=== PATIENT | male | born 1960 | race Caucasian/White ===

== ENCOUNTER 2024-05-03 09:55 | Outpatient (OUT) | payer MEDICARE, SELFPAY ==
--- NOTE | 2024-05-03 | CONS_ITS ---
CONSULTATION DATE: 05/03/2024 TO: Dr. Friend CHIEF COMPLAINT: Includes right buttock pain. HISTORY OF PRESENT ILLNESS: Review of systems, past medical/surgical history were obtained and documented on the health questionnaire and is available upon request. He is a 63-year-old male, who reports having had pain starting in May of 2022. It occurred spontaneous, increased gradually to its present state. He has undergone lumbar surgery. Details are not available, but appears to be described to be described as an L5-S1 fusion. Again, details are unavailable. He reports he did well post procedurally; however, he still had some mild residual pain in the above mentioned areas, rated 7/10, deep aching in character, increased with activities such as standing, walking and performing transitioning maneuvers. Denies any change in bowel and bladder habits, or new sensorimotor change in the lower extremities. MEDICATIONS: He currently takes no medications. He reports significant GI distress with multiple medications including nonsteroidal agents. His KD on today?s visit was 46%. EXAMINATION: Notable for patient having no clinical radiculopathy or myelopathy involving the lower extremities. He did have dysesthesias and hypoesthesia overlying the distribution of the right superior gluteal nerve, but also significant myofascial spasm and dysfunction with myalgia of the right gluteus medius. IMPRESSION: 1. 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 2. Myalgia right gluteus medius. RECOMMENDATIONS: I have placed him on baclofen 10 mg pills, half a pill to one pill at h.s., and to proceed with a diagnostic right superior gluteal nerve injection under fluoroscopic guidance. As part of providing excellent, safe, comprehensive care, the following was completed at our patient's visit: 1. A medication reconciliation and review to ensure accurate knowledge of current/active medications, including asking our patients to inform us about any [id number] medications or herbal remedies/nutritional supplements/alternative remedies. 2. A review to specifically ensure our patients have had annual screening for: elevated body mass index (BMI, see intake chart for exact total), tobacco use, screening for depression, and screening for unhealthy alcohol use. When screening is concerning, patients are provided with education and the specific recommendation to discuss the concerning health issue and treatment options with their primary care provider. SHAWNA
== END 2024-05-03 09:56 | disposition home or self-care (01) ==
LOC: PM 09:56
PROVIDERS: PCP Family Medicine; Visit Provider Anesthesiology Pain Medicine
DX: G58.8 Other specified mononeuropathies (principal); M79.18 Myalgia, other site
CPT/HCPCS: G0463

== ENCOUNTER 2024-05-24 06:55 | Day surgery (SDC) | payer MEDICARE, SELFPAY ==
[2024-05-24 07:02] VITALS: BP 137/81; PULSE 66; TEMP 36.5; O2SAT 97
[2024-05-24 07:57] VITALS: BP 140/73; PULSE 83; O2SAT 94
[2024-05-24 07:58] VITALS: BP 145/79; PULSE 81; O2SAT 96
[2024-05-24] MEDS: BUPIVACAINE HCL 0.25% PF 25 MG/10 ML VIAL 3 ML INJ (08:01)
--- NOTE | 2024-05-24 08:56 | W.PM.PROCNOT ---
Date of procedure: 05/24/24 Pre-op diagnosis: Right Superior Gluteal Neuritis Post-op diagnosis: same as pre-op Procedure: Right Superior gluteal nerve block, diagnostic Performed under fluoroscopic guidance Immediate complications none Anesthesia: none Solution used for injection: In each syringe, 2 milliliters 0.25% Marcaine 2.5 mL is used for injection for each side Time out process compliant After informed consent obtained patient was brought to the procedure room placed in the prone position skin overlying the area was prepped and draped in a sterile fashion using betadine. 25 gauge spinal needle Insert over each of the target areas identified in fluoroscopy corresponding needles were advanced Under fluoroscopic guidance until the target/targets encountered, no indication of intravascular or Intraneuronal needle tip placement. Solution injected.needles removed post procedurally. patient transferred to recovery room in stable condition to be discharged home after meeting criteria Anesthesia: Local Surgeon: Marj Mccarthy Condition: stable
== END 2024-05-24 08:05 | disposition home or self-care (01) ==
LOC: SURGOUT 06:56
PROVIDERS: PCP Family Medicine; Visit Provider Anesthesiology Pain Medicine
DX: G57.81 Other specified mononeuropathies of right lower limb (principal)
CPT/HCPCS: 64450; J0665

== ENCOUNTER 2024-06-01 09:17 | Outpatient (OUT) | payer MEDICARE, SELFPAY ==
--- NOTE | 2024-06-01 09:41 | P.CN_ITS ---
Consult Note: HPI Data of Consult Patient: known to practice within the last 3 years Requesting Physician: Karli Flores NP Primary Care Provider: CORWIN KEMP Family Provider: DANYISC Consult Narrative Reason for consult: f/u Narrative: He is a 63-year-old male, who reports having had right low back pain starting in May of 2022. It occurred spontaneous, increased gradually to its present state. He has undergone lumbar surgery. imaging consistent with L4-S1 fusion. He reports he did well post procedurally; however, he still had some mild residual pain in the above mentioned areas, rated 7/10, deep aching in character, increased with activities such as standing, walking and performing transitioning maneuvers. Denies any change in bowel and bladder habits, or new sensorimotor change in the lower extremities. has undergone 6 weeks of HEP without improvement in pain or functional ability, KD 38% with moderate to severe pain impacting ability to stand, walk, sit for long periods of time, and sleep. Pain today 8/10 increasing to 10/10 with standing, walking, driving, and activity. recently underwent right superior gluteal nerve block with 100% improvement in pain and functional ability for 1 hour after the procedure, significant improvement. cc:: CC: Karli Flores NP Review of Systems ROS Status of ROS 10 or more systems reviewed and unremark able except as noted in history and below PFSH PFSH Medical History Fusion of lumbar spine ?M43.26 - Fusion of spine, lumbar region (ICD-10) COPD (chronic obstructive pulmonary disease) ?J44.9 - Chronic obstructive pulmonary disease, unspecified (ICD-10) Current smoker ?F17.200 - Nicotine dependence, unspecified, uncomplicated (ICD-10) Surgical History Hx of decompressive lumbar laminectomy ?Z98.890 - Other specified postprocedural states (ICD-10) Meds Home Medications and Allergies Home Medications ?Medication ?Instructions ?Recorded ?Confirmed ?Type baclofen 10 mg tablet 10 mg PO DAILY 05/03/24 05/24/24 History omeprazole 40 mg capsule,delayed 40 mg PO DAILY 05/03/24 05/24/24 History release Allergies Allergy/AdvReac Type Severity Reaction Status Date / Time NSAIDS (Non-Steroidal Allergy Intermediate Unknown Verified 05/24/24 07:06 Anti-Inflamma Exam Constitutional Documenting provider has reviewed patient's vital signs: yes Common normals: no apparent distress, oriented x3, healthy appearing, alert and well nourished General appearance: cooperative HENMT Common normals: normocephalic, hearing grossly normal bilaterally and moist oral mucous membranes Head and scalp: normocephalic Eye Common normals: PERRL Pupil: PERRL Neck & C-Spine Common normals: full ROM General: normal visual inspection Chest Common normals: inspection of chest normal Respiratory Common normals: normal respiratory effort, no retractions and no use of accessory muscles Back & Pelvis Lumbar spine/lower back: pain with ROM, lumbar spinal tenderness and paraspinal muscle tenderness Other: significant pain over right superior gluteal nerve Neuro Common normals: oriented x3, CN's II-XII intact bilaterally, moves all extremities, no focal motor deficits, no sensory deficits noted and deep tendon reflexes 2+ bilaterally Sensorium/orientation: alert Motor exam: strength 5/5 throughout and no movement abnormalities noted Psych Common normals: mental status grossly normal, thought process normal, cooperative, affect normal, speech normal and activity/motor behavior normal Speech: normal speech Thought process: normal thought process Results Additional Findings Additional findings: If on a controlled substance or opioids, I have checked an [place] report on this patient and there are no aberrancies noted in the prescribing history.??If on a controlled substance or opioid a drug screen was completed and reviewed within the last year, and if there has not been a drug screen completed we ordered one today to monitor higher risk, state monitored pain medication use. As part of providing excellent, safe, comprehensive care, the following was completed at our patient's visit: 1. A medication reconciliation and review to ensure accurate knowledge of current/active medications, including asking our patients to inform us about any [id number] medications or herbal remedies/nutritional supplements/alternative remedies. 2. A review to specifically ensure our patients have had annual screening for screening for depression, screening for tobacco use, and screening for unhealthy alcohol use. For concerning screenings had a discussion with the patient, provided patient education, and recommended follow-up with primary care provider when appropriate. If patient noted with a risk of falling, they received education on strength, gait, and balance training to prevent future risk of falling. Assessment and Plan Assessment and Plan (1) Unspecified mononeuropathy of right lower limb: (2) Failed back syndrome: Plan right superior gluteal nerve RFA under fluoroscopy start zonegran 50mg HS continue baclofen 10mg HS PRN f/u 1 month after RFA with Dr Mccarthy
== END 2024-06-01 09:18 | disposition home or self-care (01) ==
LOC: PM 09:17
PROVIDERS: PCP Family Medicine; Visit Provider Nurse Practitioner
DX: G57.81 Other specified mononeuropathies of right lower limb (principal); M96.1 Postlaminectomy syndrome, not elsewhere classified
CPT/HCPCS: G0463

== ENCOUNTER 2024-06-07 06:56 | Day surgery (SDC) | payer MEDICARE, SELFPAY ==
--- OUTSIDE RECORDS SUMMARY | 2024-06-07 06:59 | XMS_ITS | CCD ---
Author Organization [facility] CliniSyms Care Team Providers Care Cook Apprentice Name Role Phone Massiel Moore Primary Care Provider JAYLON MAJANO Referring Unavailable MIGHT, MASSIEL Toney Primary Care Unavailable MIGHT, MASSIEL W Primary Care Unavailable OMERO FRANK Referring Unavailable MIGHT, MASSIEL Toney Primary Care Unavailable JAYLON MAJANO Referring Unavailable MIGHT, MASSIEL Toney Primary Care Unavailable JUD CLEARY Attending Unavailable MIGHT, MASSIEL Toney Primary Care Unavailable MIGHT, MASSIEL W Referring Unavailable MIGHT, MASSIEL Toney Primary Care Unavailable OMERO FRANK Referring Unavailable Steph Sims Primary Care Physician Steph Ewing Unavailable Unavailable JAYLON MAJANO Referring Unavailable MIGHT, MASSIEL Toney Primary Care Unavailable JAYLON MAJANO Referring Unavailable MIGHT, MASSIEL Toney Primary Care Unavailable Might [employer], Massielthelma Wick Primary Care Un available Jaylon Majano Attending Unavailable Might BANKING AND FINANCE INSTRUCTOR-[facility], Massielthelma Wick Primary Care Un available Jaylon Majano Attending Unavailable Might BANKING AND FINANCE INSTRUCTOR-FAMILY PRACTICE PHYSICIAN ASSISTANT, Massiel Delano Primary Care Un available Jaylon Majano Attending Unavailable Might [facility], Massiel Delano Primary Care Un available Jaylon Majano Attending Unavailable Might [employer], Massiel Delano Primary Care Un available Jaylon Majano Attending Unavailable Omero Frank PA-C Attending Unavail able Might [employer], Massiel Delano Primary Care Un available Might BANKING AND FINANCE INSTRUCTOR-FAMILY PRACTICE PHYSICIAN ASSISTANT, [facility] Primary Care Un available Jaylon Majano Attending Unavailable Might BANKING AND FINANCE INSTRUCTOR-FAMILY PRACTICE PHYSICIAN ASSISTANT, Massiel Delano Primary Care Un available Jaylon Majano Attending Unavailable Might BANKING AND FINANCE INSTRUCTOR-FAMILY PRACTICE PHYSICIAN ASSISTANT, [facility] Primary Care Un available Jaylon Majano Attending Unavailable Silviano Friend Primary Care Physician [phone] Silviano Friend Referring Unavailable Silviano Frined Admitting Unavailable Silviano Friend Attending Unavailable Silviano Friend Attending Unavailable Silviano Friend Attending Unavailable Allergies Allergy Classification Reported Allergen(s) Allergy Type Date of Onset Reaction(s) Facility NSAIDs (1 source) Ibuprofen Drug Allergy 04-14-2017 Other (See Comments) Metatomix (16 sources) Ibuprofen; Translations: [ibuprofen] Drug Allergy 04-14-2017 Other (See Comments), Sweating (finding), Vomiting (disorder), Dizziness (finding) [facility]- [place], [place] Medications Current Medications Medication Drug Class(es) Dates Sig (Normalized) Sig (Original) Acetaminophen (1 source) Start: 02-17-2021 acetaminophen (TYLENOL) tablet 650 mg acetaminophen 325 mg / HYDROcodone bitartrate 5 mg oral tablet (1 source) Opioid Agonist Start: 08-31-2020 End: 09-03-2020 HYDROcodone-acetami nophen (NORCO) 5-325 MG per tablet Indications: Rib pain on left side Take 1 tablet by mouth every 6 hours as needed for Pain for up to 3 days. Intended supply: 3 days. Take lowest dose possible to manage pain 12 tablet 0 08/31/2020 09/03/2020 Active albuterol 0.83 mg/ml inhalation solution (1 source) beta2-Adrenergic Agonist Start: 02-18-2021 albuterol (PROVENTIL) nebulizer solution 2.5 mg albuterol 0.833 mg/ml / ipratropium bromide 0.167 mg/ml inhalation solution (2 sources) Anticholinergic, beta2-Adrenergic Agonist Start: 02-18-2021 End: 02-18-2021 ipratropium-albuter ol (DUONEB) nebulizer solution 1 ampule ascorbic acid 1000 mg oral tablet (3 sources) Vitamin C Start: 02-21-2021 End: 03-07-2021 take 1 tablet by mouth four times daily ascorbic acid (VITAMIN C) 1000 MG tablet Take 1 tablet by mouth 4 times daily for 14 days 56 tablet 0 02/21/2021 Active Start: 02-18-2021 ascorbic acid (VITAMIN C) tablet 1,000 mg cholecalciferol 0.05 mg oral tablet (3 sources) Vitamin D Start: 02-22-2021 End: 03-08-2021 take 1 tablet by mouth once daily Vitamin D (CHOLECALCIFEROL) 50 MCG (1999) TABS tablet Take 1 tablet by mouth daily for 14 days 14 tablet 0 02/22/2021 Active Start: 02-17-2021 take 2000 [IU] by [facility] once daily 2,000 Units, Oral, DAILY, First dose on 02/17/21 at 1700 Maintenance Dose. dexamethasone 4 mg oral tablet (2 sources) Corticosteroid Start: 02-17-2021 End: 02-27-2021 take 6 mg by mouth once daily 6 mg, Oral, DAILY, First dose on 02/17/21 at 1700, For 10 doses Start: 02-17-2021 End: 02-17-2021 dexamethasone (DECADRON) inj ection 6 mg dextromethorphan hydrobromide 2 mg/ml / guaiFENesin 20 mg/ml oral suspension (2 sources) Uncompetitive N-uifldh-Q-aspartate Receptor Antagonist, Sigma-1 Agonist Start: 02-17-2021 End: 03-03-2021 take 5 mL by mouth every four hours as needed for cough guaiFENesin-dextromethorphan (ROBITUSSIN DM) 100-10 MG/5ML syrup Take 5 mLs by mouth every 4 hours as needed for Cough 120 mL 0 02/21/2021 03/03/2021 Active 0.3 ml enoxaparin sodium 100 mg/ml prefilled syringe (1 source) Low Molecular Weight Heparin Start: 02-17-2021 inject 30 mg by subcuta neous injecti on twice daily 30 mg, SubCUTAneous, 2 TIMES DAILY, First dose on 02/17/21 at 2100 famotidine 20 mg oral tablet (1 source) Histamine-2 Receptor Antagonist Start: 02-17-2021 take 20 mg by mouth twice daily 20 mg, Oral, 2 TIMES DAILY, First dose on 02/17/21 at 2100 gabapentin 300 mg oral capsule (7 sources) Anti-epileptic Agent Start: 03-19-2022 End: 06-01-2023 gabapentin (NEURONTIN) 300 M G capsule melatonin 5 mg oral tablet (1 source) Start: 02-18-2021 melatonin tablet 5 mg 24 hr nicotine 0.292 mg/hr transdermal system (9 sources) Cholinergic Nicotinic Agonist Start: 04-11-2024 nicotine 7 mg/24 hr Transder m ER Film 1 patch(es), Topical, Daily, 30 EA, Refill(s) 0, [id number], 175.2, cm, 04/11/24 10:31:00 EST, Height/Length Dosing, 70.1, kg, 04/11/24 10:31:00 EST, Weight Dosing Start Date: 04/11/24 Status: Ordered Start: 02-22-2021 apply 1 dose transde rmal route once daily nicotine (NICODERM CQ) 21 MG/24HR Place 1 patch onto the skin daily 30 patch 3 02/22/2021 Active Start: 02-17-2021 nicotine (MARQUITA DERM CQ) 21 MG/24HR 1 patch omeprazole 40 mg delayed release oral capsule (14 sources) Proton Pump Inhibitor Start: 04-11-2024 take 1 capsule by mouth once daily omeprazole 40 mg Cap-DR 40 mg = 1 cap(s), Oral, Daily, # 90 cap(s), Refills(s) 1, Pharmacy: [id number], 175.2, cm, 04/11/24 10:31:00 EST, Height/Length Dosing, 70.1, kg, 04/11/24 10:31:00 EST, Weight Dosing Start Date: 04/11/24 Status: Ordered Start: 07-14-2023 take 1 capsule by mo uth once daily before mealtime omeprazole 40 mg capsule,delayed release 07/14/2023 take 1 capsule (40 mg) by oral route once daily before a meal in combination with clarithromycin Start: 06-12-2022 take 1 capsule by mo uth once daily before breakfast omeprazole (PRILOSEC) 40 MG delayed release capsule Indications: Epigastric pain TAKE 1 CAPSULE BY MOUTH ONCE DAILY IN THE MORNING BEFORE BREAKFAST 90 capsule 1 06/12/2022 Active Start: 03-24-2022 take 1 capsule by mo uth once daily before breakfast omeprazole (PRILOSEC) 40 MG delayed release capsule Indications: Epigastric pain TAKE 1 CAPSULE BY MOUTH ONCE DAILY IN THE MORNING BEFORE BREAKFAST 90 capsule 0 03/24/2022 Active Start: 12-16-2021 take 1 capsule by mo uth once daily before breakfast omeprazole (PRILOSEC) 40 MG delayed release capsule Indications: Epigastric pain TAKE 1 CAPSULE BY MOUTH ONCE DAILY IN THE MORNING BEFORE BREAKFAST 90 capsule 0 12/16/2021 Active Start: 02-14-2021 take 1 capsule by mo uth once daily before breakfast omeprazole (PRILOSEC) 40 MG delayed release capsule Indications: Epigastric pain Take 1 capsule by mouth every morning (before breakfast) 90 capsule 0 02/14/2021 Active Start: 02-13-2020 take 1 capsule by mo uth once daily before breakfast omeprazole (PRILOSEC) 40 MG delayed release capsule Indications: Epigastric pain Take 1 capsule by mouth every morning (before breakfast) 90 capsule 3 02/13/2020 Active Start: 07-19-2019 take 1 capsule by mo uth once daily before breakfast omeprazole (PRILOSEC) 40 MG delayed release capsule Indications: Epigastric pain Take 1 capsule by mouth every morning (before breakfast) 90 capsule 1 07/19/2019 Active Start: 02-03-2019 take 1 capsule by mo uth once daily before breakfast omeprazole (PRILOSEC) 40 MG delayed release capsule Indications: Epigastric pain Take 1 capsule by mouth every morning (before breakfast) 90 capsule 1 02/03/2019 Active ondansetron (ZOFRAN-ODT) disintegrating tablet 4 mg (1 source) Start: 02-17-2021 ondansetron (ZOFRAN-ODT) disintegrating tablet 4 mg polyethylene glycol [id number] mg powder for oral solution (1 source) Osmotic Laxative Start: 02-17-2021 17 g, Oral, DAILY PRN, Constipation, Starting on 02/17/21 at 1632 First line therapy for constipation microencapsulated potassium chloride 20 meq extended release oral tablet (1 source) Start: 02-20-2021 End: 02-22-2021 potassium chloride (KLOR-CON M) extended release tablet 40 mEq predniSONE 20 mg oral tablet (2 sources) Start: 10-10-2021 take 1 tablet by mouth once daily predniSONE (DELTASONE) 20 MG tablet 60 mg. Day 1-3 take 3 tablets daily by mouth. 40 mg. Day 4-5 take 2 tablets daily by mouth. 20 mg. Day 6-7 take 1 tablet daily by mouth. 15 tablet 0 10/10/2021 Active Start: 02-21-2021 End: 03-07-2021 take 3 tablets by mouth twice daily, then take 2 tablets by mouth twice daily, then take 1 tablet by mouth twice daily, then take 1 tablet by mouth once daily predniSONE (DELTASONE) 10 MG tablet Take 3 tablets by mouth 2 times daily for 3 days, THEN 2 tablets 2 times daily for 3 days, THEN 1 tablet 2 times daily for 3 days, THEN 1 tablet daily for 5 days. 41 tablet 0 02/21/2021 03/07/2021 Active remdesivir 100 mg in sodium chloride 0.9 % 250 mL IVPB (1 source) Start: 02-18-2021 End: 02-22-2021 remdesivir 100 mg in sodium chloride 0.9 % 250 mL IVPB 3 ml sodium chloride 9 mg/ml injection (5 sources) Start: 02-17-2021 10 mL, IntraVE Nous, EVERY 12 HOURS SCHEDULED (2 times per day), First dose on 02/17/21 at 2100 Start: 02-17-2021 0.9 % sodium c hloride bolus Start: 02-17-2021 take 10 mL intraveno usly once as needed 10 mL, IntraVENous, PRN, Line Care, After every IV line use, Starting on 02/17/21 at 1632 Start: 02-17-2021 End: 02-18-2021 IntraVENous, at 75 mL/hr, CONTINUOUS, Starting on 02/17/21 at 1700 Start: 02-17-2021 take 25 mL intraveno usly every hour as needed 25 mL, IntraVENous, at 100 mL/hr, PRN, If patient receiving piggyback infusions without ordered maintenance IV fluids or with frequent/long duration piggyback infusions, Starting on 02/17/21 at 1632 Administer at the same rate as the piggyback being infused. zinc sulfate 220 mg oral capsule (3 sources) Start: 02-22-2021 End: 03-08-2021 take 2 capsules by mouth once daily zinc sulfate (ZINCATE) 220 (50 Zn) MG capsule Take 2 capsules by mouth daily for 14 days 28 capsule 0 02/22/2021 Active Start: 02-18-2021 zinc sulfate ( ZINCATE) capsule 100 mg Completed/Discontinued Medications Medication Drug Class(es) Dates Sig (Normalized) Sig (Original) acetaminophen 325 mg / oxyCODONE hydrochloride 5 mg oral tablet (2 sources) Opioid Agonist End: 06-01-2023 take 1 tablet by mouth every four hours as needed oxycodone-acetami nophen 5 mg-325 mg tablet take 1 tablet by oral route every 4 hours as needed docusate sodium 100 mg oral capsule (2 sources) take 1 capsule by mouth twice daily docusate sodium 100 mg capsule take 1 capsule (100 mg) by oral route 2 times per day End: 06-01-2023 take 1 capsule by mouth once daily docusate sodium 100 mg capsule 06/01/2023 take 1 capsule (100 mg) by oral route once daily iopamidol (ISOVUE-370) 76 % injection 75 mL (1 source) Start: 02-17-2021 End: 02-17-2021 iopamidol (ISOVUE-370) 76 % injection 75 mL sincalide (KINEVAC) 1.41 mcg in sodium chloride 0.9 % 50 mL infusion (1 source) Start: 02-21-2019 End: 02-21-2019 sincalide (KINEVAC) 1.41 mcg in sodium chloride 0.9 % 50 mL infusion technetium mebrofenin (JANE PEPE) injection 5 millicurie (1 source) Start: 02-21-2019 End: 02-21-2019 technetium mebrofenin (CHOLETEC) injection 5 millicurie technetium sestamibi (CARDIOLITE) injection 30 millicurie (1 source) Start: 02-17-2019 End: 02-17-2019 technetium sestamibi (CARDIOLITE) injection 30 millicurie Problems Active Problems Problem Classification Problem Date Documented Date Episodic/Chronic Chronic obstructive pulmonary disease and bronchiectasis (9 sources) Chronic obstructive lung disease; Translations: [Chronic obstructive pulmonary disease, unspecified] Onset: 02-17-2021 Chronic Esophageal disorders (17 sources) Gastroesophageal reflux disease; Translations: [Gastroesophageal reflux disease without esophagitis] Onset: 04-25-2014 04-25-2014 Chronic Malaise and fatigue (1 source) Weakness; Translations: [Weakness] Onset: 06-08-2023 Episodic Osteoarthritis (1 source) Unspecified osteoarthritis, unspecified site Chronic Other congenital anomalies (4 sources) Metatarsus primus varus of right foot; Translations: [Metatarsus primus varus of right foot] Onset: 03-10-2017 03-10-2017 Other connective tissue disease (1 source) Pain in right foot; Translations: [Pain in right foot] Episodic Other connective tissue disease (2 sources) History of spinal fusion; Translations: [Arthrodesis status] Episodic Other connective tissue disease (3 sources) Arthrodesis status; Translations: [Arthrodesis status] Onset: 07-01-2022 Episodic Other connective tissue disease (1 source) Pain in right arm Onset: 06-01-2023 Episodic Other connective tissue disease (1 source) Pain in left arm Onset: 06-01-2023 Episodic Other connective tissue disease (2 sources) Pain in right leg; Translations: [Pain in right leg] Onset: 06-08-2023 Episodic Other endocrine disorders (8 sources) Mass of left adrenal gland; Translations: [Other specified disorders of adrenal gland] Onset: 06-06-2015 06-06-2015 Chronic Other endocrine disorders (4 sources) Mass of left adrenal gland; Translations: [Left adrenal mass] Onset: 06-06-2015 06-06-2015 Other lower respiratory disease (1 source) Hypoxia; Translations: [Hypoxemia] Episodic Other nervous system disorders (1 source) Carpal tunnel syndrome, bilateral upper limbs; Translations: [Carpal tunnel syndrome, bilateral upper limbs] Onset: 08-13-2023 Chronic Other nervous system disorders (1 source) Anesthesia of skin Episodic Other nervous system disorders (2 sources) Other disturbances of skin sensation Onset: 06-01-2023 Episodic Other non-traumatic joint disorders (1 source) Pain in right hip Episodic Other non-traumatic joint disorders (4 sources) Pain in right hip joint; Translations: [Right hip pain] Onset: 03-27-2014 03-27-2014 Other upper respiratory disease (1 source) Other seasonal allergic rhinitis Chronic Residual codes; unclassified (4 sources) Tobacco user; Translations: [Tobacco abuse] Onset: 03-27-2014 03-27-2014 Chronic Residual codes; unclassified (10 sources) Tobacco user; Translations: [Tobacco use] Onset: 03-27-2014 03-27-2014 Episodic Screening and history of mental health and substance abuse codes (1 source) Tobacco use and exposure - finding; Translations: [Personal history of tobacco use] Chronic Spondylosis; intervertebral disc disorders; other back problems (5 sources) Degeneration of lumbar intervertebral disc; Translations: [Other intervertebral disc degeneration, lumbar region] Onset: 05-26-2022 05-26-2022 Chronic Spondylosis; intervertebral disc disorders; other back problems (7 sources) Chronic low back pain; Translations: [Lumbago with sciatica, right side] Onset: 05-26-2022 05-26-2022 Episodic Unclassified (2 sources) Patient encounter status; Translations: [Screening PSA (prostate specific antigen)] Unclassified (1 source) Low back pain, unspecified; Translations: [Low back pain, unspecified] Onset: 06-08-2023 Past or Other Problems Problem Classification Problem Date Documented Da te Episodic/Chronic Abdominal pain (1 source) Epigastric pain; Translations: [Epigastric pain] Episodic Acquired foot deformities (20 sources) Hallux valgus; Translations: [Hallux valgus (acquired), right foot] Onset: 12-23-2016 Resolved: 02-17-2021 03-10-2017 Chronic Nonspecific chest pain (1 source) Radiating chest pain; Translations: [Radiating chest pain] Episodic Nutritional deficiencies (8 sources) Nutritional marasmus; Translations: [Unspecified severe protein-calorie malnutrition] Onset: 02-18-2021 Resolved: 09-19-2021 Chronic Other aftercare (12 sources) Follow-up status; Translations: [Encounter for other orthopedic aftercare] Onset: 05-13-2017 Resolved: 02-17-2021 05-13-2017 Episodic Other congenital anomalies (2 sources) Metatarsus primus varus of right foot; Translations: [Congenital metatarsus primus varus, right foot] Onset: 03-10-2017 Resolved: 02-17-2021 03-10-2017 Chronic Other congenital anomalies (6 sources) Congenital metatarsus primus varus, right foot; Translations: [Metatarsus primus varus] Onset: 03-10-2017 Resolved: 02-17-2021 02-17-2021 Chronic Other connective tissue disease (12 sources) Pain in hallux; Translations: [Pain in unspecified toe(s)] Onset: 03-27-2014 Resolved: 02-17-2021 03-27-2014 Episodic Other connective tissue disease (1 source) Pain in right foot; Translations: [Pain in right foot] Onset: 03-13-2022 Episodic Other non-traumatic joint disorders (4 sources) Toe joint rigid; Translations: [Hallux rigidus of right foot] Onset: 12-23-2016 03-10-2017 Episodic Other non-traumatic joint disorders (8 sources) Pain in right hip joint; Translations: [Pain in right hip] Onset: 03-27-2014 Resolved: 02-17-2021 03-27-2014 Episodic Other screening for suspected conditions (not mental disorders or infectious disease) (4 sources) Patient encounter status; Translations: [Encounter for screening for malignant neoplasm of prostate] Onset: 04-01-2022 Episodic Residual codes; unclassified (12 sources) FH: premature coronary heart disease; Translations: [Family history of ischemic heart disease and other diseases of the circulatory system] Onset: 03-27-2014 Resolved: 02-17-2021 03-27-2014 Episodic Respiratory failure; insufficiency; arrest (adult) (8 sources) Acute respiratory failure; Translations: [Acute respiratory failure with hypoxia] Onset: 02-17-2021 Episodic Sprains and strains (2 sources) Sprain of right ankle; Translations: [Sprain of unspecified ligament of right ankle, initial encounter] Onset: 03-13-2022 Episodic Viral infection (9 sources) Disease caused by 2019-nCoV; Translations: [COVID-19] Onset: 02-17-2021 Episodic Results Test Name Value Interpretation Reference Range Facility CT Chest, Low Dose Screening on 04-25-2024 CT Chest, Low Dose Screening Exam Date/Time: 04/19/2024 17:05 EST Reason for Exam: Screening;F17.210 Report IMPRESSION: Lung RADS category 1: Negative. No nodules and/or definitely benign nodules. Continue annual screening with screening CT chest in [address] IMAGING OF THE CHEST WITHOUT INTRAVENOUS CONTRAST MEDIUM. HISTORY: Tobacco use. TECHNICAL FACTORS: Low dose CT imaging of the chest was obtained and formatted as 2.5 mm contiguous axial images from the thoracic inlet through the adrenal glands. Sagittal and coronal reconstructions obtained during postprocessing. Intravenous contrast medium: None. Comparison: None FINDINGS: Right lung: Calcified granuloma, right upper lobe. No consolidation, pleural effusion, pneumothorax. Emphysema, greatest in upper lobe. Left lung: No nodules, masses, consolidation, pleural effusion, pneumothorax. Emphysema, greatest in upper lobe. Lymph nodes: No hilar, mediastinal, or axillary lymph node enlargement. Ossified precarinal, subcarinal, and right hilar lymph nodes. Thoracic aorta: Normal in course and caliber. Cardiac: Size normal. No pericardial effusion. Coronary artery calcification identified. Upper abdomen:Limited imaging upper abdomen shows punctate calcifications in spleen. Musculoskeletal:No osteoblastic, and no osteolytic lesions. Diffuse disc space narrowing with anterior osteophytes, thoracic spine. All CT scans at this facility use dose modulation, iterative reconstruction, and/or Report weight based dosing when appropriate to reduce radiation dose to as low as reasonably achievable. Ordering Provider: Silviano Friend FINAL REPORT Dictated: 04/25/2024 1:26 pm Nic Clark MD Signed (Electronic Signature): 04/25/2024 1:26 pm Signed by: Nic Clark MD Transcribed by: SULEMA Technologist: ROSEY Hudson [facility] Ambulatory Visit Summaryon 1 06-11-2023 Ambulatory Visit Summary Ambulatory Visit Summary RUFINA VELAZQUEZ :1960 Visit Date:04/11/2024 Ambulatory Visit Instructions Your Diagnosis GERD without esophagitis Your Care Team Attending Physician - Silviano Friend MD Primary Care Physician - Silviano Friend MD. This Is Your Medications List omeprazole (omeprazole 40 mg Cap-DR) Procedures Performed Surgery, Surgery. Discharge Vitals Temperature (Oral) 36.6 ???C Heart Rate (Peripheral) 82 Respiratory Rate 18 Blood Pressure 120/64 Height 175.2 cm Height 69 in Weight 70.1 kg Weight 154.544 lb BMI 22.84 What to do next Scheduled Follow-Up Appointments Thursday 9:15 AM EST With: Silviano Friend MD Where: [facility] [address] [id number]- Medications What How Much When Instructions Unchanged omeprazole (omeprazole 40 mg Cap-DR) 1 Capsules By Mouth Every day Allergies ibuprofen (Sweating, Vomiting, Dizzy) Problems Ongoing - Any problem that you are currently receiving treatment for. GERD without esophagitis Patient Survey You may receive a survey via text or e-mail asking about your office visit. Please share your experience with us by completing your survey. We appreciate your feedback and thank you for choosing us for your care. Normal [facility] Family Medicine Office/Clini c Noteon 04-11-2024 Family Medicine Office/Clinic Note Family Medicine Office/Clinic Note Chief Complaint Chronic back pain and cervical radiculopathy HPI Staff Rufina is a 63 year old male presenting to [facility] Says Dr Gill last provider but went through all his old records and he wasn't ever seen by Dr Gill Establish Care: History: reflux Any previous diagnosis: History of seeing any specialist: When was your last doctors visit: unsure Last provider: Joleen Duarte Any recent labs: none Health Maintenance UTD: Colonoscopy: only has done hemoccuts PSA: none Acute: Current issues/complaints: needs his omeprazole refilled History of Present Illness The patient is a 63-year-old male presenting with chronic back pain and cervical radiculopathy. The back pain has been ongoing for approximately three years following cervical spine surgery performed by Dr. Majano. The surgery addressed cervical vertebrae 4, 5, and 7, and a procedure was attempted on lumbar region L5 due to a nerve impingement, which was described as placing a stent but this did not relieve symptoms. The patient currently reports that the back pain radiates across the back and extends down the leg, predominantly affecting the right side, with associated numbness and tingling in the right foot. The pain in the cervical region is rated as 7/10 and sciatic nerve pain is also consistently rated as 7/10, while the lumbar region pain is rated 3-4/10. Surgical intervention on the neck was discussed as an option but the patient declined due to perceived high risk. The patient aims for management alternatives and is considering seeking a second opinion, possibly through [facility]. The patient has a significant history of cigarette smoking, reducing from two packs a day to a half pack a day, with a desire to quit smoking. Review of Systems PHQ Score Initial Depression Screen Score: 0 SCORE Physical Exam Vitals & Measurements T: 36.6 ???C(Oral) HR: 82(Peripheral) RR: 18 BP: 120/64 SpO2: 94% HT: 69 in HT: 175.2 cm WT: 70.1 kg WT: 154.544 lb BMI: 22.84 General: alert, no acute distress ENMT: oral mucosa moist Cardiovascular: Regular rate and rhythm, normal peripheral perfusion Respiratory: Lungs clear to auscultation, respirations non labored Extremities: no deformity, no trauma Neurological: oriented x 4, level of consciousness appropriate for age, CN II-XII intact, motor strength equal & normal bilaterally, speech normal Abdomen: Soft, Non-tender, Non-distended, + Bowel sounds Assessment/Plan 1. GERD without esophagitis (K21.9: Gastro-esophageal reflux disease without esophagitis) The patient continues to manage symptoms successfully with daily medication intake in the morning. Monitor adherence to the regimen and continue current treatment. Ordered: nicotine, 1 patch(es), Topical, Daily, 30 EA, Refill(s) 0, [facility], 175.2, cm, 04/11/24 10:31:00 EST, Height/Length Dosing, 70.1, kg, 04/11/24 10:31:00 EST, Weight Dosing CT Chest, Low Dose Screening [facility] [place] [facility] [place] Ambulatory Referral 2. Nicotine dependence, cigarettes, uncomplicated (F17.210) The patient expresses a desire to quit smoking, currently reducing tobacco intake. Discuss use of nicotine patches with dose adjustment and advice on mitigation of withdrawal symptoms. Recommend lung cancer screening due to smoking history. Ordered: nicotine, 1 patch(es), Topical, Daily, 30 EA, Refill(s) 0, [facility], 175.2, cm, 04/11/24 10:31:00 EST, Height/Length Dosing, 70.1, kg, 04/11/24 10:31:00 EST, Weight Dosing CT Chest, Low Dose Screening [facility] [place] Referral [facility] [place] Ambulatory Referral 3. Radiculopathy, cervical region (M54.12) Evaluate the potential need for further imaging studies (MRI) pending second opinion outcomes. Minimized invasive intervention due to the patient's risk aversion. Reinforce exploration of alternative pain management strategies. Ordered: nicotine, 1 patch(es), Topical, Daily, 30 EA, Refill(s) 0, [facility], 175.2, cm, 04/11/24 10:31:00 EST, Height/Length Dosing, 70.1, kg, 04/11/24 10:31:00 EST, Weight Dosing CT Chest, Low Dose Screening [facility] [place] Referral [facility] [place] Ambulatory Referral 4. Sciatica, right side (M54.31) Address sciatic symptoms through adjunctive management, consider referral pathways for pain management for interim relief, emphasize review through second opinion avenues. Ordered: nicotine, 1 patch(es), Topical, Daily, 30 EA, Refill(s) 0, [facility], 175.2, cm, 04/11/24 10:31:00 EST, Height/Length Dosing, 70.1, kg, 04/11/24 10:31:00 EST, Weight Dosing CT Chest, Low Dose Screening [facility] [place] Referral [facility] [place] Ambulatory Referral Orders: omeprazole, 40 mg = 1 cap(s), Oral, Daily, # 90 cap(s), Refills(s) 1, Pharmacy: [facility], 175.2, cm, 04/11/24 10:31:00 EST, Height/Length Dosing, 70.1, kg, 04/11/24 10:31:00 EST, Weight Dosing 65 (more content not included)... Normal [facility] Comment on above: Result Comment: Elec tronically Signed By: Phuc DALEY, Silviano Todd\.br\Date and Time Signed: 04/11/24 11:41 EST Neurosurgery Office/Clinic N oteon 09-03-2023 Neurosurgery Office/Clinic Note Chief Complaint Patient is being seen to review imaging. History of Present Illness The purpose of this visit is to review his cervical mri and discuss emg/ncs again. He did the wrist braces at night and he feels that it helped on his right hand but not the left. He has been dropping things and he feels his left hand is weaker than the right. He is right-handed. He did not choose to go to pain managment for the right hip injection. Once again, he describes pain in the right trapezius and neck pain. 07/01/2023 Visit: The purpose of this visit is to review right hip xray, cervical xray, lumbar mri, bilateral UE emg/ncs, success with PT and steroid taper. He did not complete the medrol dose pack since it didnt help and he didnt like how it made him feel. He did not do PT because he says he didnt know where to go. His symptoms are unchanged. 05/21/2023 Visit: One year post op follow up appointment s/p L4-S1 laminectomy fixation fusion and L5-S1 PLIF 06/03/2022 Robb reports a continuation of his achy back but also about 8 months of recurrent right leg pain. He wanted to discuss his neck, back and hands today. Low back pain: constant daily pain, activity dependent pain, towards right side, 5-9/10 pain. Right leg pain: present 8 months, constant daily pain, 6/10 pain, with numbness of the entire right foot and subjective weakness of the right leg. Neck pain: started 6 weeks ago, radiates to the right trapezius, intermittent sharp pain that occurs 7-8x/day and does not last long. Arm pain: none Hand numbness: longstanding issue, intermittent numbness in thumb+index+middle fingers, with hand weakness and history of dropping objecs and wrist pain. Conservative measures: gabapentin, he is unable to take tylenol and ibuprofen 08/28/2022 Visit: Three month post op follow up appointment s/p L4-S1 laminectomy fixation fusion and L5-S1 PLIF 06/03/2022 No leg pain. He continues to take one narcotic per day. He is ready to return to work. No incision issues. 07/03/2022 Visit: One month post op follow up appointment s/p L4-S1 laminectomy fixation fusion and L5-S1 PLIF 06/03/2022 No leg pain. He still takes narcotic occasionally for mild back pain. He is eager to return to work but his job requires heavy lifting at times. No incision issues. 06/19/2022 Visit: He is here today for initial postoperative appointment. He is s/p L4-S1 laminectomy fixation fusion and L5-S1 PLIF 06/03/2022. He is doing well since surgery. He has numbness on the top of the right foot, otherwise no pain, numbness or tingling in the legs. He continues to have some low back pain. No fevers, no drainage from the incision. No bladder or bowel issues. He is using the LSO, walking frequently. He is still using Percocet, asking about a muscle relaxer as well. [1] [1] [1] Review of Systems General Adult ROS Fatigue: No Weakness: No Cardiovascular EENMT Gastrointestinal Genitourinary Hematologic/Lymphati c Musculoskeletal Other Musculoskeletal: Yes Neurological Numbness: Yes Psychiatric Respiratory Skin Physical Exam Vitals & Measurements HR: 76 (Peripheral) BP: 150/80 HT: 183 cm WT: 71.6 kg WT: 71.6 kg (Dosing) BMI: 21.38 Additional Vitals BP Position/Location: Sitting, Left arm General: Alert and oriented, well nourished, no acute distress Eye: PERRL, EOMI, normal conjunctiva HENT: Normocephalic, clear tympanic membranes, normal hearing, moist oral mucosa, no scleral icterus, no sinus tenderness Neck: Supple, non-tender, no carotid bruits, no JVD, no lymphadenopathy Lungs: Clear to auscultation and percussion, non-labored respiration Heart: Normal rate, regular rhythm, no murmur, gallop or edema Abdomen: Soft, non-tender, non-distended, normal bowel sounds, no masses]. Musculoskeletal: [Normal range of motion and strength, no tenderness or swelling Skin: Skin is warm, dry and pink, no rashes or lesions Psychiatric: Cooperative, appropriate mood and affect Neurologic: EOMI, PERRLA, TML, FS, No drift 5/5 jelani UE strength except 4/5 left and 4+/5 right thumb/pinky opposition 5/5 jelani LE strength 2+ UE reflexes excpept 1+ jelani tri 1+ LE reflexes Clonus absent Assessment/Plan Status post lumbar spinal fusion Assessment: 1. s/p L4-S1 laminectomy fixation fusion and L5-S1 PLIF 06/03/2022 2. 50+ pack years 3. post op MRI 06/08/23: L2-3: small disc bulge without significant stenosis; L3-4: facet arthropathy and mod bilateral foraminal stenosis; L4-5-S1: fused levels with mild to mod residual foraminal stenosis at L5-S1 4. lumbar xrays 05/21/23: no complication seen with hardware at L4-S1 5. neck pain with radiation to the right trapezius 6. low back pain and recurrent right leg pain 7. intermittent bilateral hand numbness, wrist pain and weakness of thumb/pinky opposition 8. Jelani UE emg/ncs 06/01/2023: mild bilateral carpal tunnel syndrome at the wrist; no radiculopathy, myopathy, or other neuropathy 9. Right (more content not included)... Normal [facility] MR CERVICAL SPINE WO CONTon 08-15-2023 MR CERVICAL SPINE WO CONT MR CERVICAL SPINE WO CONT STUDY: MR CERVICAL SPINE WO CONT HISTORY: Carpal tunnel syndrome, bilateral; Degenerative disc disease, cervical; Neck pain TECHNIQUE: * Routine multiplanar multisequence MR imaging of the cervical spine was performed without intravenous contrast. FINDINGS: Vertebral body height loss at C6 and to a lesser extent C5 and C7, likely degenerative. Intervertebral disc space narrowing most significant at C5-C6 and C6-C7. Modic type I degenerative endplate changes at C6-C7. Otherwise no evidence of acute fracture or spondylolisthesis. Vertebral body hemangioma at T1. Probable turbulent flow at the level the torcula. Visualized posterior fossa and cervical cord signal are broadly unremarkable. Mild bilateral facet arthropathy results in at least mild bilateral neuroforaminal narrowing. No significant spinal canal narrowing. C3-C4: Small central disc osteophyte complex, mild bilateral facet arthropathy results in mild ventral thecal sac effacement and moderate bilateral neuroforaminal narrowing. C4-C5: Mild broad-based disc osteophyte complex, bilateral facet arthropathy results in mild spinal canal narrowing with at least moderate left and [id number]-tn-jzhknkge right neuroforaminal narrowing. C5-C6: Mild broad-based disc osteophyte complex with widening of the ventral cord and possible sequela of mild chronic compressive myelopathy. Facet arthropathy also contributes to [id number] bilateral neuroforaminal narrowing. C6-C7: Moderate broad-based disc osteophyte complex, ligamentum flavum hypertrophy results in zzezcdkx-fu-uscyxo spinal canal narrowing and ventral cord flattening. Facet and uncovertebral arthropathy results in severe bilateral neuroforaminal narrowing. C7-T1: Small central disc osteophyte complex and facet arthropathy results in jvyltnuo-ke-hlwlvq bilateral neuroforaminal narrowing. Mild spinal canal narrowing. IMPRESSION: * Multilevel degenerative spondylosis most significant at C6-C7 where there are Modic type I degenerative endplate changes, bxcklwea-ee-[id number] spinal canal narrowing and severe bilateral neuroforaminal narrowing. Finalized by Isauro Gomez on 08/14/2023 11:58 PM Normal [facility] Neurosurgery Office/Clinic N jazminon 07-01-2023 Neurosurgery Office/Clinic Note Chief Complaint Patient is being seen to review MRI lumbar and cervical. History of Present Illness The purpose of this visit is to review right hip xray, cervical xray, lumbar mri, bilateral UE emg/ncs, success with PT and steroid taper. He did not complete the medrol dose pack since it didnt help and he didnt like how it made him feel. He did not do PT because he says he didnt know where to go. His symptoms are unchanged. 05/21/2023 Visit: One year post op follow up appointment s/p L4-S1 laminectomy fixation fusion and L5-S1 PLIF 06/03/2022 Robb reports a continuation of his achy back but also about 8 months of recurrent right leg pain. He wanted to discuss his neck, back and hands today. Low back pain: constant daily pain, activity dependent pain, towards right side, 5-9/10 pain. Right leg pain: present 8 months, constant daily pain, 6/10 pain, with numbness of the entire right foot and subjective weakness of the right leg. Neck pain: started 6 weeks ago, radiates to the right trapezius, intermittent sharp pain that occurs 7-8x/day and does not last long. Arm pain: none Hand numbness: longstanding issue, intermittent numbness in thumb+index+middle fingers, with hand weakness and history of dropping objecs and wrist pain. Conservative measures: gabapentin, he is unable to take tylenol and ibuprofen 08/28/2022 Visit: Three month post op follow up appointment s/p L4-S1 laminectomy fixation fusion and L5-S1 PLIF 06/03/2022 No leg pain. He continues to take one narcotic per day. He is ready to return to work. No incision issues. 07/03/2022 Visit: One month post op follow up appointment s/p L4-S1 laminectomy fixation fusion and L5-S1 PLIF 06/03/2022 No leg pain. He still takes narcotic occasionally for mild back pain. He is eager to return to work but his job requires heavy lifting at times. No incision issues. 06/19/2022 Visit: He is here today for initial postoperative appointment. He is s/p L4-S1 laminectomy fixation fusion and L5-S1 PLIF 06/03/2022. He is doing well since surgery. He has numbness on the top of the right foot, otherwise no pain, numbness or tingling in the legs. He continues to have some low back pain. No fevers, no drainage from the incision. No bladder or bowel issues. He is using the LSO, walking frequently. He is still using Percocet, asking about a muscle relaxer as well. [1] [1] Review of Systems General Adult ROS Fatigue: Yes Weakness: Yes Cardiovascular EENMT Gastrointestinal Genitourinary Hematologic/Lymphati c Musculoskeletal Back pain: Yes Other Musculoskeletal: Yes Neurological Numbness: Yes Psychiatric Respiratory Skin Physical Exam Vitals & Measurements HR: 72 (Peripheral) BP: 122/70 HT: 183 cm WT: 74.3 kg WT: 74.3 kg (Dosing) BMI: 22.19 Additional Vitals BP Position/Location: Sitting, Left arm General: Alert and oriented, well nourished, no acute distress Eye: PERRL, EOMI, normal conjunctiva HENT: Normocephalic, clear tympanic membranes, normal hearing, moist oral mucosa, no scleral icterus, no sinus tenderness Neck: Supple, non-tender, no carotid bruits, no JVD, no lymphadenopathy Lungs: Clear to auscultation and percussion, non-labored respiration Heart: Normal rate, regular rhythm, no murmur, gallop or edema Abdomen: Soft, non-tender, non-distended, normal bowel sounds, no masses]. Musculoskeletal: [Normal range of motion and strength, no tenderness or swelling Skin: Skin is warm, dry and pink, no rashes or lesions Psychiatric: Cooperative, appropriate mood and affect Neurologic: EOMI, PERRLA, TML, FS, No drift 5/5 jelani UE strength 5/5 jelani LE strength UE reflexes: 2+ bi and br and 1+ tri 1+ LE reflexes Clonus absent Assessment/Plan Status post lumbar spinal fusion Assessment: 1. s/p L4-S1 laminectomy fixation fusion and L5-S1 PLIF 06/03/2022 2. 50+ pack years 3. post op MRI 06/08/23: L2-3: small disc bulge without significant stenosis; L3-4: facet arthropathy and mod bilateral foraminal stenosis; L4-5-S1: fused levels with mild to mod residual foraminal stenosis at L5-S1 4. lumbar xrays 05/21/23: no complication seen with hardware at L4-S1 5. neck pain with radiation to the right trapezius 6. low back pain and recurrent right leg pain 7. intermittent bilateral hand numbness, wrist pain and weakness of thumb/pinky opposition 8. Jelani UE emg/ncs 06/01/2023: mild bilateral carpal tunnel syndrome at the wrist; no radiculopathy, myopathy, or other neuropathy 9. Right hip xray: mild right hip OA 10. cerival xray: severe DDD at C6-7 Plan: With respect to his right trapezius pain and neck pain, we will encourage him once again to do PT and will order a cervical mri. With respect to his mild bilateral CTS, I am prescribing bilateral wrist braces to be worn at night. If those fail we can discuss CTR in the future. With respect to his lumbar mri, I do not see a clear etiology for his right leg pain. I will order a RLE emg/n (more content not included)... Normal [facility] MR LUMBAR SPINE WO CONTon MR LUMBAR SPINE WO CONT MR LUMBAR SPINE WO CONT CLINICAL INFORMATION: Lumbar radiculopathy; Weakness generalized; Low back pain, unspecified back pain laterality, unspecified chronicity, unspecified whether sciatica present; Right leg pain TECHNIQUE: MR LUMBAR SPINE WO CONT The sequence multiplanar imaging of the lumbar spine was obtained utilizing the routine lumbar protocol. Patient status post pedicle screw fixation at L4-S1. There is slight anterolisthesis of L5 on S1, 3 mm. Inversion recovery images show no significant bone marrow edema, contusion, or fracture. At the L5-S1 level broad-based disc protrusion and degenerative changes produce moderate bilateral neural foraminal narrowing, right slightly worse than left. Central canal is patent. At the L4-5 level degenerative changes are noted with mild bilateral neural foraminal narrowing. Central canal is patent. At the L3-4 level broad-based disc protrusion produces moderate bilateral neural foraminal narrowing. Central canal is narrowed to a mild to moderate degree. At the L2-3 level there is disc protrusion without significant canal or neural foraminal compromise. The L1-2 level is unremarkable. Conus tip is at the L1 level without cord signal characteristic abnormality. IMPRESSION: Bilateral neural foraminal narrowing at L3-4 through L5-S1. Finalized by Matt Ramos MD on 06/09/2023 10:13 AM Normal [facility] No Panel Informationon 05-22 Tobacco smoking status Current Tobacco User Inva lid Interpretation Code [facility] [employer] XR Hip 2-3 Views Righton XR Hip 2-3 Views Right EXAM: XR Hip 2-3 Views Right HISTORY: Other (please specify), right hip pain COMPARISON: None. TECHNIQUE: AP pelvis and lateral view of the right hip FINDINGS: Pelvic ring is maintained. There is no diastases of the sacroiliac joints or symphysis pubis. Mild changes of osteoarthritis are seen within the right femoral acetabular joint. There is no fracture or dislocation. There are postoperative changes related to prior lumbar spine fusion. There is no soft tissue abnormality. IMPRESSION: Mild right hip osteoarthritis. Final Dictated by: Natalia Roa MD Dictated DT/TM: 05/22/2023 9:09 am Signed by: Natalia Roa MD Signed (Electronic Signature): 05/22/2023 9:15 am (If Report Is Signed, Electronically Signed in Other Vendor System) Normal [facility] XR Spine Cervical 2 or 3 Vie wson 05-22-2023 XR Spine Cervical 2 or 3 Views EXAM: XR Spine Cervical 2 or 3 Views HISTORY: Other (please specify), neck pain COMPARISON: None. TECHNIQUE: AP and lateral views in neutral, flexion, and extension FINDINGS: Vertebral body height and alignment is maintained. There is no evidence of instability on flexion or extension. There is severe disc space narrowing at C6-C7. There is mild disc space narrowing at C5-C6. There is no prevertebral soft tissue swelling. IMPRESSION: Severe degenerative disc disease C6-C7. Final Dictated by: Natalia Roa MD Dictated DT/TM: 05/22/2023 9:06 am Signed by: Natalia Roa MD Signed (Electronic Signature): 05/22/2023 9:09 am (If Report Is Signed, Electronically Signed in Other Vendor System) Normal [facility] Neurosurgery Office/Clinic N oteon 05-21-2023 Neurosurgery Office/Clinic Note Chief Complaint Patient is being seen 1 yr follow up. History of Present Illness One year post op follow up appointment s/p L4-S1 laminectomy fixation fusion and L5-S1 PLIF 06/03/2022 Robb reports a continuation of his achy back but also about 8 months of recurrent right leg pain. He wanted to discuss his neck, back and hands today. Low back pain: constant daily pain, activity dependent pain, towards right side, 5-9/10 pain. Right leg pain: present 8 months, constant daily pain, 6/10 pain, with numbness of the entire right foot and subjective weakness of the right leg. Neck pain: started 6 weeks ago, radiates to the right trapezius, intermittent sharp pain that occurs 7-8x/day and does not last long. Arm pain: none Hand numbness: longstanding issue, intermittent numbness in thumb+index+middle fingers, with hand weakness and history of dropping objecs and wrist pain. Conservative measures: gabapentin, he is unable to take tylenol and ibuprofen 08/28/2022 Visit: Three month post op follow up appointment s/p L4-S1 laminectomy fixation fusion and L5-S1 PLIF 06/03/2022 No leg pain. He continues to take one narcotic per day. He is ready to return to work. No incision issues. 07/03/2022 Visit: One month post op follow up appointment s/p L4-S1 laminectomy fixation fusion and L5-S1 PLIF 06/03/2022 No leg pain. He still takes narcotic occasionally for mild back pain. He is eager to return to work but his job requires heavy lifting at times. No incision issues. 06/19/2022 Visit: He is here today for initial postoperative appointment. He is s/p L4-S1 laminectomy fixation fusion and L5-S1 PLIF 06/03/2022. He is doing well since surgery. He has numbness on the top of the right foot, otherwise no pain, numbness or tingling in the legs. He continues to have some low back pain. No fevers, no drainage from the incision. No bladder or bowel issues. He is using the LSO, walking frequently. He is still using Percocet, asking about a muscle relaxer as well. [1] Review of Systems General Adult ROS Fatigue: No Weakness: No Cardiovascular EENMT Gastrointestinal Genitourinary Hematologic/Lymphati c Musculoskeletal Back pain: Yes Other Musculoskeletal: Yes Neurological Numbness: No Psychiatric Respiratory Skin Physical Exam Vitals & Measurements HR: 72 (Peripheral) BP: 120/72 HT: 183 cm WT: 74.3 kg WT: 74.3 kg (Dosing) BMI: 22.19 Additional Vitals BP Position/Location: Sitting, Left arm General: Alert and oriented, well nourished, no acute distress Eye: PERRL, EOMI, normal conjunctiva HENT: Normocephalic, clear tympanic membranes, normal hearing, moist oral mucosa, no scleral icterus, no sinus tenderness Neck: Supple, non-tender, no carotid bruits, no JVD, no lymphadenopathy Lungs: Clear to auscultation and percussion, non-labored respiration Heart: Normal rate, regular rhythm, no murmur, gallop or edema Abdomen: Soft, non-tender, non-distended, normal bowel sounds, no masses]. Musculoskeletal: [Normal range of motion and strength, no tenderness or swelling Skin: Skin is warm, dry and pink, no rashes or lesions Psychiatric: Cooperative, appropriate mood and affect Neurologic: EOMI, PERRLA, TML, FS, No drift 5/5 jelani UE strength except 4/5 bilateral thumb/pinky opposition 5/5 jelani LE strength 2+ UE reflexes except 1+ jelani tri Clonus absent Assessment/Plan Status post lumbar spinal fusion Assessment: 1. s/p L4-S1 laminectomy fixation fusion and L5-S1 PLIF 06/03/2022 2. 50+ pack years 3. pre op Lumbar MRI: L4-5: extruded left L4-5 fragment and left disc bulge with severe left and mod right LR stenosis; L5-s1: grade one degenerative spondylolisthesis and severe right and mod left foraminal narrowing secondary to disc bulge and mod to severe facet arthropathy [2] 4. lumbar xrays 05/21/23: no complication seen with hardware at L4-S1 5. neck pain with radiation to the right trapezius 6. low back pain and recurrent right leg pain 7. intermittent bilateral hand numbness, wrist pain and weakness of thumb/pinky opposition Plan: medrol dose pack PT for his neck pain + trapezius pain Mri lumbar - for recurrent right leg pain Bilateral UE emg/ncs for symptoms of carpal tunnel syndrome cervical xrays to investigate neck pain Right hip xray to investigate right leg pain Follow up after the above Time Spent with the Patient I have personally spent 20 minutes on this date, directly related to today's patient visit, including pre and post visit work, for this date of service. Time listed does not include time spent on separately billable services. Problem List/Past Medical History Ongoing Acid reflux Arthritis Back pain COPD (chronic obstructive pulmonary disease) Numbness Seasonal allergies Smoker Historical No qualifying data Procedure/Surgical History Ambulatory surgery (2011) Ambulatory surgery (2018) Adherent cataract (2019) Fusion Spine Lumbar Posterior with (more content not included)... Normal [facility] XR LUMBAR SPINE (MIN 4 VIEWS )on 08-26-2022 XR LUMBAR SPINE (MIN 4 VIEWS) EXAMINATION: 5 XRAY VIEWS OF THE LUMBAR SPINE 08/26/2022 8:20 am COMPARISON: Lumbar spine radiographs on 07/01/2022 HISTORY: ORDERING SYSTEM PROVIDED HISTORY: S/P spinal fusion TECHNOLOGIST PROVIDED HISTORY: With flexion and extension FINDINGS: L4-sacral posterior spinal fusion is evident with an intervertebral device at L5-S1. The hardware appears intact. Bone density is low.Grade 1 L5-S1 anterolisthesis is unchanged between the flexion and extension views.The remaining nonoperative vertebral bodies show no evidence of fracture.Multilevel degenerative disc and joint disease is evident.Atherosclero tic calcification is present. IMPRESSION: 1. Postoperative changes. Interpreted by: David Apodaca MD Signed by: David Apodaca MD 08/26/22 Final result Normal [facility] 1. Postoperative changes. [facility] EXAMINATION: 5 XRAY VIEWS OF THE LUMBAR SPINE 08/26/2022 8:20 am COMPARISON: Lumbar spine radiographs on 07/01/2022 HISTORY: ORDERING SYSTEM PROVIDED HISTORY: S/P spinal fusion TECHNOLOGIST PROVIDED HISTORY: With flexion and extension FINDINGS: L4-sacral posterior spinal fusion is evident with an intervertebral device at L5-S1. The hardware appears intact. Bone density is low.Grade 1 L5-S1 anterolisthesis is unchanged between the flexion and extension views.The remaining nonoperative vertebral bodies show no evidence of fracture.Multilevel degenerative disc and joint disease is evident.Atherosclero tic calcification is present. [facility] David Apodaca MD - 08/26/2022 EXAMINATION: 5 XRAY VIEWS OF THE LUMBAR SPINE 08/26/2022 8:20 am COMPARISON: Lumbar spine radiographs on 07/01/2022 HISTORY: ORDERING SYSTEM PROVIDED HISTORY: S/P spinal fusion TECHNOLOGIST PROVIDED HISTORY: With flexion and extension FINDINGS: L4-sacral posterior spinal fusion is evident with an intervertebral device at L5-S1. The hardware appears intact. Bone density is low.Grade 1 L5-S1 anterolisthesis is unchanged between the flexion and extension views.The remaining nonoperative vertebral bodies show no evidence of fracture.Multilevel degenerative disc and joint disease is evident.Atherosclero tic calcification is present. IMPRESSION: 1. Postoperative changes. [facility] [employer] Work Phone: Radiology Study observation (narrative) [facility] [employer] Phone: XR LUMBAR SPINE (MIN 4 VIEWS )Ordered By: David Apodaca on 08-26-2022 [facility] XR LUMBAR SPINE (2-3 VIEWS)o n 07-02-2022 XR LUMBAR SPINE (2-3 VIEWS) EXAMINATION: 3 XRAY VIEWS OF THE LUMBAR SPINE 07/01/2022 10:05 am COMPARISON: March 07, 2014. HISTORY: ORDERING SYSTEM PROVIDED HISTORY: S/P spinal fusion FINDINGS: New laminectomies and posterior fusion rods and pedicular screws L4-L5 and S1. Increased spondylolisthesis L5-S1. Disc spacer L5-S1 is new. Hardware appears intact. IMPRESSION: Status post posterior interbody fusion L4-L5 and S1. Grade 1 spondylolisthesis L5-S1 increased. Interpreted by: Tonny Altamirano MD Signed by: Tonny Altamirano MD 07/01/22 Final result Normal [facility] XR LUMBAR SPINE (2-3 VIEWS)o n 07-01-2022 Status post posterior interbody fusion L4-L5 and S1. Grade 1 spondylolisthesis L5-S1 increased. [facility] EXAMINATION: 3 XRAY VIEWS OF THE LUMBAR SPINE 07/01/2022 10:05 am COMPARISON: March 07, 2014. HISTORY: ORDERING SYSTEM PROVIDED HISTORY: S/P spinal fusion FINDINGS: New laminectomies and posterior fusion rods and pedicular screws L4-L5 and S1. Increased spondylolisthesis L5-S1. Disc spacer L5-S1 is new. Hardware appears intact. [facility] Tonny Altamirano MD - 07/01/2022 EXAMINATION: 3 XRAY VIEWS OF THE LUMBAR SPINE 07/01/2022 10:05 am COMPARISON: March 07, 2014. HISTORY: ORDERING SYSTEM PROVIDED HISTORY: S/P spinal fusion FINDINGS: New laminectomies and posterior fusion rods and pedicular screws L4-L5 and S1. Increased spondylolisthesis L5-S1. Disc spacer L5-S1 is new. Hardware appears intact. IMPRESSION: Status post posterior interbody fusion L4-L5 and S1. Grade 1 spondylolisthesis L5-S1 increased. [employer] Work Phone: Radiology Study observation (narrative) [employer] Work Phone: XR LUMBAR SPINE (2-3 VIEWS)O rdered By: Tonny Altamirano on 07-01-2022 [employer] Phone: Lipid Panelon 04-02-2022 Cholesterol [Mass/Vol] 177 mg/dL NINF - 200 mg/dL [employer] Comment on above: Cholesterol Guidelines: <200 Desirable 200-240 Borderline >240 Undesirable Cholesterol in HDL [Mass/Vol] 65 mg/dL 40 - PINF mg/dL [employer] Comment on above: HDL Guidelines: <40 Undesirable 40-59 Borderline >59 Desirable Cholesterol in LDL [Mass/Vol] 87 mg/dL 0 - 130 mg/dL [employer] Comment on above: LDL Guidelines: <100 Desirable 100-129 Near to/above Desirable 130-159 Borderline >159 Undesirable Direct (measured) LDL and calculated LDL are not interchangeable tests. Cholesterol.total/Chol esterol in HDL [Mass ratio] 2.7 {ratio} NINF - 5 [employer] Triglyceride [Mass/Vol] 124 mg/dL NINF - 150 mg/dL [employer] Comment on above: Triglyceride Guidelines: <150 Desirable 150-199 Borderline 200-499 High >499 Very high Based on AHA Guidelines for fasting triglyceride, February 2012. [employer] Lipid Profileon 04-02-2022 Cholesterol [Mass/Vol] 177 mg/dL Normal <200 [facility] Comment on above: Result Comment: Cholesterol Guidelines: <200 Desirable 200-240 Borderline >240 Undesirable Performed By: #### L IPR #### [employer] [address] [place] [id number] Lace Mender: Nirav Steinberg MD Cholesterol in HDL [Mass/Vol] 65 mg/dL Normal >40 [facility] Comment on above: Result Comment: HDL Guidelines: <40 Undesirable 40-59 Borderline >59 Desirable Performed By: #### L IPR #### [address] [address] Lace Mender: Nirav Steinberg MD Cholesterol in LDL [Mass/Vol] 87 mg/dL Normal 0-130 [facility] Comment on above: Result Comment: LDL Guidelines: <100 Desirable 100-129 Near to/above Desirable 130-159 Borderline >159 Undesirable Direct (measured) LDL and calculated LDL are not interchangeable tests. Performed By: #### L IPR #### [address] [address] Lace Mender: Nirav Steinberg MD Cholesterol.total/Chol esterol in HDL [Mass ratio] 2.7 {ratio} Normal <5 [facility] Comment on above: Performed By: #### L IPR #### [address] [address] Lace Mender: Nirav Steinberg MD Triglyceride [Mass/Vol] 124 mg/dL Normal <150 [facility] Comment on above: Result Comment: Triglyceride Guidelines: <150 Desirable 150-199 Borderline 200-499 High >499 Very high Based on AHA Guidelines for fasting triglyceride, February 2012. Performed By: #### L IPR #### [address] [address] Lace Mender: Nirav Steinberg MD PSA Screeningon 04-02-2022 [facility] PSA, Screeningon 04-02-2022 Prostatic Spec. Ag 1.13 ng/mL Normal <4.1 [facility] Comment on above: Result Comment: The [place] ECLIA assay is used. Results obtained with different assay methods cannot be used interchangeably. Performed By: #### P SAS #### [address] [id number] Lace Mender: Nirav Steinberg MD #### BMP, CDP, ALT, AST #### [facility] [address] [place] [address] Lace Mender: Jc Alvarez MD [place] 04-01-2022 ALT [Catalytic activity/Vol] 10 U/L Normal 5-41 [facility] Comment on above: Performed By: #### P SAS #### [facility] [address] [place], [place] [id number] Lace Mender: Nirav Steinberg MD #### BMP, CDP, ALT, AST #### [facility] [address] [place] [address] Lace Mender: Jc Alvarez MD ALT [Catalytic activity/Vol] 10 U/L 5 - 41 U/L [facility] [place] 04-01-2022 AST [Catalytic activity/Vol] 18 U/L Normal <40 [facility] Comment on above: Performed By: #### P SAS #### [facility] [address] [place], [place] [id number] Lace Mender: Nirav Steinberg MD #### BMP, CDP, ALT, AST #### [facility] [address] [place] [address] Lace Mender: Jc Alvarez MD AST [Catalytic activity/Vol] 18 U/L NINF - 40 U/L [facility] Basic Metabolic Panelon 03-18 Anion gap [Moles/Vol] 6 mmol/L Low 9 - 17 mmol/L [facility] Calcium [Mass/Vol] 9.6 mg/dL 8.6 - 10. 4 mg/dL [facility] Chloride [Moles/Vol] 99 mmol/L 98 - 10 7 mmol/L [facility] CO2 [Moles/Vol] 30 mmol/L 20 - 31 mmol/L [facility] Creatinine [Mass/Vol] 0.79 mg/dL 0.70 - 1.20 mg/dL [facility] GFR/1.73 sq M.predicted MDRD (S/P/Bld) [Vol rate/Area] - PINF [facility] Comment on above: Effective Feb 17, 2022 These results are not intended for use in patients <18 years of age. eGFR results are calculated without a race factor using the 2020 CKD-EPI equation. Careful clinical correlation is recommended, particularly when comparing to results calculated using previous equations. The CKD-EPI equation is less accurate in patients with extremes of muscle mass, extra-renal metabolism of creatine, excessive creatine ingestion, or following therapy that affects renal tubular secretion. Glucose [Mass/Vol] 100 mg/dL High 70 - 99 mg/dL [facility] Interpretation and review of laboratory results Abnormal [facility] Potassium [Moles/Vol] 4.4 mmol/L 3.7 - 5.3 mmol/L [facility] Sodium [Moles/Vol] 135 mmol/L 135 - 144 mmol/L [facility] Urea nitrogen (BldV) [Mass/Vol] 8 mg/dL 8 - 23 mg/dL [facility] Urea nitrogen/Creatinine (Bld) [Mass ratio] 10 9 - 20 [facility] Basic Metabolic Profon 04-01 Anion gap [Moles/Vol] 6 mmol/L Low -17 [facility] Comment on above: Performed By: #### P SAS #### [facility] [address] [place] [address] Lace Mender: Nirav Steinberg MD #### BMP, CDP, ALT, AST #### [facility] [address] [place] [address] [place] [address] Lace Mender: Jc Alvarez MD BUN/CRE Ratio 10 Normal -20 [facility] Comment on above: Performed By: #### P SAS #### [facility] [address] [place] [address] Lace Mender: Nirav Steinberg MD #### BMP, CDP, ALT, AST #### [facility] [address] [place] [address] [place] [address] Lace Mender: Jc Alvarez MD Calcium [Mass/Vol] 9.6 mg/dL Normal 8.6-10.4 [facility] Comment on above: Performed By: #### P SAS #### [address] [address] Lace Mender: Nirav Steinberg MD #### BMP, CDP, ALT, AST #### [address] [place], [place] [id number] Lace Mender: Jc Alvarez MD Chloride [Moles/Vol] 99 mmol/L Normal 98-107 [facility] Comment on above: Performed By: #### P SAS #### [address] [id number] Lace Mender: Nirav Steinberg MD #### BMP, CDP, ALT, AST #### [address] [place] [phone] Lace Mender: Jc Alvarez MD CO2 [Moles/Vol] 30 mmol/L Normal 20-31 [facility] Comment on above: Performed By: #### P SAS #### [address] [address] Lace Mender: Nirav Steinberg MD #### BMP, CDP, ALT, AST #### [address] [place] [id number] Lace Mender: Jc Alvarez MD Creatinine [Mass/Vol] 0.79 mg/dL Normal 0.70-1.20 [facility] Comment on above: Performed By: #### P SAS #### [address] [address] Lace Mender: Nirav Steinberg MD #### BMP, CDP, ALT, AST #### [address] [place] [address] Lace Mender: Jc Alvarez MD GFR/1.73 sq M.predicted among non-blacks MDRD (S/P/Bld) [Vol rate/Area] mL/min/{1.73_m2} Normal >60 [facility] Comment on above: Result Comment: Effective Feb 17, 2022 These results are not intended for use in patients <18 years of age. eGFR results are calculated without a race factor using the 2020 CKD-EPI equation. Careful clinical correlation is recommended, particularly when comparing to results calculated using previous equations. The CKD-EPI equation is less accurate in patients with extremes of muscle mass, extra-renal metabolism of creatine, excessive creatine ingestion, or following therapy that affects renal tubular secretion. Performed By: #### P SAS #### [address] [id number] Lace Mender: Nirav Steinberg MD #### BMP, CDP, ALT, AST #### [facility] [address] [place] [address] [place] [address] Lace Mender: Jc Alvarez MD Glucose [Mass/Vol] 100 mg/dL High 70-99 [facility] Comment on above: Performed By: #### P SAS #### [address] [id number] Lace Mender: Nirav Steinberg MD #### BMP, CDP, ALT, AST #### [facility] [address] [place] [address] [place] [address] Lace Mender: Jc Alvarez MD Potassium [Moles/Vol] 4.4 mmol/L Normal 3.7-5.3 [facility] Comment on above: Performed By: #### P SAS #### [address] [id number] Lace Mender: Nirav Steinberg MD #### BMP, CDP, ALT, AST #### [facility] [address] [place] [address] [place] [address] Lace Mender: Jc Alvarez MD Sodium [Moles/Vol] 135 mmol/L Normal 135-144 [facility] Comment on above: Performed By: #### P SAS #### [facility] [address] [place], [place] [phone] Lace Mender: Nirav Steinberg MD #### BMP, CDP, ALT, AST #### [facility] [address] [place], [place] [id number] Lace Mender: Jc Alvarez MD Urea nitrogen [Mass/Vol] 8 mg/dL Normal 8-23 [facility] Comment on above: Performed By: #### P SAS #### [facility] [address] [place] [address] Lace Mender: Nirav Steinberg MD #### BMP, CDP, ALT, AST #### [facility] [address] [place] [address] Lace Mender: Jc Alvarez MD CBC with Auto Differentialon 04-01-2022 Absolute Eos # 0.40 [facility] Absolute Immature Granulocyte 0.04 [facility] Absolute Lymph # 2.46 [facility] Absolute [place] # 0.92 [facility] Basophils (Bld) [#/Vol] 0.08 10*3/uL [facility] Basophils/100 WBC (Bld) 1 % 0 - 2 % [facility] Eosinophils/100 WBC (Bld) 4 % 1 - 4 % [facility] Hematocrit (Bld) [Volume fraction] 43.0 % 40.7 - 50.3 % [facility] Hemoglobin (Bld) [Mass/Vol] 14.2 g/dL 13.0 - 17.0 g/dL [facility] Immature granulocytes/100 WBC (Bld) 0 % 0 [facility] Lymphocytes/100 WBC (Bld) 25 % 24 - 43 % [facility] MCH (RBC) [Entitic mass] 31.3 pg 25.2 - 33.5 pg [facility] MCHC (RBC) [Mass/Vol] 33.0 g/dL 28.4 - 34.8 g/dL [facility] MCV (RBC) [Entitic vol] 94.7 fL 82.6 - 102.9 fL [facility] Monocytes/100 WBC (Bld) 9 % 3 - 12 % [facility] NRBC Automated 0.0 0.0 per 100 WBC [facility] Platelet distribution width (Bld) [Ratio] 13.2 % 11.8 - 14.4 % [facility] Platelet mean volume (Bld) [Entitic vol] 8.1 fL 8.1 - 13.5 fL [facility] Platelets (Bld) [#/Vol] 335 10*3/uL [facility] RBC (Bld) [#/Vol] 4.54 10*6/uL 4.21 - 5.7 7 m/uL [facility] Segmented neutrophils/100 WBC (Bld) 61 % 36 - 65 % [facility] Segs Absolute 6.13 [facility] WBC (Bld) [#/Vol] 10.0 10*3/uL [facility] CBC with Diffon 04-01-2022 Abs. Basophil 0.08 k/uL Normal 0.00-0.20 [facility] Comment on above: Performed By: #### P SAS #### [address] [place] [address] Lace Mender: Nirav Steinberg MD #### BMP, CDP, ALT, AST #### [address] [place] [phone] Lace Mender: Jc Alvarez MD Abs.Imm.Granulocyte 0.04 k/uL Normal 0.00-0.30 [facility] Comment on above: Performed By: #### P SAS #### [address] [place], [place] [id number] Lace Mender: Nirav Steinberg MD #### BMP, CDP, ALT, AST #### [address] [place] [phone] Lace Mender: Jc Alvarez MD Abs.Neutrophil (Seg) 6.13 k/uL Normal 1.50-8.10 [facility] Comment on above: Performed By: #### P SAS #### [address] [address] Lace Mender: Nirav Steinberg MD #### BMP, CDP, ALT, AST #### [address] [place] [phone] Lace Mender: Jc Alvarez MD Basophils/100 WBC (Bld) 1 % Normal 0-2 [facility] Comment on above: Performed By: #### P SAS #### [place] [address] Lace Mender: Nirav Steinberg MD #### BMP, CDP, ALT, AST #### [address] [place] [phone] Lace Mender: Jc Alvarez MD Eosinophils (Bld) [#/Vol] 0.40 10*3/uL Normal 0.00-0.44 [facility] Comment on above: Performed By: #### P SAS #### [place] [address] Lace Mender: Nirav Steinberg MD #### BMP, CDP, ALT, AST #### [address] [place] [phone] Lace Mender: Jc Alvarez MD Eosinophils/100 WBC (Bld) 4 % Normal 1-4 [facility] Comment on above: Performed By: #### P SAS #### [place] [address] Lace Mender: Nirav Steinberg MD #### BMP, CDP, ALT, AST #### [address] [place] [address] Lace Mender: Jc Alvarez MD Erythrocyte distribution width (RBC) [Ratio] 13.2 % Normal 11.8-14.4 [facility] Comment on above: Performed By: #### P SAS #### [address] [place] [address] Lace Mender: Nirav Steinberg MD #### BMP, CDP, ALT, AST #### [address] [place] [phone] Lace Mender: Jc Alvarez MD Hematocrit (Bld) [Volume fraction] 43.0 % Normal 40.7-50.3 [facility] Comment on above: Performed By: #### P SAS #### [address] [address] Lace Mender: Nirav Steinberg MD #### BMP, CDP, ALT, AST #### [address] [place] [phone] Lace Mender: Jc Alvarez MD Hemoglobin (Bld) [Mass/Vol] 14.2 g/dL Normal 13.0-17.0 [facility] Comment on above: Performed By: #### P SAS #### [address] [address] Lace Mender: Nirav Steinberg MD #### BMP, CDP, ALT, AST #### [address] [place] [phone] Lace Mender: Jc Alvarez MD Immature granulocytes/100 WBC (Bld) 0 % Normal 0 [facility] Comment on above: Performed By: #### P SAS #### [address] [address] Lace Mender: Nirav Steinberg MD #### BMP, CDP, ALT, AST #### [address] [place] [phone] Lace Mender: Jc Alvarez MD Lymphocytes (Bld) [#/Vol] 2.46 10*3/uL Normal 1.10-3.70 [facility] Comment on above: Performed By: #### P SAS #### [address] [place], [place] [id number] Lace Mender: Nirav Steinberg MD #### BMP, CDP, ALT, AST #### [facility] [address] [place] [address] Lace Mender: Jc Alvarez MD Lymphocytes/100 WBC (Bld) 25 % Normal 24-43 [facility] Comment on above: Performed By: #### P SAS #### [address] [address] Lace Mender: Nirav Steinberg MD #### BMP, CDP, ALT, AST #### [facility] [address] [place] [address] [place] [address] Lace Mender: Jc Alvarez MD MCH (RBC) [Entitic mass] 31.3 pg Normal 25.2-33.5 [facility] Comment on above: Performed By: #### P SAS #### [place] [address] Lace Mender: Nirav Steinberg MD #### BMP, CDP, ALT, AST #### [address] [place] [phone] Lace Mender: Jc Alvarez MD MCHC (RBC) [Mass/Vol] 33.0 g/dL Normal 28.4-34.8 [facility] Comment on above: Performed By: #### P SAS #### [address] [address] Lace Mender: Nirav Steinberg MD #### BMP, CDP, ALT, AST #### [facility] [address] [place] [phone] Lace Mender: Jc Alvarez MD MCV (RBC) [Entitic vol] 94.7 fL Normal 82.6-102.9 [facility] Comment on above: Performed By: #### P SAS #### [address] [address] Lace Mender: Nirav Steinberg MD #### BMP, CDP, ALT, AST #### [facility] [address] [place] [phone] Lace Mender: Jc Alvarez MD Monocytes (Bld) [#/Vol] 0.92 10*3/uL Normal 0.10-1.20 [facility] Comment on above: Performed By: #### P SAS #### [address] [address] Lace Mender: Nirav Steinberg MD #### BMP, CDP, ALT, AST #### [address] [place] [address] Lace Mender: Jc Alvarez MD Monocytes/100 WBC (Bld) 9 % Normal 3-12 [facility] Comment on above: Performed By: #### P SAS #### [address] [address] Lace Mender: Nirav Steinberg MD #### BMP, CDP, ALT, AST #### [address] [place] [phone] Lace Mender: Jc Alvarez MD Neutrophil (Seg) 61 % Normal 36-65 [facility] Comment on above: Performed By: #### P SAS #### [address] [address] Lace Mender: Nirav Steinberg MD #### BMP, CDP, ALT, AST #### [address] [place] [phone] Lace Mender: Jc Alvarez MD NRBC Automated 0.0 per 100 WBC Normal 0.0 [facility] Comment on above: Performed By: #### P SAS #### [address] [place] [address] Lace Mender: Nirav Steinberg MD #### BMP, CDP, ALT, AST #### [address] [place], [place] [phone] Lace Mender: Jc Alvarez MD Platelet mean volume (Bld) [Entitic vol] 8.1 fL Normal 8.1-13.5 [facility] Comment on above: Performed By: #### P SAS #### [address] [address] Lace Mender: Nirav Steinberg MD #### BMP, CDP, ALT, AST #### [address] [place] [address] Lace Mender: Jc Alvarez MD Platelets (Bld) [#/Vol] 335 10*3/uL Normal 138-453 [facility] Comment on above: Performed By: #### P SAS #### [address] [address] Lace Mender: Nirav Steinberg MD #### BMP, CDP, ALT, AST #### [address] [place] [phone] Lace Mender: Jc Alvarez MD RBC (Bld) [#/Vol] 4.54 10*6/uL Normal 4.21-5.77 [facility] Comment on above: Performed By: #### P SAS #### [address] [address] Lace Mender: Nirav Steinberg MD #### BMP, CDP, ALT, AST #### [address] [place] [address] Lace Mender: Jc Alvarez MD WBC (Bld) [#/Vol] 10.0 10*3/uL Normal 3.5-11.3 [facility] Comment on above: Performed By: #### P SAS #### [facility] [address] [place] [address] Lace Mender: Nirav Steinberg MD #### BMP, CDP, ALT, AST #### [facility] [address] [place] [address] Lace Mender: Jc Alvarez MD No Panel Informationon 04-01 [facility] XR ANKLE RIGHT (MIN 3 VIEWS) on 03-13-2022 XR ANKLE RIGHT (MIN 3 VIEWS) EXAMINATION: THREE XRAY VIEWS OF THE RIGHT ANKLE 03/13/2022 9:14 pm COMPARISON: None. HISTORY: ORDERING SYSTEM PROVIDED HISTORY: pain TECHNOLOGIST PROVIDED HISTORY: pain FINDINGS: No evidence of acute fracture or dislocation. Normal alignment of the ankle mortise. No focal osseous lesion. No evidence of joint effusion. No focal soft tissue abnormality. IMPRESSION: No acute abnormality of the ankle. Interpreted by: Tonny Altamirano MD Signed by: Tonny Altamirano MD 03/13/22 Final result Normal [facility] No acute abnormality of the ankle. [facility] EXAMINATION: THREE XRAY VIEWS OF THE RIGHT ANKLE 03/13/2022 9:14 pm COMPARISON: None. HISTORY: ORDERING SYSTEM PROVIDED HISTORY: pain TECHNOLOGIST PROVIDED HISTORY: pain FINDINGS: No evidence of acute fracture or dislocation. Normal alignment of the ankle mortise. No focal osseous lesion. No evidence of joint effusion. No focal soft tissue abnormality. [facility] Tonny Altamirano MD - 03/13/2022 EXAMINATION: THREE XRAY VIEWS OF THE RIGHT ANKLE 03/13/2022 9:14 pm COMPARISON: None. HISTORY: ORDERING SYSTEM PROVIDED HISTORY: pain TECHNOLOGIST PROVIDED HISTORY: pain FINDINGS: No evidence of acute fracture or dislocation. Normal alignment of the ankle mortise. No focal osseous lesion. No evidence of joint effusion. No focal soft tissue abnormality. IMPRESSION: No acute abnormality of the ankle. [facility] [employer] Work Phone: [facility] Work Phone: Radiology Study observation (narrative) [facility] Phone: XR FOOT RIGHT (MIN 3 VIEWS)o n 03-13-2022 XR FOOT RIGHT (MIN 3 VIEWS) EXAMINATION: THREE XRAY VIEWS OF THE RIGHT FOOT 03/13/2022 9:14 pm COMPARISON: None. HISTORY: ORDERING SYSTEM PROVIDED HISTORY: pain TECHNOLOGIST PROVIDED HISTORY: pain FINDINGS: Sideplate and screws transfix the proximal phalanx of the 1st digit. There is been osteotomy/bunionecto my. Degenerative changes 1st metatarsal phalangeal joint. IMPRESSION: Status post bunionectomy and degenerative changes 1st metatarsal phalangeal joint. Interpreted by: Tonny Altamirano MD Signed by: Tonny Altamirano MD 03/13/22 Final result Normal [facility] Status post bunionectomy and degenerative changes 1st metatarsal phalangeal joint. [facility] RIS CONSOLIDATED EXAMINATION: THREE XRAY VIEWS OF THE RIGHT FOOT 03/13/2022 9:14 pm COMPARISON: None. HISTORY: ORDERING SYSTEM PROVIDED HISTORY: pain TECHNOLOGIST PROVIDED HISTORY: pain FINDINGS: Sideplate and screws transfix the proximal phalanx of the 1st digit. There is been osteotomy/bunionecto my. Degenerative changes 1st metatarsal phalangeal joint. [facility] RIS CONSOLIDATED Tonny Altamirano MD - 03/13/2022 EXAMINATION: THREE XRAY VIEWS OF THE RIGHT FOOT 03/13/2022 9:14 pm COMPARISON: None. HISTORY: ORDERING SYSTEM PROVIDED HISTORY: pain TECHNOLOGIST PROVIDED HISTORY: pain FINDINGS: Sideplate and screws transfix the proximal phalanx of the 1st digit. There is been osteotomy/bunionecto my. Degenerative changes 1st metatarsal phalangeal joint. IMPRESSION: Status post bunionectomy and degenerative changes 1st metatarsal phalangeal joint. [facility] Phone: Radiology Study observation (narrative) [facility] Phone: XR FOOT RIGHT (MIN 3 VIEWS)O rdered By: Tonny Altamirano on 03-13-2022 [facility] Phone: APTTOrdered By: Orquidea Naranjo on 02-21-2021 aPTT Coag (Bld) [Time] 38.6 s High Me [employer] Phone: Comment on above: IV Heparin Therapy Range: 62.0-94.0 Interpretation and review of laboratory results Abnormal [employer] Phone: [employer] Phone: Basic Metabolic Panel w/ Ref tiff to MGOrdered By: Orquidea Naranjo on 02-21-2021 Anion gap [Moles/Vol] 8 mmol/L Low 9 - 17 mmol/L [employer] Phone: Calcium [Mass/Vol] 9.0 mg/dL 8.6 - 10. 4 mg/dL [employer] Phone: Chloride [Moles/Vol] 100 mmol/L 98 - 10 7 mmol/L [employer] Phone: CO2 [Moles/Vol] 28 mmol/L 20 - 31 mmol/L [employer] Phone: Creatinine [Mass/Vol] 0.5 mg/dL Low 0.70 - 1.20 mg/dL [employer] Phone: GFR >60 >60 mL/min [employer] Phone: GFR Non- >60 >60 mL/min [facility] Phone: Glucose [Mass/Vol] 147 mg/dL High 70 - 99 mg/dL [employer] Phone: Interpretation and review of laboratory results Abnormal [employer] Phone: Potassium [Moles/Vol] 3.7 mmol/L 3.7 - 5.3 mmol/L [employer] Phone: Sodium [Moles/Vol] 136 mmol/L 135 - 144 mmol/L [employer] Phone: Urea nitrogen (BldV) [Mass/Vol] 9 mg/dL 8 - 23 mg/dL [employer] Phone: Urea nitrogen/Creatinine (Bld) [Mass ratio] 18 [employer] Work Phone: [employer] Work Phone: CBC auto differentialOrdered By: Orquidea Naranjo on 02-21-2021 Absolute Eos # 0.00 [employer] [facility] Work Phone: Absolute Immature Granulocyte 0.00 [employer] Work Phone: Absolute Lymph # 2.07 [employer] [facility] Work Phone: Absolute [place] # 1.17 [employer] [facility] Work Phone: Basophils (Bld) [#/Vol] 0.00 10*3/uL [facility] Phone: Basophils/100 WBC (Bld) 0 % 0 - 2 % [employer] Phone: Differential Type NOT REPORTED [employer] Phone: Eosinophils/100 WBC (Bld) 0 % Low 1 - 4 % [employer] Phone: Hematocrit (Bld) [Volume fraction] 37.7 % Low 40.7 - 50.3 % [employer] Phone: Hemoglobin.gastrointes tinal spec 1 Ql (Stl) 12.9 g/dL Low 13.0 - 17.0 g/dL [employer] Phone: Immature granulocytes/100 WBC (Bld) 0 % 0 [employer] Phone: Interpretation and review of laboratory results Abnormal [employer] Phone: Lymphocytes/100 WBC (Bld) 30 % 24 - 43 % [employer] Phone: MCH (RBC) [Entitic mass] 31.2 pg 25.2 - 33.5 pg [employer] Phone: MCHC (RBC) [Mass/Vol] 34.2 g/dL 28.4 - 34.8 g/dL [employer] Phone: MCV (RBC) [Entitic vol] 91.3 fL 82.6 - 102.9 fL [employer] Phone: Monocytes/100 WBC (Bld) 17 % High 3 - 12 % [employer] Phone: Morphology Diego (Bld) [Interp] Normal [employer] Phone: NRBC Automated 0.0 0.0 per 100 WBC [employer] Phone: Platelet distribution width (Bld) [Ratio] 12.5 % 11.8 - 14.4 % [employer] Phone: Platelet Estimate NOT REPORTED [employer] Phone: Platelet mean volume (Bld) [Entitic vol] 8.8 fL 8.1 - 13.5 fL [employer] Phone: Platelets (Bld) [#/Vol] 432 10*3/uL [employer] Phone: RBC (Bld) [#/Vol] 4.13 10*6/uL Low 4.21 - 5.7 7 m/uL [employer] Phone: RBC (Bld) [#/Vol] NOT REPORTED [facility] Phone: Segmented neutrophils/100 WBC (Bld) 53 % 36 - 65 % [employer] Phone: Segs Absolute 3.66 [employer] Work Phone: WBC (Bld) [#/Vol] 6.9 10*3/uL [employer] Phone: WBC (Bld) [#/Vol] NOT REPORTED [facility] Phone: YouHelp Phone: D-Dimer, QuantitativeOrdered By: Orquidea Naranjo on 02-21-2021 D-Dimer, Quant <0.27 [employer] Work Phone: Comment on above: When combined with a low clinical probability, a D dimer value of <0.50 mg/L FEU is considered negative for DVT and PE (negative predictive value of 98%, sensitivity of 97%). If this test is not being used to help rule out DVT and PE, then the following reference range should be utilized: 0.00 - 0.59 mg/L FEU. The D-Dimer assay is intended for use as an aid in the diagnosis of venous thromboembolism (DVT and PE) and the results should be interpreted in conjunction with the patient's medical history, clinical presentation, and other findings. Elevated levels of D-dimer activity can be seen in any state of coagulation activation and is not recommended in patients with therapeutic dose anticoagulant therapy for >24 hours, fibrinolytic therapy within the previous 7 days, trauma or surgery within the previous 4 weeks, disseminated malignancies, aortic aneurysm, sepsis, severe infections, pneumonia, severe skin infections, liver cirrhosis, advanced age, coronary disease, diabetes, and . A very low percentage of patients with DVT may yield D-dimer results below the cutoff of 0.5 mg/L FEU. This is known to be more prevalent in patients with distal DVT. YouHelp Phone: EKG Rhythm StripOrdered By: Unknown Result on 02-21-2021 patrick stephens YouHelp Phone: YouHelp Phone: brittaney YouHelp Phone: YouHelp Phone: Laboratory - Chemistry and C hemistry - challengeOrdered By: Orquidea Naranjo on 02-21-2021 GFR/1.73 sq M.predicted MDRD (S/P/Bld) [Vol rate/Area] YouHelp Phone: Comment on above: Average GFR for 60-6 9 years old: 85 mL/min/1.73sq m Chronic Kidney Disease: <60 mL/min/1.73sq m Kidney failure: <15 mL/min/1.73sq m eGFR calculated using average adult body mass. Additional eGFR calculator available at: http://www.VisConPro/multiple_crcl_2012.htm Stage 1: Some kidney damage normal GFR Stage 2: Mild kidney damage GFR 60-89 Stage 3: Moderate kidney damage GFR 30-59 Stage 4: Severe kidney damage GFR 15-29 Stage 5: Severe kidney damage GFR <15 ESRD - chronic treatment by dialysis or transplant Protime-INROrdered By: Torsten Naranjo on 02-21-2021 INR Coag (Bld) [Relative time] 1.0 {INR} [facility]Help Phone: Comment on above: Non-therapeutic Range: INR = 0.9-1.2 Therapeutic Range: Moderate Anticoagulant Intensity: INR = 2.0-3.0 High Anticoagulant Intensity: INR = 2.5-3.5 PT Coag (PPP) [Time] 13 s [employer] Phone: YouHelp Phone: APTTOrdered By: Orquidea Naranjo on 02-20-2021 aPTT Coag (Bld) [Time] 43.[address] [facility] Phone: Comment on above: IV Heparin Therapy Range: 62.0-94.0 Interpretation and review of laboratory results Abnormal [facility] Phone: YouHelp Phone: Basic Metabolic Panel w/ Ref tiff to MGOrdered By: Orquidea Naranjo on 02-20-2021 Anion gap [Moles/Vol] 9 mmol/L 9 - 17 mmol/L [employer] Phone: Calcium [Mass/Vol] 8.5 mg/dL Low 8.6 - 10. 4 mg/dL [employer] Phone: Chloride [Moles/Vol] 99 mmol/L 98 - 10 7 mmol/L [employer] Phone: CO2 [Moles/Vol] 28 mmol/L 20 - 31 mmol/L [employer] Phone: Creatinine [Mass/Vol] 0.47 mg/dL Low 0.70 - 1.20 mg/dL [employer] Work Phone: GFR >60 >60 mL/min [employer] Phone: GFR Non- >60 >60 mL/min [employer] Work Phone: Glucose [Mass/Vol] 105 mg/dL High 70 - 99 mg/dL [employer] Work Phone: Interpretation and review of laboratory results Abnormal [facility] Phone: Potassium [Moles/Vol] 2.7 mmol/L Critically low 3.7 - 5.3 mmol/L [facility] Phone: Sodium [Moles/Vol] 136 mmol/L 135 - 144 mmol/L [employer] Phone: Urea nitrogen (BldV) [Mass/Vol] 9 mg/dL 8 - 23 mg/dL [employer] Phone: Urea nitrogen/Creatinine (Bld) [Mass ratio] 19 [employer] Phone: YouHelp Phone: C-Reactive ProteinOrdered By : Orquidea Naranjo on 02-20-2021 CRP [Mass/Vol] 17.9 mg/L High 0.0 - 5.0 mg/L [employer] Work Phone: Interpretation and review of laboratory results Abnormal [facility] Phone: [employer] Work Phone: CBC auto differentialOrdered By: Orquidea Naranjo on 02-20-2021 Absolute Eos # 0.00 [employer] [facility] Work Phone: Absolute Immature Granulocyte 0.00 [employer] Work Phone: Absolute Lymph # 1.65 [employer] [facility] Work Phone: [employer] [place] # 0.53 [facility] Work Phone: Basophils (Bld) [#/Vol] 0.00 10*3/uL [employer] Phone: Basophils/100 WBC (Bld) 0 % 0 - 2 % [employer] Phone: Differential Type NOT REPORTED [facility] Phone: Eosinophils/100 WBC (Bld) 0 % Low 1 - 4 % [employer] Phone: Hematocrit (Bld) [Volume fraction] 36.3 % Low 40.7 - 50.3 % [employer] Phone: Hemoglobin.gastrointes tinal spec 1 Ql (Stl) 12.5 g/dL Low 13.0 - 17.0 g/dL [employer] Phone: Immature granulocytes/100 WBC (Bld) 0 % 0 [employer] Phone: Interpretation and review of laboratory results Abnormal [employer] Phone: Lymphocytes/100 WBC (Bld) 28 % 24 - 43 % [employer] Phone: MCH (RBC) [Entitic mass] 31.3 pg 25.2 - 33.5 pg [employer] Phone: MCHC (RBC) [Mass/Vol] 34.4 g/dL 28.4 - 34.8 g/dL [facility] Phone: MCV (RBC) [Entitic vol] 90.8 fL 82.6 - 102.9 fL [facility] Phone: Monocytes/100 WBC (Bld) 9 % 3 - 12 % [facility] Phone: Morphology Diego (Bld) [Interp] Normal [facility] Phone: NRBC Automated 0.0 0.0 per 100 WBC [facility] Phone: Platelet distribution width (Bld) [Ratio] 12.2 % 11.8 - 14.4 % [facility] Phone: Platelet Estimate NOT REPORTED [employer] Phone: Platelet mean volume (Bld) [Entitic vol] 8.8 fL 8.1 - 13.5 fL [employer] Phone: Platelets (Bld) [#/Vol] 413 10*3/uL [employer] Phone: RBC (Bld) [#/Vol] 4.00 10*6/uL Low 4.21 - 5.7 7 m/uL [facility] Phone: RBC (Bld) [#/Vol] NOT REPORTED [facility] Phone: Segmented neutrophils/100 WBC (Bld) 63 % 36 - 65 % [employer] Phone: Segs Absolute 3.72 [employer] Work Phone: WBC (Bld) [#/Vol] 5.9 10*3/uL [employer] Phone: WBC (Bld) [#/Vol] NOT REPORTED [facility] Phone: YouHelp Phone: D-Dimer, QuantitativeOrdered By: Orquidea Naranjo on 02-20-2021 D-Dimer, Quant 0.27 [employer] Work Phone: Comment on above: When combined with a low clinical probability, a D dimer value of <0.50 mg/L FEU is considered negative for DVT and PE (negative predictive value of 98%, sensitivity of 97%). If this test is not being used to help rule out DVT and PE, then the following reference range should be utilized: 0.00 - 0.59 mg/L FEU. The D-Dimer assay is intended for use as an aid in the diagnosis of venous thromboembolism (DVT and PE) and the results should be interpreted in conjunction with the patient's medical history, clinical presentation, and other findings. Elevated levels of D-dimer activity can be seen in any state of coagulation activation and is not recommended in patients with therapeutic dose anticoagulant therapy for >24 hours, fibrinolytic therapy within the previous 7 days, trauma or surgery within the previous 4 weeks, disseminated malignancies, aortic aneurysm, sepsis, severe infections, pneumonia, severe skin infections, liver cirrhosis, advanced age, coronary disease, diabetes, and . A very low percentage of patients with DVT may yield D-dimer results below the cutoff of 0.5 mg/L FEU. This is known to be more prevalent in patients with distal DVT. [facility] Phone: EKG Rhythm StripOrdered By: Unknown Result on 02-20-2021 NSR [facility]Help Phone: YouHelp Phone: NS YouHelp Phone: YouHelp Phone: YouHelp Phone: YouHelp Phone: Laboratory - Chemistry and C hemistry - challengeOrdered By: Orquidea Naranjo on 02-20-2021 GFR/1.73 sq M.predicted MDRD (S/P/Bld) [Vol rate/Area] [facility]Help Phone: Comment on above: Average GFR for 60-6 9 years old: 85 mL/min/1.73sq m Chronic Kidney Disease: <60 mL/min/1.73sq m Kidney failure: <15 mL/min/1.73sq m eGFR calculated using average adult body mass. Additional eGFR calculator available at: http://www.TechShop.com/multiple_crcl_2012.htm Stage 1: Some kidney damage normal GFR Stage 2: Mild kidney damage GFR 60-89 Stage 3: Moderate kidney damage GFR 30-59 Stage 4: Severe kidney damage GFR 15-29 Stage 5: Severe kidney damage GFR <15 ESRD - chronic treatment by dialysis or transplant MagnesiumOrdered By: Vincent Naranjo on 02-20-2021 Magnesium [Mass/Vol] 2.3 mg/dL 1.6 - 2 .6 mg/dL [facility] Phone: [facility]Help Phone: PotassiumOrdered By: Yenny Franco on 02-20-2021 Interpretation and review of laboratory results Abnormal [facility] Phone: Potassium [Moles/Vol] 3.4 mmol/L Low 3.7 - 5.3 mmol/L [employer] Phone: [employer] Phone: Protime-INROrdered By: Torsten Naranjo on 02-20-2021 INR Coag (Bld) [Relative time] 1.1 {INR} [facility] Phone: Comment on above: Non-therapeutic Range: INR = 0.9-1.2 Therapeutic Range: Moderate Anticoagulant Intensity: INR = 2.0-3.0 High Anticoagulant Intensity: INR = 2.5-3.5 PT Coag (PPP) [Time] 13.9 s [employer] Phone: YouHelp Phone: APTTOrdered By: Orquidea Naranjo on 02-19-2021 aPTT Coag (Bld) [Time] 41.[address] [facility] Phone: Comment on above: IV Heparin Therapy Range: 62.0-94.0 Interpretation and review of laboratory results Abnormal [facility] Phone: YouHelp Phone: Basic Metabolic Panel w/ Ref tiff to MGOrdered By: Orquidea Naranjo on 02-19-2021 Anion gap [Moles/Vol] 11 mmol/L 9 - 17 mmol/L [employer] Phone: Calcium [Mass/Vol] 8.6 mg/dL 8.6 - 10. 4 mg/dL [employer] Phone: Chloride [Moles/Vol] 102 mmol/L 98 - 10 7 mmol/L [employer] Phone: CO2 [Moles/Vol] 26 mmol/L 20 - 31 mmol/L [facility] Phone: Creatinine [Mass/Vol] 0.4 mg/dL Low 0.70 - 1.20 mg/dL [facility] Phone: GFR >60 >60 mL/min [employer] Phone: GFR Non- >60 >60 mL/min [facility] Phone: Glucose [Mass/Vol] 108 mg/dL High 70 - 99 mg/dL [facility] Phone: Interpretation and review of laboratory results Abnormal [facility] Phone: Potassium [Moles/Vol] 3.1 mmol/L Low 3.7 - 5.3 mmol/L [employer] Phone: Sodium [Moles/Vol] 139 mmol/L 135 - 144 mmol/L [employer] Phone: Urea nitrogen (BldV) [Mass/Vol] 8 mg/dL 8 - 23 mg/dL [employer] Phone: Urea nitrogen/Creatinine (Bld) [Mass ratio] 20 [employer] Phone: [facility]Help Phone: C-Reactive ProteinOrdered By : Orquidea Naranjo on 02-19-2021 CRP [Mass/Vol] 33.5 mg/L High 0.0 - 5.0 mg/L [facility] Phone: Interpretation and review of laboratory results Abnormal [facility] Phone: YouHelp Phone: CBC auto differentialOrdered By: Orquidea Naranjo on 02-19-2021 Absolute Eos # 0.00 [employer] [facility] Work Phone: Absolute Immature Granulocyte 0.00 [employer] Work Phone: Absolute Lymph # 1.78 [employer] [facility] Work Phone: [employer] [place] # 0.50 [employer] [facility] Work Phone: Basophils (Bld) [#/Vol] 0.00 10*3/uL [employer] Work Phone: Basophils/100 WBC (Bld) 0 % 0 - 2 % [facility] Phone: Differential Type NOT REPORTED [employer] Phone: Eosinophils/100 WBC (Bld) 0 % Low 1 - 4 % [facility] Phone: Hematocrit (Bld) [Volume fraction] 39.8 % Low 40.7 - 50.3 % [employer] Work Phone: Hemoglobin.gastrointes tinal spec 1 Ql (Stl) 13.4 g/dL 13.0 - 17.0 g/dL [facility] Phone: Immature granulocytes/100 WBC (Bld) 0 % 0 [facility] Phone: Interpretation and review of laboratory results Abnormal [facility] Phone: Lymphocytes/100 WBC (Bld) 25 % 24 - 43 % [facility] Phone: MCH (RBC) [Entitic mass] 30.7 pg 25.2 - 33.5 pg [facility] Phone: MCHC (RBC) [Mass/Vol] 33.7 g/dL 28.4 - 34.8 g/dL [employer] Phone: MCV (RBC) [Entitic vol] 91.3 fL 82.6 - 102.9 fL [employer] Phone: Monocytes/100 WBC (Bld) 7 % 3 - 12 % [employer] Phone: Morphology Diego (Bld) [Interp] Normal [facility] Phone: NRBC Automated 0.0 0.0 per 100 WBC [facility] Phone: Platelet distribution width (Bld) [Ratio] 12.1 % 11.8 - 14.4 % [employer] Phone: Platelet Estimate NOT REPORTED [employer] Phone: Platelet mean volume (Bld) [Entitic vol] 9.0 fL 8.1 - 13.5 fL [employer] Phone: Platelets (Bld) [#/Vol] 358 10*3/uL [employer] Phone: RBC (Bld) [#/Vol] 4.36 10*6/uL 4.21 - 5.7 7 m/uL [employer] Work Phone: RBC (Bld) [#/Vol] NOT REPORTED [employer] Phone: Segmented neutrophils/100 WBC (Bld) 68 % High 36 - 65 % [employer] Phone: Segs Absolute 4[employer]82 [employer] Work Phone: WBC (Bld) [#/Vol] 7.1 10*3/uL [employer] Phone: WBC (Bld) [#/Vol] NOT REPORTED [facility] Phone: [facility] Phone: D-Dimer, QuantitativeOrdered By: Orquidea Naranjo on 02-19-2021 D-Dimer, Quant <0.27 [employer] Work Phone: Comment on above: When combined with a low clinical probability, a D dimer value of <0.50 mg/L FEU is considered negative for DVT and PE (negative predictive value of 98%, sensitivity of 97%). If this test is not being used to help rule out DVT and PE, then the following reference range should be utilized: 0.00 - 0.59 mg/L FEU. The D-Dimer assay is intended for use as an aid in the diagnosis of venous thromboembolism (DVT and PE) and the results should be interpreted in conjunction with the patient's medical history, clinical presentation, and other findings. Elevated levels of D-dimer activity can be seen in any state of coagulation activation and is not recommended in patients with therapeutic dose anticoagulant therapy for >24 hours, fibrinolytic therapy within the previous 7 days, trauma or surgery within the previous 4 weeks, disseminated malignancies, aortic aneurysm, sepsis, severe infections, pneumonia, severe skin infections, liver cirrhosis, advanced age, coronary disease, diabetes, and . A very low percentage of patients with DVT may yield D-dimer results below the cutoff of 0.5 mg/L FEU. This is known to be more prevalent in patients with distal DVT. [employer] Phone: EKG Rhythm StripOrdered By: Unknown Result on 02-19-2021 [facility] Phone: [facility]Help Phone: YouHelp Phone: YouHelp Phone: Laboratory - Chemistry and C hemistry - challengeOrdered By: Orquidea Naranjo on 02-19-2021 GFR/1.73 sq M.predicted MDRD (S/P/Bld) [Vol rate/Area] [facility] Phone: Comment on above: Average GFR for 60-6 9 years old: 85 mL/min/1.73sq m Chronic Kidney Disease: <60 mL/min/1.73sq m Kidney failure: <15 mL/min/1.73sq m eGFR calculated using average adult body mass. Additional eGFR calculator available at: http://www.TechShop.abusix/multiple_crcl_2012.htm Stage 1: Some kidney damage normal GFR Stage 2: Mild kidney damage GFR 60-89 Stage 3: Moderate kidney damage GFR 30-59 Stage 4: Severe kidney damage GFR 15-29 Stage 5: Severe kidney damage GFR <15 ESRD - chronic treatment by dialysis or transplant MagnesiumOrdered By: Vincent Naranjo on 02-19-2021 Magnesium [Mass/Vol] 2.3 mg/dL 1.6 - 2 .6 mg/dL [facility] Phone: [facility]Help Phone: Protime-INROrdered By: Torsten Naranjo on 02-19-2021 INR Coag (Bld) [Relative time] 1.1 {INR} [facility] Phone: Comment on above: Non-therapeutic Range: INR = 0.9-1.2 Therapeutic Range: Moderate Anticoagulant Intensity: INR = 2.0-3.0 High Anticoagulant Intensity: INR = 2.5-3.5 PT Coag (PPP) [Time] 13.6 s [employer] Phone: YouHelp Phone: APTTOrdered By: Orquidea Naranjo on 02-18-2021 aPTT Coag (Bld) [Time] 45.2 s High Me [employer] Phone: Comment on above: IV Heparin Therapy Range: 62.0-94.0 Interpretation and review of laboratory results Abnormal [facility] Phone: [facility]Help Phone: Basic Metabolic Panel w/ Ref tiff to MGOrdered By: Orquidea Naranjo on 02-18-2021 Anion gap [Moles/Vol] 11 mmol/L 9 - 17 mmol/L [employer] Phone: Calcium [Mass/Vol] 8.7 mg/dL 8.6 - 10. 4 mg/dL [employer] Phone: Chloride [Moles/Vol] 95 mmol/L Low 98 - 10 7 mmol/L [employer] Phone: CO2 [Moles/Vol] 28 mmol/L 20 - 31 mmol/L [employer] Phone: Creatinine [Mass/Vol] 0.49 mg/dL Low 0.70 - 1.20 mg/dL [employer] Work Phone: GFR >60 >60 mL/min [employer] Phone: GFR Non- >60 >60 mL/min [employer] Work Phone: Glucose [Mass/Vol] 159 mg/dL High 70 - 99 mg/dL [employer] Work Phone: Interpretation and review of laboratory results Abnormal [employer] Work Phone: Potassium [Moles/Vol] 4.0 mmol/L 3.7 - 5.3 mmol/L [employer] Phone: Sodium [Moles/Vol] 134 mmol/L Low 135 - 144 mmol/L [employer] Work Phone: Urea nitrogen (BldV) [Mass/Vol] 7 mg/dL Low 8 - 23 mg/dL [employer] Work Phone: Urea nitrogen/Creatinine (Bld) [Mass ratio] 14 [employer] Work Phone: [employer] Phone: C-Reactive ProteinOrdered By : Orquidea Naranjo on 02-18-2021 CRP [Mass/Vol] 73.1 mg/L High 0.0 - 5.0 mg/L [employer] Work Phone: Interpretation and review of laboratory results Abnormal [employer] Work Phone: [employer] Work Phone: CBC auto differentialOrdered By: Orquidea Naranjo on 02-18-2021 [employer] [facility] # 0.00 [facility] Work Phone: Absolute Immature Granulocyte 0.00 [facility] Work Phone: Absolute Lymph # 0.53 Low [employer] [facility] Work Phone: [employer] # 0.46 [employer] [facility] Work Phone: Basophils (Bld) [#/Vol] 0.00 10*3/uL [employer] Work Phone: Basophils/100 WBC (Bld) 0 % 0 - 2 % [employer] Phone: Differential Type NOT REPORTED [employer] Phone: Eosinophils/100 WBC (Bld) 0 % Low 1 - 4 % [employer] Phone: Hematocrit (Bld) [Volume fraction] 45.2 % 40.7 - 50.3 % [employer] Phone: Hemoglobin.gastrointes tinal spec 1 Ql (Stl) 15.0 g/dL 13.0 - 17.0 g/dL [employer] Phone: Immature granulocytes/100 WBC (Bld) 0 % 0 [employer] Phone: Interpretation and review of laboratory results Abnormal [employer] Phone: Lymphocytes/100 WBC (Bld) 16 % Low 24 - 43 % [employer] Phone: MCH (RBC) [Entitic mass] 30.2 pg 25.2 - 33.5 pg [employer] Phone: MCHC (RBC) [Mass/Vol] 33.2 g/dL 28.4 - 34.8 g/dL [employer] Phone: MCV (RBC) [Entitic vol] 91.1 fL 82.6 - 102.9 fL [employer] Phone: Monocytes/100 WBC (Bld) 14 % High 3 - 12 % [employer] Phone: Morphology Diego (Bld) [Interp] Normal [employer] Phone: NRBC Automated 0.0 0.0 per 100 WBC [employer] Phone: Platelet distribution width (Bld) [Ratio] 12.1 % 11.8 - 14.4 % [employer] Phone: Platelet Estimate NOT REPORTED [employer] Phone: Platelet mean volume (Bld) [Entitic vol] 9.3 fL 8.1 - 13.5 fL [employer] Phone: Platelets (Bld) [#/Vol] 292 10*3/uL [employer] Phone: RBC (Bld) [#/Vol] 4.96 10*6/uL 4.21 - 5.7 7 m/uL [employer] Phone: RBC (Bld) [#/Vol] NOT REPORTED [employer] Phone: Segmented neutrophils/100 WBC (Bld) 70 % High 36 - 65 % [employer] Work Phone: Segs Absolute 2[employer]31 [employer] Work Phone: WBC (Bld) [#/Vol] 3.3 10*3/uL Low [employer] Work Phone: WBC (Bld) [#/Vol] ATYPICAL LYMPHS PRESENT [facility] Phone: [employer] Work Phone: D-Dimer, QuantitativeOrdered By: Orquidea Naranjo on 02-18-2021 D-Dimer, Quant 0.45 [employer] Work Phone: Comment on above: When combined with a low clinical probability, a D dimer value of <0.50 mg/L FEU is considered negative for DVT and PE (negative predictive value of 98%, sensitivity of 97%). If this test is not being used to help rule out DVT and PE, then the following reference range should be utilized: 0.00 - 0.59 mg/L FEU. The D-Dimer assay is intended for use as an aid in the diagnosis of venous thromboembolism (DVT and PE) and the results should be interpreted in conjunction with the patient's medical history, clinical presentation, and other findings. Elevated levels of D-dimer activity can be seen in any state of coagulation activation and is not recommended in patients with therapeutic dose anticoagulant therapy for >24 hours, fibrinolytic therapy within the previous 7 days, trauma or surgery within the previous 4 weeks, disseminated malignancies, aortic aneurysm, sepsis, severe infections, pneumonia, severe skin infections, liver cirrhosis, advanced age, coronary disease, diabetes, and . A very low percentage of patients with DVT may yield D-dimer results below the cutoff of 0.5 mg/L FEU. This is known to be more prevalent in patients with distal DVT. [facility] Phone: EKG Rhythm StripOrdered By: Unknown Result on 02-18-2021 [facility] Phone: YouHelp Phone: YouHelp Phone: YouHelp Phone: YouHelp Phone: YouHelp Phone: Laboratory - Chemistry and C hemistry - challengeOrdered By: Orquidea Naranjo on 02-18-2021 GFR/1.73 sq M.predicted MDRD (S/P/Bld) [Vol rate/Area] [facility] Phone: Comment on above: Average GFR for 60-6 9 years old: 85 mL/min/1.73sq m Chronic Kidney Disease: <60 mL/min/1.73sq m Kidney failure: <15 mL/min/1.73sq m eGFR calculated using average adult body mass. Additional eGFR calculator available at: http://www.TechShop.abusix/multiple_crcl_2012.htm Stage 1: Some kidney damage normal GFR Stage 2: Mild kidney damage GFR 60-89 Stage 3: Moderate kidney damage GFR 30-59 Stage 4: Severe kidney damage GFR 15-29 Stage 5: Severe kidney damage GFR <15 ESRD - chronic treatment by dialysis or transplant Protime-INROrdered By: Torsten Naranjo on 02-18-2021 INR Coag (Bld) [Relative time] 1.0 {INR} [facility] Phone: Comment on above: Non-therapeutic Range: INR = 0.9-1.2 Therapeutic Range: Moderate Anticoagulant Intensity: INR = 2.0-3.0 High Anticoagulant Intensity: INR = 2.5-3.5 PT Coag (PPP) [Time] 13.3 s [employer] Phone: [facility] Phone: APTTOrdered By: Orquidea Naranjo on 02-17-2021 aPTT Coag (Bld) [Time] 44.[address] [facility] Phone: Comment on above: IV Heparin Therapy Range: 62.0-94.0 Interpretation and review of laboratory results Abnormal [facility] Phone: [facility] Phone: Basic Metabolic PanelOrdered By: Jud Cleary on 02-17-2021 Anion gap [Moles/Vol] 13 mmol/L 9 - 17 mmol/L [facility] Phone: Calcium [Mass/Vol] 8.8 mg/dL 8.6 - 10. 4 mg/dL [facility] Phone: Chloride [Moles/Vol] 90 mmol/L Low 98 - 10 7 mmol/L [facility] Phone: CO2 [Moles/Vol] 27 mmol/L 20 - 31 mmol/L [facility] Phone: Creatinine [Mass/Vol] 0.6 mg/dL Low 0.70 - 1.20 mg/dL [facility] Phone: GFR >60 >60 mL/min [employer] Phone: GFR Non- >60 >60 mL/min [facility] Phone: Glucose [Mass/Vol] 119 mg/dL High 70 - 99 mg/dL [facility] Phone: Interpretation and review of laboratory results Abnormal [facility] Phone: Potassium [Moles/Vol] 3.4 mmol/L Low 3.7 - 5.3 mmol/L [facility] Phone: Sodium [Moles/Vol] 130 mmol/L Low 135 - 144 mmol/L [facility] Phone: Urea nitrogen (BldV) [Mass/Vol] 7 mg/dL Low 8 - 23 mg/dL [facility] Phone: Urea nitrogen/Creatinine (Bld) [Mass ratio] 12 [facility] Phone: Brain Natriuretic PeptideOrd ered By: Jud Cleary on 02-17-2021 BNP Interpretation Pro-BNP Reference Range: [facility] Phone: Comment on above: Rule Out: <300 Prasad Zone: Age <50 300-450 Age 50-75 300-900 Age >75 300-1800 Usually represents mild to moderate HF but other cardiopulmonary causes cannot be ruled out. Rule In: Age <50 >450 Age 50-75 >900 Age >75 >1800 Natriuretic peptide B (Bld) [Mass/Vol] 132 pg/mL <300 [facility] Phone: Comment on above: Pro-BNP results nguyễn ot be compared to BNP results. CBC Auto DifferentialOrdered By: Jud Cleary on 02-17-2021 Absolute Eos # 0.00 [employer] [facility] Work Phone: Absolute Immature Granulocyte 0.00 [employer] Work Phone: Absolute Lymph # 0.90 Low [employer] [facility] Work Phone: Absolute [place] # 0.96 [employer] [facility] Work Phone: Basophils (Bld) [#/Vol] 0.00 10*3/uL [employer] Work Phone: Basophils/100 WBC (Bld) 0 % 0 - 2 % [facility] Phone: Differential Type NOT REPORTED [facility] Phone: Eosinophils/100 WBC (Bld) 0 % Low 1 - 4 % [facility] Phone: Hematocrit (Bld) [Volume fraction] 41.8 % 40.7 - 50.3 % [facility] Phone: Hemoglobin.gastrointes tinal spec 1 Ql (Stl) 14.4 g/dL 13.0 - 17.0 g/dL [facility] Phone: Immature granulocytes/100 WBC (Bld) 0 % 0 [facility] Phone: Interpretation and review of laboratory results Abnormal [facility] Phone: Lymphocytes/100 WBC (Bld) 14 % Low 24 - 43 % [facility] Phone: MCH (RBC) [Entitic mass] 31.1 pg 25.2 - 33.5 pg [facility] Phone: MCHC (RBC) [Mass/Vol] 34.4 g/dL 28.4 - 34.8 g/dL [facility] Phone: MCV (RBC) [Entitic vol] 90.3 fL 82.6 - 102.9 fL [facility] Phone: Monocytes/100 WBC (Bld) 15 % High 3 - 12 % [facility] Phone: Morphology Diego (Bld) [Interp] Normal [facility] Phone: NRBC Automated 0.0 0.0 per 100 WBC [facility] Phone: Platelet distribution width (Bld) [Ratio] 11.9 % 11.8 - 14.4 % [facility] Phone: Platelet Estimate NOT REPORTED [facility] Phone: Platelet mean volume (Bld) [Entitic vol] 8.9 fL 8.1 - 13.5 fL [facility] Phone: Platelets (Bld) [#/Vol] 228 10*3/uL [facility] Phone: RBC (Bld) [#/Vol] 4.63 10*6/uL 4.21 - 5.7 7 m/uL [facility] Phone: RBC (Bld) [#/Vol] NOT REPORTED [facility] Phone: Segmented neutrophils/100 WBC (Bld) 71 % High 36 - 65 % [facility] Phone: Segs Absolute 4.54 [employer] Work Phone: WBC (Bld) [#/Vol] 6.4 10*3/uL [facility] Phone: WBC (Bld) [#/Vol] NOT REPORTED [facility] Phone: [facility] Phone: COVID-19, RapidOrdered By: Jory Lange on 02-17-2021 Interpretation and review of laboratory results Abnormal [facility] Phone: SARS-CoV-2 (COVID-19) RNA DANA+probe Ql (Unsp spec) Detected Abnormal Not Detected [facility] Phone: Comment on above: Rapid NAAT: The specimen is POSITIVE for SARS-Cov-2, the novel coronavirus associated with COVID-19. This test has been authorized by the FDA under an Emergency Use Authorization (EUA) for use by authorized laboratories. The ID NOW COVID-19 assay is designed to detect the virus that causes COVID-19 in patients with signs and symptoms of infection who are suspected of COVID-19. An individual without symptoms of COVID-19 and who is not shedding SARS-CoV-2 virus would expect to have a negative (not detected) result in this assay. Fact sheet for Healthcare Providers: https://www.fda.gov/media/117469/download Fact sheet for Patients: https://www.fda.gov/media/263421/download Methodology: Isothermal Nucleic Acid Amplification Results reported to the appropriate Health Department Specimen Description .NASOPHARYNGEAL SWAB [facility] Phone: YouHelp Phone: CT CHEST PULMONARY EMBOLISM W CONTRASTOrdered By: Jud Cleary on 02-17-2021 EXAMINATION: CTA OF THE CHEST 02/17/2021 2:26 pm TECHNIQUE: CTA of the chest was performed after the administration of intravenous contrast. Multiplanar reformatted images are provided for review. MIP images are provided for review. Dose modulation, iterative reconstruction, and/or weight based adjustment of the mA/kV was utilized to reduce the radiation dose to as low as reasonably achievable. COMPARISON: Chest radiograph 08/31/2020. Chest CT 02/16/2019. HISTORY: ORDERING SYSTEM PROVIDED HISTORY: Shortness of breath, hypoxia TECHNOLOGIST PROVIDED HISTORY: Shortness of breath, hypoxia Decision Support Exception - unselect if not a suspected or confirmed emergency medical condition->Emergency Medical Condition (MA) FINDINGS: Pulmonary Arteries: Pulmonary arteries are adequately opacified for evaluation. No evidence of intraluminal filling defect to suggest pulmonary embolism. Main pulmonary artery is normal in caliber. Mediastinum: Sequela of old granulomatous disease. Scattered subcentimeter noncalcified lymph nodes are noted as well and appear unchanged. The heart and pericardium demonstrate no acute abnormality. There is no acute abnormality of the thoracic aorta. Lungs/pleura: Advanced paraseptal and centrilobular emphysematous disease. Subpleural ground-glass opacities and fibrotic changes in the lung bases (right greater than left) are new since the 2019 exam. These findings demonstrate subpleural sparing and have a nonspecific appearance. No focal area of consolidation. No septal thickening or effusion. The central airway is patent. Upper Abdomen: No acute findings. Redemonstration of benign left adrenal adenoma. Soft Tissues/Bones: No acute bone or soft tissue abnormality. YouHelp Phone: Marco, pn Incoming Radiant Results From [employer] - 02/17/2021 2:47 PM EDT EXAMINATION: CTA OF THE CHEST 02/17/2021 2:26 pm TECHNIQUE: CTA of the chest was performed after the administration of intravenous contrast. Multiplanar reformatted images are provided for review. MIP images are provided for review. Dose modulation, iterative reconstruction, and/or weight based adjustment of the mA/kV was utilized to reduce the radiation dose to as low as reasonably achievable. COMPARISON: Chest radiograph 08/31/2020. Chest CT 02/16/2019. HISTORY: ORDERING SYSTEM PROVIDED HISTORY: Shortness of breath, hypoxia TECHNOLOGIST PROVIDED HISTORY: Shortness of breath, hypoxia Decision Support Exception - unselect if not a suspected or confirmed emergency medical condition->Emergency Medical Condition (MA) FINDINGS: Pulmonary Arteries: Pulmonary arteries are adequately opacified for evaluation. No evidence of intraluminal filling defect to suggest pulmonary embolism. Main pulmonary artery is normal in caliber. Mediastinum: Sequela of old granulomatous disease. Scattered subcentimeter noncalcified lymph nodes are noted as well and appear unchanged. The heart and pericardium demonstrate no acute abnormality. There is no acute abnormality of the thoracic aorta. Lungs/pleura: Advanced paraseptal and centrilobular emphysematous disease. Subpleural ground-glass opacities and fibrotic changes in the lung bases (right greater than left) are new since the 2019 exam. These findings demonstrate subpleural sparing and have a nonspecific appearance. No focal area of consolidation. No septal thickening or effusion. The central airway is patent. Upper Abdomen: No acute findings. Redemonstration of benign left adrenal adenoma. Soft Tissues/Bones: No acute bone or soft tissue abnormality. IMPRESSION: 1. No evidence of pulmonary embolism. 2. Advanced emphysema. 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 [employer] Work Phone: [facility]Help Phone: D-Dimer, QuantitativeOrdered By: Orquidea Naranjo on 02-17-2021 D-Dimer, Quant 0.78 High [employer] Work Phone: Comment on above: When combined with a low clinical probability, a D dimer value of <0.50 mg/L FEU is considered negative for DVT and PE (negative predictive value of 98%, sensitivity of 97%). If this test is not being used to help rule out DVT and PE, then the following reference range should be utilized: 0.00 - 0.59 mg/L FEU. The D-Dimer assay is intended for use as an aid in the diagnosis of venous thromboembolism (DVT and PE) and the results should be interpreted in conjunction with the patient's medical history, clinical presentation, and other findings. Elevated levels of D-dimer activity can be seen in any state of coagulation activation and is not recommended in patients with therapeutic dose anticoagulant therapy for >24 hours, fibrinolytic therapy within the previous 7 days, trauma or surgery within the previous 4 weeks, disseminated malignancies, aortic aneurysm, sepsis, severe infections, pneumonia, severe skin infections, liver cirrhosis, advanced age, coronary disease, diabetes, and . A very low percentage of patients with DVT may yield D-dimer results below the cutoff of 0.5 mg/L FEU. This is known to be more prevalent in patients with distal DVT. Interpretation and review of laboratory results Abnormal [facility] Phone: [facility] Phone: EKG 12 LeadOrdered By: Rebekah Cleary on 02-17-2021 Atrial Rate 83 BPM [facility] Phone: P [place] 58 degrees [facility] Phone: P-R Interval 128 ms [facility] Phone: Q-T Interval 406 ms [facility] Phone: QRS Duration 92 ms [facility] Phone: QTc Calculation (Bazett) 477 ms [facility] Phone: R [place] 40 degrees [facility] Phone: T [place] 43 degrees [facility] Phone: Ventricular Rate 83 BPM [id number] Phone: Normal sinus rhythm with sinus arrhythmia Normal ECG When compared with ECG of 06-JUN-2012 10:28, QT has lengthened Confirmed by MARTI CYR ([id number]) on 02/17/2021 9:41:03 PM [facility] Phone: Marco, Mhpn Incoming Ekg Results From [employer] - 02/17/2021 9:41 PM EDT Normal sinus rhythm with sinus arrhythmia Normal ECG When compared with ECG of 06-JUN-2012 10:28, QT has lengthened Confirmed by MARTI CYR ([id number]) on 02/17/2021 9:41:03 PM [facility] Phone: [facility] Phone: Hepatic function panelOrdere d By: Orquidea Naranjo on 02-17-2021 Albumin [Mass/Vol] 3.7 g/dL 3.5 - 5.2 g/dL [facility] Phone: Albumin/Globulin [Mass ratio] 1.1 {ratio} [facility] Phone: ALP (Bld) [Catalytic activity/Vol] 69 U/L 40 - 129 U/L [facility] Phone: ALT [Catalytic activity/Vol] 35 U/L 5 - 41 U/L [facility] Phone: AST [Catalytic activity/Vol] 58 U/L High <40 [facility] Phone: Bilirubin [Mass/Vol] 0.33 mg/dL 0.3 - 1 .2 mg/dL [facility] Phone: Bilirubin, Indirect CANNOT BE CALCULATED 0.00 - 1.00 mg/dL [facility] Phone: Bilirubin.indirect [Mass/Vol] mg/dL <0.31 mg/dL [facility] Phone: Free PSA/Total PSA [Mass fraction] 7.1 g/dL 6.4 - 8.3 g/dL [facility] Phone: Globulin NOT REPORTED 1.5 - 3.8 g/dL [facility] Phone: Interpretation and review of laboratory results Abnormal [facility] Phone: YouHelp Phone: Laboratory - Chemistry and C hemistry - challengeOrdered By: Jud Cleary on 02-17-2021 GFR/1.73 sq M.predicted MDRD (S/P/Bld) [Vol rate/Area] [facility] Phone: Comment on above: Average GFR for 60-6 9 years old: 85 mL/min/1.73sq m Chronic Kidney Disease: <60 mL/min/1.73sq m Kidney failure: <15 mL/min/1.73sq m eGFR calculated using average adult body mass. Additional eGFR calculator available at: http://www.VisConPro/Fair value_crcl_2012.htm Stage 1: Some kidney damage normal GFR Stage 2: Mild kidney damage GFR 60-89 Stage 3: Moderate kidney damage GFR 30-59 Stage 4: Severe kidney damage GFR 15-29 Stage 5: Severe kidney damage GFR <15 ESRD - chronic treatment by dialysis or transplant No Panel InformationOrdered By: Jud Cleary on 02-17-2021 [facility] Phone: Protime-INROrdered By: Torsten Naranjo on 02-17-2021 INR Coag (Bld) [Relative time] 1.0 {INR} [facility] Phone: Comment on above: Non-therapeutic Range: INR = 0.9-1.2 Therapeutic Range: Moderate Anticoagulant Intensity: INR = 2.0-3.0 High Anticoagulant Intensity: INR = 2.5-3.5 PT Coag (PPP) [Time] 13.2 s [employer] Work Phone: [facility]Help Phone: TroponinOrdered By: Jud Cleary on 02-17-2021 Troponin Interp NOT REPORTED [facility] Work Phone: Troponin T NOT REPORTED <0.03 ng/mL [facility] [facility] Work Phone: Troponin, High Sensitivity <6 0 - 22 ng/L [facility] Phone: Comment on above: High Sensitivity Troponin values cannot be compared with other Troponin methodologies. Patients with high levels of Biotin oral intake (i.e >5mg/day) may have falsely decreased Troponin levels. Samples collected within 8 hours of biotin intake may require additional information for diagnosis. Elizabet 12-16-2019 ALT [Catalytic activity/Vol] 17 U/L 5 - 41 U/L [place] 12-16-2019 AST [Catalytic activity/Vol] 28 U/L <40 [place] Basic Metabolic Panelon 11-17 Anion gap [Moles/Vol] 8 mmol/L Low 9 - 17 mmol/L [place] Bun/Cre Ratio 15 [place] Calcium [Mass/Vol] 9.4 mg/dL 8.6 - 10. 4 mg/dL [place] Chloride [Moles/Vol] 104 mmol/L 98 - 10 7 mmol/L [place] CO2 [Moles/Vol] 27 mmol/L 20 - 31 mmol/L [place] Creatinine [Mass/Vol] 0.65 mg/dL Low 0.7 - 1.2 mg/dL [place] GFR >60 >60 mL/min [place] GFR Non- >60 >60 mL/min [place] Glucose [Mass/Vol] 110 mg/dL High 70 - 99 mg/dL [place] Interpretation and review of laboratory results Abnormal [place] Potassium [Moles/Vol] 4.7 mmol/L 3.7 - 5.3 mmol/L [place] Sodium [Moles/Vol] 139 mmol/L 135 - 144 mmol/L [place] Urea nitrogen [Mass/Vol] 10 mg/dL 8 - 23 mg/dL [place] CBC Auto Differentialon 11-17 Basophils (Bld) [#/Vol] 0.08 10*3/uL [place] Basophils/100 WBC (Bld) 1 % 0 - 2 % [place] Differential Type NOT REPORTED [place] Eosinophils (Bld) [#/Vol] 0.33 10*3/uL [place] Eosinophils/100 WBC (Bld) 5 % High 1 - 4 % [place] Erythrocyte distribution width (RBC) [Ratio] 13.0 % 11.8 - 14.4 % [place] Hematocrit (Bld) [Volume fraction] 44.8 % 40.7 - 50.3 % [place] Hemoglobin (Bld) [Mass/Vol] 14.7 g/dL 13 - 17 g/dL [place] Immature granulocytes (Bld) [#/Vol] 0 % 0 [place] Immature granulocytes (Bld) [#/Vol] 10*3/uL [place] Interpretation and review of laboratory results Abnormal [place] Lymphocytes (Bld) [#/Vol] 1.29 10*3/uL [place] Lymphocytes/100 WBC (Bld) 17 % Low 24 - 43 % [place] MCH (RBC) [Entitic mass] 31.6 pg 25.2 - 33.5 pg [place] MCHC (RBC) [Mass/Vol] 32.8 g/dL 28.4 - 34.8 g/dL [place] MCV (RBC) [Entitic vol] 96.3 fL 82.6 - 102.9 fL [place] Monocytes (Bld) [#/Vol] 0.73 10*3/uL [place] Monocytes/100 WBC (Bld) 10 % 3 - 12 % [place] Platelet mean volume (Bld) [Entitic vol] 8.6 fL 8.1 - 13.5 fL [place] Platelets (Bld) [#/Vol] NOT REPORTED [place] Platelets (Bld) [#/Vol] 287 10*3/uL [place] RBC (Bld) [#/Vol] 4.65 10*6/uL 4.21 - 5.7 7 m/uL [place] RBC morphology finding Nom (Bld) NOT REPORTED [place] Segmented neutrophils/100 WBC (Bld) 67 % High 36 - 65 % [place] Segs Absolute 4.96 [place] WBC (Bld) [#/Vol] 7.4 10*3/uL [place] WBC (Bld) [#/Vol] 0.0 10*3/uL 0.0 per 10 0 WBC [place] WBC Morphology NOT REPORTED [place] Lipid Panelon 12-16-2019 Cholesterol [Mass/Vol] 186 mg/dL <200 [place], [place] Comment on above: Cholesterol Guidelines: <200 Desirable 200-240 Borderline >240 Undesirable Cholesterol in HDL [Mass/Vol] 89 mg/dL >40 [place] Comment on above: HDL Guidelines: <40 Undesirable 40-59 Borderline >59 Desirable Cholesterol in LDL [Mass/Vol] 86 mg/dL 0 - 130 mg/dL [place] Comment on above: LDL Guidelines: <100 Desirable 100-129 Near to/above Desirable 130-159 Borderline >159 Undesirable Direct (measured) LDL and calculated LDL are not interchangeable tests. Cholesterol in VLDL [Mass/Vol] NOT REPORTED 1 - 30 mg/dL [place] Cholesterol.total/Chol esterol in HDL [Mass ratio] 2.1 {ratio} <5 [place] Triglyceride [Mass/Vol] 53 mg/dL <150 [place] Comment on above: Triglyceride Guidelines: <150 Desirable 150-199 Borderline 200-499 High >499 Very high Based on AHA Guidelines for fasting triglyceride, February 2012. Metabolic Panelon 12-16-2019 GFR/1.73 sq M predicted among non-blacks MDRD (S/P/Bld) [Vol rate/Area] [place] Comment on above: Average GFR for 60-6 9 years old: 85 mL/min/1.73sq m Chronic Kidney Disease: <60 mL/min/1.73sq m Kidney failure: <15 mL/min/1.73sq m eGFR calculated using average adult body mass. Additional eGFR calculator available at: http://www.VisConPro/multiple_crcl_2011.htm Stage 1: Some kidney damage normal GFR Stage 2: Mild kidney damage GFR 60-89 Stage 3: Moderate kidney damage GFR 30-59 Stage 4: Severe kidney damage GFR 15-29 Stage 5: Severe kidney damage GFR <15 ESRD - chronic treatment by dialysis or transplant NM HEPATOBILIARY SCAN W RONNI TIHAY FRACTIONon 02-21-2019 No convincing scintigraphic evidence of acute cholecystitis. Delayed visualization of small bowel is non-specific and may be a normal variant but may also be seen in biliary dyskinesia and partial common duct obstruction. Normal gallbladder ejection fraction of 92%. [place] EXAMINATION: NUCLEAR MEDICINE HEPATOBILIARY SCINTIGRAPHY (HIDA SCAN) WITH EJECTION FRACTION. TECHNIQUE: Approximately 5.3 millicuries Tc99m Mebrofenin (Choletec) was administered IV. Then, dynamic images of the abdomen were obtained in the anterior projection for 60 mins. A right lateral view was also obtained at 60 mins. Slow infusion of cholecystokinin was administered intravenously over 60 mins. Images were obtained in the TURKISH projection and regions of interest were drawn around the gallbladder and ejection fraction was calculated. COMPARISON: 12/02/2018 HISTORY: ORDERING SYSTEM PROVIDED HISTORY: Epigastric pain TECHNOLOGIST PROVIDED HISTORY: epigastric pain Reason for Exam: epigastric pain FINDINGS: Prompt, homogenous uptake by the liver is noted with normal appearance of radiotracer excretion into the biliary system. Clearance of bloodpool activity appears appropriate. Gallbladder and small bowel is visualized in appropriate sequence and time. Gallbladder ejection fraction measured 92%%. Normal value is >38% for CCK protocol and >33% for Ensure protocol. Note, Ensure normal range is based on a limited study. Gallbladder visualization is prompt, but small bowel visualization is delayed. [place], [place] Marco, pn Incoming Radiant Results From [employer] - 02/21/2019 5:15 PM EDT EXAMINATION: NUCLEAR MEDICINE HEPATOBILIARY SCINTIGRAPHY (HIDA SCAN) WITH EJECTION FRACTION. TECHNIQUE: Approximately 5.3 millicuries Tc99m Mebrofenin (Choletec) was administered IV. Then, dynamic images of the abdomen were obtained in the anterior projection for 60 mins. A right lateral view was also obtained at 60 mins. Slow infusion of cholecystokinin was administered intravenously over 60 mins. Images were obtained in the TURKISH projection and regions of interest were drawn around the gallbladder and ejection fraction was calculated. COMPARISON: 12/02/2018 HISTORY: ORDERING SYSTEM PROVIDED HISTORY: Epigastric pain TECHNOLOGIST PROVIDED HISTORY: epigastric pain Reason for Exam: epigastric pain FINDINGS: Prompt, homogenous uptake by the liver is noted with normal appearance of radiotracer excretion into the biliary system. Clearance of bloodpool activity appears appropriate. Gallbladder and small bowel is visualized in appropriate sequence and time. Gallbladder ejection fraction measured 92%%. Normal value is >38% for CCK protocol and >33% for Ensure protocol. Note, Ensure normal range is based on a limited study. Gallbladder visualization is prompt, but small bowel visualization is delayed. IMPRESSION: No convincing scintigraphic evidence of acute cholecystitis. Delayed visualization of small bowel is non-specific and may be a normal variant but may also be seen in biliary dyskinesia and partial common duct obstruction. Normal gallbladder ejection fraction of 92%. [place] CT Lung Screen (Annual)on 1. Right-sided nodules of less than 3 mm. 2. Granulomatous changes in the mediastinum. No josesito mediastinal adenopathy. 3. Moderate to severe emphysematous changes with scarring. 4. No focal consolidation. 5. 2.3 cm left adrenal hypodense nodule, consistent with adenoma. No further CT follow-up is advised. LUNG RADS: Category 2. Benign appearance, nodules of less than 6 mm at baseline. Less than 1% chance of malignancy. Advised annual low-dose CT chest screening. RECOMMENDATIONS: No further follow-up is recommended for hypodense left adrenal mass. If you would like to register your patient with the [facility] Lung Nodule/Lung Cancer Screening Program, please contact the Nurse Navigator at [phone] . [place] EXAMINATION: LOW DOSE SCREENING CT OF THE CHEST WITHOUT CONTRAST TECHNIQUE: Low dose lung cancer screening CT of the chest was performed without the administration of intravenous contrast. Multiplanar reformatted images are provided for review. Dose modulation, iterative reconstruction, and/or weight based adjustment of the mA/kV was utilized to reduce the radiation dose to as low as reasonably achievable. COMPARISON: None. HISTORY: Screening. Patient Age: 58 y/o Number of pack years of smokin If no longer smoking, number of years since cessation: Patient still currently smoking every day. Other symptoms: None. FINDINGS: Mediastinum: Calcified mediastinal lymph nodes are present. No mediastinal adenopathy or acute aortic abnormality is noted. Scattered calcified plaque is present in the aorta. Coronary artery calcification is noted. Heart size is normal without pericardial effusion or epicardial adenopathy. Lungs/Pleura: Moderate to severe emphysematous changes are present in the lungs with biapical bullous formation. No areas of consolidation or effusion are noted. Biapical pleural thickening is noted. Right upper lobe nodule of 2.7 mm is noted image 51 series 3. Small right middle lobe nodule of 2.5 mm is noted image 68 series 3. Right middle lobe scarring is evident. Basilar atelectasis is demonstrated. Central traction bronchiectasis is noted left greater than right. Upper Abdomen: Left adrenal nodule of 2.3 cm is noted, [place]oun[place]field number measurements 7.47. Aorta and branches are calcified. Soft Tissues/Bones: Degenerative changes are present without evidence of acute osseous abnormality. Moderate spondylosis mid to lower thoracic spine is noted. [employer] [facility]- [place], [place], pn Incoming Radiant Results From [employer] - 02/16/2019 6:06 PM EDT EXAMINATION: LOW DOSE SCREENING CT OF THE CHEST WITHOUT CONTRAST TECHNIQUE: Low dose lung cancer screening CT of the chest was performed without the administration of intravenous contrast. Multiplanar reformatted images are provided for review. Dose modulation, iterative reconstruction, and/or weight based adjustment of the mA/kV was utilized to reduce the radiation dose to as low as reasonably achievable. COMPARISON: None. HISTORY: Screening. Patient Age: 58 y/o Number of pack years of smokin If no longer smoking, number of years since cessation: Patient still currently smoking every day. Other symptoms: None. FINDINGS: Mediastinum: Calcified mediastinal lymph nodes are present. No mediastinal adenopathy or acute aortic abnormality is noted. Scattered calcified plaque is present in the aorta. Coronary artery calcification is noted. Heart size is normal without pericardial effusion or epicardial adenopathy. Lungs/Pleura: Moderate to severe emphysematous changes are present in the lungs with biapical bullous formation. No areas of consolidation or effusion are noted. Biapical pleural thickening is noted. Right upper lobe nodule of 2.7 mm is noted image 51 series 3. Small right middle lobe nodule of 2.5 mm is noted image 68 series 3. Right middle lobe scarring is evident. Basilar atelectasis is demonstrated. Central traction bronchiectasis is noted left greater than right. Upper Abdomen: Left adrenal nodule of 2.3 cm is noted, Hounsfield number measurements 7.47. Aorta and branches are calcified. Soft Tissues/Bones: Degenerative changes are present without evidence of acute osseous abnormality. Moderate spondylosis mid to lower thoracic spine is noted. IMPRESSION: 1. Right-sided nodules of less than 3 mm. 2. Granulomatous changes in the mediastinum. No josesito mediastinal adenopathy. 3. Moderate to severe emphysematous changes with scarring. 4. No focal consolidation. 5. 2.3 cm left adrenal hypodense nodule, consistent with adenoma. No further CT follow-up is advised. LUNG RADS: Category 2. Benign appearance, nodules of less than 6 mm at baseline. Less than 1% chance of malignancy. Advised annual low-dose CT chest screening. RECOMMENDATIONS: No further follow-up is recommended for hypodense left adrenal mass. If you would like to register your patient with the [facility] Lung Nodule/Lung Cancer Screening Program, please contact the Nurse Navigator at [phone] . [place], [place] Progress Noteon 06-09-2017 HIM IP Note OR Fire Medic Normal [facility] Progress Noteon 05-13-2017 HIM IP Note OR Fire Medic Normal [facility] Vital Signs Date Time Vital Sign Value Performing Clinician Facility 07-27-2023 12:39-0400 Body height 175.26 cm [facility] 07-27-2023 12:39-0400 Body mass index (BMI) [Ratio] 23.82 kg/m2 [facility] 07-27-2023 12:39-0400 Body surface area Derived from formula 1.89 m2 [facility] 07-27-2023 12:39-0400 Body weight 73.17 kg [facility] 07-27-2023 12:39-0400 Diastolic blood pressure 72 mm[Hg] [facility] 07-27-2023 12:39-0400 Heart rate 72 /min [facility] 07-27-2023 12:39-0400 Systolic blood pressure 126 mm[Hg] [facility] 06-01-2023 17:38-0500 Body height 175.26 cm [facility] 06-01-2023 17:38-0500 Body mass index (BMI) [Ratio] 23.04 kg/m2 [facility] 06-01-2023 17:38-0500 Body surface area Derived from formula 1.86 m2 [facility] 06-01-2023 17:38-0500 Body weight 70.76 kg [facility] 06-01-2023 17:38-0500 Diastolic blood pressure 74 mm[Hg] [facility] 06-01-2023 17:38-0500 Heart rate 72 /min [facility] 06-01-2023 17:38-0500 Systolic blood pressure 130 mm[Hg] [facility] 03-13-2022 20:28-0400 Body height 182.9 cm Jud Cleary MD Work Phone: [employer] 03-13-2022 20:28-0400 Body mass index (BMI) [Ratio] 19.67 kg/m2 Jud Cleary MD Work Phone: [employer] 03-13-2022 20:28-0400 Body temperature 97.39 [degF] Jud Cleary MD Work Phone: [employer] 03-13-2022 20:28-0400 Body weight 65.77 kg Jud Cleary MD Work Phone: [employer] 03-13-2022 20:28-0400 Diastolic blood pressure 86 mm[Hg] Jud Cleary MD Work Phone: [employer] 03-13-2022 20:28-0400 Heart rate 78 /min Jud Cleary MD Work Phone: [facility] [employer] 03-13-2022 20:28-0400 Respiratory rate 18 /min Jud Cleary MD Work Phone: [facility] [employer] 03-13-2022 20:28-0400 SaO2% (BldA) [Mass fraction] 96 % Jud Cleary MD Work Phone: [facility] [employer] 03-13-2022 20:28-0400 Systolic blood pressure 135 mm[Hg] Jud Cleary MD Work Phone: [facility] [employer] 02-21-2021 12:50-0400 Body temperature 98.29 [degF] Jud Cleary MD Work Phone: [employer] Work Phone: 02-21-2021 12:50-0400 Diastolic blood pressure 69 mm[Hg] Jdu Cleary MD Work Phone: [employer] Work Phone: 02-21-2021 12:50-0400 Heart rate 93 /min Jud Cleary MD Work Phone: [employer] Work Phone: 02-21-2021 12:50-0400 Respiratory rate 16 /min Jud Cleary MD Work Phone: [employer] Work Phone: 02-21-2021 12:50-0400 SaO2% (BldA) [Mass fraction] 95 % Jud Cleary MD Work Phone: [employer] Work Phone: 02-21-2021 12:50-0400 Systolic blood pressure 114 mm[Hg] Jud Cleary MD Work Phone: [employer] Work Phone: 02-18-2021 09:38-0400 Body height 182.9 cm Jud Cleary MD Work Phone: [employer] Work Phone: 02-18-2021 04:54-0400 Body mass index (BMI) [Ratio] 20.45 kg/m2 Jud Cleary MD Work Phone: [employer] Work Phone: 02-18-2021 04:54-0400 Body weight 68.4 kg Jud Cleary MD Work Phone: [employer] Work Phone: 02-21-2019 15:06-0400 BMI (Body Mass Index) 21.02 kg/m2 [facility] [place] 02-21-2019 15:06-0400 Body weight 70.31 kg [place], [place] 02-21-2019 15:06-0400 Height 182.9 cm [place] Encounters Encounter Date Encounter Type Care Provider Facility Start: 04-19-2024 End: 04-19-2024 ambulatory Silviano Friend [facility] Start: 04-19-2024 End: 04-19-2024 Patient encounter procedure Silviano Friend [facility] Start: 04-11-2024 End: 04-11-2024 ambulatory Silviano Friend Facility:[facility] Start: 03-31-2024 ambulatory Silviano Friend Facility:[facility] Start: 10-05-2023 ambulatory Omero saleh PA-C Facility:[facility] Start: 09-15-2023 ambulatory Massiel Moore BANKING AND FINANCE INSTRUCTOR-FAMILY PRACTICE PHYSICIAN ASSISTANT Facility:[facility] Start: 09-08-2023 ambulatory Massiel Moore BANKING AND FINANCE INSTRUCTOR-FAMILY PRACTICE PHYSICIAN ASSISTANT Facility:[facility] Start: 09-07-2023 ambulatory Massiel Moore BANKING AND FINANCE INSTRUCTOR-FAMILY PRACTICE PHYSICIAN ASSISTANT Facility:[facility] Start: 09-03-2023 End: 09-04-2023 ambulatory Massiel Moore BANKING AND FINANCE INSTRUCTOR-FAMILY PRACTICE PHYSICIAN ASSISTANT Facility:[facility] Start: 08-13-2023 End: 08-14-2023 ambulatory [facility] Start: 07-27-2023 Split Srvc Steph G Osbo [facility]ne Other [facility] Start: 07-01-2023 End: 07-02-2023 ambulatory Massiel Moore BANKING AND FINANCE INSTRUCTOR-FAMILY PRACTICE PHYSICIAN ASSISTANT Facility:[facility] Start: 06-08-2023 End: 06-09-2023 ambulatory [facility] Start: 06-01-2023 Split Srvc Steph G Osbo rne Other [facility] Start: 05-21-2023 ambulatory Massiel Moore BANKING AND FINANCE INSTRUCTOR-FAMILY PRACTICE PHYSICIAN ASSISTANT Facility[facility] Start: 05-21-2023 End: 05-22-2023 ambulatory Massiel Moore BANKING AND FINANCE INSTRUCTOR-FAMILY PRACTICE PHYSICIAN ASSISTANT Facility:[facility] Start: 08-26-2022 End: 08-29-2022 [facility] Start: 08-26-2022 End: 08-28-2022 Subsequent hospital visit by physician Christelle Patiño Dr Room 4 [facility] Radiology Comment on above: S/P spinal fusion Start: 07-01-2022 End: 07-04-2022 ambulatory [facility] Start: 07-01-2022 End: 07-03-2022 Subsequent hospital visit by physician Christelle Patiño Dr Room 4 [facility] Radiology Comment on above: S/P spinal fusion Start: 04-01-2022 End: 04-02-2022 ambulatory [facility]EL MOORE [facility] Start: 04-01-2022 End: 04-01-2022 Subsequent hospital visit by physician Massiel Moore APRN FAMILY PRACTICE PHYSICIAN ASSISTANT Work Phone: [facility] Laboratory Comment on above: Screening PSA (prost ate specific antigen); Gastroesophageal reflux disease without esophagitis; Lipid screening Start: 03-13-2022 End: 03-14-2022 Emergency department patient visit MASSIEL Toney [facility] Start: 03-13-2022 End: 03-13-2022 Emergency department patient visit Jud Cleary MD Work Phone: [facility] ED Comment on above: Sprain of right ankl e, unspecified ligament, initial encounter (Primary Dx); Right foot pain Start: 02-17-2021 End: 02-21-2021 Evaluation and management of inpatient Jud Cleary MD Work Phone: [facility] MED SURG Comment on above: COVID-19 (Primary Dx ); Hypoxia Start: 08-31-2020 End: 09-02-2020 Subsequent hospital visit by physician Massiel Moore BANKING AND FINANCE INSTRUCTOR - FAMILY PRACTICE PHYSICIAN ASSISTANT Work Phone: [facility] Radiology Start: 12-16-2019 End: 12-16-2019 Subsequent hospital visit by physician Massiel Moore [facility] Laboratory Comment on above: Screening PSA (prost ate specific antigen); Lipid screening; Gastroesophageal reflux disease without esophagitis Start: 02-21-2019 End: 02-23-2019 Subsequent hospital visit by physician [facility] Nuclear Room [facility] Nuclear Medicine Comment on above: Epigastric pain; Radiating chest pain Start: 02-17-2019 End: 02-17-2019 Subsequent hospital visit by physician [facility] Cardiology Stress Room [facility] Stress Lab Comment on above: Arrived Start: 02-16-2019 End: 02-18-2019 Subsequent hospital visit by physician [facility] Cat Scan Room [facility] CT Scan Comment on above: Personal history of tobacco use Procedures Date Procedure Procedure Detail Performing Clinician Start: 07-27-2023 Nerve conduction paige dies 5-6 studies Steph Sims Start: 06-01-2023 Nerve conduction paige dies 9-10 studies Steph Sims Start: 08-26-2022 Radex spine lumbosac ral minimum 4 views Jaylon Majano MD Work Phone: Start: 07-01-2022 Radex spine lumbosac ral 2/3 views Omero Frank PA-C Work Phone: Start: 04-02-2022 PSA screening Massiel alaniz BANKING AND FINANCE INSTRUCTOR - FAMILY PRACTICE PHYSICIAN ASSISTANT Work Phone: Comment on above: The Leatha ECLIA as say is used. Results obtained with different assay methods cannot be used interchangeably. Start: 04-01-2022 Basic metabolic pane l calcium total Massiel W Might BANKING AND FINANCE INSTRUCTOR - FAMILY PRACTICE PHYSICIAN ASSISTANT Work Phone: Start: 04-01-2022 Lipid panel Massiel W Mi ght BANKING AND FINANCE INSTRUCTOR - FAMILY PRACTICE PHYSICIAN ASSISTANT Work Phone: Start: 03-13-2022 End: 03-13-2022 Radex ankle complete minimum 3 views Jud Cleary MD Work Phone: Start: 02-21-2021 HOME O2 EVAL (DESATU RATION SCREEN) Yenny Fischer Salvador BANKING AND FINANCE INSTRUCTOR - FAMILY PRACTICE PHYSICIAN ASSISTANT Work Phone: Start: 02-21-2021 Rhythm ecg 1-3 leads w/interpretation & report Unknown Provider Result Start: 02-21-2021 BASIC METABOLIC PANE L W/ REFLEX TO MG FOR LOW K Orquidea Naranjo MD Work Phone: Start: 02-21-2021 Fibrin dgradj produc ts d-dimer quantitative Orquidea Naranjo MD Work Phone: Start: 02-21-2021 Rhythm ecg 1-3 leads w/interpretation & report Unknown Provider Result Start: 02-20-2021 Rhythm ecg 1-3 leads w/interpretation & report Unknown Provider Result Start: 02-20-2021 Potassium serum plasma/whole blood Yenny Cookers BANKING AND FINANCE INSTRUCTOR - FAMILY PRACTICE PHYSICIAN ASSISTANT Work Phone: Start: 02-20-2021 Assay of magnesium Guanaco Naranjo MD Work Phone: Start: 02-20-2021 BASIC METABOLIC PANE L W/ REFLEX TO MG FOR LOW K Orquidea Naranjo MD Work Phone: Start: 02-20-2021 C-reactive protein Guanaco Naranjo MD Work Phone: Start: 02-20-2021 Rhythm ecg 1-3 leads w/interpretation & report Unknown Provider Result Start: 02-19-2021 Assay of magnesium Guanaco Naranjo MD Work Phone: Start: 02-19-2021 BASIC METABOLIC PANE L W/ REFLEX TO MG FOR LOW K Orquidea Naranjo MD Work Phone: Start: 02-19-2021 C-reactive protein Guanaco Naranjo MD Work Phone: Start: 02-19-2021 End: 02-20-2021 Rhythm ecg 1-3 leads w/interpretation & report Unknown Provider Result Start: 02-18-2021 BASIC METABOLIC PANE L W/ REFLEX TO MG FOR LOW K Orquidea Naarnjo MD Work Phone: Start: 02-18-2021 C-reactive protein Guanaco Naranjo MD Work Phone: Start: 02-18-2021 Fibrin dgradj produc ts d-dimer quantitative Orquidea Naranjo MD Work Phone: Start: 02-18-2021 End: 02-18-2021 Rhythm ecg 1-3 leads w/interpretation & report Unknown Provider Result Start: 02-17-2021 Ct thorax w/contrast material Jud Cleary MD Work Phone: Start: 02-17-2021 End: 02-18-2021 Ecg routine ecg w/least 12 lds i&r only Jud Cleary MD Work Phone: Start: 02-17-2021 Basic metabolic pane l calcium total Jud Cleary MD Work Phone: Start: 02-17-2021 Hepatic function panel Orquidea Naranjo MD Work Phone: Start: 02-17-2021 COVID-19, RAPID Phillip Andes DO Work Phone: Start: 12-16-2019 [object Object] Massiel gilmore Comment on above: The [place] ECLIA as say is used. Results obtained with different assay methods cannot be used interchangeably. Start: 12-16-2019 Basic metabolic pane l calcium total Massiel W Might Work Phone: Start: 12-16-2019 Blood count complete auto&auto difrntl wbc Massiel W Might Work Phone: Start: 12-16-2019 Lipid panel Massiel W Mi ght Work Phone: Start: 12-16-2019 PSA screening Massielthelma Smith ight Work Phone: Start: 12-16-2019 Transferase alanine amino alt sgpt Massiel Toney Might Work Phone: Start: 12-16-2019 Transferase aspartat e amino ast sgot Massiel Toney Might Work Phone: Start: 02-21-2019 Hepatobil syst imag inc gb w/pharma intervenj Massiel Toney Might Work Phone: Start: 02-16-2019 Ldct for lung ca screen Massiel Moore Work Phone: Surgery (qualifier value) Sa bryan Friend Plan of Treatment Date Care Activity Detail Author Start: 04-01-2027 [facility] Start: 12-15-2024 [facility]id [facility] Start: 06-13-2024 ambulatory Ambulatory Facility:[facility] Start: 05-26-2023 Depression Screen Depression Screen [facility] Start: 03-24-2023 Depression Screen [facility] Start: 03-24-2023 Influenza [facility] Comment on above: Postponed from 12/16 (Patient Refused) Postponed from 12/16 (Patient Refused) Start: 10-10-2022 Depression Screen Depression Screen [facility] [employer] [facility] Start: 09-23-2022 End: 09-23-2022 Patient encounter procedure 09/23/2022 Office Visit Primary Care Massiel Moore, BANKING AND FINANCE INSTRUCTOR - FAMILY PRACTICE PHYSICIAN ASSISTANT [address] [place] [address] [facility] Joleen Start: 09-19-2022 COVID-19 Vaccine (#1) COVID-19 Vacci ne (#1) [facility] Comment on above: Postponed from 02/11 (Not Indicated) Start: 09-19-2022 DTaP/Tdap/Td vaccine (1 - Tdap) DTaP/Tdap/Td vaccine (1 - Tdap) [facility] Comment on above: Postponed from 08/11 (Patient Refused) Start: 09-19-2022 Hepatitis C screening Hepatitis C sc reen [facility] Comment on above: Postponed from 08/11 (Patient Refused) Start: 09-19-2022 HIV screening HIV screen [facility] [employer] Comment on above: Postponed from 08/11 (Patient Refused) Start: 09-19-2022 Pneumococcal 0-64 ye ars Vaccine (1 - PCV) Pneumococcal 0-64 years Vaccine (1 - PCV) [facility] Comment on above: Postponed from 08/11 (Not Indicated) Start: 09-19-2022 Shingles vaccine (1 of 2) Shingles vaccine (1 of 2) [facility] Comment on above: Postponed from 08/11 (Patient Refused) Start: 03-24-2022 End: 03-24-2022 Patient encounter procedure 03/24/2022 Office Visit Primary Care Massiel Moore, BANKING AND FINANCE INSTRUCTOR - FAMILY PRACTICE PHYSICIAN ASSISTANT [address] [place] [address] [facility] Start: 12-16-2021 Influenza vaccination Flu vaccine (# 1) [facility] Start: 08-31-2021 COVID-19 Vaccine (1) COVID-19 Vaccin e (1) [employer] Phone: Comment on above: Postponed from 08/11 (Patient Refused) Postponed from 08/11 (Patient Refused) Start: 06-05-2021 Screening for malign ant neoplasm of colon [facility] [employer] [facility] Start: 06-04-2021 DTaP/Tdap/Td vaccine (1 - Tdap) DTaP/Tdap/Td vaccine (1 - Tdap) [facility] Phone: Comment on above: Postponed from 08/11 (Patient Refused) Start: 06-04-2021 Hepatitis C screening Hepatitis C [facility] [employer] Work Phone: Comment on above: Postponed from 08/11 (Patient Refused) Start: 06-04-2021 HIV screening HIV screen Jesusita yennifer [facility] Work Phone: Comment on above: Postponed from 08/11 (Patient Refused) Start: 06-04-2021 Influenza vaccination Flu vacc ine (Season Ended) [facility] [employer] Phone: Comment on above: Postponed from 01/16 (Patient Refused) Start: 06-04-2021 Pneumococcal 0-64 ye ars Vaccine (1 of 1 - PPSV23) Pneumococcal 0-64 years Vaccine (1 of 1 - PPSV23) [employer] Phone: Comment on above: Postponed from 08/11 (Patient Refused) Start: 06-04-2021 Pneumococcal 0-64 ye ars Vaccine (1 of 2 - PPSV23) Pneumococcal 0-64 years Vaccine (1 of 2 - PPSV23) [facility] Phone: Comment on above: Postponed from 08/11 (Patient Refused) Start: 06-04-2021 Shingles Vaccine (1 of 2) Shingles Vaccine (1 of 2) [employer] Phone: Comment on above: Postponed from 08/11 (Patient Refused) Start: 03-07-2021 End: 03-07-2021 Patient encounter procedure 03/07/2021 Office Visit Primary Care Maricarmen Maya APRN - FAMILY PRACTICE PHYSICIAN ASSISTANT [address] [place] [address] [phone] [facility] Start: 03-04-2021 End: 03-04-2021 Patient encounter procedure 03/04/2021 Office Visit Primary Care Massiel Moore APRN - FAMILY PRACTICE PHYSICIAN ASSISTANT [address] [place] [address] [phone] [facility] Start: 01-16-2021 Influenza vaccination Flu vaccine (# 1) [facility] [employer] Phone: Start: 12-04-2020 End: 12-04-2020 Patient encounter procedure 12/04/2020 Office Visit Primary Care Mary Massiel Toney, BANKING AND FINANCE INSTRUCTOR - FAMILY PRACTICE PHYSICIAN ASSISTANT [address] [place] [address] [phone] [facility] Start: 06-04-2020 End: 06-04-2020 Office Visit 06/04/2020 Office Visit Primary Care MaryMassiel, BANKING AND FINANCE INSTRUCTOR - FAMILY PRACTICE PHYSICIAN ASSISTANT [address] [facility] [place] [address] [phone] [facility] Start: 02-17-[address] lung screening Low dose CT lung screening [place], [place] Start: 02-17-2020 Screening for malign ant neoplasm of lung Low dose CT lung screening [place], [place] Start: 02-04-2020 Influenza vaccination Flu vaccine (# 1) [place] Comment on above: Postponed from 01/16 (Patient Refused) Start: 02-02-2020 Colon Cancer Screen FIT/FOBT Colon Cancer Screen FIT/FOBT [place] Start: 02-02-2020 Screening for malign ant neoplasm of colon Colon Cancer Screen FIT/FOBT [place] Start: 01-17-2020 Influenza vaccination Flu vaccine (# 1) [place] Start: 12-03-2019 DTaP/Tdap/Td vaccine (1 - Tdap) DTaP/Tdap/Td vaccine (1 - Tdap) [place] Comment on above: Postponed from 08/11 (Patient Refused) Start: 12-03-2019 Hepatitis C screen Hepatitis C scree [place] Comment on above: Postponed from 08/11 (Patient Refused) Start: 12-03-2019 HIV screen HIV screen [place], [place] Comment on above: Postponed from 08/11 (Patient Refused) Start: 12-03-2019 Shingles Vaccine (1 of 2) Shingles Vaccine (1 of 2) [place] Comment on above: Postponed from 08/11 (Patient Refused) Start: 12-01-2019 Pneumococcal 0-64 ye ars Vaccine (1 of 1 - PPSV23) Pneumococcal 0-64 years Vaccine (1 of 1 - PPSV23) [place] Comment on above: Postponed from 08/11 (Patient Refused) Start: 11-30-2019 End: 11-30-2019 Office Visit 11/30/2019 Office Visit Primary Care Mary, Massiel Toney, BANKING AND FINANCE INSTRUCTOR - FAMILY PRACTICE PHYSICIAN ASSISTANT [address] [id number] [phone] [facility] Start: 04-04-2019 Lipid panel Lipid screen [place] Start: 04-04-2019 Lipid screen Lipid screen [place] Start: 02-21-2019 End: 02-21-2019 Appointment 02/21/2019 Appointment Radiology [facility] Nuclear Medicine Start: 2008 Shingles Vaccine (1 of 2) Shingles Vaccine (1 of 2) [place] Start: 08-12-2003 Screening for malign ant neoplasm of [facility] Start: 1977 DTaP/Tdap/Td vaccine (1 - Tdap) DTaP/Tdap/Td vaccine (1 - Tdap) [place] Start: 1973 HIV screening HIV screen [place], [place] Start: 1964 Pneumococcal 0-64 ye ars Vaccine (1 of 1 - PPSV23) Pneumococcal 0-64 years Vaccine (1 of 1 - PPSV23) [place] Start: 1958 Hepatitis C screening Hepatitis C sc reen [place] Acapella Acapella Respira tory Care Routine Daily until discontinued starting 02/17/2021 [facility] Work Phone: Comment on above: Daily until disconti nued starting 02/17/2021 aPTT in Blood by Coagulation assay APTT Lab Routine Daily until discontinued starting 02/17/2021, 5 completed [facility] [employer] Work Phone: Comment on above: Daily until disconti nued starting 02/17/2021, 5 completed Basic Metabolic Pane l w/ Reflex to MG Basic Metabolic Panel w/ Reflex to MG Lab Routine Daily until discontinued starting 02/18/2021, 4 completed [employer] Work Phone: Comment on above: Daily until disconti nued starting 02/18/2021, 4 completed C-reactive protein [employer] Work Phone: Comment on above: Daily until disconti nued starting 02/18/2021, 3 completed CBC W Auto Different ial panel - Blood CBC auto differential Lab Routine Daily until discontinued starting 02/18/2021, 4 completed [employer] Work Phone: Comment on above: Daily until disconti nued starting 02/18/2021, 4 completed D-Dimer, Quantitative D-Dimer, Q uantitative Lab Routine Daily until discontinued starting 02/17/2021, 5 completed [employer] Phone: Comment on above: Daily until disconti nued starting 02/17/2021, 5 completed Nasal Cannula Oxygen Nasal Cannu la Oxygen Respiratory Care STAT Daily until discontinued starting 02/17/2021 [employer] Phone: Comment on above: Daily until disconti nued starting 02/17/2021 Oxygen therapy [[facility] Data Set] Initiate Oxygen Therapy Protocol Respiratory Care Routine Daily until discontinued starting 02/17/2021 [employer] Phone: Comment on above: Daily until disconti nued starting 02/17/2021 Protime-INR Protime-INR Lab Routine Daily until discontinued starting 02/17/2021, 5 completed [employer] Phone: Comment on above: Daily until disconti nued starting 02/17/2021, 5 completed Payers Date Payer Category Payer Medicare [id number] 2024 Medicare [id number] 2022 Unknown 2018 Unknown [employer] [address] xxxxxxxxxxxx 2018-[facility] [phone] [address] [place] [address] xxxxxxxxxxxx [id number] .[id number] 2018 Unknown 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 [address] [id number] 2018-Present [phone] [address] [place] [address] [id number] [id number] .[id number] 2018 Unknown [id number] 1.2.840.567219.1.13.239.2.7.3 .[id number] 1958 Unknown [id number] 2.16.840.1.776270.3.579.2.173 1958 Unknown [id number] 2.16.840.1.434473.3.579.2.173 1958 Unknown [id number] 2.16.840.1.205089.3.579.2.173 1958 Unknown [id number] 2.16.840.1.457497.3.579.2.173 1958 Unknown [id number] 2.16.840.1.146909.3.579.2.173 1958 Unknown [id number] 2.16.840.1.279329.3.579.2.173 1958 Unknown [id number] 2.16.840.1.816094.3.579.2.128 6 1958 Unknown [id number] 2.16.840.1.672786.3.579.2.128 6 1958 Unknown [id number] 2.16.840.1.934398.3.579.2.196 1958 Unknown [id number] 2.16.840.1.044106.3.579.2.196 1958 Unknown [id number] 2.16.840.1.259636.3.579.2.196 1958 Unknown [id number] 2.16.840.1.751677.3.579.2.196 1958 Unknown [id number] 2.16.840.1.197085.3.579.2.196 1958 Unknown [id number] 2.16.840.1.892696.3.579.2.196 1958 Unknown [id number] 2.16.840.1.838916.3.579.2.196 1958 Unknown [id number] 2.16.840.1.791844.3.579.2.196 1958 Unknown [id number] 2.16.840.1.723019.3.579.2.196 1958 Unknown [id number] 2.16.840.1.577049.3.579.2.727 1958 Unknown [id number] 2.16.840.1.149300.3.579.2.727 1958 Unknown [id number] 2.16.840.1.521495.3.579.2.727 Social History Date Type Detail Facility Start: 02-03-2019 End: 03-24-2022 Tobacco smoking status NHIS Current every day smoker [facility] History of tobacco use Cigarette Smoker [place], [place] Start: 02-03-2019 End: 05-26-2022 Cigarettes smoked current (pack per day) - Reported [place], [place] Start: 02-03-2019 Alcohol intake Yes [facility] Start: 1960 Sex Assigned At Not on file [place], [place] Start: 11-30-2019 End: 03-24-2022 Tobacco use and exposure Never used [place] Start: 11-30-2019 End: 05-26-2022 Alcohol intake Current drinker of alcohol (finding) [place] Exposure to SARS-CoV -2 (event) Not sure [place] Exposure to SARS-CoV -2 (event) Yes [employer] Start: 03-07-2021 End: 03-24-2022 History 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 [employer] Work Phone: Start: 03-07-2021 End: 03-24-2022 History SDOH Food Worry 1 [employer] Work Phone: Start: *Tobacco [employer] Start: Alcohol [employer] Start: Caffeine [employer] Start: 04-11-2024 Tobacco smoking status Heavy t obacco smoker (finding) [facility] Medical Equipment Procedure Code Equipment Code Equipment Origin al Text Equipment Identifier Dates Putty Graft Bone Deminrl Sub 5ml Fd [id number] Start: 03-11-2017 Comment on above: Description: RIGHT F OOT FIRST DIGIT Impl Toe Minoo Fl x W/ Grommet Sm Sz 4 [id number] Start: 03-11-2017 Comment on above: Description: RIGHT F OOT FIRST DIGIT Plate [place] 4 [id number] Start: 03-11-2017 Comment on above: Description: RIGHT F OOT FIRST DIGIT Ortholoc 3.5mmx 24mm Locking Screw [id number] Start: 03-11-2017 Comment on above: Description: RIGHT F OOT FIRST DIGIT Ortholoc 3.2joq36pi Locking Screw [id number] Start: 03-11-2017 Ortholoc 3.5mm X 20mm Low Profile Screws [id number] Start: 03-11-2017 Comment on above: Description: RIGHT F OOT FIRST DIGIT Ortholoc 3.5mm X 24mm Low Profile Screws [id number] Start: 03-11-2017 Comment on above: Description: RIGHT F OOT FIRST DIGIT Goals Date Patient Goal Desired Activity /State Clinical Notes 02-17-2021 to 05-22-2023 Discharge InstructionsPatrick Osborne RN - 02/21/2021 4:01 PM Lenore Alcantara PTA - 02/21/2021 2:11 PM EDTCraman Amanda Gimenez, NOC ENGINEER - 02/21/2021 12:33 PM EDTDischarge Instr - Diet Note Date & Type Note Facility 05-22-2023 Note CLINICAL HISTORY: Po stoperative evaluation. EXAMINATION: Flexion, extension and neutral lateral images of the lumbar spine were obtained as well as a frontal image. FINDINGS: There is anterolisthesis of L5 with respect to S1. Vertebral body heights and alignment are otherwise maintained. There has been fusion from L4 through S1. Surgical hardware appears intact and in appropriate alignment. There is loss of disc space height with endplate bone spurring throughout the lumbar spine. There is diffuse osseous demineralization. There is limited range of motion. There is no dynamic subluxation. The SI joints are patent. There is calcification in the aorta. Imaged lungs are clear. IMPRESSION: Postsurgical and degenerative changes with limited range of motion. No acute findings. Final Dictated by: Adan Harris MD Dictated DT/TM: 05/22/2023 7:57 am Signed by: Aadn Harris MD Signed (Electronic Signature): 05/22/2023 7:58 am (If Report Is Signed, Electronically Signed in Other Vendor System) [facility] 03-13-2022 Hospital Discharge instructions Jud Cleary MD - 03/13/2022 9:56 PM EDT Tylenol as directed if needed for any pain. Ice for 5 to 10-minute intervals as desired for comfort. Miguelito wrap during the day while standing and walking as needed for comfort. Keep elevated to at least waist height while seated. Follow-up with your primary care provider in 1 week if symptoms do not resolve. Please return immediately for any acute concerns The following attachments cannot be sent through Care Everywhere.Ankle Sprain (Brazilian)Foot Pain (Brazilian)documented in this encounter [facility] Work Phone: 02-21-2021 History of Present illness Narrative Went over with pt all discharge instructions including how to work the oxygen tank. He stated he understands and is now being wheeled down via chair to ER entrance, and from there he will be driving home. Physical Therapy Facility/Department: [facility] Daily Treatment Note NAME: Rufina Velazquez : 1960 Date of Service: 02/21/2021 Discharge Recommendations: Home with nursing home admissions director, Home with assist PRN Patient Diagnosis(es): The primary encounter diagnosis was COVID-19. A diagnosis of Hypoxia was also pertinent to this visit. has a past medical history of Pneumonia. has a past surgical history that includes Hand tendon surgery; Bunionectomy (Right, 10/19/2014); Toe Surgery (Right, 03/11/2017); toe arthroplasty (Right, 03/11/2017); and Cataract removal. Restrictions Restrictions/Precautions Restrictions/Precautions: General Precautions, Fall Risk, Isolation Subjective General Chart Reviewed: Yes Response To Previous Treatment: Patient with no complaints from previous session. Family / Caregiver Present: No Subjective Subjective: Pt denied pain, pleasant and agreeable to therapy. Orientation Orientation Overall Orientation Status: Within Functional Limits Cognition Objective Transfers Sit to Stand: Independent Stand to sit: Independent Stand Pivot Transfers: Independent Ambulation Ambulation?: Yes Ambulation 1 Surface: level tile Device: No Device Other Apparatus: O2 (2L) Assistance: Independent Distance: 420ft Comments: Several directional changes, no LOB noted. Balance Standing - Static: Good Standing - Dynamic: Good Exercises Hip Flexion: 20x2 Hip Abduction: 20x2 Knee Long Arc Quad: 20x Knee Active Range of Motion: 20x2 Ankle Pumps: 20x2 Comments: Standing LE ther ex at sink- heel raises, marches, mini squats, hip abd all x20 + seated x 20 Goals Short term goals Time Frame for Short term goals: 14 days Short term goal 1: Pt to ambulate 300ft without AD and no LOB. Short term goal 2: Pt to tolerate 20-30 mins ther ex/act for improved strength and endurance. Short term goal 3: Pt to demonstrate good dynamic standing balance for decrease fall risk. Short term goal 4: Pt to perform all bed mob, transfers, and gait independently. Patient Goals Patient goals : home following discharge Plan Plan Times per week: 7x week Times per day: Twice a day (daily on weekend) Current Treatment Recommendations: Strengthening, Neuromuscular Re-education, Home Exercise Program, Safety Education & Training, Balance Training, Endurance Training, Patient/Caregiver Education & Training, Functional Mobility Training, Transfer Training, Gait Training, Stair training Safety Devices Type of devices: All fall risk precautions in place, Call light within reach, Left in chair (No alarm present upon entering pt room.) Therapy Time Individual Concurrent Group Co-treatment Time In 1347 Time Out 1410 Minutes 23 Lenore Olson, INSPECTOR SOLDERING [id number] SW spoke with RT that completed home oxygen evaluation. She spoke with pt and he was agreeable to [employer] as supplier for home oxygen. SW faxed over needed information and left a message for [employer] that information was being faxed and to please call with delivery time. Amanda GILES 02/21/2021 Pt has been approved through insurance for home oxygen through [employer] and they will be delivering. Amanda GILES 02/21/2021 Physician Progress Note PATIENT: RUFINA VELAZQUEZ CSN #: [id number] : 1960 ADMIT DATE: 02/17/2021 1:30 PM DISCH DATE: RESPONDING PROVIDER #: ORQUIDEA NARANJO MD QUERY TEXT: Pt admitted 02/17/21 with Covid-19 pneumonia. Per 02/18/21 and 02/21/21 comprehensive nutrition assessments by dietitian: Severe malnutrition If possible, please document in progress notes and discharge summary: The medical record reflects the following: Risk Factors: Covid-19 pneumonia, acute respiratory failure, diarrhea, loss of taste/smell. Clinical Indicators: 02/18/21 Comprehensive nutrition assessment by dietitian: Severe malnutrition r/t inadequate oral intakes aeb PO < 50% x 7 days, weight loss 6.8% x 1 week, Treatment: assessment, education and monitoring by dietitian; ONS advised, but patient did not utilize Adri Grady RN, CCDS Clinical Traffic Rate Analyst [phone] . Options provided: -- Severe malnutrition confirmed present on admission -- Severe malnutrition confirmed, not present on admission -- Severe malnutrition ruled out -- Other - I will add my own diagnosis -- Disagree - Not applicable / Not valid -- Disagree - Clinically unable to determine / Unknown -- Refer to Clinical Documentation Reviewer PROVIDER RESPONSE TEXT: The diagnosis of severe malnutrition was confirmed as present on admission. Query created by: Adri Grady on 02/21/2021 10:47 AM Electronically signed by: ORQUIDEA NARANJO MD 02/21/2021 11:51 AM Covid-19 Progress Note SUBJECTIVE: Patient seen for f/u of Pneumonia due to COVID-19 virus. He sitting up on the side of the bed alert oriented in no acute distress. Patient is currently has 2 L of oxygen on per nasal cannula he has no complaints. He is afebrile. He states he feels good. ROS: Constitutional: negative for fevers, and negative for chills. Respiratory: Negative for shortness of breath, negative for cough, and negative for wheezing Cardiovascular: negative for chest pain, and negative for palpitations Gastrointestinal: negative for abdominal pain, negative for nausea,negative for vomiting, negative for diarrhea, and negative for constipation All other systems were reviewed with the patient and are negative unless otherwise stated in HPI OBJECTIVE: Vitals: Vitals: 02/21/21 0742 BP: 133/75 Pulse: 65 Resp: 16 Temp: 97.6 F (36.4 C) SpO2: 93% Weight: 150 lb 12.8 oz (68.4 kg) Height: 6' (182.9 cm) PaO2/FiO2 RATIO: No results for input(s): POCPO2 in the last 72 hours. Weight Wt Readings from Last 3 Encounters: 02/18/21 150 lb 12.8 oz (68.4 kg) 08/31/20 155 lb 4.8 oz (70.4 kg) 06/04/20 162 lb 9.6 oz (73.8 kg) Body mass index is 20.45 kg/m . 24HR INTAKE/OUTPUT: Intake/Output Summary (Last 24 hours) at 02/21/2021 1152 Last data filed at 02/21/2021 0758 Gross per 24 hour Intake 400 ml Output Net 400 ml - Exam: GEN: Awake, alert and oriented x3. EYES: EOMI, pupils equal NECK: Supple. No lymphadenopathy. No carotid bruit CVS: regular rate and rhythm, no audible murmur PULM: Clear to auscultation no wheezes rales or rhonchi, no acute respiratory distress ABD: Bowels sounds normal. Abdomen is soft. No distention. no tenderness to palpation. EXT: no edema bilaterally . No calf tenderness. NEURO: Moves all extremities. Motor and sensory are grossly intact SKIN: No rashes. No skin lesions. - ABGs: No results for input(s): POCPH, POCPCO2, POCPO2, POCHCO3, AAIF8IJU in the last 72 hours. CBC: Recent Labs 02/19/21 0602/20/2162402/21/21 05 WBC 7.1 5.9 6.9 HGB 13.4 12.5* 12.9* HCT 39.8* 36.3* 37.7* MCV 91.3 90.8 91.3 PLT 358 413 432 LYMPHOPCT 25 28 30 RBC 4.36 4.00* 4.13* MCH 30.7 31.3 31.2 MCHC 33.7 34.4 34.2 RDW 12.1 12.2 12.5 CRP: Recent Labs 02/19/2160402/20/21624 CRP 33.5* 17.9* LDH: No results for input(s): LDH in the last 72 hours. BMP: Recent Labs 02/19/21 0605 02/20/21 0625 02/20/21 1320 02/21/21 0555 NA 139 136 -- 136 K 3.1* 2.7* 3.4* 3.7 CL 102 99 -- 100 CO2 26 28 -- 28 BUN 8 9 -- 9 CREATININE 0.40* 0.47* -- 0.50* GLUCOSE 108* 105* -- 147* Liver Function Test: No results for input(s): PROT, LABALBU, ALT, AST, GGT, ALKPHOS, BILITOT in the last 72 hours. Coagulation Profile: Recent Labs 02/19/21 0602/20/21 0625 02/21/21 0555 INR 1.1 1.1 1.0 PROTIME 13.6 13.9 13.0 APTT 41.5* 43.1* 38.6* D-Dimer: Recent Labs 02/19/21 0602/20/21 0625 02/21/21 0555 DDIMER <0.27 0.27 <0.27 Ferritin: No results for input(s): FERRITIN in the last 72 hours. Lactic Acid: No results for input(s): LACTA in the last 72 hours. Cardiac Enzymes: No results for input(s): CKTOTAL, CKMB, CKMBINDEX, TROPONINI in the last 72 hours. Invalid input(s): TROPONIN, HSTROP BNP/ProBNP: No results for input(s): BNP, PROBNP in the last 72 hours. Triglycerides: No results for input(s): TRIG in the last 72 hours. Radiology/Imaging: CT CHEST PULMONARY EMBOLISM W CONTRAST Final Result 1. No evidence of pulmonary embolism. 2. Advanced emphysema. 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 ASSESSMENT / PLAN: Pneumonia due to COVID-19 virus Continue current therapy IV remdesivir this dose Continue dexamethasone Continue Vitamin C, D and zinc Trend labs stable Acute respiratory failure with hypoxia Supplemental oxygen to maintain SPO2 greater than 90% Tinea DuoNeb COPD Nebs Dexamethasone Tobacco abuse Nicotine patch Nutrition status: Roll Out Manager consult initiated Hospital Prophylaxis: DVT: Lovenox Stress Ulcer: H2 [place] High risk medications: Remdesivir Disposition: Discharge plan is home today with home oxygen FACE TO FACE: Patient qualified for home O2. Discussed with patient the medical necessity of home O2. Patient voiced understanding and agreement. Yenny Franco APRN - EMRE, RAFAELA, PLANING MACHINE OPERATOR-C 02/21/2021, 11:52 AM Yenny Franco APRN - EMRE , RAFAELA, PLANING MACHINE OPERATOR-C Associated attestation - Orquidea Naranjo MD - 02/21/2021 12:50 PM EDT Orquidea Naranjo M.D. Internal Medicine PA/PLANING MACHINE OPERATOR Attestation Note Patient: Rufina Velazquez Date of Admission: 02/17/2021 1:30 PM Hospital Day # 4 Date of Evaluation: 02/21/2021 I personally evaluated and examined the patient [id number] in conjunction with the PA/PLANING MACHINE OPERATOR and agree with the management and dispostition of the patient. Please see the PA/PLANING MACHINE OPERATOR's note for full details. My martel findings are: SUBJECTIVE: Patient seen for follow up of Acute respiratory failure with hypoxia due to Covid-19 pneumonia. He denies fever and chills. He denies chest pain. He is feeling better with less SOB and cough. He is tolerating diet without nausea, vomiting or diarrhea. He was weaned off O2 OBJECTIVE: Vitals: Temp: 97.6 F (36.4 C) BP: 133/75 Resp: 16 Pulse: 65 SpO2: 93 % on room air SpO2 range: SpO2 Av % Min: 93 % Max: 98 % Weight Wt Readings from Last 3 Encounters: 02/18/21 150 lb 12.8 oz (68.4 kg) 08/31/20 155 lb 4.8 oz (70.4 kg) 06/04/20 162 lb 9.6 oz (73.8 kg) Body mass index is 20.45 kg/m . 24HR INTAKE/OUTPUT: Intake/Output Summary (Last 24 hours) at 02/21/2021 1250 Last data filed at 02/21/2021 0758 Gross per 24 hour Intake 400 ml Output Net 400 ml - Exam: GEN: Awake, alert and oriented x3. EYES: EOMI, pupils equal NECK: Supple. No lymphadenopathy. No carotid bruit CVS: regular rate and rhythm, no audible murmur PULM: diminished but nor rales or rhonchi, no acute respiratory distress ABD: Bowels sounds normal. Abdomen is soft. No distention. no tenderness to palpation. EXT: no edema bilaterally . No calf tenderness. NEURO: Moves all extremities. Motor and sensory are grossly intact SKIN: No rashes. No skin lesions. DATA: Complete Blood Count: Recent Labs 02/19/21 0602/20/2162402/21/21 0555 WBC 7.1 5.9 6.9 RBC 4.36 4.00* 4.13* HGB 13.4 12.5* 12.9* HCT 39.8* 36.3* 37.7* MCV 91.3 90.8 91.3 MCH 30.7 31.3 31.2 MCHC 33.7 34.4 34.2 RDW 12.1 12.2 12.5 PLT 358 413 432 MPV 9.0 8.8 8.8 Last 3 Blood Glucose: Recent Labs 02/19/21 0605 02/20/21 0625 02/21/21 0555 GLUCOSE 108* 105* 147* HgBA1c: Lab Results Component Value Date LABA1C 5.1 06/04/2020 Comprehensive Metabolic Profile: Recent Labs 02/19/21 0605 02/19/21 0605 02/20/2125 02/20/21 1320 02/21/21 0555 NA 139 -- 136 -- 136 K 3.1* < > 2.7* 3.4* 3.7 CL 102 -- 99 -- 100 CO2 26 -- 28 -- 28 BUN 8 -- 9 -- 9 CREATININE 0.40* -- 0.47* -- 0.50* GLUCOSE 108* -- 105* -- 147* CALCIUM 8.6 -- 8.5* -- 9.0 < > = values in this interval not displayed. Urinalysis: Lab Results Component Value Date NITRU NEGATIVE 12/02/2018 COLORU YELLOW 12/02/2018 PHUR 7.5 12/02/2018 WBCUA 0 TO 2 12/02/2018 RBCUA 0 TO 2 12/02/2018 MUCUS NOT REPORTED 12/02/2018 TRICHOMONAS NOT REPORTED 12/02/2018 YEAST NOT REPORTED 12/02/2018 BACTERIA NOT REPORTED 12/02/2018 SPECGRAV 1.010 12/02/2018 LEUKOCYTESUR NEGATIVE 12/02/2018 UROBILINOGEN Normal 12/02/2018 BILIRUBINUR NEGATIVE 12/02/2018 GLUCOSEU NEGATIVE 12/02/2018 KETUA NEGATIVE 12/02/2018 AMORPHOUS 2+ 12/02/2018 CRP: Recent Labs 02/19/21 0605 02/20/21 0625 CRP 33.5* 17.9* D-Dimer: Recent Labs 02/19/21 0605 02/20/21 0625 02/21/21 0555 DDIMER <0.27 0.27 <0.27 PT/INR: Lab Results Component Value Date PROTIME 13.0 02/21/2021 INR 1.0 02/21/2021 PTT: Lab Results Component Value Date APTT 38.6 02/21/2021 Radiology/Imaging: CT CHEST PULMONARY EMBOLISM W CONTRAST Final Result 1. No evidence of pulmonary embolism. 2. Advanced emphysema. 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 ASSESSMENT / PLAN: I agree with the assessment and plan as outlined by PA/PLANING MACHINE OPERATOR below Acute respiratory failure with hypoxia due to Covid-19 viral infection Completed Remdesivir course Continue PO steroids after DC Continue Mucinex-DM Supplemental O2 to keep SpO2 > 92% - Home O2 eval ordered Encouraged continued use of Acapella Encouraged intermittent prone positioning as tolerated Continue respiratory therapy protocol Chronic tobacco abuse Nicotine patch Nutrition status: at risk for malnutrition Roll Out Manager consult initiated Hospital Prophylaxis: DVT: Lovenox Stress Ulcer: H2 [place] High risk medications: Remdesivir Disposition: Discharge plan is home Orquidea Naranjo MD , M.D. 02/21/2021 12:50 PM [facility] Cardiopulmonary Services [address] [place] [address] A home oxygen evaluation has been completed. Patient was placed on room air for 5 minutes. SpO2 was 95 % on room air at rest. Patient was walked for 6 minutes. SpO2 was 87 % on room air during walking. Oxygen was applied at 2 lpm via nasal cannula to maintain a SpO2 between 90-92% while walking. Actual SpO2 was 96 % with oxygen at 2 lpm. Occupational Therapy Facility/Department: [facility] Daily Treatment Note NAME: Rufina Velazquez : 1960 Date of Service: 02/21/2021 Discharge Recommendations: Continue to assess pending progress Assessment Patient Education: Patient educated on pursed lip breathing throughout exercises. Pt demo'd good understanding. Activity Tolerance Activity Tolerance: Patient Tolerated treatment well Safety Devices Safety Devices in place: Yes Type of devices: Left in chair;Call light within reach Patient Diagnosis(es): The primary encounter diagnosis was COVID-19. A diagnosis of Hypoxia was also pertinent to this visit. has a past medical history of Pneumonia. has a past surgical history that includes Hand tendon surgery; Bunionectomy (Right, 10/19/2014); Toe Surgery (Right, 03/11/2017); toe arthroplasty (Right, 03/11/2017); and Cataract removal. Restrictions Restrictions/Precautions Restrictions/Precautions: General Precautions, Fall Risk, Isolation Subjective General Chart Reviewed: Yes Patient assessed for rehabilitation services?: Yes Family / Caregiver Present: No Subjective Subjective: Pt denies pain this date. General Comment Comments: Pt seated in chair upon OT arrival, agreeable to therapy. Pt reports that he is a little more tired today than he has been d/t not getting much sleep last night. Pt reports that the monitor for his SpO2 kept going off d/t a combintaion of low oxygen levels and bad connection of the monitor on his finger. Pt is on 1 L O2 this date. Vital Signs Patient Currently in Pain: Denies Orientation Orientation Overall Orientation Status: Within Functional Limits Objective Balance Sitting Balance: Independent Standing Balance: Independent Standing Balance Time: 23' standing tolerance durin ther ex (see exercises); no LOB noted, min shortness of breath Activity: reaching various planes to challenge balance Comment: On 1L O2, stats remained at 94% throughout treatment Transfers Stand Step Transfers: Independent Sit to stand: Independent Stand to sit: Independent Cognition Overall Cognitive Status: WFL Type of ROM/Therapeutic Exercise Type of ROM/Therapeutic Exercise: Free weights Comment: Patient engaged in BUE HEP c 2# free weight while standing. Patient completed 2 sets of 20 reps x 5 various UE planes to improve strength as well as activity tolerance. Pt completed ther ex with sears flexbar x20 reps x3 variations x1 set. Pt tolerated ther ex while standing x15'. Pt's SpO2 remained at 94% whiloe on 1L O2. Plan Plan Times per week: 7 Times per day: Daily Current Treatment Recommendations: Strengthening, Balance Training, Functional Mobility Training, Endurance Training, Equipment Evaluation, Education, & procurement, Patient/Caregiver Education & Training, Safety Education & Training Goals Short term goals Time Frame for Short term goals: 20 visits Short term goal 1: Patient to be educated on EC/WS techniques, PLB techniques, d/c folder, AE/DME to ensure safe return home. Short term goal 2: Patient to complete self care routine c Mod I to ensure safe return home. Short term goal 3: Patient to engage in 15 minutes of ther ex/ther act s significant shortness of breath to improve strength as well as activity tolerance for self care tasks. Short term goal 4: Patient to tolerate standing >7' while participating in functional task of choice to improve standing tolerane, balance and safety during ADL, mobility and transfers. Therapy Time Individual Concurrent Group Co-treatment Time In 0852 Time Out 0916 Minutes 24 Timed Code Treatment Minutes: 24 Minutes KATHLEEN Duffy, OTR/L Comprehensive Nutrition Assessment Type and Reason for Visit: Reassess Nutrition Recommendations/Plan: Encourage oral fluids and protein foods Nutrition Assessment: Improving malnutrition r/t inadequate nutrient intakes, AEB PO now >76%. Not utilizing Ensure and is also planning d/c to home this date. Encouraged increased oral fluids, protein foods and weighing self daily at home. No new weights since admission to [facility] changes currently. Creatinine is improving, which may reflect his better oral intakes. Malnutrition Assessment: Malnutrition Status: Severe malnutrition Estimated Daily Nutrient Needs: Energy (kcal): 5193-0159 (25-28/kg); Weight Used for Energy Requirements: Current Protein (g): 88-102g (1.3-1.5g/kg); Weight Used for Protein Requirements: Current Fluid (ml/day): 1904 ml; Method Used for Fluid Requirements: 1 ml/kcal Nutrition Related Findings: unable to assess due to isolation Wounds: None Current Nutrition Therapies: ADULT DIET; Regular Adult Oral Nutrition Supplement; Standard High Calorie/High Protein Oral Supplement Anthropometric Measures: Height: 6' (182.9 cm) Current Body Weight: 150 lb 12.8 oz (68.4 kg) Admission Body Weight: 151 lb 1.6 oz (68.5 kg) Usual Body Weight: 162 lb (73.5 kg) [place] Body Weight: 178 lbs; % [place] Body Weight 84.7 % BMI: 20.4 Adjusted Body Weight: ; No Adjustment BMI Categories: Normal Weight (BMI 18.5-24.9) Nutrition Diagnosis: Severe malnutrition related to inadequate protein-energy intake as evidenced by poor intake prior to admission, weight loss greater than or equal to 2% in 1 week, diarrhea Lab Results Component Value Date NA 136 02/21/2021 K 3.7 02/21/2021 CL 100 02/21/2021 CO2 28 02/21/2021 BUN 9 02/21/2021 CREATININE 0.50 (L) 02/21/2021 GLUCOSE 147 (H) 02/21/2021 CALCIUM 9.0 02/21/2021 PROT 7.1 02/17/2021 LABALBU 3.7 02/17/2021 BILITOT 0.33 02/17/2021 ALKPHOS 69 02/17/2021 AST 58 (H) 02/17/2021 ALT 35 02/17/2021 LABGLOM >60 02/21/2021 GFRAA >60 02/21/2021 GLOB NOT REPORTED 02/17/2021 Nutrition Interventions: Food and/or Nutrient Delivery: Continue Current Diet, Discontinue Oral Nutrition Supplement Nutrition Education/Counseling: Education initiated Coordination of Nutrition Care: Continue to monitor while inpatient Goals: PO >75% meals with increased protein and oral fluids Nutrition Monitoring and Evaluation: Behavioral-Environmental Outcomes: None Identified Food/Nutrient Intake Outcomes: Food and Nutrient Intake Physical Signs/Symptoms Outcomes: Biochemical Data, Weight Discharge Planning: Continue current diet Contact: [phone] Pt hourly rounded on, assessed and vitals were obtained. Pt is on 1 L NC and in no distress and with no further needs at this time, he was also updated on his plan of care for the day which includes a home o2 eval and possible d/c Patient spo2 alarming due to a desat to 88% on room air. Range Master watched patient to see if he would improve on his own for like 5 mins with no change. Range Master entered room and patient was asleep on his left side. Range Master woke patient up and put 1L per nasal cannula on him. spo2 improved to 96% at this time. Will continue to monitor. At bedside with patient, assessment done, vitals obtained, white board updated. Patient denies having any pain and has no further needs at this time. Range Master removed trash from room and refilled ice water at this time. Physical Therapy Facility/Department: [facility] Daily Treatment Note NAME: Rufina Velazquez : 1960 Date of Service: 02/20/2021 Discharge Recommendations: Home with nursing home admissions director, Home with assist PRN Assessment Prognosis: Good Decision Making: Medium Complexity Patient Education: Educated on keeping up with daily exercise, good understanding reported REQUIRES PT FOLLOW UP: Yes Activity Tolerance Activity Tolerance: Patient Tolerated treatment well Patient Diagnosis(es): The primary encounter diagnosis was COVID-19. A diagnosis of Hypoxia was also pertinent to this visit. has a past medical history of Pneumonia. has a past surgical history that includes Hand tendon surgery; Bunionectomy (Right, 10/19/2014); Toe Surgery (Right, 03/11/2017); toe arthroplasty (Right, 03/11/2017); and Cataract removal. Restrictions Restrictions/Precautions Restrictions/Precautions: General Precautions, Fall Risk, Isolation Subjective General Chart Reviewed: Yes Response To Previous Treatment: Patient with no complaints from previous session. Family / Caregiver Present: No Subjective Subjective: Reports he feels good, just had a shower. Pain Screening Patient Currently in Pain: Denies Pain Assessment Pain Level: 0 Vital Signs Patient Currently in Pain: Denies Orientation Orientation Overall Orientation Status: Within Normal Limits Cognition Objective Transfers Sit to Stand: Modified independent;Supervision Stand to sit: Modified independent;Supervision Ambulation Ambulation?: Yes Ambulation 1 Surface: level tile Device: No Device Assistance: Supervision;Modified Independent Quality of Gait: good rodrigo, no LOB or unsteadiness during Distance: 200 feet Comments: with 2 L of oxygen Balance Posture: Good Sitting - Static: Good Sitting - Dynamic: Good Standing - Static: Good Standing - Dynamic: Fair;+ Exercises Hip Flexion: x20 Hip Abduction: x20 Knee Long Arc Quad: x20 Ankle Pumps: x20 Comments: Standing LE ther ex at sink- heel raises, marches, mini squats, hip abd all 15x, repeated sit to stand from chair no UE use 5x2 with small standing rest break in between sets G-Code OutComes Score AM-PAC Score Goals Short term goals Time Frame for Short term goals: 14 days Short term goal 1: Pt to ambulate 300ft without AD and no LOB. Short term goal 2: Pt to tolerate 20-30 mins ther ex/act for improved strength and endurance. Short term goal 3: Pt to demonstrate good dynamic standing balance for decrease fall risk. Short term goal 4: Pt to perform all bed mob, transfers, and gait independently. Patient Goals Patient goals : home following discharge Plan Plan Times per week: 7x week Times per day: Twice a day (daily on weekend) Current Treatment Recommendations: Strengthening, Neuromuscular Re-education, Home Exercise Program, Safety Education & Training, Balance Training, Endurance Training, Patient/Caregiver Education & Training, Functional Mobility Training, Transfer Training, Gait Training, Stair training Safety Devices Type of devices: All fall risk precautions in place, Call light within reach, Left in chair, Nurse notified Therapy Time Individual Concurrent Group Co-treatment Time In 2 Time Out 1557 Minutes 25 Timed Code Treatment Minutes: 23 Minutes Linda Hernandez PTA Pt was on Room air but I am applying 2 liters to him while he showers. Tele has temporarily been removed and pulse ox, when pt is finished I will put him back on room air and reapply tele and pulse ox Occupational Therapy Facility/Department: [facility] Daily Treatment Note NAME: Rufina Velazquez : 1960 Date of Service: 02/20/2021 Discharge Recommendations: Continue to assess pending progress Patient Diagnosis(es): The primary encounter diagnosis was COVID-19. A diagnosis of Hypoxia was also pertinent to this visit. has a past medical history of Pneumonia. has a past surgical history that includes Hand tendon surgery; Bunionectomy (Right, 10/19/2014); Toe Surgery (Right, 03/11/2017); toe arthroplasty (Right, 03/11/2017); and Cataract removal. Restrictions Restrictions/Precautions Restrictions/Precautions: General Precautions, Fall Risk, Isolation Subjective General Chart Reviewed: Yes Patient assessed for rehabilitation services?: Yes Family / Caregiver Present: No Subjective Subjective: Pt denies pain this date. General Comment Comments: Pt seated in chair upon OT arrival, agreeable to therapy. Vital Signs Patient Currently in Pain: Denies Orientation Orientation Overall Orientation Status: Within Functional Limits Objective Transfers Sit to stand: Modified independent Stand to sit: Modified independent Type of ROM/Therapeutic Exercise Type of ROM/Therapeutic Exercise: Free weights Comment: Patient engaged in BUE HEP c 2# free weight while standing. Patient completed 2 sets of 15 reps x 7 various UE planes to improve strength as well as activity tolerance. Pt completed ther ex with sears flexbar x15 reps x3 variations x1 set. Pt tolerated ther ex while standing x15'. Pt reports minimal SOB while on room air. Plan Plan Times per week: 7 Times per day: Daily Current Treatment Recommendations: Strengthening, Balance Training, Functional Mobility Training, Endurance Training, Equipment Evaluation, Education, & procurement, Patient/Caregiver Education & Training, Safety Education & Training Goals Short term goals Time Frame for Short term goals: 20 visits Short term goal 1: Patient to be educated on EC/WS techniques, PLB techniques, d/c folder, AE/DME to ensure safe return home. Short term goal 2: Patient to complete self care routine c Mod I to ensure safe return home. Short term goal 3: Patient to engage in 15 minutes of ther ex/ther act s significant shortness of breath to improve strength as well as activity tolerance for self care tasks. Short term goal 4: Patient to tolerate standing >7' while participating in functional task of choice to improve standing tolerane, balance and safety during ADL, mobility and transfers. Therapy Time Individual Concurrent Group Co-treatment Time In 1428 Time Out 1452 Minutes 24 Jessi Delaney OTD, OTR/L Mr. Velazquez has been resting in the chair since he woke up this morning, and ambulates without assist. Pt has been weaned to room air and stated he is feeling better then before. He has also been given clean linen and products to get washed up with. Pt. Has also been updated on his plan of care for the day. Physical Therapy Facility/Department: [facility] Daily Treatment Note NAME: Rufina Velazquez : 1960 Date of Service: 02/20/2021 Discharge Recommendations: Home with nursing home admissions director, Home with assist PRN Assessment Treatment Diagnosis: general weakness Prognosis: Good Activity Tolerance Activity Tolerance: Patient Tolerated treatment well Patient Diagnosis(es): The primary encounter diagnosis was COVID-19. A diagnosis of Hypoxia was also pertinent to this visit. has a past medical history of Pneumonia. has a past surgical history that includes Hand tendon surgery; Bunionectomy (Right, 10/19/2014); Toe Surgery (Right, 03/11/2017); toe arthroplasty (Right, 03/11/2017); and Cataract removal. Restrictions Restrictions/Precautions Restrictions/Precautions: General Precautions, Fall Risk, Isolation Subjective General Chart Reviewed: Yes Response To Previous Treatment: Patient with no complaints from previous session. Family / Caregiver Present: No Subjective Subjective: Pt has no complaints of pain and is agreeable to therapy Orientation Orientation Overall Orientation Status: Within Functional Limits Cognition Objective Bed mobility Comment: Pt up in chair upon arrival Transfers Sit to Stand: Supervision;Modified independent Stand to sit: Supervision;Modified independent Ambulation Ambulation?: Yes Ambulation 1 Surface: level tile Device: No Device Other Apparatus: O2 Assistance: Supervision;Modified Independent Distance: 200ft, SpO2 93% Balance Sitting - Static: Good Sitting - Dynamic: Good Standing - Static: Good Standing - Dynamic: Fair;+ Exercises Hip Flexion: x15 Hip Abduction: x15 Knee Long Arc Quad: x15 Knee Short Arc Quad: x15 Ankle Pumps: 15x2 Comments: standing exercises including calf rasies, marches, abduction, hip extension, mini squats x15. Goals Short term goals Time Frame for Short term goals: 14 days Short term goal 1: Pt to ambulate 300ft without AD and no LOB. Short term goal 2: Pt to tolerate 20-30 mins ther ex/act for improved strength and endurance. Short term goal 3: Pt to demonstrate good dynamic standing balance for decrease fall risk. Short term goal 4: Pt to perform all bed mob, transfers, and gait independently. Patient Goals Patient goals : home following discharge Plan Plan Times per week: 7x week Times per day: Twice a day (daily on weekend) Current Treatment Recommendations: Strengthening, Neuromuscular Re-education, Home Exercise Program, Safety Education & Training, Balance Training, Endurance Training, Patient/Caregiver Education & Training, Functional Mobility Training, Transfer Training, Gait Training, Stair training Safety Devices Type of devices: All fall risk precautions in place, Call light within reach, Left in chair, Nurse notified Therapy Time Individual Concurrent Group Co-treatment Time In 56 Time Out 1020 Minutes 24 Timed Code Treatment Minutes: 23 Minutes Lu Stephens PT, DPT Covid-19 Progress Note SUBJECTIVE: Patient seen for f/u of Pneumonia due to COVID-19 virus. He sitting up in the chair alert oriented in no acute distress. Patient is currently off oxygen. He has no complaints. He is afebrile. He states he feels good. ROS: Constitutional: negative for fevers, and negative for chills. Respiratory: Negative for shortness of breath, negative for cough, and negative for wheezing Cardiovascular: negative for chest pain, and negative for palpitations Gastrointestinal: negative for abdominal pain, negative for nausea,negative for vomiting, negative for diarrhea, and negative for constipation All other systems were reviewed with the patient and are negative unless otherwise stated in HPI OBJECTIVE: Vitals: Vitals: 02/20/21 1128 BP: Pulse: Resp: Temp: SpO2: 95% Weight: 150 lb 12.8 oz (68.4 kg) Height: 6' (182.9 cm) PaO2/FiO2 RATIO: No results for input(s): POCPO2 in the last 72 hours. Weight Wt Readings from Last 3 Encounters: 02/18/21 150 lb 12.8 oz (68.4 kg) 08/31/20 155 lb 4.8 oz (70.4 kg) 06/04/20 162 lb 9.6 oz (73.8 kg) Body mass index is 20.45 kg/m . 24HR INTAKE/OUTPUT: Intake/Output Summary (Last 24 hours) at 02/20/2021 1222 Last data filed at 02/20/2021 0836 Gross per 24 hour Intake 1580.92 ml Output Net 1580.92 ml - Exam: GEN: Awake, alert and oriented x3. EYES: EOMI, pupils equal NECK: Supple. No lymphadenopathy. No carotid bruit CVS: regular rate and rhythm, no audible murmur PULM: Clear to auscultation no wheezes rales or rhonchi, no acute respiratory distress ABD: Bowels sounds normal. Abdomen is soft. No distention. no tenderness to palpation. EXT: no edema bilaterally . No calf tenderness. NEURO: Moves all extremities. Motor and sensory are grossly intact SKIN: No rashes. No skin lesions. - ABGs: No results for input(s): POCPH, POCPCO2, POCPO2, POCHCO3, VUGR6XTD in the last 72 hours. CBC: Recent Labs 02/17/21 1345 02/18/21 0615 02/19/2160402/20/21624 WBC 6.4 3.3* 7.1 5.9 HGB 14.4 15.0 13.4 12.5* HCT 41.8 45.2 39.8* 36.3* MCV 90.3 91.1 91.3 90.8 PLT 228 292 358 413 LYMPHOPCT 14* 16* 25 28 RBC 4.63 4.96 4.36 4.00* MCH 31.1 30.2 30.7 31.3 MCHC 34.4 33.2 33.7 34.4 RDW 11.9 12.1 12.1 12.2 CRP: Recent Labs 02/18/21 0602/19/21604 CRP 73.1* 33.5* LDH: No results for input(s): LDH in the last 72 hours. BMP: Recent Labs 02/17/21 1345 02/18/21 0615 02/19/2160402/20/21624 NA 130* 134* 139 136 K 3.4* 4.0 3.1* 2.7* CL 90* 95* 102 99 CO2 27 28 26 28 BUN 7* 7* 8 9 CREATININE 0.60* 0.49* 0.40* 0.47* GLUCOSE 119* 159* 108* 105* Liver Function Test: Recent Labs 02/17/21 1345 PROT 7.1 LABALBU 3.7 ALT 35 AST 58* ALKPHOS 69 BILITOT 0.33 Coagulation Profile: Recent Labs 02/17/21 1345 02/18/21 0615 02/19/2160402/20/21624 INR 1.0 1.0 1.1 1.1 PROTIME 13.2 13.3 13.6 13.9 APTT 44.8* 45.2* 41.5* 43.1* D-Dimer: Recent Labs 02/17/21 1345 02/18/21 0615 02/19/2160402/20/21 06 DDIMER 0.78* 0.45 <0.27 0.27 Ferritin: No results for input(s): FERRITIN in the last 72 hours. Lactic Acid: No results for input(s): LACTA in the last 72 hours. Cardiac Enzymes: No results for input(s): CKTOTAL, CKMB, CKMBINDEX, TROPONINI in the last 72 hours. Invalid input(s): TROPONIN, HSTROP BNP/ProBNP: Recent Labs 02/17/21 1345 PROBNP 132 Triglycerides: No results for input(s): TRIG in the last 72 hours. Radiology/Imaging: CT CHEST PULMONARY EMBOLISM W CONTRAST Final Result 1. No evidence of pulmonary embolism. 2. Advanced emphysema. 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 ASSESSMENT / PLAN: Pneumonia due to COVID-19 virus Continue current therapy IV remdesivir this dose Continue dexamethasone Continue Vitamin C, D and zinc Trend labs stable Acute respiratory failure with hypoxia Supplemental oxygen to maintain SPO2 greater than 90% Tinea DuoNeb COPD Nebs Dexamethasone Tobacco abuse Nicotine patch Nutrition status: Roll Out Manager consult initiated Hospital Prophylaxis: DVT: Lovenox Stress Ulcer: H2 [place] High risk medications: Remdesivir Disposition: Discharge plan is home tomorrow Yenny Franco APRN - FAMILY PRACTICE PHYSICIAN ASSISTANT , BANKING AND FINANCE INSTRUCTOR, PLANING MACHINE OPERATOR-C Associated attestation - Orquidea Naranjo MD - 02/20/2021 2:38 PM EDT Orquidea Naranjo M.D. Internal Medicine PA/PLANING MACHINE OPERATOR Attestation Note Patient: Rufina Velazquez Date of Admission: 02/17/2021 1:30 PM Hospital Day # 3 Date of Evaluation: 02/20/2021 I personally evaluated and examined the patient [id number] in conjunction with the PA/PLANING MACHINE OPERATOR and agree with the management and dispostition of the patient. Please see the PA/PLANING MACHINE OPERATOR's note for full details. My martel findings are: SUBJECTIVE: Patient seen for follow up of Acute respiratory failure with hypoxia due to Covid-19 pneumonia. He denies fever and chills. He denies chest pain. He is feeling better with less SOB and cough. He is tolerating diet without nausea, vomiting or diarrhea. He was weaned off O2 OBJECTIVE: Vitals: Temp: 97 F (36.1 C) BP: (!) 106/57 Resp: 20 Pulse: 74 SpO2: 95 % on room air SpO2 range: SpO2 Av.8 % Min: 95 % Max: 98 % Weight Wt Readings from Last 3 Encounters: 02/18/21 150 lb 12.8 oz (68.4 kg) 08/31/20 155 lb 4.8 oz (70.4 kg) 06/04/20 162 lb 9.6 oz (73.8 kg) Body mass index is 20.45 kg/m . 24HR INTAKE/OUTPUT: Intake/Output Summary (Last 24 hours) at 02/20/2021 1436 Last data filed at 02/20/2021 0836 Gross per 24 hour Intake 1340.92 ml Output Net 1340.92 ml - Exam: GEN: Awake, alert and oriented x3. EYES: EOMI, pupils equal NECK: Supple. No lymphadenopathy. No carotid bruit CVS: regular rate and rhythm, no audible murmur PULM: diminished but nor rales or rhonchi, no acute respiratory distress ABD: Bowels sounds normal. Abdomen is soft. No distention. no tenderness to palpation. EXT: no edema bilaterally . No calf tenderness. NEURO: Moves all extremities. Motor and sensory are grossly intact SKIN: No rashes. No skin lesions. DATA: Complete Blood Count: Recent Labs 02/18/2161402/19/2160402/20/21624 WBC 3.3* 7.1 5.9 RBC 4.96 4.36 4.00* HGB 15.0 13.4 12.5* HCT 45.2 39.8* 36.3* MCV 91.1 91.3 90.8 MCH 30.2 30.7 31.3 MCHC 33.2 33.7 34.4 RDW 12.1 12.1 12.2 PLT 292 358 413 MPV 9.3 9.0 8.8 Last 3 Blood Glucose: Recent Labs 02/18/2161402/19/2160421 0625 GLUCOSE 159* 108* 105* HgBA1c: Lab Results Component Value Date LABA1C 5.1 06/04/2020 Comprehensive Metabolic Profile: Recent Labs 02/18/21 0615 02/18/2161402/19/2160402/20/2162402/20/21 1320 NA 134* -- 139 136 -- K 4.0 < > 3.1* 2.7* 3.4* CL 95* -- 102 99 -- CO2 28 -- 26 28 -- BUN 7* -- 8 9 -- CREATININE 0.49* -- 0.40* 0.47* -- GLUCOSE 159* -- 108* 105* -- CALCIUM 8.7 -- 8.6 8.5* -- < > = values in this interval not displayed. Urinalysis: Lab Results Component Value Date NITRU NEGATIVE 12/02/2018 COLORU YELLOW 12/02/2018 PHUR 7.5 12/02/2018 WBCUA 0 TO 2 12/02/2018 RBCUA 0 TO 2 12/02/2018 MUCUS NOT REPORTED 12/02/2018 TRICHOMONAS NOT REPORTED 12/02/2018 YEAST NOT REPORTED 12/02/2018 BACTERIA NOT REPORTED 12/02/2018 SPECGRAV 1.010 12/02/2018 LEUKOCYTESUR NEGATIVE 12/02/2018 UROBILINOGEN Normal 12/02/2018 BILIRUBINUR NEGATIVE 12/02/2018 GLUCOSEU NEGATIVE 12/02/2018 KETUA NEGATIVE 12/02/2018 AMORPHOUS 2+ 12/02/2018 CRP: Recent Labs 02/18/2161402/19/21604 CRP 73.1* 33.5* D-Dimer: Recent Labs 02/18/2161402/19/2160402/20/21624 DDIMER 0.45 <0.27 0.27 PT/INR: Lab Results Component Value Date PROTIME 13.9 02/20/2021 INR 1.1 02/20/2021 PTT: Lab Results Component Value Date APTT 43.1 02/20/2021 Radiology/Imaging: CT CHEST PULMONARY EMBOLISM W CONTRAST Final Result 1. No evidence of pulmonary embolism. 2. Advanced emphysema. 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 ASSESSMENT / PLAN: I agree with the assessment and plan as outlined by PA/PLANING MACHINE OPERATOR below Acute respiratory failure with hypoxia due to Covid-19 viral infection Continue IV Remdesivir - last dose tomorrow Continue Dexamethasone Continue Mucinex-DM Supplemental O2 to keep SpO2 > 92% Encouraged continued use of Acapella Encouraged intermittent prone positioning as tolerated Continue respiratory therapy protocol Chronic tobacco abuse Nicotine patch Nutrition status: at risk for malnutrition Roll Out Manager consult initiated Hospital Prophylaxis: DVT: Lovenox Stress Ulcer: H2 [place] High risk medications: Remdesivir Disposition: Discharge plan is home Orquidea Naranjo MD , M.Ward. 02/20/2021 2:36 PM At bedside with patient, assessment done, vitals obtained, white board updated. Patient denies having any pain and has no further needs at this time. Will continue to monitor. Physical Therapy Facility/Department: [facility] Daily Treatment Note NAME: Rufina Velazquez : 1960 Date of Service: 02/19/2021 Discharge Recommendations: Home with nursing home admissions director, Home with assist PRN Assessment Treatment Diagnosis: general weakness Prognosis: Good PT Education: PT Role;Plan of Care;General Safety Patient Education: educated pt on importance of daily exercise, pt with good understanding REQUIRES PT FOLLOW UP: Yes Activity Tolerance Activity Tolerance: Patient Tolerated treatment well Patient Diagnosis(es): The primary encounter diagnosis was COVID-19. A diagnosis of Hypoxia was also pertinent to this visit. has a past medical history of Pneumonia. has a past surgical history that includes Hand tendon surgery; Bunionectomy (Right, 10/19/2014); Toe Surgery (Right, 03/11/2017); toe arthroplasty (Right, 03/11/2017); and Cataract removal. Restrictions Restrictions/Precautions Restrictions/Precautions: General Precautions, Fall Risk, Isolation Subjective General Chart Reviewed: Yes Response To Previous Treatment: Patient with no complaints from previous session. Family / Caregiver Present: No Subjective Subjective: Pt has no complaints of pain and is agreeable to therapy Orientation Orientation Overall Orientation Status: Within Functional Limits Cognition Objective Bed mobility Comment: Pt in chair before and after treatment Transfers Sit to Stand: Supervision Stand to sit: Supervision Ambulation Ambulation?: Yes Ambulation 1 Surface: level tile Device: No Device Other Apparatus: O2 Assistance: Stand by assistance;Supervision Distance: 120 ft Balance Posture: Good Sitting - Static: Good Sitting - Dynamic: Good Standing - Static: Good Standing - Dynamic: Fair;+ Exercises Comments: standing exercises including calf rasies, marches, abduction, hip extension, mini squats x15. G-Code OutComes Score AM-PAC Score Goals Short term goals Time Frame for Short term goals: 14 days Short term goal 1: Pt to ambulate 300ft without AD and no LOB. Short term goal 2: Pt to tolerate 20-30 mins ther ex/act for improved strength and endurance. Short term goal 3: Pt to demonstrate good dynamic standing balance for decrease fall risk. Short term goal 4: Pt to perform all bed mob, transfers, and gait independently. Patient Goals Patient goals : home following discharge Plan Plan Times per week: 7x week Times per day: Twice a day (daily on weekend) Current Treatment Recommendations: Strengthening, Neuromuscular Re-education, Home Exercise Program, Safety Education & Training, Balance Training, Endurance Training, Patient/Caregiver Education & Training, Functional Mobility Training, Transfer Training, Gait Training, Stair training Safety Devices Type of devices: All fall risk precautions in place, Call light within reach, Left in chair, Nurse notified (no alarm upon entry) Therapy Time Individual Concurrent Group Co-treatment Time In 1423 Time Out 1447 Minutes 24 Zaynab Ramirez PTA Pt reassessed and vitals obtained at this time. Pt continues to deny any pain. Respirations remain unlabored with SPO2 running WDL on 1L. SPO2 does drop to roughly 87% when ambulating but it quickly recovers within the minute. Pt lung sounds are not as wheezy as this morning. Pt given coffee per request. Pt denies any further needs at this time. Occupational Therapy Facility/Department: [facility] Daily Treatment Note NAME: Rufina Velazquez : 1960 Date of Service: 02/19/2021 Discharge Recommendations: Continue to assess pending progress Assessment OT Education: ADL Adaptive Strategies;Equipment Patient Education: PLB techniques; Patient issued d/c folder c education re: AE/DME c good understanding Safety Devices Safety Devices in place: Yes Type of devices: Left in chair;Call light within reach Patient Diagnosis(es): The primary encounter diagnosis was COVID-19. A diagnosis of Hypoxia was also pertinent to this visit. has a past medical history of Pneumonia. has a past surgical history that includes Hand tendon surgery; Bunionectomy (Right, 10/19/2014); Toe Surgery (Right, 03/11/2017); toe arthroplasty (Right, 03/11/2017); and Cataract removal. Restrictions Restrictions/Precautions Restrictions/Precautions: General Precautions, Fall Risk, Isolation Subjective Subjective Subjective: Patient sitting up in chair, states he just had a breathing treatment. Patient agreeable to OT evaluation. Objective Balance Standing Balance: Independent Standing Balance Time: 6-8' tolerance during ther ex (see exercises); no LOB noted, min sortness of breath Type of ROM/Therapeutic Exercise Type of ROM/Therapeutic Exercise: Free weights Comment: Patient engaged in BUE HEP c 2# free weight. patient completed 2 sets of 15 reps x 5 various UE planes to improve strength as well as activity tolerance. Patient maintained O2 throughout (1L supp oxygen) c tolerable shortness of breath noted. Plan Plan Times per week: 7 Times per day: Daily Current Treatment Recommendations: Strengthening, Balance Training, Functional Mobility Training, Endurance Training, Equipment Evaluation, Education, & procurement, Patient/Caregiver Education & Training, Safety Education & Training Goals Short term goals Time Frame for Short term goals: 20 visits Short term goal 1: Patient to be educated on EC/WS techniques, PLB techniques, d/c folder, AE/DME to ensure safe return home. Short term goal 2: Patient to complete self care routine c Mod I to ensure safe return home. Short term goal 3: Patient to engage in 15 minutes of ther ex/ther act s significant shortness of breath to improve strength as well as activity tolerance for self care tasks. Short term goal 4: Patient to tolerate standing >7' while participating in functional task of choice to improve standing tolerane, balance and safety during ADL, mobility and transfers. Therapy Time Individual Concurrent Group Co-treatment Time In 1040 Time Out 1110 Minutes 30 REN Lama/Kirit Pt up to the chair independently for lunch. Orquidea Naranjo M.D. Internal Medicine Progress Note Patient: Rufina Velazquez Date of Admission: 02/17/2021 1:30 PM Hospital Day # 2 Date of Evaluation: 02/19/2021 SUBJECTIVE: Patient seen for follow up of Acute respiratory failure with hypoxia due to Covid-19 pneumonia. He denies fever and chills. He denies chest pain. He complains of shortness of breath. He complains of cough. He is tolerating diet without nausea, vomiting or diarrhea. He is still requiring supplemental O2. ROS: Constitutional: negative for fevers, and negative for chills. Respiratory: positive for shortness of breath, positive for cough, and positive for wheezing Cardiovascular: negative for chest pain, and negative for palpitations Gastrointestinal: negative for abdominal pain, negative for nausea,negative for vomiting, negative for diarrhea, and negative for constipation All other systems were reviewed with the patient and are negative unless otherwise stated in HPI OBJECTIVE: Vitals: Temp: 96.9 F (36.1 C) BP: 111/67 Resp: 18 Pulse: 66 SpO2: 95 % on supplemental O2 SpO2 range: SpO2 Av.6 % Min: 92 % Max: 97 % Weight Wt Readings from Last 3 Encounters: 02/18/21 150 lb 12.8 oz (68.4 kg) 08/31/20 155 lb 4.8 oz (70.4 kg) 06/04/20 162 lb 9.6 oz (73.8 kg) Body mass index is 20.45 kg/m . 24HR INTAKE/OUTPUT: Intake/Output Summary (Last 24 hours) at 02/19/2021 1118 Last data filed at 02/19/2021 0851 Gross per 24 hour Intake 1060 ml Output Net 1060 ml - Exam: GEN: Awake, alert and oriented x3. EYES: EOMI, pupils equal NECK: Supple. No lymphadenopathy. No carotid bruit CVS: regular rate and rhythm, no audible murmur PULM: diminished with bilateral expiratory wheezing, no acute respiratory distress ABD: Bowels sounds normal. Abdomen is soft. No distention. no tenderness to palpation. EXT: no edema bilaterally . No calf tenderness. NEURO: Moves all extremities. Motor and sensory are grossly intact SKIN: No rashes. No skin lesions. - DATA: Complete Blood Count: Recent Labs 02/17/21 1345 02/18/21 0615 02/19/21 0605 WBC 6.4 3.3* 7.1 RBC 4.63 4.96 4.36 HGB 14.4 15.0 13.4 HCT 41.8 45.2 39.8* MCV 90.3 91.1 91.3 RDW 11.9 12.1 12.1 PLT 228 292 358 Recent Labs 02/17/21 1345 02/18/21 0615 02/19/21 0605 SEGS 71* 70* 68* NEUTROABS 4.54 2.31 4.82 LYMPHOPCT 14* 16* 25 LYMPHSABS 0.90* 0.53* 1.78 MONOPCT 15* 14* 7 EOSRELPCT 0* 0* 0* BASOPCT 0 0 0 IMMGRAN 0 0 0 CMP: Lab Results Component Value Date GLUCOSE 108 (H) 02/19/2021 BUN 8 02/19/2021 CREATININE 0.40 (L) 02/19/2021 NA 139 02/19/2021 K 3.1 (L) 02/19/2021 CALCIUM 8.6 02/19/2021 CL 102 02/19/2021 CO2 26 02/19/2021 PROT 7.1 02/17/2021 LABALBU 3.7 02/17/2021 BILITOT 0.33 02/17/2021 ALKPHOS 69 02/17/2021 ALT 35 02/17/2021 AST 58 (H) 02/17/2021 PT/INR: Lab Results Component Value Date PROTIME 13.6 02/19/2021 INR 1.1 02/19/2021 CRP: Recent Labs 02/18/21 0615 CRP 73.1* D-Dimer: Recent Labs 02/17/21 1345 02/18/21 0615 DDIMER 0.78* 0.45 Imaging Data: CT CHEST PULMONARY EMBOLISM W CONTRAST Final Result 1. No evidence of pulmonary embolism. 2. Advanced emphysema. 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 ASSESSMENT / PLAN: Acute respiratory failure with hypoxia due to Covid-19 pneumonia Antiviral: Continue IV Remdesivir Steroids: Continue dexamethasone 20 mg IV qd x 5 days, then 10 mg IV qd x 5 days Continue supplemental O2 Intermittent prone positioning as tolerated Encouraged use of acapella Monitor daily labs COPD with chronic tobacco abuse Improving with nebs Nicotine patch Counseled on smoking cessation Nutrition status: at risk for malnutrition Roll Out Manager consult initiated Hospital Prophylaxis: DVT: Lovenox Stress Ulcer: H2 [place] High risk medications: Remdesivir Disposition: Discharge plan is home Orquidea Naranjo MD , M.D. 02/19/2021 11:18 AM Physical Therapy Facility/Department: [facility] Daily Treatment Note NAME: Rufina Velazquez : 1960 Date of Service: 02/19/2021 Discharge Recommendations: Home with nursing home admissions director, Home with assist PRN Assessment Treatment Diagnosis: general weakness Prognosis: Good Decision Making: Medium Complexity Patient Education: educated pt on importance of daily exercise, pt with good understanding REQUIRES PT FOLLOW UP: Yes Activity Tolerance Activity Tolerance: Patient Tolerated treatment well Patient Diagnosis(es): The primary encounter diagnosis was COVID-19. A diagnosis of Hypoxia was also pertinent to this visit. has a past medical history of Pneumonia. has a past surgical history that includes Hand tendon surgery; Bunionectomy (Right, 10/19/2014); Toe Surgery (Right, 03/11/2017); toe arthroplasty (Right, 03/11/2017); and Cataract removal. Restrictions Restrictions/Precautions Restrictions/Precautions: General Precautions, Fall Risk, Isolation Subjective General Chart Reviewed: Yes Response To Previous Treatment: Patient with no complaints from previous session. Family / Caregiver Present: No Subjective Subjective: Paient denies pain and is feeling better. Orientation Orientation Overall Orientation Status: Within Functional Limits Cognition Objective Transfers Sit to Stand: Supervision Stand to sit: Supervision Ambulation Ambulation?: Yes Ambulation 1 Surface: level tile Device: No Device Other Apparatus: O2 Assistance: Stand by assistance Distance: 60 ft x1 Balance Posture: Good Sitting - Dynamic: Good Standing - Static: Good Standing - Dynamic: Good Exercises Straight Leg Raise: x15 Quad Sets: x15 Heelslides: x15 Hip Abduction: x15 Knee Long Arc Quad: x15 Knee Short Arc Quad: x15 Ankle Pumps: 15x2 Comments: marching and hip add with pillow x15. LE ther ex completed seated and reclined. G-Code OutComes Score AM-PAC Score Goals Short term goals Time Frame for Short term goals: 14 days Short term goal 1: Pt to ambulate 300ft without AD and no LOB. Short term goal 2: Pt to tolerate 20-30 mins ther ex/act for improved strength and endurance. Short term goal 3: Pt to demonstrate good dynamic standing balance for decrease fall risk. Short term goal 4: Pt to perform all bed mob, transfers, and gait independently. Patient Goals Patient goals : home following discharge Plan Plan Times per week: 7x week Times per day: Twice a day (daily on weekend) Current Treatment Recommendations: Strengthening, Neuromuscular Re-education, Home Exercise Program, Safety Education & Training, Balance Training, Endurance Training, Patient/Caregiver Education & Training, Functional Mobility Training, Transfer Training, Gait Training, Stair training Safety Devices Type of devices: All fall risk precautions in place, Call light within reach, Left in chair, Sitter present Therapy Time Individual Concurrent Group Co-treatment Time In 924 Time Out 1000 Minutes 35 Maria De Jesus Alva, [id number] Pt up in the chair to eat breakfast. Pt assessed and vitals obtained at this time. Pt is currently laying in bed, alert and oriented x4. Pt denies any pain this morning. Pt SPO2 remains WDL on 2L. Oxygen turned down to 1L. Lung sounds contain inspiratory wheezes throughout all lobes. Range Master reminded pt to utilize acapella, lay prone or on his sides when in bed and be up in the chair for all meals. Pt vebralizes understanding. Fresh ice water provided. Pt denies any further needs at this time. Call placed to Dr. Prieto for melatonin per patient request. Dr. Prieto called back immediately and gave orders for melatonin 5 mg nightly PRN for sleep. At bedside with patient, assessment done, vitals obtained, white board updated. Patient denies having any pain and has no further needs at this time. Will continue to monitor. RESPIRATORY ASSESSMENT PROTOCOL Patient Name: Rufina Velazquez Room#: [id number] : 1960 Admitting diagnosis: Hypoxia [R09.02] Pneumonia due to COVID-19 virus [U07.1, J12.82] COVID-19 [U07.1] Medical History: Past Medical History: Diagnosis Date Pneumonia PATIENT ASSESSMENT LABORATORY DATA Hematology: Lab Results Component Value Date WBC 3.3 02/18/2021 RBC 4.96 02/18/2021 HGB 15.0 02/18/2021 HCT 45.2 02/18/2021 PLT 292 02/18/2021 Chemistry: No results found for: PHART, HJY3OSD, PO2ART, L3CHPCIC, AQS7WYM, PBEA VITALS Pulse: 68 Resp: 18 BP: 120/73 SpO2: 94 % O2 Device: Nasal cannula Temp: 97.7 F (36.5 C) SKIN COLOR [x] Normal [] Pale [] Dusky [] Cyanotic RESPIRATORY PATTERN [x] Normal [] Dyspnea [] Juan-Correa [] Kussmaul [] Biots AMBULATORY [] Yes [] No [x] With Assistance PEAK FLOW Predicted: Personal Best: VITAL CAPACITY Predicted value: ml Actual Value: ml 30% of Predicted: ml Patient Acuity 0 1 2 3 4 Score Level of Concious (LOC) [x] Alert & Oriented or Pt normal LOC [] Confused;follows directions [] Confused & uncooper-ative [] Obtunded [] Comatose 0 Respiratory Rate (RR) [] Reg. rate & pattern. 12 - 20 bpm [] Increased RR. Greater than 20 bpm [x] SOB w/ exertion or RR greater than 24 bpm [] Access- ory muscle use at rest. Abn. resp. [] SOB at rest. 2 Bilateral Breath Sounds (BBS) [] Clear [] Diminish-ed bases [x] Diminish-ed t/o, or rales [] Sporadic, scattered wheezes or rhonchi [] Persistentwheezes and, or absent BBS 2 Cough [x] Strong, effective, & non-prod. [] Effective & prod. Less than 25 ml (2 TBSP) over past 24 hrs [] Ineffective & non-prod to less than 25 ML over past 24 hrs [] Ineffective and, or greater than 25 ml sputum prod. past 24 hrs. [] Nonspon- taneous; Requires suctioning 0 Pulmonary History (PULM HX) [] No smoking and no chronic pulmonaryhistory [] Former smoker. Quit over 12 mos. ago [] Current smoker or quit w/ in 12 mos [] Pulm. History and, or 20 pk/yr smoking hx [x] Admitted w/ acute pulm. dx and, or has been admitted w/ pulm. dx 2 or more times over past 12 mos 4 Surgical History this Admit (SURG HX) [x] No surgery [] General surgery [] Lower abdominal [] Thoracic or upper abdominal [] Thoracic w/ pulm. disease 0 Chest X-Ray (CXR)/CT Scan [] Clear or not applicable [] Not available [] Atelect- asis or pleural effusions [] Localized infiltrate or pulm. edema [x] Con-solidated Infiltrates, bilateral, or in more than 1 lobe 4 Slow or Forced VC, FEV1 OR PEFR (PULM FXN) [x] 80% or greater, or not indicated [] Pt. unable to perform [] FEV1 or PEFR or VC 51-79%. [] FEV1 or PEFR or VC 30-49% [] FEV1 or PEFR or VC less than 30% 0 TOTAL ACUITY: 12 CARE PLAN If Acuity Level is 2, 3, or 4 in any of the following: [] BILATERAL BREATH SOUNDS (BBS) [x] PULMONARY HISTORY (PULM HX) [] PULMONARY FUNCTION (PULM FX) Goal: Improve respiratory functions in patients with airway disease and decrease WOB [x] AEROSOL PROTOCOL Total Acuity: 16-32 [] Secondary Assessment in 24 hrs Total Acuity: 9-15 [x] Secondary Assessment in 24 hrs Total Acuity: 4-8 [] Secondary Assessment in 48 hrs Total Acuity: 0-3 [] Secondary Assessment in 72 hrs HHN AEROSOL THERAPY with [physician-ordered bronchodilator(s)] q 4 & Albuterol PRN q2 hrs. Breath-Actuated Neb if BBS Acuity = 4, and pt. can use MP. Notify physician if condition deteriorates. HHN AEROSOL THERAPY with [physician-ordered bronchodilator(s)] QID and Albuterol PRN q4 hrs. Breath-Actuated Neb if BBS Acuity = 4, and pt. can use MP. Notify physician if condition deteriorates. MDI THERAPY with 2 actuations of [physician-ordered bronchodilator(s)] via spacer TID Albuterol and PRNq4 hrs. If unable to utilize MDI: HHN [physician-ordered bronchodilator(s)] TID and Albuterol PRN q4 hrs. Notify physician if condition deteriorates. MDI THERAPY with [physician-ordered bronchodilator(s)] via spacer TID PRN. If unable to utilize MDI: HHN [physician-ordered bronchodilator(s)] TID PRN. Notify physician if condition deteriorates. If Acuity Level is 2, 3, or 4 in any of the following: [] COUGH [] SURGICAL HISTORY (SURG HX) [x] CHEST XRAY (CXR) Goal: Improvement in sputum mobilization in patients with ineffective airway clearance. Reverse atelectasis. [x] Bronchopulmonary Hygiene Protocol Total Acuity: 16-32 [] Secondary Assessment in 24 hrs Total Acuity: 9-15 [x] Secondary Assessment in 24 hrs Total Acuity: 4-8 [] Secondary Assessment in 48 hrs Total Acuity: 0-3 [] Secondary Assessment in 72 hrs METANEB QID with [physician-ordered bronchodilator(s)] if CXR Acuity = 4; otherwise: PD&P, PEP, or Vest QID & PRN NT Sxn PRN for ineffective cough METANEB QID with [physician-ordered bronchodilator(s)] if CXR Acuity = 4; otherwise: PD&P, PEP, or Vest TID & PRN NT Sxn PRN for ineffective cough Instruct patient to self-perform IS q1hr WA Directed Cough self-performed q1hr WA If Acuity Level is 2 or above in the following: [] PULMONARY HISTORY (PULM HX) Goal: Assist patient in quitting smoking to slow or stop the progression of lung disease. [] Smoking Cessation Protocol SMOKING CESSATION EDUCATION provided according to policy RT_201: (vinny with an X) ____Yes ____ No ____ NA Smoking Cessation Booklet given: ____Yes ____No ____Patient Refused Physical Therapy Facility/Department: [facility] Initial Assessment NAME: Rufina Velazquez : 1960 Date of Service: 02/18/2021 Discharge Recommendations: Home with nursing home admissions director, Home with assist PRN Assessment Assessment: Pt is 60 y/o male with complaints of general fatigue and limited endurance; will benefit from PT. Treatment Diagnosis: general weakness Prognosis: Good Decision Making: Medium Complexity Patient Education: PT eval and POC REQUIRES PT FOLLOW UP: Yes Activity Tolerance Activity Tolerance: Patient Tolerated treatment well;Patient limited by endurance Patient Diagnosis(es): The primary encounter diagnosis was COVID-19. A diagnosis of Hypoxia was also pertinent to this visit. has a past medical history of Pneumonia. has a past surgical history that includes Hand tendon surgery; Bunionectomy (Right, 10/19/2014); Toe Surgery (Right, 03/11/2017); toe arthroplasty (Right, 03/11/2017); and Cataract removal. Restrictions Restrictions/Precautions Restrictions/Precautions: General Precautions, Fall Risk, Isolation Vision/Hearing Vision: Within Functional Limits Hearing: Within functional limits Subjective General Chart Reviewed: Yes Response To Previous Treatment: Not applicable Family / Caregiver Present: No Follows Commands: Within Functional Limits Subjective Subjective: Agrees to PT eval; feeling a little better. 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 Truck Operator: Yes 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 Cognition Cognition Overall Cognitive Status: WFL Objective AROM RLE (degrees) RLE AROM: WFL AROM LLE (degrees) LLE AROM : WFL Strength RLE Comment: grossly 4 to 4+/5 Strength LLE Comment: grossly 4 to 4+/5 Bed mobility Supine to Sit: Supervision Sit to Supine: Supervision Scooting: Supervision Transfers Sit to Stand: Supervision Stand to sit: Supervision Ambulation Ambulation?: Yes Ambulation 1 Surface: level tile Device: No Device Other Apparatus: O2 Assistance: Stand by assistance Distance: 20ft in room Balance Sitting - Dynamic: Good Standing - Static: Good Standing - Dynamic: Good;Fair Plan Plan Times per week: 7x week Times per day: Twice a day (daily on weekend) Current Treatment Recommendations: Strengthening, Neuromuscular Re-education, Home Exercise Program, Safety Education & Training, Balance Training, Endurance Training, Patient/Caregiver Education & Training, Functional Mobility Training, Transfer Training, Gait Training, Stair training Safety Devices Type of devices: All fall risk precautions in place AM-PAC Score AM-PAC Inpatient Mobility without Stair Climbing Raw Score : 15 (02/18/211454) AM-PAC Inpatient without Stair Climbing T-Scale Score : 43.03 (02/18/21 145) Mobility Inpatient CMS 0-100% Score: 47.43 (02/18/211454) Mobility Inpatient without Stair CMS G-Code Modifier : CK (02/18/21 1455) Goals Short term goals Time Frame for Short term goals: 14 days Short term goal 1: Pt to ambulate 300ft without AD and no LOB. Short term goal 2: Pt to tolerate 20-30 mins ther ex/act for improved strength and endurance. Short term goal 3: Pt to demonstrate good dynamic standing balance for decrease fall risk. Short term goal 4: Pt to perform all bed mob, transfers, and gait independently. Patient Goals Patient goals : home following discharge Therapy Time Individual Concurrent Group Co-treatment Time In 1351 Time Out 1414 Minutes 23 Jane Dailey, PT, DPT, CMPT Occupational Therapy Occupational Therapy Initial Assessment Date: 02/18/2021 Patient Name: Rufina Velazquez : 1960 Date of Service: 02/18/2021 Discharge Recommendations: Continue to assess pending progress Assessment Performance deficits / Impairments: Decreased functional mobility ;Decreased ADL status;Decreased strength;Decreased endurance Assessment: 60 y/[facility] M [facility] Patient currenly on 2L O2. Patient demonstrates SOB and fatigue as well as variable O2 stats throughout ADL. OT to address and educate on EC/WS, PLB, d/c folder and AE/DME to ensure safe and indep return home. Treatment Diagnosis: Weakness Prognosis: Good Decision Making: Medium Complexity OT Education: OT Role;Plan of Care REQUIRES OT FOLLOW UP: Yes Safety Devices Safety Devices in place: Yes Type of devices: Left in chair;Call light within reach Patient Diagnosis(es): The primary encounter diagnosis was COVID-19. A diagnosis of Hypoxia was also pertinent to this visit. has a past medical history of Pneumonia. has a past surgical history that includes Hand tendon surgery; Bunionectomy (Right, 10/19/2014); Toe Surgery (Right, 03/11/2017); toe arthroplasty (Right, 03/11/2017); and Cataract removal. Treatment Diagnosis: Weakness Restrictions Restrictions/Precautions Restrictions/Precautions: Isolation, General Precautions Subjective Subjective Subjective: Patient agreeable to OT evaluation; states only pain is headache. 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 Objective Vision: Within Functional Limits Hearing: Within functional limits Orientation Overall Orientation Status: Within Functional Limits Balance Sitting Balance: Independent Standing Balance: Supervision Standing Balance Time: 2 minutes Activity: reaching various planes to challenge bal Comment: On 2L O2, states <90% Functional Mobility Functional - Mobility Device: No device Assist Level: Stand by assistance ADL Feeding: Independent Grooming: Supervision UE Bathing: Supervision LE Bathing: Supervision UE Dressing: Supervision LE Dressing: Supervision Toileting: Supervision Additional Comments: Patient at supervision during ADL d/t shortness of breath and inability to maintain O2 stats >90% on 2L O2. Would benefit from EC/WS techniques. Transfers Sit to stand: Modified independent Stand to sit: Modified independent LUE AROM (degrees) LUE AROM : WFL Left Hand AROM (degrees) Left Hand AROM: WFL RUE AROM (degrees) RUE AROM : WFL Right Hand AROM (degrees) Right Hand AROM: WFL Plan Plan Times per week: 7 Times per day: Daily Current Treatment Recommendations: Strengthening, Balance Training, Functional Mobility Training, Endurance Training, Equipment Evaluation, Education, & procurement, Patient/Caregiver Education & Training, Safety Education & Training AM-PAC Score AM-PAC Inpatient Daily Activity Raw Score: 19 (02/18/211337) AM-PAC Inpatient ADL T-Scale Score : 40.22 (02/18/211337) ADL Inpatient CMS 0-100% Score: 42.8 (02/18/211337) ADL Inpatient CMS G-Code Modifier : CK (02/18/211337) Goals Short term goals Time Frame for Short term goals: 20 visits Short term goal 1: Patient to be educated on EC/WS techniques, PLB techniques, d/c folder, AE/DME to ensure safe return home. Short term goal 2: Patient to complete self care routine c Mod I to ensure safe return home. Short term goal 3: Patient to engage in 15 minutes of ther ex/ther act s significant shortness of breath to improve strength as well as activity tolerance for self care tasks. Short term goal 4: Patient to tolerate standing >7' while participating in functional task of choice to improve standing tolerane, balance and safety during ADL, mobility and transfers. Therapy Time Individual Concurrent Group Co-treatment Time In 1259 Time Out 1314 Minutes 15 Malinda Escobar OTR/L Comprehensive Nutrition Assessment Type and Reason for Visit: Initial (missing malnutrition screen ) Nutrition Recommendations/Plan: Continue current diet. Start 4 oz strawberry ensure enlive TID with meals. Nutrition Assessment: Severe malnutrition r/t inadequate oral intakes aeb PO < 50% x 7 days, weight loss 6.8% x 1 week, Diarrhea, loss of taste/smell. Pt agrees to strawberry ensure enlive TID with meals. Pt with Dx COVID-19, taking dexamethasone, glucose is 159. On vitamin D. Malnutrition Assessment: Malnutrition Status: Severe malnutrition Context: Acute Illness Findings of the 6 clinical characteristics of malnutrition: Energy Intake: 7 - 50% or less of estimated energy requirements for 5 or more days (7 days) Weight Loss: 7 - Greater than 2% over 1 week (6.8%) Body Fat Loss: Unable to assess Muscle Mass Loss: Unable to assess Fluid Accumulation: No significant fluid accumulation Mobile Crane Operator Strength: Not Performed Estimated Daily Nutrient Needs: Energy (kcal): 7698-5412 (25-28/kg); Weight Used for Energy Requirements: Current Protein (g): 88-102g (1.3-1.5g/kg); Weight Used for Protein Requirements: Current Fluid (ml/day): 1904 ml; Method Used for Fluid Requirements: 1 ml/kcal Nutrition Related Findings: unable to assess due to isolation Wounds: None Current Nutrition Therapies: ADULT DIET; Regular Anthropometric Measures: Height: 6' (182.9 cm) Current Body Weight: 150 lb 12.8 oz (68.4 kg) Admission Body Weight: 151 lb 1.6 oz (68.5 kg) Usual Body Weight: 162 lb (73.5 kg) [place] Body Weight: 178 lbs; % [place] Body Weight 84.7 % BMI: 20.4 BMI Categories: Normal Weight (BMI 18.5-24.9) Nutrition Diagnosis: Severe malnutrition related to inadequate protein-energy intake as evidenced by poor intake prior to admission, weight loss greater than or equal to 2% in 1 week, diarrhea Nutrition Interventions: Food and/or Nutrient Delivery: Continue Current Diet, Start Oral Nutrition Supplement Nutrition Education/Counseling: No recommendation at this time Coordination of Nutrition Care: Continue to monitor while inpatient Goals: PO > 75% of meals and supplements Recent Labs 02/17/21 1345 02/18/21 0615 NA 130* 134* K 3.4* 4.0 CL 90* 95* CO2 27 28 BUN 7* 7* CREATININE 0.60* 0.49* GLUCOSE 119* 159* ALT 35 -- ALKPHOS 69 -- GFR Lab Results Component Value Date LABALBU 3.7 02/17/2021 Nutrition Monitoring and Evaluation: Behavioral-Environmental Outcomes: None Identified Food/Nutrient Intake Outcomes: Food and Nutrient Intake, Supplement Intake Physical Signs/Symptoms Outcomes: Biochemical Data, Weight Discharge Planning: Too soon to determine Contact: [phone] SW met with pt by phone to complete assessment due to covid diagnosis. Pt is alert and oriented and cooperative with assessment. Pt is a 60 year old male admitted for covid 19 pneumonia. Pt lives with his spouse in their home in [place]. Pt was not using any DME prior to hospitalization but states he has crutches at home if needed. Pt was not utilizing any community services. Pt drives and is able to get to appointments without concern. Pt is a full code and follows with Massiel Moore CNP as PCP. Pt does not have advance directives. ACP note completed with pt. Pt reports that his medications are covered well by insurance. Pt plans to return home with spouse at discharge. Pt identifies no discharge needs or concerns at this time. SW will remain available as needed. Amanda GILES 02/18/2021 Covid-19 Progress Note SUBJECTIVE: Patient seen for f/u of Pneumonia due to COVID-19 virus. He edema on bedside alert oriented no acute distress. Patient does complain of some shortness of breath and is currently on 2 L per nasal cannula. Patient is afebrile. He is tolerating diet well. ROS: Constitutional: negative for fevers, and negative for chills. Respiratory: positive for shortness of breath, positive for cough, and negative for wheezing Cardiovascular: negative for chest pain, and negative for palpitations Gastrointestinal: negative for abdominal pain, negative for nausea,negative for vomiting, negative for diarrhea, and negative for constipation All other systems were reviewed with the patient and are negative unless otherwise stated in HPI OBJECTIVE: Vitals: Vitals: 02/18/21 1047 BP: Pulse: Resp: 18 Temp: SpO2: 98% Weight: 150 lb 12.8 oz (68.4 kg) Height: 6' (182.9 cm) PaO2/FiO2 RATIO: No results for input(s): POCPO2 in the last 72 hours. Weight Wt Readings from Last 3 Encounters: 02/18/21 150 lb 12.8 oz (68.4 kg) 08/31/20 155 lb 4.8 oz (70.4 kg) 06/04/20 162 lb 9.6 oz (73.8 kg) Body mass index is 20.45 kg/m . 24HR INTAKE/OUTPUT: Intake/Output Summary (Last 24 hours) at 02/18/2021 1251 Last data filed at 02/18/2021 0455 Gross per 24 hour Intake 1784 ml Output 300 ml Net 1484 ml - Exam: GEN: Awake, alert and oriented x3. EYES: EOMI, pupils equal NECK: Supple. No lymphadenopathy. No carotid bruit CVS: regular rate and rhythm, no audible murmur PULM: Diminished throughout with inspiratory wheezes and rales mid and lower posterior nam, no acute respiratory distress ABD: Bowels sounds normal. Abdomen is soft. No distention. no tenderness to palpation. EXT: no edema bilaterally . No calf tenderness. NEURO: Moves all extremities. Motor and sensory are grossly intact SKIN: No rashes. No skin lesions. - ABGs: No results for input(s): POCPH, POCPCO2, POCPO2, POCHCO3, QKIB8KPN in the last 72 hours. CBC: Recent Labs 02/17/21134402/18/21614 WBC 6.4 3.3* HGB 14.4 15.0 HCT 41.8 45.2 MCV 90.3 91.1 PLT 228 292 LYMPHOPCT 14* 16* RBC 4.63 4.96 MCH 31.1 30.2 MCHC 34.4 33.2 RDW 11.9 12.1 CRP: No results for input(s): CRP in the last 72 hours. LDH: No results for input(s): LDH in the last 72 hours. BMP: Recent Labs 02/17/21 13402/18/21614 NA 130* 134* K 3.4* 4.0 CL 90* 95* CO2 27 28 BUN 7* 7* CREATININE 0.60* 0.49* GLUCOSE 119* 159* Liver Function Test: Recent Labs 02/17/21 134 PROT 7.1 LABALBU 3.7 ALT 35 AST 58* ALKPHOS 69 BILITOT 0.33 Coagulation Profile: Recent Labs 02/17/21 1345 02/18/21614 INR 1.0 1.0 PROTIME 13.2 13.3 APTT 44.8* 45.2* D-Dimer: Recent Labs 02/17/21134402/18/21614 DDIMER 0.78* 0.45 Ferritin: No results for input(s): FERRITIN in the last 72 hours. Lactic Acid: No results for input(s): LACTA in the last 72 hours. Cardiac Enzymes: No results for input(s): CKTOTAL, CKMB, CKMBINDEX, TROPONINI in the last 72 hours. Invalid input(s): TROPONIN, HSTROP BNP/ProBNP: Recent Labs 02/17/21 1345 PROBNP 132 Triglycerides: No results for input(s): TRIG in the last 72 hours. Radiology/Imaging: CT CHEST PULMONARY EMBOLISM W CONTRAST Final Result 1. No evidence of pulmonary embolism. 2. Advanced emphysema. 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 ASSESSMENT / PLAN: Pneumonia due to COVID-19 virus Continue current therapy IV remdesivir Dexamethasone Vitamin C, D and zinc Trend labs Acute respiratory failure with hypoxia Supplemental oxygen to maintain SPO2 greater than 90% Start DuoNeb COPD Nebs Dexamethasone Tobacco abuse Nicotine patch Nutrition status: at risk for malnutrition Roll Out Manager consult initiated Hospital Prophylaxis: DVT: Lovenox Stress Ulcer: H2 [place] High risk medications: Remdesivir Disposition: Discharge plan is home Yenny Franco APRN - FAMILY PRACTICE PHYSICIAN ASSISTANT , BANKING AND FINANCE INSTRUCTOR, PLANING MACHINE OPERATOR-C Associated attestation - Orquidea Naranjo MD - 02/18/2021 6:36 PM EDT Orquidea Naranjo M.D. Internal Medicine PA/PLANING MACHINE OPERATOR Attestation Note Patient: Rufina Velazquez Date of Admission: 02/17/2021 1:30 PM Hospital Day # 1 Date of Evaluation: 02/18/2021 I personally evaluated and examined the patient [id number] in conjunction with the PA/PLANING MACHINE OPERATOR and agree with the management and dispostition of the patient. Please see the PA/PLANING MACHINE OPERATOR's note for full details. My martel findings are: SUBJECTIVE: Patient seen for follow up of Acute respiratory failure with hypoxia due to Covid-19 pneumonia. He denies fever and chills. He denies chest pain. He complains of shortness of breath. He complains of cough. He is tolerating diet without nausea, vomiting or diarrhea. He is still requiring supplemental O2. OBJECTIVE: Vitals: Temp: 97.7 F (36.5 C) BP: 120/73 Resp: 18 Pulse: 68 SpO2: 94 % on supplemental O2 SpO2 range: SpO2 Av.5 % Min: 94 % Max: 98 % Weight Wt Readings from Last 3 Encounters: 02/18/21 150 lb 12.8 oz (68.4 kg) 08/31/20 155 lb 4.8 oz (70.4 kg) 06/04/20 162 lb 9.6 oz (73.8 kg) Body mass index is 20.45 kg/m . 24HR INTAKE/OUTPUT: Intake/Output Summary (Last 24 hours) at 02/18/2021 1833 Last data filed at 02/18/2021 0455 Gross per 24 hour Intake 1784 ml Output 300 ml Net 1484 ml - Exam: GEN: Awake, alert and oriented x3. EYES: EOMI, pupils equal NECK: Supple. No lymphadenopathy. No carotid bruit CVS: regular rate and rhythm, no audible murmur PULM: diminished throughout with wheezing and fine crackles , no acute respiratory distress ABD: Bowels sounds normal. Abdomen is soft. No distention. no tenderness to palpation. EXT: no edema bilaterally . No calf tenderness. NEURO: Moves all extremities. Motor and sensory are grossly intact SKIN: No rashes. No skin lesions. DATA: Complete Blood Count: Recent Labs 02/17/21 1345 02/18/21 0615 WBC 6.4 3.3* RBC 4.63 4.96 HGB 14.4 15.0 HCT 41.8 45.2 MCV 90.3 91.1 MCH 31.1 30.2 MCHC 34.4 33.2 RDW 11.9 12.1 PLT 228 292 MPV 8.9 9.3 Last 3 Blood Glucose: Recent Labs 02/17/21 1345 02/18/21 0615 GLUCOSE 119* 159* HgBA1c: Lab Results Component Value Date LABA1C 5.1 06/04/2020 Comprehensive Metabolic Profile: Recent Labs 02/17/21 1345 02/18/21 0615 NA 130* 134* K 3.4* 4.0 CL 90* 95* CO2 27 28 BUN 7* 7* CREATININE 0.60* 0.49* GLUCOSE 119* 159* CALCIUM 8.8 8.7 PROT 7.1 -- LABALBU 3.7 -- BILITOT 0.33 -- ALKPHOS 69 -- AST 58* -- ALT 35 -- Urinalysis: Lab Results Component Value Date NITRU NEGATIVE 12/02/2018 COLORU YELLOW 12/02/2018 PHUR 7.5 12/02/2018 WBCUA 0 TO 2 12/02/2018 RBCUA 0 TO 2 12/02/2018 MUCUS NOT REPORTED 12/02/2018 TRICHOMONAS NOT REPORTED 12/02/2018 YEAST NOT REPORTED 12/02/2018 BACTERIA NOT REPORTED 12/02/2018 SPECGRAV 1.010 12/02/2018 LEUKOCYTESUR NEGATIVE 12/02/2018 UROBILINOGEN Normal 12/02/2018 BILIRUBINUR NEGATIVE 12/02/2018 GLUCOSEU NEGATIVE 12/02/2018 KETUA NEGATIVE 12/02/2018 AMORPHOUS 2+ 12/02/2018 CRP: Recent Labs 02/18/21 0615 CRP 73.1* D-Dimer: Recent Labs 02/17/21 1345 02/18/21 0615 DDIMER 0.78* 0.45 PT/INR: Lab Results Component Value Date PROTIME 13.3 02/18/2021 INR 1.0 02/18/2021 PTT: Lab Results Component Value Date APTT 45.2 02/18/2021 Radiology/Imaging: CT CHEST PULMONARY EMBOLISM W CONTRAST Final Result 1. No evidence of pulmonary embolism. 2. Advanced emphysema. 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 ASSESSMENT / PLAN: I agree with the assessment and plan as outlined by PA/PLANING MACHINE OPERATOR below Acute respiratory failure with hypoxia due to Covid-19 viral infection Continue IV Remdesivir Continue Dexamethasone Continue Mucinex-DM Supplemental O2 to keep SpO2 > 92% Encouraged continued use of Acapella Encouraged intermittent prone positioning as tolerated Continue respiratory therapy protocol Chronic tobacco abuse Nicotine patch Nutrition status: at risk for malnutrition Roll Out Manager consult initiated Hospital Prophylaxis: DVT: Lovenox Stress Ulcer: H2 [place] High risk medications: Remdesivir Disposition: Discharge plan is home Orquidea Naranjo MD , M.D. 02/18/2021 6:33 PM Pt resting in bed watching TV. Vitals and assessment as charted. Pt denies pain. SpO2 was 94% on 2L NC, will continue to monitor. Pt denies any further needs at this time. Call light within reach. Range Master entered room to give patient his medications and patients IV was beeping. Pt stated it beeps every time I bend my arm. Range Master offered to move the IV to a different location and pt agreed. Range Master moved IV to the right FA and IVL the right AC. Will continue to monitor. Call light within reach. Range Master educated pt on the use of acapella and pt returned demonstration. Range Master also educated the pt on the need to prone. Pt verbalized understanding and stated he can lay on his stomach for short periods of time. Patients also stated if he can't lay on his stomach he will lay on his sides. Will continue to monitor. Pt laying in bed watching TV when film writer entered the room. Pt is A&O x4. Vitals and assessment as charted. Pt denies pain. SpO2 was 95% on 2L NC, pt is ARAIZA. Pt denies any further needs at this time. Call light within reach. documented in this encounter [facility] Phone: 02-21-2021 Hospital Discharge instructions Patrick Stephens RN - 02/21/2021 3:08 PM EDT Good nutrition is important when healing from an illness, injury, or surgery. Follow any nutrition recommendations given to you during your hospital stay. If you were given an oral nutrition supplement while in the hospital, continue to take this supplement at home. You can take it with meals, in-between meals, and/or before bedtime. These supplements can be purchased at most local grocery stores, pharmacies, and [employer]-stores. If you have any questions about your diet or nutrition, call the hospital and ask for the dietitian. Patrick Stephens RN - 02/21/2021 3:08 PM EDT Continuity of Care Form Patient Name: Rufina Velazquez : 1960 Admit date: 02/17/2021 Discharge date: Code Status Order: Full Code Advance Directives: Admitting Physician: Orquidea Naranjo MD PCP: Massiel Moore APRN - EMRE Discharging Nurse: Discharging Hospital Unit/Room#: 0323/0323-01 Discharging Unit Phone Number: Emergency Contact: Extended Emergency Contact Information Primary Emergency Contact: Meenakshi Feliciano Address: [address] [place] Relation: Spouse Hearing or visual needs: None Other needs: None Preferred language: [place] Spring Bender needed? No Past Surgical History: Past Surgical History: Procedure Laterality Date BUNIONECTOMY Right 10/19/2014 With Chelectomy performed by Dr. Booker CATARACT REMOVAL right HAND TENDON SURGERY TOE ARTHROPLASTY Right 03/11/2017 TOE TOTAL ARTHROPLASTY, REVISIONAL METATARSUS PREMUS REPAIR, GREAT TOE performed by Jaylon Clifton DPM at [facility] OR TOE SURGERY Right 03/11/2017 Dr Clifton- right great toe total arthroplasty Immunization History: There is no immunization history on file for this patient. Active Problems: Patient Active Problem List Diagnosis Code Tobacco abuse Z72.0 GERD (gastroesophageal reflux disease) K21.9 Left adrenal mass (HCC) E27.8 Pneumonia due to COVID-19 virus U07.1, J12.82 COPD (chronic obstructive pulmonary disease) (HCC) J44.9 Acute respiratory failure with hypoxia (HCC) J96.01 Severe malnutrition ([facility]) E43 Isolation/Infection: Isolation Droplet Plus Droplet Plus Patient Infection Status Infection Onset Added Last Indicated Last Indicated By Review Planned Expiration Resolved Resolved By COVID-19 02/11/21 02/17/21 02/17/21 COVID-19, Rapid 03/02/21 03/03/21 S/S 02/11 MRSA 04/17/14 04/17/14 Yenny Franco, BANKING AND FINANCE INSTRUCTOR - FAMILY PRACTICE PHYSICIAN ASSISTANT 04/09/2014 buttock wound Resolved COVID-19 Rule Out 02/17/21 02/17/21 02/17/21 COVID-19, Rapid (Ordered) 02/17/21 Rule-Out Test Resulted Nurse Assessment: Last Vital Signs: BP 114/69 Pulse 93 Temp 98.3 F (36.8 C) (Temporal) Resp 16 Ht 6' (1.829 m) Wt 150 lb 12.8 oz (68.4 kg) SpO2 95% BMI 20.45 kg/m Last documented pain score (0-10 scale): Pain Level: 0 Last Weight: Wt Readings from Last 1 Encounters: 02/18/21 150 lb 12.8 oz (68.4 kg) Mental Status: {IP PT MENTAL STATUS:} IV Access: { MEGHAN IV ACCESS:087953751} Nursing Mobility/ADLs: Walking {CHP DME ADLs:944832056} Transfer {CHP DME ADLs:965908883} Bathing {CHP DME ADLs:227407853} Dressing {CHP DME ADLs:510613347} Toileting {CHP DME ADLs:428597772} Feeding {CHP DME ADLs:545181833} Territory Business Manager {CHP DME ADLs:152319721} Med Delivery { MEGHAN MED Delivery:446302981} Wound Care Documentation and Therapy: Incision 10/19/14 Toe (Comment which one) Right (Active) Number of days: 2317 Incision 03/11/17 Toe (Comment which one) Right (Active) Number of days: 1443 Elimination: Continence: Bowel: {YES / NO:} Bladder: {YES / NO:} Urinary Catheter: {Urinary Catheter:199744782} Colostomy/Ileostomy/Ileal Conduit: {YES / NO:} Date of Last BM: Intake/Output Summary (Last 24 hours) at 02/21/2021 1508 Last data filed at 02/21/2021 1250 Gross per 24 hour Intake 1100 ml Output Net 1100 ml I/O last 3 completed shifts: In: 1100 [P.O.:1100] Out: - Safety Concerns: { MEGHAN Safety Concerns:619988540} Impairments/Disabilities: { MEGHAN Impairments/Disabilities:1268342 73} Nutrition Therapy: Current Nutrition Therapy: { MEGHAN Diet List:884082412} Routes of Feeding: {CHP DME Other Feedings:654517753} Liquids: {Combine Mechanic liquid thickness:57567} Daily Fluid Restriction: {CHP DME Yes amt example:797057167} Last Modified Barium Swallow with Video (Video Swallowing Test): {Done Not Done Date:} Treatments at the Time of Hospital Discharge: Respiratory Treatments: Oxygen Therapy: {Therapy; copd oxygen:26294} Ventilator: {[facility] Vent List:406200425} Rehab Therapies: {THERAPEUTIC INTERVENTION:9733980515} Weight Bearing Status/Restrictions: { CC Weight Bearin} Other Medical Equipment (for information only, NOT a DME order): {EQUIPMENT:618082006} Other Treatments: Patient's personal belongings (please select all that are sent with patient): {P DME Belongings:744349115} RN SIGNATURE: {Esignature:213133163} CASE MANAGEMENT/SOCIAL WORK SECTION Inpatient Status Date: Readmission Risk Assessment Score: Readmission Risk Risk of Unplanned Readmission: 12 Discharging to Facility/ Agency Name: Address: Phone: Fax: Dialysis Facility (if applicable) Name: Address: Dialysis Schedule: Phone: Fax: Neurosurgical Nurse/Technical Aid signature: {Esignature:662804055} PHYSICIAN SECTION Prognosis: {Prognosis:3035289798} Condition at Discharge: { Patient Condition:421124208} Rehab Potential (if transferring to Rehab): {Prognosis:7057774082} Recommended Labs or Other Treatments After Discharge: Physician Certification: I certify the above information and transfer of Rufina Velazquez is necessary for the continuing treatment of the diagnosis listed and that he requires {Admit to Appropriate Level of Care:78402} for {GREATER/LESS:598022410} 30 days. Update Admission H&P: {CHP DME Changes in HandP:991442669} PHYSICIAN SIGNATURE: {Esignature:165599569} The following attachments cannot be sent through Care Everywhere.Coronavirus Disease (COVID-19): General Info (Brazilian)Coronavirus Disease (COVID-19): Hospital Discharge (Brazilian)Smoking Cessation: Health Benefits: General Info (Brazilian)Oxygen Therapy (Brazilian)documented in this encounter [facility] Phone: 02-21-2021 Hospital course Narrative Discharge Summary Rufina Velazquez : 1960 Admit date: 02/17/2021 Discharge date: 02/21/2021 Admitting Physician: Orquidea Naranjo MD Discharge Diagnoses: Principal Problem: Pneumonia due to COVID-19 virus Active Problems: Severe malnutrition (HCC) Tobacco abuse COPD (chronic obstructive pulmonary disease) (HCC) Acute respiratory failure with hypoxia (HCC) Resolved Problems: * No resolved hospital problems. * Hospital Course: Rufina Velazquez is a 60 y.o. male admitted with acute respiratory failure due to COVID-19. He presented to the emergency room with complaints of headache, shortness of breath and productive cough. Patient does have a history of COPD and is a current smoker. Patient stated his symptoms began approximately 1 week prior to evaluation. Patient stated he developed shortness of breath and he came to the emergency room for evaluation. He stated his his at home was Covid positive. He stated that he was not vaccinated against Covid. He was found to be hypoxic and placed on oxygen and admitted. His CT of his chest showed severe COPD changes but no pulmonary embolism. Patient was given IV remdesivir, dexamethasone and vitamin C, D and zinc. Patient was placed on nicotine patch and counseled on smoking cessation. Patient did qualify for home oxygen at 2 L per nasal cannula with activity. He is afebrile. He is tolerating diet and activity well. He will be discharged home today with oxygen. I will give him a steroid taper due to severe COPD. He will also have a prescription for nicotine patches for continued smoking cessation. He will continue with vitamin C, D and zinc for 14 more days. Consultants: Dr. Nicole, Infectious Disease Procedures: none Complications: none Discharge Condition: fair Exam: GEN: Awake, alert and oriented x3. EYES: EOMI, pupils equal NECK: Supple. No lymphadenopathy. No carotid bruit CVS: regular rate and rhythm, no audible murmur PULM: Clear to auscultation no wheezes rales or rhonchi, no acute respiratory distress ABD: Bowels sounds normal. Abdomen is soft. No distention. no tenderness to palpation. EXT: no edema bilaterally . No calf tenderness. NEURO: Moves all extremities. Motor and sensory are grossly intact SKIN: No rashes. No skin lesions. Significant Diagnostic Studies: Lab Results Component Value Date WBC 6.9 02/21/2021 HGB 12.9 (L) 02/21/2021 PLT 432 02/21/2021 Lab Results Component Value Date BUN 9 02/21/2021 CREATININE 0.50 (L) 02/21/2021 NA 136 02/21/2021 K 3.7 02/21/2021 CALCIUM 9.0 02/21/2021 CL 100 02/21/2021 CO2 28 02/21/2021 LABGLOM >60 02/21/2021 Lab Results Component Value Date WBCUA 0 TO 2 12/02/2018 RBCUA 0 TO 2 12/02/2018 EPITHUA 0 TO 2 12/02/2018 LEUKOCYTESUR NEGATIVE 12/02/2018 SPECGRAV 1.010 12/02/2018 GLUCOSEU NEGATIVE 12/02/2018 KETUA NEGATIVE 12/02/2018 PROTEINU NEGATIVE 12/02/2018 HGBUR NEGATIVE 12/02/2018 CASTUA NOT REPORTED 12/02/2018 CRYSTUA NOT REPORTED 12/02/2018 BACTERIA NOT REPORTED 12/02/2018 YEAST NOT REPORTED 12/02/2018 CT CHEST PULMONARY EMBOLISM W CONTRAST Result Date: 02/17/2021 EXAMINATION: CTA OF THE CHEST 02/17/2021 2:26 pm TECHNIQUE: CTA of the chest was performed after the administration of intravenous contrast. Multiplanar reformatted images are provided for review. MIP images are provided for review. Dose modulation, iterative reconstruction, and/or weight based adjustment of the mA/kV was utilized to reduce the radiation dose to as low as reasonably achievable. COMPARISON: Chest radiograph 08/31/2020. Chest CT 02/16/2019. HISTORY: ORDERING SYSTEM PROVIDED HISTORY: Shortness of breath, hypoxia TECHNOLOGIST PROVIDED HISTORY: Shortness of breath, hypoxia Decision Support Exception - unselect if not a suspected or confirmed emergency medical condition->Emergency Medical Condition (MA) FINDINGS: Pulmonary Arteries: Pulmonary arteries are adequately opacified for evaluation. No evidence of intraluminal filling defect to suggest pulmonary embolism. Main pulmonary artery is normal in caliber. Mediastinum: Sequela of old granulomatous disease. Scattered subcentimeter noncalcified lymph nodes are noted as well and appear unchanged. The heart and pericardium demonstrate no acute abnormality. There is no acute abnormality of the thoracic aorta. Lungs/pleura: Advanced paraseptal and centrilobular emphysematous disease. Subpleural ground-glass opacities and fibrotic changes in the lung bases (right greater than left) are new since the 2019 exam. These findings demonstrate subpleural sparing and have a nonspecific appearance. No focal area of consolidation. No septal thickening or effusion. The central airway is patent. Upper Abdomen: No acute findings. Redemonstration of benign left adrenal adenoma. Soft Tissues/Bones: No acute bone or soft tissue abnormality. 1. No evidence of pulmonary embolism. 2. Advanced emphysema. 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 Assessment and Plan: Patient Active Problem List Diagnosis Date Noted Severe malnutrition ([facility]) 02/18/2021 Pneumonia due to COVID-19 virus 02/17/2021 COPD (chronic obstructive pulmonary disease) ([facility]) 02/17/2021 Acute respiratory failure with hypoxia ([facility]) 02/17/2021 Left adrenal mass ([facility]) 06/06/2015 GERD (gastroesophageal reflux disease) 04/25/2014 Tobacco abuse 03/27/2014 Discharge Medications: Rufina Velazquez Home Medication Instructions JAKE:[id number] Printed on:02/21/21 1153 Medication Information ascorbic acid (VITAMIN C) 1000 MG tablet Take 1 tablet by mouth 4 times daily for 14 days guaiFENesin-dextromethorphan (ROBITUSSIN DM) 100-10 MG/5ML syrup Take 5 mLs by mouth every 4 hours as needed for Cough nicotine (NICODERM CQ) 21 MG/24HR Place 1 patch onto the skin daily omeprazole (PRILOSEC) 40 MG delayed release capsule Take 1 capsule by mouth every morning (before breakfast) predniSONE (DELTASONE) 10 MG tablet Take 3 tablets by mouth 2 times daily for 3 days, THEN 2 tablets 2 times daily for 3 days, THEN 1 tablet 2 times daily for 3 days, THEN 1 tablet daily for 5 days. Vitamin D (CHOLECALCIFEROL) 50 MCG (2000 UT) TABS tablet Take 1 tablet by mouth daily for 14 days zinc sulfate (ZINCATE) 220 (50 Zn) MG capsule Take 2 capsules by mouth daily for 14 days Patient Instructions: Activity: activity as tolerated Diet: encourage fluids Wound Care: none needed Other: None Disposition: Discharge to Home Follow up: Patient will be followed by RAFAELA Lawson CNP in 1-2 weeks CORE MEASURES on Discharge (if applicable) MIGUELITO/ARB in CHF: NA Statin in OR: NA ASA in OR: NA Statin in CVA: NA Antiplatelet in CVA: NA Total time spent on discharge services: 40 minutes Including the following activities: Evaluation and Management of patient Discussion with patient and/or surrogate about current care plan Coordination with Case Management and/or Technical Aid Coordination of care with Consultants (if applicable) Coordination of care with Receiving Facility Physician (if applicable) Completion of DME forms (if applicable) Preparation of Discharge Summary Preparation of Medication Reconciliation Preparation of Discharge Prescriptions Signed: RAFAELA Berrios CNP, MERARY RUSSO-C 02/21/2021, 11:53 AM Associated attestation - Orquidea Naranjo MD - 02/21/2021 12:51 PM EDT Orquidea Naranjo M.D. Internal Medicine PA/PLANING MACHINE OPERATOR Discharge Summary Attestation Patient: Rufina Velazquez I personally evaluated and examined the patient [id number] in conjunction with the PA/PLANING MACHINE OPERATOR and agree with the management and dispostition of the patient. Please see the PA/PLANING MACHINE OPERATOR's note for full details. My martel findings are: Admission date: 02/17/2021 Discharge date: 02/21/2021 Principle Diagnosis: Pneumonia due to COVID-19 virus Acute respiratory failure with hypoxia Chronic tobacco abuse Severe malnutrition Exam: GEN: Awake, alert and oriented x3. EYES: EOMI, pupils equal NECK: Supple. No lymphadenopathy. No carotid bruit CVS: regular rate and rhythm, no audible murmur PULM: diminished but clear without wheezing, rales or rhonchi, no acute respiratory distress ABD: Bowels sounds normal. Abdomen is soft. No distention. no tenderness to palpation. EXT: no edema bilaterally . No calf tenderness. NEURO: Moves all extremities. Motor and sensory are grossly intact SKIN: No rashes. No skin lesions. Disposition: Discharge to Home Follow Up: Follow up with RAFAELA Lawson CNP in 1-2 weeks Total time spent on discharge services: 40 minutes Including the following activities: Evaluation and Management of patient Discussion with patient and/or surrogate about current care plan Coordination with Case Management and/or Technical Aid Coordination of care with Consultants (if applicable) Coordination of care with Receiving Facility Physician (if applicable) Completion of DME forms (if applicable) Preparation of Discharge Summary Preparation of Medication Reconciliation Preparation of Discharge Prescriptions Orquidea Naranjo MD , MAgnieszka. 02/21/2021 12:51 PMdocumented in this encounter [employer] Phone: 02-17-2021 Note 1. No evidence of pu lmonary embolism. 2. Advanced emphysema. 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 [employer] Phone: Evaluation + Plan note Future Appointments Appointment Date:06/13/2024 09:15:00 AM Scheduled Provider:Silviano Friend MD Location:[facility] Appointment Type:[facility] Evaluation note Diagnosis Pneumonia due to COVID-19 virus- Primary COVID-19 Hypoxia Hypoxemia COPD (chronic obstructive pulmonary disease) (HCC) Chronic airway obstruction, not elsewhere classified Tobacco abuse Tobacco use disorder Acute respiratory failure with hypoxia (HCC) Acute respiratory failure Severe malnutrition (HCC) Nutritional marasmus documented in this encounter [employer] Phone: evaluation note* Diagnosis Sprain of right ankle, unspecified ligament, initial encounter- Primary Right foot pain Pain in limb documented in this encounter [employer] Phone: evalswejln note* Diagnosis Screening PSA (prostate specific antigen) Special screening for malignant neoplasm of prostate Gastroesophageal reflux disease without esophagitis Esophageal reflux Lipid screening Screening for lipoid disorders documented in this encounter [employer] Phone: evalnkpqdi note* Diagnosis S/P spinal fusion Arthrodesis status documented in this encounter [employer] Phone: evaluation note* Diagnosis S/P spinal fusion Arthrodesis status documented in this encounter [employer] Phone: Hospital course Narrative No data available for this section [facility] Discharge instructions No data available for this section [facility] Progress note No data available for this section [facility] Summary Purpose Family History No Family History Records FoundNo Family History Records FoundNo Family History Records FoundNo Family History Records Found No data available for this section No Family History Records Found Advance Directives No Advanced Directives Records FoundDocuments on File Type Date Recorded Patient Education Counselor Expl anation Advance Directives and Living Will Power of Stamping Operator Latest Code Status on File Code Status Date Activated Date Inactivated Comments Full Code 03/11/2017 6:27 AM 03/11/2017 10:45 AM Full Code 10/19/2014 10:46 AM 10/19/2014 1:29 PM Documents on File Type Date Recorded Patient Education Counselor Expl anation Advance Directives and Living Will Power of Stamping Operator Latest Code Status on File Code Status Date Activated Date Inactivated Comments Full Code 03/11/2017 6:27 AM 03/11/2017 10:45 AM Full Code 10/19/2014 10:46 AM 10/19/2014 1:29 PM Documents on File Type Date Recorded Patient Education Counselor Expl anation ACP-Advance Directive ACP-Power of Stamping Operator Healthcare Agents on File Name Relationship Healthcare Agent Relationship Communication Meenakshi Feliciano Spouse Primary Decision Maker Latest Code Status on File Code Status Date Activated Date Inactivated Comments Full Code 02/17/2021 4:33 PM Full Code 03/11/2017 6:27 AM 03/11/2017 10:45 AM Healthcare Agents on File Name Relationship Healthcare Agent Relationship Communication Meenakshi Feliciano Spouse Primary Decision Maker Latest Code Status on File Code Status Date Activated Date Inactivated Comments Full Code 02/17/2021 4:33 PM 02/21/2021 6:09 PM Healthcare Agents on File Name Relationship Healthcare Agent Relationship Communication Meenakshi Feliciano Spouse Primary Decision Maker Healthcare Agents on File Name Relationship Healthcare Agent Relationship Communication Meenakshi Feliciano Spouse Primary Decision Maker Healthcare Agents on File Name Relationship Healthcare Agent Relationship Communication Meenakshi Feliciano Spouse Primary Decision Maker Healthcare Agents on File Name Relationship Healthcare Agent Relationship Communication Meenakshi Feliciano Spouse Primary Decision Maker Latest Code Status on File Code Status Date Activated Date Inactivated Comments Full Code 02/17/2021 4:33 PM 02/21/2021 6:09 PM Code Status History Code Status Date Activated Date Inactivated Comments Full Code 03/11/2017 6:27 AM 03/11/2017 10:45 AM Full Code 10/19/2014 10:46 AM 10/19/2014 1:29 PM Healthcare Agents on File Name Relationship Healthcare Agent Relationship Communication Meenakshi Feliciano Spouse Primary Decision Maker Healthcare Agents on File Name Relationship Healthcare Agent Relationship Communication Meenakshi Feliciano Spouse Primary Decision Maker Assessments Diagnosis Screening PSA (prostate specific antigen) Special screening for malignant neoplasm of prostate Lipid screening Screening for lipoid disorders Gastroesophageal reflux disease without esophagitis Esophageal reflux Diagnosis Personal history of tobacco use Personal history of tobacco use, presenting hazards to health Diagnosis Epigastric pain Abdominal pain, epigastric Radiating chest pain Chest pain, unspecified Reason for Referral Status Reason Specialty Diagnoses / Procedures Referre d By Contact Referred To Contact Closed Radiology Diagnoses Personal history of tobacco use Procedures CT Lung Screen (Annual) [place] LDCT FOR LUNG CA SCREEN HC CT CHEST SCREENING LOW DOSE WOUT CONT Massiel Moore, BANKING AND FINANCE INSTRUCTOR - FAMILY PRACTICE PHYSICIAN ASSISTANT [address] [place] [address] [place], [place] Additional Source Comments (unrecognized sect ion and content) No Status Records FoundNo Status Records FoundNo Status Records FoundNo Status Records FoundNo Status Records Found INFORMATION SOURCE (unrecogn ized section and content) DATE CREATED AUTHOR 11/09/2017 [facility] DATE CREATED AUTHOR AUTHOR'S ORGANIZ ATION 08/29/2022 [facility] DATE CREATED AUTHOR AUTHOR'S ORGANIZ ATION 08/15/2023 [facility] DATE CREATED AUTHOR AUTHOR'S ORGANIZ ATION 09/17/2023 [facility] DATE CREATED AUTHOR AUTHOR'S ORGANIZ ATION 04/28/2024 [facility] Reason for Visit (unrecogniz ed section and content) Status Reason Specialty Diagnoses / Procedures Referre d By Contact Referred To Contact Closed Cardiology Diagnoses Radiating chest pain Procedures Stress test, myoview HC NM SEST. REST STRESS MULT Massiel Moore, BANKING AND FINANCE INSTRUCTOR - FAMILY PRACTICE PHYSICIAN ASSISTANT [address] [place] [address] [place], [place] Status Reason Specialty Diagnoses / Procedures Referre d By Contact Referred To Contact Closed Radiology Diagnoses Personal history of tobacco use Procedures CT Lung Screen (Annual) [place] LDCT FOR LUNG CA SCREEN HC CT CHEST SCREENING LOW DOSE WOUT CONT Massiel Moore, BANKING AND FINANCE INSTRUCTOR - FAMILY PRACTICE PHYSICIAN ASSISTANT [address] [place] [address] [place], [place] Status Reason Specialty Diagnoses / Procedures Referre d By Contact Referred To Contact Closed Radiology Diagnoses Epigastric pain Radiating chest pain Procedures NM HEPATOBILIARY SCAN W EJECTION FRACTION NM HEPATOBILIARY HC NM HEPATOBILIARY IMAGING W PHARM Massiel Moore, BANKING AND FINANCE INSTRUCTOR - FAMILY PRACTICE PHYSICIAN ASSISTANT [address] [place] [address] [place], [place] Reason Comments Headache Onset 1 week ago Shortness of Breath Onset this AM, worse now. Pt reports his has Covid and states he may have it Cough Productive Status Reason Specialty Diagnoses / Procedures Referred By Contact Referred To Contact Diagnoses Hypoxia Pneumonia due to COVID-19 virus COVID-19 Orquidea Naranjo MD [address] [place] [address] [facility] Reason Comments Foot Injury Pt here for R foot i njury, pt states he was on a porch and fell through landing in the basement. Ordered Prescriptions (unrec ognized section and content) Prescription Sig Dispensed Refills Start Date End Da te predniSONE (DELTASONE) 10 MG tablet Take 3 tablets by mouth 2 times daily for 3 days, THEN 2 tablets 2 times daily for 3 days, THEN 1 tablet 2 times daily for 3 days, THEN 1 tablet daily for 5 days. 41 tablet 0 02/21/2021 03/07/2021 Vitamin D (CHOLECALCIFEROL) 50 MCG (2000 UT) TABS tablet Take 1 tablet by mouth daily for 14 days 14 tablet 0 02/22/2021 03/08/2021 zinc sulfate (ZINCATE) 220 (50 Zn) MG capsule Take 2 capsules by mouth daily for 14 days 28 capsule 0 02/22/2021 03/08/2021 ascorbic acid (VITAMIN C) 1000 MG tablet Take 1 tablet by mouth 4 times daily for 14 days 56 tablet 0 02/21/2021 03/07/2021 nicotine (NICODERM CQ) 21 MG/24HR Place 1 patch onto the skin daily 30 patch 3 02/22/2021 guaiFENesin-dextrometho rphan (ROBITUSSIN DM) 100-10 MG/5ML syrup Take 5 mLs by mouth every 4 hours as needed for Cough 120 mL 0 02/21/2021 03/03/2021 Scheduled Active and Recently Administ ered Medications (unrecognized section and content) Medication Order 02/19/2021 02/20/2021 02/21/2021 ascorbic acid (VITAMIN C) tablet 1,000 mg 1,000 mg, Oral, 4 TIMES DAILY, First dose on 02/18/21 at 1700 0851 (Given - Provider: Mary Alice Russell RN)1319 (Given - Provider: Mary Alice Russell, SU)1646 (Given - Provider: Mary Alice Russell RN)2051 (Given - Provider: Kamila Larry, SU) 0839 (Given - Provider: Patrick Stephens RN)1458 (Given - Provider: Patrick Stephens, RN)1956 (Not Given - Provider: Kamila Larry RN - Reason: Patient/family refused)2043 (Given - Provider: Kamila Larry, SU) 0752 (Given - Provider: Patrick Stephens, RN)1250 (Given - Provider: Patrick Stephens, RN)1527 (Given - Provider: Patrick Stephens, RN)2099 (Due) dexamethasone (DECADRON) tablet 6 mg 6 mg, Oral, DAILY, First dose on 02/17/21 at 1700, For 10 doses 0851 (Given - Provider: Mary Alice Russell RN) 0840 (Given - Provider: Patrick Stephens RN) 0753 (Given - Provider: Patrick Stephens, RN) enoxaparin (LOVENOX) injection 30 mg 30 mg, SubCUTAneous, 2 TIMES DAILY, First dose on 02/17/21 at 2100 0851 (Given - Provider: Mary Alice Russell RN)2050 (Given - Provider: Kamila Larry, SU) 0838 (Given - Provider: Patrick Stephens, SU)2043 (Given - Provider: Kamila Larry, RN) 0750 (Given - Provider: Patrick Stephens, SU)2100 (Due) famotidine (PEPCID) tablet 20 mg 20 mg, Oral, 2 TIMES DAILY, First dose on 02/17/21 at 2100 0850 (Given - Provider: Mary Alice Russell RN)205 (Given - Provider: Kamila Larry RN) 0839 (Given - Provider: Patrick Stephens RN)2044 (Given - Provider: Kamila Larry RN) 0754 (Given - Provider: Patrick Stephens RN)2100 (Due) ipratropium-albuterol (DUONEB) nebulizer solution 1 ampule 1 ampule, Inhalation, 4 TIMES DAILY, First dose (after last modification) on 02/18/21 at 2000 0543 (Given - Provider: Shanta Kasper RCP)1020 (Given - Provider: Pastora Peraza RCP)1540 (Given - Provider: Pastora Peraza RCP)2144 (Given - Provider: Zuri Mendez RCP) 0458 (Given - Provider: Zuri Mendez RCP)1128 (Given - Provider: Pastora Peraza RCP)1600 (Given - Provider: Pastora Peraza RCP)2110 (Given - Provider: Shanta Kasper RCP) 0544 (Given - Provider: Shanta Kasper RCP)1100 (Given - Provider: Pastora Peraza RCP)1600 (Due - Provider: Pastora Peraza RCP)2000 (Due - Provider: Pastora Peraza RCP) nicotine (NICODERM CQ) 21 MG/24HR 1 patch 1 patch, TransDERmal, Administer over 24 Hours, DAILY, First dose on Thu02/17/21 at 1715, Apply new patch to nonhairy, clean, dry skin on the upper body or upper outer arm. Rotate patch sites. Notify pharmacy if patient or provider prefers patch to be removed at bedtime and replaced in the morning. Hazardous Medication -- Refer to facility policy for handling and disposal. 0845 (Patch Removed - Provider: Mary Alice Russell RN)0851 (Patch Applied - Provider: Mary Alice Russell RN) 0838 (Patch Applied - Provider: Patrick Stephens RN) 0748 (Patch Applied - Provider: Patrick Stephens RN) potassium chloride (KLOR-CON M) extended release tablet 40 mEq 40 mEq, Oral, 2 TIMES DAILY WITH MEALS, First dose on Thu02/20/21 at 0845, For 4 doses, Do not crush, chew, or suck on tablet. Tablet may also be broken in half and each half swallowed separately. 0852 (Given - Provider: Patrick Stephens RN)1700 (Canceled Entry - Provider: Patrick Stephens, RN) 0753 (Given - Provider: Patrick Stephens, RN)1526 (Given - Provider: Patrick Stephens, RN) remdesivir 100 mg in sodium chloride 0.9 % 250 mL IVPB 100 mg, IntraVENous, at 500 mL/hr, Administer over 30 Minutes, EVERY 24 HOURS, First dose on Thu02/18/21 at 1800, For 4 doses, Flush line with at least 30 mL normal saline after remdesivir infusion is complete. 1647 (New Bag - Provider: Mary Alice Russell RN)1720 (Stopped - Provider: Mary Alice Russell RN) 1727 (New Bag - Provider: Patrick Stephens RN)1757 (Due: Stopped - Provider: Patrick Stephens, RN) 1800 (Due) sodium chloride flush 0.9 % injection 10 mL 10 mL, IntraVENous, EVERY 12 HOURS SCHEDULED (2 times per day), First dose on Thu02/17/21 at 2100 0851 (Given - Provider: Mary Alice Russell RN)2052 (Given - Provider: Kamila Larry, SU) 0838 (Given - Provider: Patrick Stephens, SU)2044 (Given - Provider: Kamila Larry, SU) 0748 (Given - Provider: Patrick Stephens, RN)2100 (Due) Vitamin D (CHOLECALCIFEROL) tablet 2,000 Units 2,000 Units, Oral, DAILY, First dose on Thu02/17/21 at 1700, Maintenance Dose. 0850 (Given - Provider: Mary Alice Russell RN) 0840 (Given - Provider: Patrick Stephens, RN) 0753 (Given - Provider: Patrick Stephens, RN) zinc sulfate (ZINCATE) capsule 100 mg 100 mg, Oral, DAILY, First dose on Thu02/18/21 at 1315, Each 220mg Zinc Sulfate cap contains 50mg elemental zinc. 0850 (Given - Provider: Mary Alice Russell RN) 0838 (Given - Provider: Patrick Stephens, RN) 0752 (Given - Provider: Patrick Stephens, RN) PRN Medication Order 02/19/2021 02/20/2021 02/21/2021 0.9 % sodium chloride bolus 30 mL (0.438 mL/kg), IntraVENous, at 180 mL/hr, Administer over 10 Minutes, PRN, for Remdesivir line flush, Starting on Thu02/17/21 at 1737 0.9 % sodium chloride infusion 25 mL, IntraVENous, at 100 mL/hr, PRN, If patient receiving piggyback infusions without ordered maintenance IV fluids or with frequent/long duration piggyback infusions, Starting on Thu02/17/21 at 1632, Administer at the same rate as the piggyback being infused. acetaminophen (TYLENOL) suppository 650 mg(Linked Group 1) 650 mg, Rectal, EVERY 6 HOURS PRN, Pain Mild (1-3), Fever, For temp greater than 100.4 F (38 C), Starting on 02/17/21 at 1632, Administer if oral route cannot be used. acetaminophen (TYLENOL) tablet 650 mg(Linked Group 1) 650 mg, Oral, EVERY 6 HOURS PRN, Pain Mild (1-3), Fever, For temp greater than 100.4 F (38 C), Starting on 02/17/21 at 1632, Maximum dose of acetaminophen is 4000 mg from all sources in 24 hours. albuterol (PROVENTIL) nebulizer solution 2.5 mg 2.5 mg, Nebulization, EVERY 4 HOURS PRN, Wheezing, Starting on 02/18/21 at 1807 guaiFENesin-dextromethorphan (ROBITUSSIN DM) 100-10 MG/5ML syrup 5 mL 5 mL, Oral, EVERY 4 HOURS PRN, Cough, Starting on Thu02/17/21 at 1632 melatonin tablet 5 mg 5 mg, Oral, NIGHTLY PRN, for sleep, Starting on 02/18/21 at 2100 2051 (Given - Provider: Kamila Larry RN) ondansetron (ZOFRAN) injection 4 mg(Linked Group 2) 4 mg, IntraVENous, EVERY 6 HOURS PRN, Nausea, Vomiting, Starting on 02/17/21 at 1632, Administer if oral route cannot be used. ondansetron (ZOFRAN-ODT) disintegrating tablet 4 mg(Linked Group 2) 4 mg, Oral, EVERY 8 HOURS PRN, Nausea, Vomiting, Starting on Thu02/17/21 at 1632 polyethylene glycol (GLYCOLAX) packet 17 g 17 g, Oral, DAILY PRN, Constipation, Starting on 02/17/21 at 1632, First line therapy for constipation sodium chloride flush 0.9 % injection 10 mL 10 mL, IntraVENous, PRN, Line Care, After every IV line use, Starting on 02/17/21 at 1632 1646 (Given - Provider: Mary Alice Russell RN) Linked Groups Order Group 1: acetaminophen (TYLENOL) tablet 650 mgJump to med 650 mg, Oral, EVERY 6 HOURS PRN, Pain Mild (1-3), Fever, For temp greater than 100.4 F (38 C), Starting on 02/17/21 at 1632
Maximum dose of acetaminophen is 4000 mg from all sources in 24 hours.
Or acetaminophen (TYLENOL) suppository 650 mgJump to med 650 mg, Rectal, EVERY 6 HOURS PRN, Pain Mild (1-3), Fever, For temp greater than 100.4 F (38 C), Starting on 02/17/21 at 1632
Administer if oral route cannot be used.
Group 2: ondansetron (ZOFRAN-ODT) disintegrating tablet 4 mgJump to med 4 mg, Oral, EVERY 8 HOURS PRN, Nausea, Vomiting, Starting on 02/17/21 at 1632 Or ondansetron (ZOFRAN) injection 4 mgJump to med 4 mg, IntraVENous, EVERY 6 HOURS PRN, Nausea, Vomiting, Starting on 02/17/21 at 1632
Administer if oral route cannot be used.
Care Teams (unrecognized sec tion and content) Cook Apprentice Relationship Specialty Start Date End Date Might, RAFAELA Elkins CNP PCP - General 03/27/14 Cook Apprentice Relationship Specialty Start Date End Date Might, RAFAELA Elkins CNP PCP - General 03/27/14 Cook Apprentice Relationship Specialty Start Date End Date Might, RAFAELA Elkins CNP PCP - General 03/27/14 Cook Apprentice Relationship Specialty Start Date End Date Massiel Moore APRN - FAMILY PRACTICE PHYSICIAN ASSISTANT PCP - General 03/27/14 Cook Apprentice Relationship Specialty Start Date End Date Massiel Moore APRN Vicki FAMILY PRACTICE PHYSICIAN ASSISTANT PCP - General 03/27/14 FOR RECORDS PERTAINING TO PATIENTS WHO ARE OR HAVE BEEN ENROLLED IN A CHEMICAL DEPENDENCY/SUBSTANCEABUSE PROGRAM, SOME INFORMATION MAY BE OMITTED. This clinical summary was aggregated from multiple sources. Caution should be exercised in using it in the provision of clinical care. This summary normalizes information from multiple sources, and as a consequence, information in this document may materially change the coding, format and clinical context of patient data. In addition, data may be omitted in some cases. CLINICAL DECISIONS SHOULD BE BASED ON THE PRIMARY CLINICAL RECORDS. [facility]. provides no warranty or guarantee of the accuracy or completeness of information in this document.
[2024-06-07 07:11] VITALS: BP 157/91; PULSE 65; TEMP 36.3; O2SAT 96
[2024-06-07 07:57] VITALS: BP 147/83; BP 149/80; PULSE 70; PULSE 74; O2SAT 97
[2024-06-07] MEDS: LIDOCAINE HCL 2% 400 MG/20 ML MDV 5 ML INJ (08:01)
[2024-06-07] MEDS: BUPIVACAINE HCL 0.25% PF 25 MG/10 ML VIAL 5 ML INJ (08:01)
[2024-06-07] MEDS: METHYLPREDNISOLONE ACETATE 40 MG/ML VIAL INJ (08:01)
--- NOTE | 2024-06-07 08:43 | W.PM.PROCNOT ---
Date of procedure: 06/07/24 Pre-op diagnosis: right superior gluteal neuritis Post-op diagnosis: same as pre-op Procedure: Right Superior gluteal nerve Radiofrequency ablation PreOp diagnosis: pain secondary to superior gluteal neuritis Postop diagnosis same Under fluoroscopic guidance Rhizotomy was created using radio frequency ablation at 80?C for 90 seconds 1 to 2 lesions created at each site. Post lesioning injection of 2 mL each of 0.25% Marcaine and 2% lidocaine with Depo-Medrol 40mg. 0.5 to 1 mL injected at each site IV in place no If Intravenous fluids: NS at KVO Anesthesia local 2% lidocaine for Anesthesia Other: local Timeout process compliant After informed consent obtained. Patient brought to the procedure room placed in the prone position skin overlying the area was prepped and draped in a sterile fashion using betadine. 25 gauge needle was used to create a skin wheal over each of the targeted areas utilizing 2% lidocaine. A rhizotomy needle with a 10 mm active tip was inserted over each of the anesthetized areas and directed towards four different areas in the distribution of the superior gluteal nerve, accomplished under fluoroscopic guidance. After encountering the same we had positive sensory stimulation, negative motor stimulation was noted. lesions were then created. Post lesioning, steroid solution was injected needles removed. Patient was transferred to recovery room in stable condition to be discharged home after meeting criteria. Anesthesia: Local Surgeon: Marj Mccarthy Condition: stable
== END 2024-06-07 08:17 | disposition home or self-care (01) ==
PROVIDERS: PCP Family Medicine; Visit Provider Anesthesiology Pain Medicine
DX: G57.81 Other specified mononeuropathies of right lower limb (principal)
CPT/HCPCS: 64450; 77002; J0665; J1010

== ENCOUNTER 2024-07-05 13:26 | Outpatient (OUT) | payer MEDICARE, SELFPAY ==
--- NOTE | 2024-07-05 | CONS_ITS ---
PROCEDURE DATE: 07/05/2024 PROCEDURE: Trigger point injection right gluteus medius. PREOPERATIVE DIAGNOSIS: Pain secondary to myalgia and spasm of the right gluteus medius. POSTOPERATIVE DIAGNOSIS: Pain secondary to myalgia and spasm of the right gluteus medius. SOLUTION USED FOR INJECTION: 2 mL of 2% lidocaine, 2 mL of 0.25% Marcaine and 20 mg of Depo-Medrol, total of 5 mL, and 5 mL used for the injection at the site. IMMEDIATE COMPLICATIONS: None. PROCEDURE: After informed consent was obtained from the patient, placed in the flexed forward position. Skin overlying the area was prepped with alcohol. A 25 gauge, 1 ?? needle inserted into the area of the right gluteus medius. After achieving a mild twitch response, no indication of intravascular needle tip placement, 5 mL of solution was injected in divided doses in different quadrants of the right gluteus medius. Post procedure, needle was removed. Patient reports a dramatic reduction in pain symptoms post procedurally. Will see him back in the office in six months? time or sooner if needed. Of note, after the patient underwent a right superior gluteal nerve RFA, he reports ?It was worth having done?. SHAWNA
--- OUTSIDE RECORDS SUMMARY | 2024-07-05 13:35 | XMS_ITS | CCD ---
Author Organization [facility] CliniSypr Care Team Providers Care Business Process Consultant Name Role Phone MightMassiel Primary Care Provider JAYLON MAJANO Referring Unavailable MIGHT, MASSIEL Toney Primary Care Unavailable MIGHT, MASSIEL W Primary Care Unavailable OMERO FRANK Referring Unavailable MIGHT, MASSIEL Toney Primary Care Unavailable JAYLON MAJANO Referring Unavailable MIGHT, MASSIEL Toney Primary Care Unavailable JUD CLEARY Attending Unavailable MIGHT, MASSIEL Toney Primary Care Unavailable MIGHT, MASSIEL W Referring Unavailable MIGHT, MASSIEL W Primary Care Unavailable OMERO FRANK Referring Unavailable Steph Sims Primary Care Physician Steph Ewing Unavailable Unavailable JAYLON MAJANO Referring Unavailable MIGHT, MASSIEL Toney Primary Care Unavailable JAYLON MAJANO Referring Unavailable MIGHT, MASSIEL Toney Primary Care Unavailable Might TELEHEALTH NURSE EDUCATOR-[facility], Massielthelma Wick Primary Care Un available Jaylon Majano Attending Unavailable Might TELEHEALTH NURSE EDUCATOR-[facility], Massielthelma Wick Primary Care Un available Jaylon Majano Attending Unavailable Might TELEHEALTH NURSE EDUCATOR-[facility], Massiel Delano Primary Care Un available Jaylon Majano Attending Unavailable Might TELEHEALTH NURSE EDUCATOR-ASSURANCE SENIOR MANAGER INSURANCE, Massiel Delano Primary Care Un available Jaylon Majano Attending Unavailable Might TELEHEALTH NURSE EDUCATOR-ASSURANCE SENIOR MANAGER INSURANCE, Massiel Delano Primary Care Un available Jaylon Majano Attending Unavailable Omero Frank PA-C Attending Unavail able Might TELEHEALTH NURSE EDUCATOR[facility], [facility] Primary Care Un available Might TELEHEALTH NURSE EDUCATOR-ASSURANCE SENIOR MANAGER INSURANCE, [facility] Primary Care Un available Jaylon Majano Attending Unavailable Might TELEHEALTH NURSE EDUCATOR-ASSURANCE SENIOR MANAGER INSURANCE, Massiel Delano Primary Care Un available Jaylon Majano Attending Unavailable Might TELEHEALTH NURSE EDUCATOR-ASSURANCE SENIOR MANAGER INSURANCE, [facility] Primary Care Un available Jaylon Majano Attending Unavailable Silviano Friend Primary Care Physician Silviano Friend Referring Unavailable Silviano Friend Attending Unavailable Silviano Friend Admitting Unavailable Silviano Friend Attending Unavailable Silviano Friend Attending Unavailable Allergies Allergy Classification Reported Allergen(s) Allergy Type Date of Onset Reaction(s) Facility NSAIDs (1 source) Ibuprofen Drug Allergy 04-14-2017 Other (See Comments) Simpler (16 sources) Ibuprofen; Translations: [ibuprofen] Drug Allergy 04-14-2017 Other (See Comments), Sweating (finding), Vomiting (disorder), Dizziness (finding) [place]- [place], [place] Medications Current Medications Medication Drug [...] Active Start: 02-17-2021 take 2000 [IU] by [facility] once daily 2,000 Units, Oral, DAILY, First [...] 20 mg/ml oral suspension (2 sources) Uncompetitive S-dquoqr-M-aspartate Receptor Antagonist, Sigma-1 Agonist Start: 02-17-2021 End: [...] patch(es), Topical, Daily, 30 EA, Refill(s) 0, [facility], 175.2, cm, 04/11/24 10:31:00 [...] Daily, # 90 cap(s), Refills(s) 1, Pharmacy: [facility], 175.2, cm, 04/11/24 10:31:00 [...] disintegrating tablet 4 mg polyethylene glycol 3350 24339 mg powder for oral solution (1 source) [...] Test Name Value Interpretation Reference Range Facility Pre-Visit Planningon 025 Pre-Visit Planning Pre-Visit Planning - From: Jud Rosa To: Phuc DALEY, Silviano Todd; Sent: 06/10/2024 13:46:18 EST Subject: Pre-Visit Planning Due Date/Time: 06/10/2024 13:46:00 EST Caller Name: RUFINA VELAZQUEZ; Caller Number: , Sc Dr. Friend. During a pre-visit planning chart review, I noted the following documentation in the medical record: Current Problem List: Tobacco use. 04/11/2024 Office Visit Note: Nicotine dependence, cigarettes, uncomplicated (F17.210) The patient expresses a desire to quit smoking, currently reducing tobacco intake. Discuss use of nicotine patches with dose adjustment and advice on mitigation of withdrawal symptoms. Recommend lung cancer screening due to smoking history. 04/19/2024 CT Chest, Low Dose Screening: Right lung: Emphysema, greatest in upper lobe. Left lung: Emphysema, greatest in upper lobe. Based on your medical judgment, can you please clarify which, if any, of the following conditions/complicat ions are present? I can update the Chronic Problem List with your response if you would like. -Emphysema lung -Other (please specify): -Unable to determine In responding to this request, please exercise your independent professional judgment. The fact that a question is asked does not imply that any particular answer is desired or expected. If you have any questions, please feel free to contact me at extension [phone]. Thank you! Jud Rosa LPN Clinical Smokehouse Operator [place] [address] Extension: [phone] [email or web address] -Emphysema lung - From: Phuc DALEY, Silviano Todd To: Jud Rosa; Sent: 06/10/2024 14:26:17 EST Subject: RE: Pre-Visit Planning Caller Name: RUFINA VELAZQUEZ; Caller Number: Aditi , Sarah Normal [facility] CT Chest, Low Dose Screening on 04-25-2024 [...] MD Transcribed by: SULEMA Technologist: ROSEY Hudson [facility] Ambulatory Visit Summaryon 1 06-11-2023 Ambulatory Visit [...] AM EST With: Silviano Friend MD Where: [address] [address]- Medications What How Much When Instructions Unchanged [...] you for choosing us for your care. [facility] Office/Clini c Noteon 04-11-2024 Family Medicine Office/Clinic Note Family Medicine Office/Clinic Note Chief Complaint Chronic back pain and cervical radiculopathy HPI Staff Rufina is a 63 year old male presenting to establish care Says Dr Gill last provider but [...] patch(es), Topical, Daily, 30 EA, Refill(s) 0, [facility], 175.2, cm, 04/11/24 10:31:00 EST, Height/Length Dosing, 70.1, kg, 04/11/24 10:31:00 EST, Weight Dosing CT Chest, Low Dose Screening [facility] External Ambulatory Referral [facility] External Ambulatory Referral 2. Nicotine dependence, cigarettes, uncomplicated (F17.210) The patient expresses a desire to quit smoking, currently reducing tobacco intake. Discuss use of nicotine patches with dose adjustment and advice on mitigation of withdrawal symptoms. Recommend lung cancer screening due to smoking history. Ordered: nicotine, 1 patch(es), Topical, Daily, 30 EA, Refill(s) 0, [facility], 175.2, cm, 04/11/24 10:31:00 EST, Height/Length Dosing, 70.1, kg, 04/11/24 10:31:00 EST, Weight Dosing CT Chest, Low Dose Screening [facility] External Ambulatory Referral [facility] External Ambulatory Referral 3. Radiculopathy, cervical region (M54.12) Evaluate the potential need for further imaging studies (MRI) pending second opinion outcomes. Minimized invasive intervention due to the patient's risk aversion. Reinforce exploration of alternative pain management strategies. Ordered: nicotine, 1 patch(es), Topical, Daily, 30 EA, Refill(s) 0, [facility], 175.2, cm, 04/11/24 10:31:00 EST, Height/Length Dosing, 70.1, kg, 04/11/24 10:31:00 EST, Weight Dosing CT Chest, Low Dose Screening [facility] External Ambulatory Referral [facility] External Ambulatory Referral 4. Sciatica, right side (M54.31) Address sciatic symptoms through adjunctive management, consider referral pathways for pain management for interim relief, emphasize review through second opinion avenues. Ordered: nicotine, 1 patch(es), Topical, Daily, 30 EA, Refill(s) 0, [facility], 175.2, cm, 04/11/24 10:31:00 EST, Height/Length Dosing, 70.1, kg, 04/11/24 10:31:00 EST, Weight Dosing CT Chest, Low Dose Screening [facility] External Ambulatory Referral [facility] External Ambulatory Referral Orders: omeprazole, 40 mg = 1 cap(s), Oral, Daily, # 90 cap(s), Refills(s) 1, Pharmacy: [facility], 175.2, cm, 04/11/24 10:31:00 EST, Height/Length Dosing, 70.1, kg, 04/11/24 10:31:00 EST, Weight Dosing 65 (more content not included)... Normal [facility] Comment on above: Result Comment: Elec tronically [...] 9. Right (more content not included)... Normal [facility] MR CERVICAL SPINE WO CONTon [...] narrowing with at least moderate left and qnvc-uf-ofjmsrbq right neuroforaminal narrowing. C5-C6: Mild broad-based disc osteophyte complex with widening of the ventral cord and possible sequela of mild chronic compressive myelopathy. Facet arthropathy also contributes to nufk-rr-arfwinig bilateral neuroforaminal narrowing. C6-C7: Moderate broad-based disc osteophyte complex, ligamentum flavum hypertrophy results in ofkgnmqk-oa-ubrhxx spinal canal narrowing and ventral cord flattening. Facet and uncovertebral arthropathy results in severe bilateral neuroforaminal narrowing. C7-T1: Small central disc osteophyte complex and facet arthropathy results in tpvbsjmy-cl-sqgxbp bilateral neuroforaminal narrowing. Mild spinal canal narrowing. IMPRESSION: * Multilevel degenerative spondylosis most significant at C6-C7 where there are Modic type I degenerative endplate changes, bfjmaqke-jo-gxysbc spinal canal narrowing and severe bilateral neuroforaminal narrowing. Finalized by Isauro Gomez on 08/14/2023 11:58 PM Normal [facility] Office/Clinic N oteon 07-01-2023 Neurosurgery Office/Clinic Note Chief Complaint Patient [...] EOMI, PERRLA, TML, FS, No drift 5/5 jealni UE strength 5/5 jelani LE strength UE [...] RLE emg/n (more content not included)... Normal [facility] MR LUMBAR SPINE WO CONTon [...] Ramos MD on 06/09/2023 10:13 AM Normal [facility] No Panel Informationon 05-22 Tobacco smoking status Current Tobacco User Inva lid Interpretation Code [facility] [employer] II XR Hip 2-3 Views Righton XR Hip [...] Electronically Signed in Other Vendor System) Normal [facility] XR Spine Cervical 2 or [...] Electronically Signed in Other Vendor System) Normal [facility] Neurosurgery Office/Clinic N oteon 05-21-2023 [...] Procedure/Surgical History Ambulatory surgery (2011) Ambulatory surgery (2017) Adherent cataract (2019) Fusion Spine Lumbar Posterior with (more content not included)... Normal [facility] XR LUMBAR SPINE (MIN 4 [...] David Apodaca MD 08/26/22 Final result Normal [facility] 1. Postoperative changes. [facility] [...] calcification is present. IMPRESSION: 1. Postoperative changes. [facility] [employer] Work Phone: Radiology Study observation (narrative) [facility] Phone: XR LUMBAR SPINE (MIN 4 VIEWS )Ordered By: David Apodaca on 08-26-2022 [facility] [employer] XR LUMBAR SPINE (2-3 VIEWS)o n 07-02-2022 [...] Tonny Altamirano MD 07/01/22 Final result Normal [facility] XR LUMBAR SPINE (2-3 VIEWS)o n [...] and S1. Grade 1 spondylolisthesis L5-S1 increased. [facility] Work Phone: Radiology Study observation (narrative) [employer] Phone: XR LUMBAR SPINE (2-3 VIEWS)O rdered By: Tonny Altamirano on 07-01-2022 [facility] Work Phone: Lipid Panelon 04-02-2022 Cholesterol [Mass/Vol] 177 mg/dL NINF - 200 mg/dL [facility] Comment on above: Cholesterol Guidelines: <200 Desirable 200-240 Borderline >240 Undesirable Cholesterol in HDL [Mass/Vol] 65 mg/dL 40 - PINF mg/dL [facility] Comment on above: HDL Guidelines: <40 Undesirable 40-59 Borderline >59 Desirable Cholesterol in LDL [Mass/Vol] 87 mg/dL 0 - 130 mg/dL [facility] Comment on above: LDL Guidelines: <100 Desirable 100-129 Near to/above Desirable 130-159 Borderline >159 Undesirable Direct (measured) LDL and calculated LDL are not interchangeable tests. Cholesterol.total/Chol esterol in HDL [Mass ratio] 2.7 {ratio} NINF - 5 [facility] Triglyceride [Mass/Vol] 124 mg/dL NINF - 150 mg/dL [facility] Comment on above: Triglyceride Guidelines: <150 Desirable 150-199 Borderline 200-499 High >499 Very high Based on AHA Guidelines for fasting triglyceride, February 2012. [facility] Lipid Profileon 04-02-2022 Cholesterol [Mass/Vol] 177 mg/dL Normal <200 [facility] Comment on above: Result Comment: Cholesterol Guidelines: <200 Desirable 200-240 Borderline >240 Undesirable Performed By: #### L IPR #### [address] [address] Lead Nuclear Medicine Technologist: Nirav Steinberg MD Cholesterol in HDL [Mass/Vol] 65 mg/dL Normal >40 [facility] Comment on above: Result Comment: HDL Guidelines: <40 Undesirable 40-59 Borderline >59 Desirable Performed By: #### L IPR #### [address] [address] Lead Nuclear Medicine Technologist: Nirav Steinberg MD Cholesterol in LDL [Mass/Vol] 87 mg/dL Normal 0-130 [facility] Comment on above: Result Comment: LDL Guidelines: <100 Desirable 100-129 Near to/above Desirable 130-159 Borderline >159 Undesirable Direct (measured) LDL and calculated LDL are not interchangeable tests. Performed By: #### L IPR #### [address] [address] Lead Nuclear Medicine Technologist: Nirav Steinberg MD Cholesterol.total/Chol esterol in HDL [Mass ratio] 2.7 {ratio} Normal <5 [facility] Comment on above: Performed By: #### L IPR #### [address] [address] Lead Nuclear Medicine Technologist: Nirav Steinberg MD Triglyceride [Mass/Vol] 124 mg/dL Normal <150 [facility] Comment on above: Result Comment: Triglyceride Guidelines: <150 Desirable 150-199 Borderline 200-499 High >499 Very high Based on AHA Guidelines for fasting triglyceride, February 2012. Performed By: #### L IPR #### [address] [address] Lead Nuclear Medicine Technologist: Nirav Steinberg MD PSA Screeningon 04-02-2022 [facility] PSA, Screeningon 04-02-2022 Prostatic Spec. Ag 1.13 ng/mL Normal <4.1 [facility] Comment on above: Result Comment: The [employer] ECLIA assay is used. Results obtained with different assay methods cannot be used interchangeably. Performed By: #### P SAS #### [address] [place] [id number] Lead Nuclear Medicine Technologist: Nirav Steinberg MD #### BMP, CDP, ALT, AST #### [facility] [address] [place] [address] Lead Nuclear Medicine Technologist: Jc Alvarez MD Elizabte 04-01-2022 ALT [Catalytic activity/Vol] 10 U/L Normal 5-41 [facility] Comment on above: Performed By: #### P SAS #### [facility] [address] [place] [address] Lead Nuclear Medicine Technologist: Nirav Steinberg MD #### BMP, CDP, ALT, AST #### [address] [place] [address] Lead Nuclear Medicine Technologist: Jc Alvarez MD ALT [Catalytic activity/Vol] 10 U/L 5 - 41 U/L [facility] 04-01-2022 AST [Catalytic activity/Vol] 18 U/L Normal <40 [facility] Comment on above: Performed By: #### P SAS #### [facility] [address] [place], [place] [id number] Lead Nuclear Medicine Technologist: Nirav Steinberg MD #### BMP, CDP, ALT, AST #### [facility] [address] [place] [address] [place] [address] Lead Nuclear Medicine Technologist: Jc Alvarez MD AST [Catalytic activity/Vol] 18 U/L NINF - 40 U/L [facility] Basic Metabolic Panelon 03-18 Anion gap [Moles/Vol] 6 mmol/L Low 9 - 17 mmol/L [facility] Calcium [Mass/Vol] 9.6 mg/dL 8.6 - 10. 4 mg/dL [facility] Chloride [Moles/Vol] 99 mmol/L 98 - 10 7 mmol/L [facility] CO2 [Moles/Vol] 30 mmol/L 20 - 31 mmol/L [facility] Creatinine [Mass/Vol] 0.79 mg/dL 0.70 - 1.20 mg/dL [facility] GFR/1.73 sq M.predicted MDRD (S/P/Bld) [Vol rate/Area] - PINF [facility] Comment on above: Effective Feb [...] 100 mg/dL High 70 - 99 mg/dL [facility] Interpretation and review of laboratory results Abnormal [facility] Potassium [Moles/Vol] 4.4 mmol/L 3.7 - 5.3 mmol/L [facility] Sodium [Moles/Vol] 135 mmol/L 135 - 144 mmol/L [facility] Urea nitrogen (BldV) [Mass/Vol] 8 mg/dL 8 - 23 mg/dL [facility] Urea nitrogen/Creatinine (Bld) [Mass ratio] 10 9 - 20 [facility] Basic Metabolic Profon 04-01 Anion gap [Moles/Vol] 6 mmol/L Low -17 [facility] Comment on above: Performed By: #### P SAS #### [facility] [address] [place], [place] [id number] Lead Nuclear Medicine Technologist: Nirav Steinberg MD #### BMP, CDP, ALT, AST #### [facility] [address] [place] [address] Lead Nuclear Medicine Technologist: Jc Alvarez MD BUN/CRE Ratio 10 Normal - [facility] Comment on above: Performed By: #### P SAS #### [facility] [address] [place], [place] [phone] Lead Nuclear Medicine Technologist: Nirav Steinberg MD #### BMP, CDP, ALT, AST #### [facility] [address] [place] [address] [address] [place], [place] [id number] Lead Nuclear Medicine Technologist: Jc Alvarez MD Calcium [Mass/Vol] 9.6 mg/dL Normal 8.6-10.4 [facility] Comment on above: Performed By: #### P SAS #### [address] [id number] Lead Nuclear Medicine Technologist: Nirav Steinberg MD #### BMP, CDP, ALT, AST #### [address] [place] [address] Lead Nuclear Medicine Technologist: Jc Alvarez MD Chloride [Moles/Vol] 99 mmol/L Normal 98-107 [facility] Comment on above: Performed By: #### P SAS #### [address] [id number] Lead Nuclear Medicine Technologist: Nirav Steinberg MD #### BMP, CDP, ALT, AST #### [address] [place] [id number] Lead Nuclear Medicine Technologist: Jc Alvarez MD CO2 [Moles/Vol] 30 mmol/L Normal 20-31 [facility] Comment on above: Performed By: #### P SAS #### [address] [address] Lead Nuclear Medicine Technologist: Nirav Steinberg MD #### BMP, CDP, ALT, AST #### [address] [place] [id number] Lead Nuclear Medicine Technologist: Jc Alvarez MD Creatinine [Mass/Vol] 0.79 mg/dL Normal 0.70-1.20 [facility] Comment on above: Performed By: #### P SAS #### [address] [address] Lead Nuclear Medicine Technologist: Nirav Steinberg MD #### BMP, CDP, ALT, AST #### [address] [place] [address] Lead Nuclear Medicine Technologist: Jc Alvarez MD GFR/1.73 sq M.predicted among non-blacks MDRD (S/P/Bld) [Vol rate/Area] mL/min/{1.73_m2} Normal >60 [facility] Comment on above: Result Comment: Effective [...] secretion. Performed By: #### P SAS #### [address] [id number] Lead Nuclear Medicine Technologist: Nirav Steinberg MD #### BMP, CDP, ALT, AST #### [address] [place] [address] Lead Nuclear Medicine Technologist: Jc Alvarez MD Glucose [Mass/Vol] 100 mg/dL High 70-99 [facility] Comment on above: Performed By: #### P SAS #### [address] [address] Lead Nuclear Medicine Technologist: Nirav Steinberg MD #### BMP, CDP, ALT, AST #### [address] [place] [address] Lead Nuclear Medicine Technologist: Jc Alvarez MD Potassium [Moles/Vol] 4.4 mmol/L Normal 3.7-5.3 [facility] Comment on above: Performed By: #### P SAS #### [address] [address] Lead Nuclear Medicine Technologist: Nirav Steinberg MD #### BMP, CDP, ALT, AST #### [facility] [address] [place] [address] [place] [address] Lead Nuclear Medicine Technologist: Jc Alvarez MD Sodium [Moles/Vol] 135 mmol/L Normal 135-144 [facility] Comment on above: Performed By: #### P SAS #### [facility] [address] [place], [place] [id number] Lead Nuclear Medicine Technologist: Nirav Steinberg MD #### BMP, CDP, ALT, AST #### [facility] [address] [place] [address] Lead Nuclear Medicine Technologist: Jc Alvarez MD Urea nitrogen [Mass/Vol] 8 mg/dL Normal 8-23 [facility] Comment on above: Performed By: #### P SAS #### [facility] [address] [place], [place] [phone] Lead Nuclear Medicine Technologist: Nirav Steinberg MD #### BMP, CDP, ALT, AST #### [facility] [address] [place] [address] Lead Nuclear Medicine Technologist: Jc Alvarez MD CBC with Auto Differentialon 04-01-2022 Absolute Eos # 0.40 [facility] Absolute Immature Granulocyte 0.04 [facility] Absolute Lymph # 2.46 [facility] Absolute Q[place]man # 0.92 [facility] Basophils (Bld) [#/Vol] 0.08 10*3/uL [facility] Basophils/100 WBC (Bld) 1 % 0 - 2 % [facility] Eosinophils/100 WBC (Bld) 4 % 1 - 4 % [facility] Hematocrit (Bld) [Volume fraction] 43.0 % 40.7 - 50.3 % [facility] Hemoglobin (Bld) [Mass/Vol] 14.2 g/dL 13.0 - 17.0 g/dL [facility] Immature granulocytes/100 WBC (Bld) 0 % 0 [facility] Lymphocytes/100 WBC (Bld) 25 % 24 - 43 % [facility] MCH (RBC) [Entitic mass] 31.3 pg 25.2 - 33.5 pg [facility] MCHC (RBC) [Mass/Vol] 33.0 g/dL 28.4 - 34.8 g/dL [facility] MCV (RBC) [Entitic vol] 94.7 fL 82.6 - 102.9 fL [facility] Monocytes/100 WBC (Bld) 9 % 3 - 12 % [facility] NRBC Automated 0.0 0.0 per 100 WBC [facility] Platelet distribution width (Bld) [Ratio] 13.2 % 11.8 - 14.4 % [facility] Platelet mean volume (Bld) [Entitic vol] 8.1 fL 8.1 - 13.5 fL [facility] Platelets (Bld) [#/Vol] 335 10*3/uL [facility] RBC (Bld) [#/Vol] 4.54 10*6/uL 4.21 - 5.7 7 m/uL [facility] Segmented neutrophils/100 WBC (Bld) 61 % 36 - 65 % [facility] Segs Absolute 6.13 [facility] WBC (Bld) [#/Vol] 10.0 10*3/uL [facility] CBC with Diffon 04-01-2022 Abs. Basophil 0.08 k/uL Normal 0.00-0.20 [facility] Comment on above: Performed By: #### P SAS #### [place] [id number] [place] [address] Lead Nuclear Medicine Technologist: Nirav Steinberg MD #### BMP, CDP, ALT, AST #### [address] [place] [id number] Lead Nuclear Medicine Technologist: Jc Alvarez MD Abs.Imm.Granulocyte 0.04 k/uL Normal 0.00-0.30 [facility] Comment on above: Performed By: #### P SAS #### [place] [id number] [place], [place] [id number] Lead Nuclear Medicine Technologist: Nirav Steinberg MD #### BMP, CDP, ALT, AST #### [address] [place] [id number] Lead Nuclear Medicine Technologist: Jc Alvarez MD Abs.Neutrophil (Seg) 6.13 k/uL Normal 1.50-8.10 [facility] Comment on above: Performed By: #### P SAS #### [address] [address] Lead Nuclear Medicine Technologist: Nirav Steinberg MD #### BMP, CDP, ALT, AST #### [address] [place] [id number] Lead Nuclear Medicine Technologist: Jc Alvarez MD Basophils/100 WBC (Bld) 1 % Normal 0-2 [facility] Comment on above: Performed By: #### P SAS #### [place] [address] Lead Nuclear Medicine Technologist: Nirav Steinberg MD #### BMP, CDP, ALT, AST #### [address] [place] [id number] Lead Nuclear Medicine Technologist: Jc Alvarez MD Eosinophils (Bld) [#/Vol] 0.40 10*3/uL Normal 0.00-0.44 [facility] Comment on above: Performed By: #### P SAS #### [place] [address] Lead Nuclear Medicine Technologist: Nirav Steinberg MD #### BMP, CDP, ALT, AST #### [address] [place] [id number] Lead Nuclear Medicine Technologist: Jc Alvarez MD Eosinophils/100 WBC (Bld) 4 % Normal 1-4 [facility] Comment on above: Performed By: #### P SAS #### [place] [address] Lead Nuclear Medicine Technologist: Nirav Steinberg MD #### BMP, CDP, ALT, AST #### [address] [place] [id number] Lead Nuclear Medicine Technologist: Jc Alvarez MD Erythrocyte distribution width (RBC) [Ratio] 13.2 % Normal 11.8-14.4 [facility] Comment on above: Performed By: #### P SAS #### [address] [address] Lead Nuclear Medicine Technologist: Nirav Steinberg MD #### BMP, CDP, ALT, AST #### [address] [place] [id number] Lead Nuclear Medicine Technologist: Jc Alvarez MD Hematocrit (Bld) [Volume fraction] 43.0 % Normal 40.7-50.3 [facility] Comment on above: Performed By: #### P SAS #### [address] [address] Lead Nuclear Medicine Technologist: Nirav Steinberg MD #### BMP, CDP, ALT, AST #### [address] [place] [id number] Lead Nuclear Medicine Technologist: Jc Alvarez MD Hemoglobin (Bld) [Mass/Vol] 14.2 g/dL Normal 13.0-17.0 [facility] Comment on above: Performed By: #### P SAS #### [address] [address] Lead Nuclear Medicine Technologist: Nirav Steinberg MD #### BMP, CDP, ALT, AST #### [address] [place] [id number] Lead Nuclear Medicine Technologist: Jc Alvarez MD Immature granulocytes/100 WBC (Bld) 0 % Normal 0 [facility] Comment on above: Performed By: #### P SAS #### [address] [address] Lead Nuclear Medicine Technologist: Nirva Steinberg MD #### BMP, CDP, ALT, AST #### [address] [place] [id number] Lead Nuclear Medicine Technologist: Jc Alvarez MD Lymphocytes (Bld) [#/Vol] 2.46 10*3/uL Normal 1.10-3.70 [facility] Comment on above: Performed By: #### P SAS #### [address] [id number] Lead Nuclear Medicine Technologist: Nirav Steinberg MD #### BMP, CDP, ALT, AST #### [facility] [address] [place] [address] Dr. [place] [id number] Lead Nuclear Medicine Technologist: Jc Alvarez MD Lymphocytes/100 WBC (Bld) 25 % Normal 24-43 [facility] Comment on above: Performed By: #### P SAS #### [address] [address] Lead Nuclear Medicine Technologist: Nirav Steinberg MD #### BMP, CDP, ALT, AST #### [address] [place] [id number] Lead Nuclear Medicine Technologist: Jc Alvarez MD MCH (RBC) [Entitic mass] 31.3 pg Normal 25.2-33.5 [facility] Comment on above: Performed By: #### P SAS #### [address] [address] Lead Nuclear Medicine Technologist: Nirav Steinberg MD #### BMP, CDP, ALT, AST #### [address] [place] [id number] Lead Nuclear Medicine Technologist: Jc Alvarez MD MCHC (RBC) [Mass/Vol] 33.0 g/dL Normal 28.4-34.8 [facility] Comment on above: Performed By: #### P SAS #### [address] [address] Lead Nuclear Medicine Technologist: Nirav Steinberg MD #### BMP, CDP, ALT, AST #### [address] [place] [phone] Lead Nuclear Medicine Technologist: Jc Alvarez MD MCV (RBC) [Entitic vol] 94.7 fL Normal 82.6-102.9 [facility] Comment on above: Performed By: #### P SAS #### [address] [address] Lead Nuclear Medicine Technologist: Nirav Steinberg MD #### BMP, CDP, ALT, AST #### [address] [place] [id number] Lead Nuclear Medicine Technologist: Jc Alvarez MD Monocytes (Bld) [#/Vol] 0.92 10*3/uL Normal 0.10-1.20 [facility] Comment on above: Performed By: #### P SAS #### [address] [address] Lead Nuclear Medicine Technologist: Nirav Steinberg MD #### BMP, CDP, ALT, AST #### [address] [place] [id number] ( Lead Nuclear Medicine Technologist: Jc Alvarez MD Monocytes/100 WBC (Bld) 9 % Normal 3-12 [facility] Comment on above: Performed By: #### P SAS #### [address] [address] Lead Nuclear Medicine Technologist: Nirav Steinberg MD #### BMP, CDP, ALT, AST #### [address] [place] [address] Lead Nuclear Medicine Technologist: Jc Alvarez MD Neutrophil (Seg) 61 % Normal 36-65 [facility] Comment on above: Performed By: #### P SAS #### [address] [address] Lead Nuclear Medicine Technologist: Nirav Steinberg MD #### BMP, CDP, ALT, AST #### [address] [place] [address] Lead Nuclear Medicine Technologist: Jc Alvarez MD NRBC Automated 0.0 per 100 WBC Normal 0.0 [facility] Comment on above: Performed By: #### P SAS #### [place] [id number] [place] [address] Lead Nuclear Medicine Technologist: Nirav Steinberg MD #### BMP, CDP, ALT, AST #### [facility] [address] [place] [address] [place] [phone] Lead Nuclear Medicine Technologist: Jc Alvarez MD Platelet mean volume (Bld) [Entitic vol] 8.1 fL Normal 8.1-13.5 [facility] Comment on above: Performed By: #### P SAS #### [address] [address] Lead Nuclear Medicine Technologist: Nirav Steinberg MD #### BMP, CDP, ALT, AST #### [facility] [address] [place] [address] [place] [phone] Lead Nuclear Medicine Technologist: Jc Alvarez MD Platelets (Bld) [#/Vol] 335 10*3/uL Normal 138-453 [facility] Comment on above: Performed By: #### P SAS #### [address] [address] Lead Nuclear Medicine Technologist: Nirav Steinberg MD #### BMP, CDP, ALT, AST #### [address] [place] [phone] Lead Nuclear Medicine Technologist: Jc Alvarez MD RBC (Bld) [#/Vol] 4.54 10*6/uL Normal 4.21-5.77 [facility] Comment on above: Performed By: #### P SAS #### [place] [address] [place], [place] [phone] Lead Nuclear Medicine Technologist: Nirav Steinberg MD #### BMP, CDP, ALT, AST #### [facility] [address] [place] [address] [place] [address] Lead Nuclear Medicine Technologist: Jc Alvarez MD WBC (Bld) [#/Vol] 10.0 10*3/uL Normal 3.5-11.3 [facility] Comment on above: Performed By: #### P SAS #### [facility] [address] [place] [address] Lead Nuclear Medicine Technologist: Nirav Steinberg MD #### BMP, CDP, ALT, AST #### [facility] [address] [place] [address] Lead Nuclear Medicine Technologist: Jc Alvarez MD No Panel Informationon 04-01 [facility] XR ANKLE RIGHT (MIN 3 [...] Tonny Altamirano MD 03/13/22 Final result Normal [facility] No acute abnormality of the ankle. [...] IMPRESSION: No acute abnormality of the ankle. 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 [facility] EXAMINATION: THREE XRAY VIEWS OF THE RIGHT FOOT 03/13/2022 9:14 pm COMPARISON: None. HISTORY: ORDERING SYSTEM PROVIDED HISTORY: pain TECHNOLOGIST PROVIDED HISTORY: pain FINDINGS: Sideplate and screws transfix the proximal phalanx of the 1st digit. There is been osteotomy/bunionecto my. Degenerative changes 1st metatarsal phalangeal joint. [facility] Tonny Altamirano [...] and degenerative changes 1st metatarsal phalangeal joint. [facility] Phone: Radiology Study observation (narrative) [facility] Phone: XR FOOT RIGHT (MIN 3 VIEWS)O rdered By: Tonny Altamirano on 03-13-2022 [facility] Phone: APTTOrdered By: Orquidea Naranjo on 02-21-2021 aPTT Coag (Bld) [Time] 38.6 s [employer] Phone: Comment on above: IV Heparin Therapy Range: 62.0-94.0 Interpretation and review of laboratory results Abnormal [employer] Phone: [employer] Phone: Basic Metabolic Panel w/ Ref tiff to MGOrdered By: Orquidea Naranjo on 02-21-2021 Anion gap [Moles/Vol] 8 mmol/L Low 9 - 17 mmol/L [employer] Phone: Calcium [Mass/Vol] 9.0 mg/dL 8.6 - 10. 4 mg/dL [employer] Phone: Chloride [Moles/Vol] 100 mmol/L 98 - 10 7 mmol/L [employer] Phone: CO2 [Moles/Vol] 28 mmol/L 20 - 31 mmol/L [employer] Phone: Creatinine [Mass/Vol] 0.5 mg/dL Low 0.70 - 1.20 mg/dL [employer] Phone: GFR >60 >60 mL/min [employer] Phone: GFR Non- >60 >60 mL/min [employer] Phone: Glucose [Mass/Vol] 147 mg/dL High 70 - 99 mg/dL [employer] Phone: Interpretation and review of laboratory results Abnormal [employer] Phone: Potassium [Moles/Vol] 3.7 mmol/L 3.7 - 5.3 mmol/L [employer] Phone: Sodium [Moles/Vol] 136 mmol/L 135 - 144 mmol/L [employer] Phone: Urea nitrogen (BldV) [Mass/Vol] 9 mg/dL 8 - 23 mg/dL [employer] Work Phone: Urea nitrogen/Creatinine (Bld) [Mass ratio] 18 [employer] Work Phone: [employer] Work Phone: CBC auto differentialOrdered By: Orquidea Naranjo on 02-21-2021 Absolute Eos # 0.00 [employer] [facility] Work Phone: Absolute Immature Granulocyte 0.00 [employer] Work Phone: Absolute Lymph # 2.07 [employer] [facility] Work Phone: [employer] # 1.17 [employer] [facility] Work Phone: Basophils (Bld) [#/Vol] 0.00 10*3/uL [employer] Phone: Basophils/100 WBC (Bld) 0 % 0 - 2 % [employer] Phone: Differential Type NOT REPORTED [employer] Phone: Eosinophils/100 WBC (Bld) 0 % Low 1 - 4 % [employer] Phone: Hematocrit (Bld) [Volume fraction] 37.7 % Low 40.7 - 50.3 % [employer] Phone: Hemoglobin.gastrointes tinal spec 1 Ql (Stl) 12.9 g/dL Low 13.0 - 17.0 g/dL [employer] Phone: Immature granulocytes/100 WBC (Bld) 0 % 0 [employer] Phone: Interpretation and review of laboratory results Abnormal [employer] Phone: Lymphocytes/100 WBC (Bld) 30 % 24 - 43 % [employer] Phone: MCH (RBC) [Entitic mass] 31.2 pg 25.2 - 33.5 pg [employer] Work Phone: MCHC (RBC) [Mass/Vol] 34.2 g/dL 28.4 - 34.8 g/dL [employer] Phone: MCV (RBC) [Entitic vol] 91.3 fL 82.6 - 102.9 fL [employer] Phone: Monocytes/100 WBC (Bld) 17 % High 3 - 12 % [employer] Phone: Morphology Diego (Bld) [Interp] Normal [employer] Phone: NRBC Automated 0.0 0.0 per 100 WBC [employer] Phone: Platelet distribution width (Bld) [Ratio] 12.5 % 11.8 - 14.4 % [employer] Phone: Platelet Estimate NOT REPORTED [employer] Phone: Platelet mean volume (Bld) [Entitic vol] 8.8 fL 8.1 - 13.5 fL [employer] Phone: Platelets (Bld) [#/Vol] 432 10*3/uL [employer] Phone: RBC (Bld) [#/Vol] 4.13 10*6/uL Low 4.21 - 5.7 7 m/uL [employer] Phone: RBC (Bld) [#/Vol] NOT REPORTED [employer] Phone: Segmented neutrophils/100 WBC (Bld) 53 % 36 - 65 % [employer] Phone: Segs Absolute 3.66 [employer] Work Phone: WBC (Bld) [#/Vol] 6.9 10*3/uL [employer] Phone: WBC (Bld) [#/Vol] NOT REPORTED [employer] Phone: [employer] Phone: D-Dimer, QuantitativeOrdered By: Orquidea Naranjo on 02-21-2021 D-Dimer, Quant <0.27 [employer] Phone: Comment on above: When combined with [...] more prevalent in patients with distal DVT. [employer] Phone: EKG Rhythm StripOrdered By: Unknown Result on 02-21-2021 patrick angelo [employer] Phone: [employer]peak Phone: audelia [employer] Phone: [employer] Phone: Laboratory - Chemistry and C hemistry - challengeOrdered By: Orquidea Naranjo on 02-21-2021 GFR/1.73 sq M.predicted MDRD (S/P/Bld) [Vol rate/Area] [employer] Phone: Comment on above: Average GFR for 60-6 9 years old: 85 mL/min/1.73sq m Chronic Kidney Disease: <60 mL/min/1.73sq m Kidney failure: <15 mL/min/1.73sq m eGFR calculated using average adult body mass. Additional eGFR calculator available at: http://www.Auto I.D./multiple_crcl_2012.htm Stage 1: Some kidney damage normal GFR Stage 2: Mild kidney damage GFR 60-89 Stage 3: Moderate kidney damage GFR 30-59 Stage 4: Severe kidney damage GFR 15-29 Stage 5: Severe kidney damage GFR <15 ESRD - chronic treatment by dialysis or transplant Protime-INROrdered By: Torsten Naranjo on 02-21-2021 INR Coag (Bld) [Relative time] 1.0 {INR} [employer] Phone: Comment on above: Non-therapeutic Range: INR = 0.9-1.2 Therapeutic Range: Moderate Anticoagulant Intensity: INR = 2.0-3.0 High Anticoagulant Intensity: INR = 2.5-3.5 PT Coag (PPP) [Time] 13 s [employer] Phone: [employer] Phone: APTTOrdered By: Orquidea Naranjo on 02-20-2021 aPTT Coag (Bld) [Time] 43.1 s High [facility] Phone: Comment on above: IV Heparin Therapy Range: 62.0-94.0 Interpretation and review of laboratory results Abnormal [employer] Phone: [employer] Phone: Basic Metabolic Panel w/ Ref tiff to MGOrdered By: Orquidea Naranjo on 02-20-2021 Anion gap [Moles/Vol] 9 mmol/L 9 - 17 mmol/L [employer] Phone: Calcium [Mass/Vol] 8.5 mg/dL Low 8.6 - 10. 4 mg/dL [employer] Phone: Chloride [Moles/Vol] 99 mmol/L 98 - 10 7 mmol/L [employer] Phone: CO2 [Moles/Vol] 28 mmol/L 20 - 31 mmol/L [employer] Phone: Creatinine [Mass/Vol] 0.47 mg/dL Low 0.70 - 1.20 mg/dL [employer] Phone: GFR >60 >60 mL/min [employer] Phone: GFR Non- >60 >60 mL/min [employer] Work Phone: Glucose [Mass/Vol] 105 mg/dL High 70 - 99 mg/dL [employer] Phone: Interpretation and review of laboratory results Abnormal [employer] Phone: Potassium [Moles/Vol] 2.7 mmol/L Critically low 3.7 - 5.3 mmol/L [employer] Phone: Sodium [Moles/Vol] 136 mmol/L 135 - 144 mmol/L [employer] Phone: Urea nitrogen (BldV) [Mass/Vol] 9 mg/dL 8 - 23 mg/dL [employer] Phone: Urea nitrogen/Creatinine (Bld) [Mass ratio] 19 [employer] Phone: [employer] Phone: C-Reactive ProteinOrdered By : Orquidea Naranjo on 02-20-2021 CRP [Mass/Vol] 17.9 mg/L High 0.0 - 5.0 mg/L [employer] Phone: Interpretation and review of laboratory results Abnormal [employer] Phone: [employer] Phone: CBC auto differentialOrdered By: Orquidea Naranjo on 02-20-2021 Absolute Eos # 0.00 [employer] Work Phone: Absolute Immature Granulocyte 0.00 [employer] Work Phone: Absolute Lymph # 1.65 [facility] Work Phone: [facility] [place] # 0.53 [facility] Work Phone: Basophils (Bld) [#/Vol] 0.00 10*3/uL [employer] Phone: Basophils/100 WBC (Bld) 0 % 0 - 2 % [employer] Phone: Differential Type NOT REPORTED [employer] Phone: Eosinophils/100 WBC (Bld) 0 % Low 1 - 4 % [employer] Phone: Hematocrit (Bld) [Volume fraction] 36.3 % Low 40.7 - 50.3 % [employer] Phone: Hemoglobin.gastrointes tinal spec 1 Ql (Stl) 12.5 g/dL Low 13.0 - 17.0 g/dL [employer] Phone: Immature granulocytes/100 WBC (Bld) 0 % 0 [employer] Phone: Interpretation and review of laboratory results Abnormal [employer] Phone: Lymphocytes/100 WBC (Bld) 28 % 24 - 43 % [employer] Phone: MCH (RBC) [Entitic mass] 31.3 pg 25.2 - 33.5 pg [employer] Phone: MCHC (RBC) [Mass/Vol] 34.4 g/dL 28.4 - 34.8 g/dL [employer] Phone: MCV (RBC) [Entitic vol] 90.8 fL 82.6 - 102.9 fL [employer] Phone: Monocytes/100 WBC (Bld) 9 % 3 - 12 % [employer] Phone: Morphology Diego (Bld) [Interp] Normal [employer] Phone: NRBC Automated 0.0 0.0 per 100 WBC [employer] Phone: Platelet distribution width (Bld) [Ratio] 12.2 % 11.8 - 14.4 % [employer] Phone: Platelet Estimate NOT REPORTED [employer] Phone: Platelet mean volume (Bld) [Entitic vol] 8.8 fL 8.1 - 13.5 fL [employer] Phone: Platelets (Bld) [#/Vol] 413 10*3/uL [employer] Phone: RBC (Bld) [#/Vol] 4.00 10*6/uL Low 4.21 - 5.7 7 m/uL [employer] Phone: RBC (Bld) [#/Vol] NOT REPORTED [employer] Phone: Segmented neutrophils/100 WBC (Bld) 63 % 36 - 65 % [employer] Phone: Segs Absolute 3.72 [employer] Work Phone: WBC (Bld) [#/Vol] 5.9 10*3/uL [employer] Phone: WBC (Bld) [#/Vol] NOT REPORTED [employer] Phone: [employer]peak Phone: D-Dimer, QuantitativeOrdered By: Orquidea Naranjo on 02-20-2021 D-Dimer, Quant 0.27 [employer] Work Phone: Comment on above: When combined [...] more prevalent in patients with distal DVT. [employer] Phone: EKG Rhythm StripOrdered By: Unknown Result on 02-20-2021 NSR [employer] Phone: [employer]peak Phone: NS [employer] Phone: [employer]peak Phone: [employer]peak Phone: [employer]peak Phone: Laboratory - Chemistry and C hemistry - challengeOrdered By: Orquidea Naranjo on 02-20-2021 GFR/1.73 sq M.predicted MDRD (S/P/Bld) [Vol rate/Area] [employer] Phone: Comment on above: Average GFR for 60-6 9 years old: 85 mL/min/1.73sq m Chronic Kidney Disease: <60 mL/min/1.73sq m Kidney failure: <15 mL/min/1.73sq m eGFR calculated using average adult body mass. Additional eGFR calculator available at: http://www.[employer]ur[employer].Spark Etail/multiple_crcl_2012.htm Stage 1: Some kidney damage normal GFR Stage 2: Mild kidney damage GFR 60-89 Stage 3: Moderate kidney damage GFR 30-59 Stage 4: Severe kidney damage GFR 15-29 Stage 5: Severe kidney damage GFR <15 ESRD - chronic treatment by dialysis or transplant MagnesiumOrdered By: Vincent Naranjo on 02-20-2021 Magnesium [Mass/Vol] 2.3 mg/dL 1.6 - 2 .6 mg/dL [employer] Phone: [employer] Phone: PotassiumOrdered By: Yenny Franco on 02-20-2021 Interpretation and review of laboratory results Abnormal [employer] Phone: Potassium [Moles/Vol] 3.4 mmol/L Low 3.7 - 5.3 mmol/L [employer] Phone: [employer] Phone: Protime-INROrdered By: Torsten Naranjo on 02-20-2021 INR Coag (Bld) [Relative time] 1.1 {INR} [employer] Phone: Comment on above: Non-therapeutic Range: INR = 0.9-1.2 Therapeutic Range: Moderate Anticoagulant Intensity: INR = 2.0-3.0 High Anticoagulant Intensity: INR = 2.5-3.5 PT Coag (PPP) [Time] 13.9 s [employer] Phone: [employer] Phone: APTTOrdered By: Orquidea Naranjo on 02-19-2021 aPTT Coag (Bld) [Time] 41.5 s High [facility] Phone: Comment on above: IV Heparin Therapy Range: 62.0-94.0 Interpretation and review of laboratory results Abnormal [employer] Phone: [employer] Phone: Basic Metabolic Panel w/ Ref tiff to MGOrdered By: Orquidea Naranjo on 02-19-2021 Anion gap [Moles/Vol] 11 mmol/L 9 - 17 mmol/L [employer] Phone: Calcium [Mass/Vol] 8.6 mg/dL 8.6 - 10. 4 mg/dL [employer] Phone: Chloride [Moles/Vol] 102 mmol/L 98 - 10 7 mmol/L [employer] Phone: CO2 [Moles/Vol] 26 mmol/L 20 - 31 mmol/L [employer] Phone: Creatinine [Mass/Vol] 0.4 mg/dL Low 0.70 - 1.20 mg/dL [employer] Phone: GFR >60 >60 mL/min [employer] Phone: GFR Non- >60 >60 mL/min [employer] Phone: Glucose [Mass/Vol] 108 mg/dL High 70 - 99 mg/dL [employer] Phone: Interpretation and review of laboratory results Abnormal [employer] Phone: Potassium [Moles/Vol] 3.1 mmol/L Low 3.7 - 5.3 mmol/L [employer] Phone: Sodium [Moles/Vol] 139 mmol/L 135 - 144 mmol/L [employer] Phone: Urea nitrogen (BldV) [Mass/Vol] 8 mg/dL 8 - 23 mg/dL [employer] Phone: Urea nitrogen/Creatinine (Bld) [Mass ratio] 20 [employer] Phone: [employer] Phone: C-Reactive ProteinOrdered By : Orquidea Naranjo on 02-19-2021 CRP [Mass/Vol] 33.5 mg/L High 0.0 - 5.0 mg/L [employer] Phone: Interpretation and review of laboratory results Abnormal [employer] Phone: [employer] Phone: CBC auto differentialOrdered By: Orquidea Naranjo on 02-19-2021 Absolute Eos # 0.00 [employer] [facility] Work Phone: Absolute Immature Granulocyte 0.00 [employer] Work Phone: Absolute Lymph # 1.78 [employer] [facility] Work Phone: Absolute [place] # 0.50 [employer] [facility] Work Phone: Basophils (Bld) [#/Vol] 0.00 10*3/uL [employer] Work Phone: Basophils/100 WBC (Bld) 0 % 0 - 2 % [employer] Work Phone: Differential Type NOT REPORTED [employer] Phone: Eosinophils/100 WBC (Bld) 0 % Low 1 - 4 % [employer] Phone: Hematocrit (Bld) [Volume fraction] 39.8 % Low 40.7 - 50.3 % [employer] Work Phone: Hemoglobin.gastrointes tinal spec 1 Ql (Stl) 13.4 g/dL 13.0 - 17.0 g/dL [employer] Phone: Immature granulocytes/100 WBC (Bld) 0 % 0 [employer] Phone: Interpretation and review of laboratory results Abnormal [employer] Phone: Lymphocytes/100 WBC (Bld) 25 % 24 - 43 % [employer] Work Phone: MCH (RBC) [Entitic mass] 30.7 pg 25.2 - 33.5 pg [employer] Work Phone: MCHC (RBC) [Mass/Vol] 33.7 g/dL 28.4 - 34.8 g/dL [employer] Phone: MCV (RBC) [Entitic vol] 91.3 fL 82.6 - 102.9 fL [employer] Work Phone: Monocytes/100 WBC (Bld) 7 % 3 - 12 % [employer] Phone: Morphology Diego (Bld) [Interp] Normal [employer] Phone: NRBC Automated 0.0 0.0 per 100 WBC [employer] Phone: Platelet distribution width (Bld) [Ratio] 12.1 % 11.8 - 14.4 % [employer] Phone: Platelet Estimate NOT REPORTED [employer] Phone: Platelet mean volume (Bld) [Entitic vol] 9.0 fL 8.1 - 13.5 fL [employer] Phone: Platelets (Bld) [#/Vol] 358 10*3/uL [employer] Phone: RBC (Bld) [#/Vol] 4.36 10*6/uL 4.21 - 5.7 7 m/uL [employer] Phone: RBC (Bld) [#/Vol] NOT REPORTED [employer] Phone: Segmented neutrophils/100 WBC (Bld) 68 % High 36 - 65 % [employer] Phone: Segs Absolute 4.82 [employer] Work Phone: WBC (Bld) [#/Vol] 7.1 10*3/uL [employer] Phone: WBC (Bld) [#/Vol] NOT REPORTED [employer] Phone: [employer] Phone: D-Dimer, QuantitativeOrdered By: Orquidea Naranjo on 02-19-2021 D-Dimer, Quant <0.27 [employer] Work Phone: Comment on above: When combined [...] more prevalent in patients with distal DVT. [employer] Phone: EKG Rhythm StripOrdered By: Unknown Result on 02-19-2021 [employer] Phone: [employer]peak Phone: [employer]peak Phone: [employer]peak Phone: Laboratory - Chemistry and C hemistry - challengeOrdered By: Orquidea Naranjo on 02-19-2021 GFR/1.73 sq M.predicted MDRD (S/P/Bld) [Vol rate/Area] [employer] Phone: Comment on above: Average GFR for 60-6 9 years old: 85 mL/min/1.73sq m Chronic Kidney Disease: <60 mL/min/1.73sq m Kidney failure: <15 mL/min/1.73sq m eGFR calculated using average adult body mass. Additional eGFR calculator available at: http://www.Securly.Spark Etail/multiple_crcl_2012.htm Stage 1: Some kidney damage normal GFR Stage 2: Mild kidney damage GFR 60-89 Stage 3: Moderate kidney damage GFR 30-59 Stage 4: Severe kidney damage GFR 15-29 Stage 5: Severe kidney damage GFR <15 ESRD - chronic treatment by dialysis or transplant MagnesiumOrdered By: Vincent Naranjo on 02-19-2021 Magnesium [Mass/Vol] 2.3 mg/dL 1.6 - 2 .6 mg/dL [employer] Phone: [employer] Phone: Protime-INROrdered By: Torsten Naranjo on 02-19-2021 INR Coag (Bld) [Relative time] 1.1 {INR} [employer] Phone: Comment on above: Non-therapeutic Range: INR = 0.9-1.2 Therapeutic Range: Moderate Anticoagulant Intensity: INR = 2.0-3.0 High Anticoagulant Intensity: INR = 2.5-3.5 PT Coag (PPP) [Time] 13.6 s [employer] Phone: [employer] Phone: APTTOrdered By: Orquidea Naranjo on 02-18-2021 aPTT Coag (Bld) [Time] 45.2 s High [employer] Phone: Comment on above: IV Heparin Therapy Range: 62.0-94.0 Interpretation and review of laboratory results Abnormal [employer] Phone: [employer] Phone: Basic Metabolic Panel w/ Ref tiff to MGOrdered By: Orquidea Naranjo on 02-18-2021 Anion gap [Moles/Vol] 11 mmol/L 9 - 17 mmol/L [employer] Phone: Calcium [Mass/Vol] 8.7 mg/dL 8.6 - 10. 4 mg/dL [employer] Phone: Chloride [Moles/Vol] 95 mmol/L Low 98 - 10 7 mmol/L [employer] Phone: CO2 [Moles/Vol] 28 mmol/L 20 - 31 mmol/L [employer] Phone: Creatinine [Mass/Vol] 0.49 mg/dL Low 0.70 - 1.20 mg/dL [employer] Phone: GFR >60 >60 mL/min [employer] Phone: GFR Non- >60 >60 mL/min [employer] Work Phone: Glucose [Mass/Vol] 159 mg/dL High 70 - 99 mg/dL [employer] Phone: Interpretation and review of laboratory results Abnormal [employer] Phone: Potassium [Moles/Vol] 4.0 mmol/L 3.7 - 5.3 mmol/L [employer] Phone: Sodium [Moles/Vol] 134 mmol/L Low 135 - 144 mmol/L [employer] Work Phone: Urea nitrogen (BldV) [Mass/Vol] 7 mg/dL Low 8 - 23 mg/dL [employer] Phone: Urea nitrogen/Creatinine (Bld) [Mass ratio] 14 [employer] Phone: [employer]peak Phone: C-Reactive ProteinOrdered By : Orquidea Naranjo on 02-18-2021 CRP [Mass/Vol] 73.1 mg/L High 0.0 - 5.0 mg/L [facility] Work Phone: Interpretation and review of laboratory results Abnormal [employer] Phone: [employer] Work Phone: CBC auto differentialOrdered By: Orquidea Naranjo on 02-18-2021 Absolute Eos # 0.00 [employer] [facility] Work Phone: Absolute Immature Granulocyte 0.00 [facility] Work Phone: Absolute Lymph # 0.53 Low [employer] [facility] Work Phone: [employer] # 0.46 [employer] [facility] Work Phone: Basophils (Bld) [#/Vol] 0.00 10*3/uL [employer] Work Phone: Basophils/100 WBC (Bld) 0 % 0 - 2 % [employer] Phone: Differential Type NOT REPORTED [employer] Phone: Eosinophils/100 WBC (Bld) 0 % Low 1 - 4 % [employer] Phone: Hematocrit (Bld) [Volume fraction] 45.2 % 40.7 - 50.3 % [employer] Phone: Hemoglobin.gastrointes tinal spec 1 Ql (Stl) 15.0 g/dL 13.0 - 17.0 g/dL [employer] Phone: Immature granulocytes/100 WBC (Bld) 0 % 0 [employer] Phone: Interpretation and review of laboratory results Abnormal [employer] Phone: Lymphocytes/100 WBC (Bld) 16 % Low 24 - 43 % [employer] Phone: MCH (RBC) [Entitic mass] 30.2 pg 25.2 - 33.5 pg [employer] Phone: MCHC (RBC) [Mass/Vol] 33.2 g/dL 28.4 - 34.8 g/dL [employer] Phone: MCV (RBC) [Entitic vol] 91.1 fL 82.6 - 102.9 fL [employer] Phone: Monocytes/100 WBC (Bld) 14 % High 3 - 12 % [employer] Phone: Morphology Diego (Bld) [Interp] Normal [employer] Phone: NRBC Automated 0.0 0.0 per 100 WBC [employer] Phone: Platelet distribution width (Bld) [Ratio] 12.1 % 11.8 - 14.4 % [employer] Phone: Platelet Estimate NOT REPORTED [employer] Phone: Platelet mean volume (Bld) [Entitic vol] 9.3 fL 8.1 - 13.5 fL [employer] Phone: Platelets (Bld) [#/Vol] 292 10*3/uL [employer] Phone: RBC (Bld) [#/Vol] 4.96 10*6/uL 4.21 - 5.7 7 m/uL [employer] Phone: RBC (Bld) [#/Vol] NOT REPORTED [employer] Phone: Segmented neutrophils/100 WBC (Bld) 70 % High 36 - 65 % [employer] Work Phone: Segs Absolute 2.31 [employer] Work Phone: WBC (Bld) [#/Vol] 3.3 10*3/uL Low [employer] Work Phone: WBC (Bld) [#/Vol] ATYPICAL LYMPHS PRESENT [employer] Phone: [employer] Work Phone: D-Dimer, QuantitativeOrdered By: Orquidea Naranjo on 02-18-2021 D-Dimer, Quant 0.45 [employer] Work Phone: Comment on above: When combined [...] more prevalent in patients with distal DVT. [employer] Phone: EKG Rhythm StripOrdered By: Unknown Result on 02-18-2021 [employer] Phone: [employer] Phone: [employer] Phone: [employer] Phone: [employer] Phone: [employer] Phone: Laboratory - Chemistry and C hemistry - challengeOrdered By: Orquidea Naranjo on 02-18-2021 GFR/1.73 sq M.predicted MDRD (S/P/Bld) [Vol rate/Area] [employer] Phone: Comment on above: Average GFR for 60-6 9 years old: 85 mL/min/1.73sq m Chronic Kidney Disease: <60 mL/min/1.73sq m Kidney failure: <15 mL/min/1.73sq m eGFR calculated using average adult body mass. Additional eGFR calculator available at: http://www.Securly.Spark Etail/multiple_crcl_2012.htm Stage 1: Some kidney damage normal GFR Stage 2: Mild kidney damage GFR 60-89 Stage 3: Moderate kidney damage GFR 30-59 Stage 4: Severe kidney damage GFR 15-29 Stage 5: Severe kidney damage GFR <15 ESRD - chronic treatment by dialysis or transplant Protime-INROrdered By: Torsten Nraanjo on 02-18-2021 INR Coag (Bld) [Relative time] 1.0 {INR} [employer] Phone: Comment on above: Non-therapeutic Range: INR = 0.9-1.2 Therapeutic Range: Moderate Anticoagulant Intensity: INR = 2.0-3.0 High Anticoagulant Intensity: INR = 2.5-3.5 PT Coag (PPP) [Time] 13.3 s [facility] [employer] Phone: [employer] Phone: APTTOrdered By: Orquidea Naranjo on 02-17-2021 aPTT Coag (Bld) [Time] 44.8 s [employer] Phone: Comment on above: IV Heparin Therapy Range: 62.0-94.0 Interpretation and review of laboratory results Abnormal [employer] Phone: [employer] Phone: Basic Metabolic PanelOrdered By: Jud Cleary on 02-17-2021 Anion gap [Moles/Vol] 13 mmol/L 9 - 17 mmol/L [employer] Phone: Calcium [Mass/Vol] 8.8 mg/dL 8.6 - 10. 4 mg/dL [employer] Phone: Chloride [Moles/Vol] 90 mmol/L Low 98 - 10 7 mmol/L [employer] Phone: CO2 [Moles/Vol] 27 mmol/L 20 - 31 mmol/L [employer] Phone: Creatinine [Mass/Vol] 0.6 mg/dL Low 0.70 - 1.20 mg/dL [employer] Phone: GFR >60 >60 mL/min [employer] Phone: GFR Non- >60 >60 mL/min [employer] Phone: Glucose [Mass/Vol] 119 mg/dL High 70 - 99 mg/dL [employer] Phone: Interpretation and review of laboratory results Abnormal [employer] Phone: Potassium [Moles/Vol] 3.4 mmol/L Low 3.7 - 5.3 mmol/L [employer] Phone: Sodium [Moles/Vol] 130 mmol/L Low 135 - 144 mmol/L [employer] Phone: Urea nitrogen (BldV) [Mass/Vol] 7 mg/dL Low 8 - 23 mg/dL [employer] Phone: Urea nitrogen/Creatinine (Bld) [Mass ratio] 12 [employer] Phone: Brain Natriuretic PeptideOrd ered By: Jud Cleary on 02-17-2021 BNP Interpretation Pro-BNP Reference Range: [employer] Phone: Comment on above: Rule Out: <300 Prasad Zone: Age <50 300-450 Age 50-75 300-900 Age >75 300-1800 Usually represents mild to moderate HF but other cardiopulmonary causes cannot be ruled out. Rule In: Age <50 >450 Age 50-75 >900 Age >75 >1800 Natriuretic peptide B (Bld) [Mass/Vol] 132 pg/mL <300 [employer] Phone: Comment on above: Pro-BNP results nguyễn ot be compared to BNP results. CBC Auto DifferentialOrdered By: Jud Cleary on 02-17-2021 Absolute Eos # 0.00 [employer] [facility] Work Phone: Absolute Immature Granulocyte 0.00 [employer] Work Phone: Absolute Lymph # 0.90 Low [employer] Work Phone: Absolute Quitman # 0.96 [facility] Work Phone: Basophils (Bld) [#/Vol] 0.00 10*3/uL [employer] Work Phone: Basophils/100 WBC (Bld) 0 % 0 - 2 % [employer] Phone: Differential Type NOT REPORTED [employer] Phone: Eosinophils/100 WBC (Bld) 0 % Low 1 - 4 % [employer] Phone: Hematocrit (Bld) [Volume fraction] 41.8 % 40.7 - 50.3 % [employer] Phone: Hemoglobin.gastrointes tinal spec 1 Ql (Stl) 14.4 g/dL 13.0 - 17.0 g/dL [employer] Phone: Immature granulocytes/100 WBC (Bld) 0 % 0 [employer] Phone: Interpretation and review of laboratory results Abnormal [employer] Phone: Lymphocytes/100 WBC (Bld) 14 % Low 24 - 43 % [employer] Phone: MCH (RBC) [Entitic mass] 31.1 pg 25.2 - 33.5 pg [employer] Phone: MCHC (RBC) [Mass/Vol] 34.4 g/dL 28.4 - 34.8 g/dL [employer] Phone: MCV (RBC) [Entitic vol] 90.3 fL 82.6 - 102.9 fL [employer] Phone: Monocytes/100 WBC (Bld) 15 % High 3 - 12 % [employer] Phone: Morphology Diego (Bld) [Interp] Normal [employer] Phone: NRBC Automated 0.0 0.0 per 100 WBC [employer] Phone: Platelet distribution width (Bld) [Ratio] 11.9 % 11.8 - 14.4 % [employer] Phone: Platelet Estimate NOT REPORTED [employer] Phone: Platelet mean volume (Bld) [Entitic vol] 8.9 fL 8.1 - 13.5 fL [employer] Phone: Platelets (Bld) [#/Vol] 228 10*3/uL [employer] Phone: RBC (Bld) [#/Vol] 4.63 10*6/uL 4.21 - 5.7 7 m/uL [employer] Phone: RBC (Bld) [#/Vol] NOT REPORTED [employer] Phone: Segmented neutrophils/100 WBC (Bld) 71 % High 36 - 65 % [employer] Phone: Segs Absolute 4.54 [employer] Work Phone: WBC (Bld) [#/Vol] 6.4 10*3/uL [employer] Phone: WBC (Bld) [#/Vol] NOT REPORTED [employer] Phone: [employer] Phone: COVID-19, RapidOrdered By: Jory Lange on 02-17-2021 Interpretation and review of laboratory results Abnormal [employer] Phone: SARS-CoV-2 (COVID-19) RNA DANA+probe Ql (Unsp spec) Detected Abnormal Not Detected [employer] Phone: Comment on above: Rapid NAAT: The [...] this assay. Fact sheet for Healthcare Providers: https://www.fda.gov/media/686112/download Fact sheet for Patients: https://www.fda.gov/media/238379/download Methodology: Isothermal Nucleic Acid Amplification Results reported to the appropriate Health Department Specimen Description .NASOPHARYNGEAL SWAB [employer] Phone: [employer] Phone: CT CHEST PULMONARY EMBOLISM W CONTRASTOrdered [...] No acute bone or soft tissue abnormality. 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 [employer] Phone: [employer] Phone: D-Dimer, QuantitativeOrdered By: Orquidea Naranjo on 02-17-2021 D-Dimer, Quant 0.78 High [employer] Work Phone: Comment on above: When combined [...] Interpretation and review of laboratory results Abnormal [employer] Phone: [employer] Phone: EKG 12 LeadOrdered By: Rebekah Cleary on 02-17-2021 Atrial Rate 83 BPM [employer] Phone: P Brackenridge 58 degrees [employer] Phone: P-R Interval 128 ms [employer] Phone: Q-T Interval 406 ms [employer] Phone: QRS Duration 92 ms [employer] Phone: QTc Calculation (Bazett) 477 ms [employer] Phone: R [place]ackenridge 40 degrees [employer] Phone: T [place]ridge 43 degrees [employer] Phone: Ventricular Rate 83 BPM [facility] Home Phone: Normal sinus rhythm with sinus arrhythmia Normal ECG When compared with ECG of 06-JUN-2012 10:28, QT has lengthened Confirmed by MARTI CYR ([id number]) on 02/17/2021 9:41:03 PM [employer] Phone: Marco, Mhpn Incoming Ekg Results From [facility] [place] - 02/17/2021 9:41 PM EDT Normal sinus rhythm with sinus arrhythmia Normal ECG When compared with ECG of 06-JUN-2012 10:28, QT has lengthened Confirmed by MARTI CYR ([id number]) on 02/17/2021 9:41:03 PM [employer] Phone: [employer] Phone: Hepatic function panelOrdere d By: Orquidea Naranjo on 02-17-2021 Albumin [Mass/Vol] 3.7 g/dL 3.5 - 5.2 g/dL [employer] Phone: Albumin/Globulin [Mass ratio] 1.1 {ratio} [employer] Phone: ALP (Bld) [Catalytic activity/Vol] 69 U/L 40 - 129 U/L [employer] Phone: ALT [Catalytic activity/Vol] 35 U/L 5 - 41 U/L [employer] Phone: AST [Catalytic activity/Vol] 58 U/L High <40 [employer] Phone: Bilirubin [Mass/Vol] 0.33 mg/dL 0.3 - 1 .2 mg/dL [employer] Phone: Bilirubin, Indirect CANNOT BE CALCULATED 0.00 - 1.00 mg/dL [employer] Phone: Bilirubin.indirect [Mass/Vol] mg/dL <0.31 mg/dL [employer] Phone: Free PSA/Total PSA [Mass fraction] 7.1 g/dL 6.4 - 8.3 g/dL [employer] Phone: Globulin NOT REPORTED 1.5 - 3.8 g/dL [employer] Phone: Interpretation and review of laboratory results Abnormal [employer] Phone: [employer] Phone: Laboratory - Chemistry and C hemistry - challengeOrdered By: Jud Cleary on 02-17-2021 GFR/1.73 sq M.predicted MDRD (S/P/Bld) [Vol rate/Area] [employer] Phone: Comment on above: Average GFR for 60-6 9 years old: 85 mL/min/1.73sq m Chronic Kidney Disease: <60 mL/min/1.73sq m Kidney failure: <15 mL/min/1.73sq m eGFR calculated using average adult body mass. Additional eGFR calculator available at: http://www.Auto I.D./multiple_crcl_2012.htm Stage 1: Some kidney damage normal GFR Stage 2: Mild kidney damage GFR 60-89 Stage 3: Moderate kidney damage GFR 30-59 Stage 4: Severe kidney damage GFR 15-29 Stage 5: Severe kidney damage GFR <15 ESRD - chronic treatment by dialysis or transplant No Panel InformationOrdered By: Jud Cleary on 02-17-2021 [employer] Phone: Protime-INROrdered By: Torsten Naranjo on 02-17-2021 INR Coag (Bld) [Relative time] 1.0 {INR} [employer] Phone: Comment on above: Non-therapeutic Range: INR = 0.9-1.2 Therapeutic Range: Moderate Anticoagulant Intensity: INR = 2.0-3.0 High Anticoagulant Intensity: INR = 2.5-3.5 PT Coag (PPP) [Time] 13.2 s [employer] Phone: [employer] Phone: TroponinOrdered By: Jud Cleary on 02-17-2021 Troponin Interp NOT REPORTED [facility] Work Phone: Troponin T NOT REPORTED <0.03 ng/mL [employer] [facility] Work Phone: Troponin, High Sensitivity <6 0 - 22 ng/L [employer] Phone: Comment on above: High Sensitivity Troponin values cannot be compared with other Troponin methodologies. Patients with high levels of Biotin oral intake (i.e >5mg/day) may have falsely decreased Troponin levels. Samples collected within 8 hours of biotin intake may require additional information for diagnosis. Elizabet 12-16-2019 ALT [Catalytic activity/Vol] 17 U/L 5 - 41 U/L [place] 12-16-2019 AST [Catalytic activity/Vol] 28 U/L <40 [place] Basic Metabolic Panelon 11-17 Anion gap [Moles/Vol] 8 mmol/L Low 9 - 17 mmol/L [place] Bun/Cre Ratio 15 [place] Calcium [Mass/Vol] 9.4 mg/dL 8.6 - 10. 4 mg/dL [place] Chloride [Moles/Vol] 104 mmol/L 98 - 10 7 mmol/L [place] CO2 [Moles/Vol] 27 mmol/L 20 - 31 mmol/L [place] Creatinine [Mass/Vol] 0.65 mg/dL Low 0.7 - 1.2 mg/dL [place] GFR >60 >60 mL/min [place] GFR Non- >60 >60 mL/min [place] Glucose [Mass/Vol] 110 mg/dL High 70 - 99 mg/dL [place] Interpretation and review of laboratory results Abnormal [place] Potassium [Moles/Vol] 4.7 mmol/L 3.7 - 5.3 mmol/L [place] Sodium [Moles/Vol] 139 mmol/L 135 - 144 mmol/L [place] Urea nitrogen [Mass/Vol] 10 mg/dL 8 - 23 mg/dL [place] CBC Auto Differentialon 11-17 Basophils (Bld) [#/Vol] 0.08 10*3/uL [place] Basophils/100 WBC (Bld) 1 % 0 - 2 % [place] Differential Type NOT REPORTED [place] Eosinophils (Bld) [#/Vol] 0.33 10*3/uL [place] Eosinophils/100 WBC (Bld) 5 % High 1 - 4 % [place] Erythrocyte distribution width (RBC) [Ratio] 13.0 % 11.8 - 14.4 % [place] Hematocrit (Bld) [Volume fraction] 44.8 % 40.7 - 50.3 % [place] Hemoglobin (Bld) [Mass/Vol] 14.7 g/dL 13 - 17 g/dL [place] Immature granulocytes (Bld) [#/Vol] 0 % 0 [place] Immature granulocytes (Bld) [#/Vol] 10*3/uL [place] Interpretation and review of laboratory results Abnormal [place] Lymphocytes (Bld) [#/Vol] 1.29 10*3/uL [place] Lymphocytes/100 WBC (Bld) 17 % Low 24 - 43 % [place] MCH (RBC) [Entitic mass] 31.6 pg 25.2 - 33.5 pg [place] MCHC (RBC) [Mass/Vol] 32.8 g/dL 28.4 - 34.8 g/dL [place] MCV (RBC) [Entitic vol] 96.3 fL 82.6 - 102.9 fL [place] Monocytes (Bld) [#/Vol] 0.73 10*3/uL [place] Monocytes/100 WBC (Bld) 10 % 3 - 12 % [place] Platelet mean volume (Bld) [Entitic vol] 8.6 fL 8.1 - 13.5 fL [place] Platelets (Bld) [#/Vol] NOT REPORTED [place] Platelets (Bld) [#/Vol] 287 10*3/uL [place] RBC (Bld) [#/Vol] 4.65 10*6/uL 4.21 - 5.7 7 m/uL [place] RBC morphology finding Nom (Bld) NOT REPORTED [place] Segmented neutrophils/100 WBC (Bld) 67 % High 36 - 65 % [place] Segs Absolute 4.96 [place] WBC (Bld) [#/Vol] 7.4 10*3/uL [place] WBC (Bld) [#/Vol] 0.0 10*3/uL 0.0 per 10 0 WBC [place] WBC Morphology NOT REPORTED [place] Lipid Panelon 12-16-2019 Cholesterol [Mass/Vol] 186 mg/dL <200 [place] Comment on above: Cholesterol Guidelines: <200 Desirable 200-240 Borderline >240 Undesirable Cholesterol in HDL [Mass/Vol] 89 mg/dL >40 [place] Comment on above: HDL Guidelines: <40 Undesirable 40-59 Borderline >59 Desirable Cholesterol in LDL [Mass/Vol] 86 mg/dL 0 - 130 mg/dL [place] Comment on above: LDL Guidelines: <100 Desirable 100-129 Near to/above Desirable 130-159 Borderline >159 Undesirable Direct (measured) LDL and calculated LDL are not interchangeable tests. Cholesterol in VLDL [Mass/Vol] NOT REPORTED 1 - 30 mg/dL [place] Cholesterol.total/Chol esterol in HDL [Mass ratio] 2.1 {ratio} <5 [place] Triglyceride [Mass/Vol] 53 mg/dL <150 [place] Comment on above: Triglyceride Guidelines: <150 Desirable 150-199 Borderline 200-499 High >499 Very high Based on AHA Guidelines for fasting triglyceride, February 2012. Metabolic Panelon 12-16-2019 GFR/1.73 sq M predicted among non-blacks MDRD (S/P/Bld) [Vol rate/Area] [place] Comment on above: Average GFR for 60-6 9 years old: 85 mL/min/1.73sq m Chronic Kidney Disease: <60 mL/min/1.73sq m Kidney failure: <15 mL/min/1.73sq m eGFR calculated using average adult body mass. Additional eGFR calculator available at: http://www.Auto I.D./multiple_crcl_2011.htm Stage 1: Some kidney damage normal GFR Stage 2: Mild kidney damage GFR 60-89 Stage 3: Moderate kidney damage GFR 30-59 Stage 4: Severe kidney damage GFR 15-29 Stage 5: Severe kidney damage GFR <15 ESRD - chronic treatment by dialysis or transplant NM HEPATOBILIARY SCAN W RONNI RIOS FRACTIONon 02-21-2019 No convincing scintigraphic evidence of acute cholecystitis. Delayed visualization of small bowel is non-specific and may be a normal variant but may also be seen in biliary dyskinesia and partial common duct obstruction. Normal gallbladder ejection fraction of 92%. [place] EXAMINATION: NUCLEAR MEDICINE HEPATOBILIARY SCINTIGRAPHY (HIDA SCAN) WITH EJECTION FRACTION. TECHNIQUE: Approximately 5.3 millicuries Tc99m Mebrofenin (Choletec) was administered IV. Then, dynamic images of the abdomen were obtained in the anterior projection for 60 mins. A right lateral view was also obtained at 60 mins. Slow infusion of cholecystokinin was administered intravenously over 60 mins. Images were obtained in the SIERRA LEONEAN projection and regions of interest were drawn [...] prompt, but small bowel visualization is delayed. [place], [place] Marco, pn Incoming Radiant Results From [facility] - 02/21/2019 5:15 PM EDT EXAMINATION: NUCLEAR [...] 60 mins. Images were obtained in the SIERRA LEONEAN projection and regions of interest were drawn [...] obstruction. Normal gallbladder ejection fraction of 92%. [place] CT Lung Screen (Annual)on 1. Right-sided [...] like to register your patient with the [facility] Lung Nodule/Lung Cancer Screening Program, please contact the Nurse Navigator at [phone] . [place] EXAMINATION: LOW DOSE SCREENING CT OF [...] mid to lower thoracic spine is noted. [facility] [place], [place] Marco, pn Incoming Radiant Results From [facility] - 02/16/2019 6:06 PM EDT EXAMINATION: LOW [...] like to register your patient with the [facility] Lung Nodule/Lung Cancer Screening Program, please contact the Nurse Navigator at [phone] . [place], [place] Progress Noteon 06-09-2017 HIM IP Note OR Laborer Cement Gun Placing Normal [facility] Progress Noteon 05-13-2017 HIM IP Note OR Laborer Cement Gun Placing Normal [facility] Vital Signs Date Time Vital Sign Value Performing Clinician Facility 07-27-2023 12:39-0400 Body height 175.26 cm [facility] 07-27-2023 12:39-0400 Body mass index (BMI) [Ratio] 23.82 kg/m2 [facility] 07-27-2023 12:39-0400 Body surface area Derived from formula 1.89 m2 [facility] 07-27-2023 12:39-0400 Body weight 73.17 kg [facility] 07-27-2023 12:39-0400 Diastolic blood pressure 72 mm[Hg] [facility] 07-27-2023 12:39-0400 Heart rate 72 /min [facility] 07-27-2023 12:39-0400 Systolic blood pressure 126 mm[Hg] [facility] 06-01-2023 17:38-0500 Body height 175.26 cm [facility] 06-01-2023 17:38-0500 Body mass index (BMI) [Ratio] 23.04 kg/m2 [facility] 06-01-2023 17:38-0500 Body surface area Derived from formula 1.86 m2 [facility] 06-01-2023 17:38-0500 Body weight 70.76 kg [facility] 06-01-2023 17:38-0500 Diastolic blood pressure 74 mm[Hg] [facility] 06-01-2023 17:38-0500 Heart rate 72 /min [facility] 06-01-2023 17:38-0500 Systolic blood pressure 130 mm[Hg] [facility] 03-13-2022 20:28-0400 Body height 182.9 cm Jud Cleary MD Work Phone: [facility] 03-13-2022 20:28-0400 Body mass index (BMI) [Ratio] 19.67 kg/m2 Jud Cleary MD Work Phone: [facility] 03-13-2022 20:28-0400 Body temperature 97.39 [degF] Jud Cleary MD Work Phone: [facility] 03-13-2022 20:28-0400 Body weight 65.77 kg Jud Cleary MD Work Phone: [facility] 03-13-2022 20:28-0400 Diastolic blood pressure 86 mm[Hg] Jud Cleary MD Work Phone: [facility] 03-13-2022 20:28-0400 Heart rate 78 /min Jud Cleary MD Work Phone: [facility] [employer] 03-13-2022 20:28-0400 Respiratory rate 18 /min Jud Cleary MD Work Phone: [facility] 03-13-2022 20:28-0400 SaO2% (BldA) [Mass fraction] 96 % Jud Cleary MD Work Phone: [facility] 03-13-2022 20:28-0400 Systolic blood pressure 135 mm[Hg] Jud Cleary MD Work Phone: [facility] 02-21-2021 12:50-0400 Body temperature 98.29 [degF] Jud Cleary MD Work Phone: [employer] Work Phone: 02-21-2021 12:50-0400 Diastolic blood pressure 69 mm[Hg] Jud Cleary MD Work Phone: [employer] Work Phone: 02-21-2021 12:50-0400 Heart rate 93 /min Jud Cleary MD Work Phone: [employer] Work Phone: 02-21-2021 12:50-0400 Respiratory rate 16 /min Jud Cleary MD Work Phone: [employer] Work Phone: 02-21-2021 12:50-0400 SaO2% (BldA) [Mass fraction] 95 % Jud Cleary MD Work Phone: [employer] Work Phone: 02-21-2021 12:50-0400 Systolic blood pressure 114 mm[Hg] Jud Cleary MD Work Phone: [employer] Work Phone: 02-18-2021 09:38-0400 Body height 182.9 cm Jud Cleary MD Work Phone: [employer] Work Phone: 02-18-2021 04:54-0400 Body mass index (BMI) [Ratio] 20.45 kg/m2 Jud Cleary MD Work Phone: [employer] Work Phone: 02-18-2021 04:54-0400 Body weight 68.4 kg Jud Cleary MD Work Phone: [employer] Work Phone: 02-21-2019 15:06-0400 BMI (Body Mass Index) 21.02 kg/m2 [place] 02-21-2019 15:06-0400 Body weight 70.31 kg [place] 02-21-2019 15:06-0400 Height 182.9 cm [place] Encounters Encounter Date Encounter Type Care Provider Facility Start: 06-13-2024 End: 06-13-2024 ambulatory Silviano Friend Facility:[facility] Start: 04-19-2024 End: 04-19-2024 ambulatory Silviano Friend Facility:[facility] Start: 04-19-2024 End: 04-19-2024 Patient encounter procedure Silviano Friend [facility] Start: 04-11-2024 End: 04-11-2024 ambulatory Silviano Friend Facility:[facility] Start: 03-31-2024 ambulatory Silviano Friend Facility:[facility] Start: 10-05-2023 ambulatory Omero saleh PA-C Facility:[facility] Start: 09-15-2023 ambulatory Massiel Moore APRN-EMRE Facility:[facility] Start: 09-08-2023 ambulatory Massiel Moore TELEHEALTH NURSE EDUCATOR-ASSURANCE SENIOR MANAGER INSURANCE Facility:[facility] Start: 09-07-2023 ambulatory Massiel Moore TELEHEALTH NURSE EDUCATOR-ASSURANCE SENIOR MANAGER INSURANCE Facility:[facility] Start: 09-03-2023 End: 09-04-2023 ambulatory Massiel Moore TELEHEALTH NURSE EDUCATOR-ASSURANCE SENIOR MANAGER INSURANCE Facility:[facility] Start: 08-13-2023 End: 08-14-2023 ambulatory [facility] Start: 07-27-2023 Split Srvc Steph Car Garcia rne Other [facility] Start: 07-01-2023 End: 07-02-2023 ambulatory Massiel Moore TELEHEALTH NURSE EDUCATOR-ASSURANCE SENIOR MANAGER INSURANCE Facility:[facility] Start: 06-08-2023 End: 06-09-2023 ambulatory [facility] Start: 06-01-2023 Split Srvc Steph Car Garcia rne Other [facility] Start: 05-21-2023 ambulatory Massiel Moore TELEHEALTH NURSE EDUCATOR-ASSURANCE SENIOR MANAGER INSURANCE Facility[facility] Start: 05-21-2023 End: 05-22-2023 ambulatory Massiel Moore TELEHEALTH NURSE EDUCATOR-ASSURANCE SENIOR MANAGER INSURANCE Facility:[facility] Start: 08-26-2022 End: 08-29-2022 ambulatory [facility] Start: 08-26-2022 End: 08-28-2022 Subsequent hospital visit by physician Christelle Patiño Dr Room 4 [facility] Radiology Comment on above: S/P spinal fusion Start: 07-01-2022 End: 07-04-2022 ambulatory [facility] Start: 07-01-2022 End: 07-03-2022 Subsequent hospital visit by physician Christelle Patiño Dr Room 4 [facility] Radiology Comment on above: S/P spinal fusion Start: 04-01-2022 End: 04-02-2022 ambulatory [facility] Start: 04-01-2022 End: 04-01-2022 Subsequent hospital visit by physician Massiel Moore TELEHEALTH NURSE EDUCATOR - ASSURANCE SENIOR MANAGER INSURANCE Work Phone: [facility] Laboratory Comment on above: Screening PSA (prost ate specific antigen); Gastroesophageal reflux disease without esophagitis; Lipid screening Start: 03-13-2022 End: 03-14-2022 Emergency department patient visit MASSIEL MOORE [facility] Start: 03-13-2022 End: 03-13-2022 Emergency department patient visit Jud Cleary MD Work Phone: [facility] ED Comment on above: Sprain of right ankl e, unspecified ligament, initial encounter (Primary Dx); Right foot pain Start: 02-17-2021 End: 02-21-2021 Evaluation and management of inpatient Jud Cleary MD Work Phone: [facility] Comment on above: COVID-19 (Primary Dx ); Hypoxia Start: 08-31-2020 End: 09-02-2020 Subsequent hospital visit by physician Massiel Moore TELEHEALTH NURSE EDUCATOR - ASSURANCE SENIOR MANAGER INSURANCE Work Phone: [facility] Radiology Start: 12-16-2019 End: 12-16-2019 Subsequent hospital visit by physician Massiel Moore [facility] Laboratory Comment on above: Screening PSA (prost ate specific antigen); Lipid screening; Gastroesophageal reflux disease without esophagitis Start: 02-21-2019 End: 02-23-2019 Subsequent hospital visit by physician [facility] Nuclear Room [facility] Nuclear Medicine Comment on above: Epigastric pain; Radiating chest pain Start: 02-17-2019 End: 02-17-2019 Subsequent hospital visit by physician [facility] Cardiology Stress Room [facility] Stress Lab Comment on above: Arrived Start: 02-16-2019 End: 02-18-2019 Subsequent hospital visit by physician [facility] [facility] Cat Scan Room [facility] CT Scan Comment on above: [...] Work Phone: Start: 04-02-2022 PSA screening Massiel Yared ht TELEHEALTH NURSE EDUCATOR - [facility] Work Phone: Comment on above: The [place] ECLIA as say is used. Results obtained with different assay methods cannot be used interchangeably. Start: 04-01-2022 Basic metabolic pane l calcium total Massiel W Might TELEHEALTH NURSE EDUCATOR - [facility] Work Phone: Start: 04-01-2022 Lipid panel Massiel W Mi ght [facility] Work Phone: Start: 03-13-2022 End: 03-13-2022 Radex ankle complete minimum 3 views Jud Cleary MD Work Phone: Start: 02-21-2021 HOME O2 EVAL (DESATU RATION SCREEN) Yenny Franco [facility] Work Phone: Start: 02-21-2021 Rhythm ecg 1-3 [...] 02-20-2021 Potassium serum plasma/whole blood Yenny Cookers [facility] Work Phone: Start: 02-20-2021 Assay of magnesium [...] K Orquidea Naranjo MD Work Phone: Start: 02-18-2021 C-reactive protein [...] Work Phone: Start: 02-17-2021 COVID-19, RAPID Phillip Andholly DO Work Phone: Start: 12-16-2019 [object Object] Massiel gilmore Comment on above: The [place] ECLIA as say is used. Results obtained with different assay methods cannot be used interchangeably. Start: 12-16-2019 Basic metabolic pane l calcium total Massiel Toney Might Work Phone: Start: 12-16-2019 Blood count complete auto&auto difrntl wbc Massiel Toney Might Work Phone: Start: 12-16-2019 Lipid panel Massiel Toney Mi ght Work Phone: Start: 12-16-2019 PSA screening Massiel Toney M ight Work Phone: Start: 12-16-2019 Transferase alanine [...] Detail Author Start: 04-01-2027 Lipid panel [facility] Start: 12-15-2024 Lipid panel [facility] [employer] Start: 05-26-2023 Depression Screen Depression Screen [facility] Start: 03-24-2023 Depression Screen Depression [facility] Start: 03-24-2023 Influenza vaccination B ON [facility] [employer] [facility] Comment on above: Postponed from 12/16 (Patient Refused) Postponed from 12/16 (Patient Refused) Start: 10-10-2022 Depression Screen Depression Screen [facility] Start: 09-23-2022 End: 09-23-2022 Patient encounter procedure 09/23/2022 Office Visit Primary Care Massiel Moore, TELEHEALTH NURSE EDUCATOR - ASSURANCE SENIOR MANAGER INSURANCE [address] [place] [address] [facility] Joleen Start: 09-19-2022 COVID-19 Vaccine (#1) COVID-19 Vacci ne (#1) [facility] [employer] [facility] Comment on above: Postponed from 02/11 (Not Indicated) Start: 09-19-2022 DTaP/Tdap/Td vaccine (1 - Tdap) DTaP/Tdap/Td vaccine (1 - Tdap) [facility] Comment on above: Postponed from 08/11 (Patient Refused) Start: 09-19-2022 Hepatitis C screening Hepatitis C sc reen [facility] Comment on above: Postponed from 08/11 (Patient Refused) Start: 09-19-2022 HIV screening HIV screen [facility] Comment on above: Postponed from 08/11 (Patient Refused) Start: 09-19-2022 Pneumococcal 0-64 ye ars Vaccine (1 - PCV) Pneumococcal 0-64 years Vaccine (1 - PCV) [facility] Comment on above: Postponed from 08/11 (Not Indicated) Start: 09-19-2022 Shingles vaccine (1 of 2) Shingles vaccine (1 of 2) [facility] Comment on above: Postponed from 08/11 (Patient Refused) Start: 03-24-2022 End: 03-24-2022 Patient encounter procedure 03/24/2022 Office Visit Primary Care Massiel Moore, TELEHEALTH NURSE EDUCATOR - ASSURANCE SENIOR MANAGER INSURANCE [address] [place] [address] [facility] Start: 12-16-2021 Influenza vaccination Flu vaccine (# 1) [facility] Start: 08-31-2021 COVID-19 Vaccine (1) COVID-19 Vaccin e (1) [facility] Work Phone: Comment on above: Postponed from 08/11 (Patient Refused) Postponed from 08/11 (Patient Refused) Start: 06-05-2021 Screening for malign ant neoplasm of colon [facility] Start: 06-04-2021 DTaP/Tdap/Td vaccine (1 - Tdap) DTaP/Tdap/Td vaccine (1 - Tdap) [facility] Phone: Comment on above: Postponed from 08/11 (Patient Refused) Start: 06-04-2021 Hepatitis C screening Hepatitis C sc eleanor [facility] [employer] Phone: Comment on above: Postponed from 08/11 (Patient Refused) Start: 06-04-2021 HIV screening HIV screen Jesusita Taylor [facility] Work Phone: Comment on above: Postponed from 08/11 (Patient Refused) Start: 06-04-2021 Influenza vaccination Flu vacc ine (Season Ended) [facility] Phone: Comment on above: Postponed from 01/16 (Patient Refused) Start: 06-04-2021 Pneumococcal 0-64 ye ars Vaccine (1 of 1 - PPSV23) Pneumococcal 0-64 years Vaccine (1 of 1 - PPSV23) [employer] Phone: Comment on above: Postponed from 08/11 (Patient Refused) Start: 06-04-2021 Pneumococcal 0-64 ye ars Vaccine (1 of 2 - PPSV23) Pneumococcal 0-64 years Vaccine (1 of 2 - PPSV23) [facility] Phone: Comment on above: Postponed from 08/11 (Patient Refused) Start: 06-04-2021 Shingles Vaccine (1 of 2) Shingles Vaccine (1 of 2) [facility] Phone: Comment on above: Postponed from 08/11 (Patient Refused) Start: 03-07-2021 End: 03-07-2021 Patient encounter procedure 03/07/2021 Office Visit Primary Care Marciarmen Maya, TELEHEALTH NURSE EDUCATOR - ASSURANCE SENIOR MANAGER INSURANCE [address] [place] [address] [phone] [facility] Start: 03-04-2021 End: 03-04-2021 Patient encounter procedure 03/04/2021 Office Visit Primary Care Massiel Moore TELEHEALTH NURSE EDUCATOR - ASSURANCE SENIOR MANAGER INSURANCE [address] [place] [address] [phone] [facility] Start: 01-16-2021 Influenza vaccination Flu vaccine (# 1) [facility] Work Phone: Start: 12-04-2020 End: 12-04-2020 Patient encounter procedure 12/04/2020 Office Visit Primary Care MaryMassiel, TELEHEALTH NURSE EDUCATOR - ASSURANCE SENIOR MANAGER INSURANCE [address] [facility] [place] [address] [phone] [facility] Start: 06-04-2020 End: 06-04-2020 Office Visit 06/04/2020 Office Visit Primary Care Massiel Moore, TELEHEALTH NURSE EDUCATOR - ASSURANCE SENIOR MANAGER INSURANCE [address] [place] [address] [facility] Start: 02-17-[address] lung screening Low dose CT lung screening [place], [place] Start: 02-17-2020 Screening for malign ant neoplasm of lung Low dose CT lung screening [place], [place] Start: 02-04-2020 Influenza vaccination Flu vaccine (# 1) [place] Comment on above: Postponed from 01/16 (Patient Refused) Start: 02-02-2020 Colon Cancer Screen FIT/FOBT Colon Cancer Screen FIT/FOBT [place] Start: 02-02-2020 Screening for malign ant neoplasm of colon Colon Cancer Screen FIT/FOBT [place] Start: 01-17-2020 Influenza vaccination Flu vaccine (# 1) [place] Start: 12-03-2019 DTaP/Tdap/Td vaccine (1 - Tdap) DTaP/Tdap/Td vaccine (1 - Tdap) [place] Comment on above: Postponed from 08/11 (Patient Refused) Start: 12-03-2019 Hepatitis C screen Hepatitis C scree [place] Comment on above: Postponed from 08/11 (Patient Refused) Start: 12-03-2019 HIV screen HIV screen [place], [place] Comment on above: Postponed from 08/11 (Patient Refused) Start: 12-03-2019 Shingles Vaccine (1 of 2) Shingles Vaccine (1 of 2) [place] Comment on above: Postponed from 08/11 (Patient Refused) Start: 12-01-2019 Pneumococcal 0-64 ye ars Vaccine (1 of 1 - PPSV23) Pneumococcal 0-64 years Vaccine (1 of 1 - PPSV23) [place] Comment on above: Postponed from 08/11 (Patient Refused) Start: 11-30-2019 End: 11-30-2019 Office Visit 11/30/2019 Office Visit Primary Care Mary, Massiel Toney, TELEHEALTH NURSE EDUCATOR - ASSURANCE SENIOR MANAGER INSURANCE [address] [place] [address] [phone] [facility] Start: 04-04-2019 Lipid panel Lipid screen [place], [place] Start: 04-04-2019 Lipid screen Lipid screen [place] Start: 02-21-2019 End: 02-21-2019 Appointment 02/21/2019 Appointment Radiology [facility] Nuclear [facility] Start: 2008 Shingles Vaccine (1 of 2) Shingles Vaccine (1 of 2) [place] Start: 08-12-2003 Screening for malign ant neoplasm of colon [facility] Start: 1977 DTaP/Tdap/Td vaccine (1 - Tdap) DTaP/Tdap/Td vaccine (1 - Tdap) [place] Start: 1973 HIV screening HIV screen [place], [place] Start: 1964 Pneumococcal 0-64 ye ars Vaccine (1 of 1 - PPSV23) Pneumococcal 0-64 years Vaccine (1 of 1 - PPSV23) [place], [place] Start: 1958 Hepatitis C screening Hepatitis C sc reen [place] Acapella Acapella Respira tory Care Routine Daily until discontinued starting 02/17/2021 [facility] Work Phone: Comment on above: Daily until disconti nued starting 02/17/2021 aPTT in Blood by Coagulation assay APTT Lab Routine Daily until discontinued starting 02/17/2021, 5 completed [facility] Work Phone: Comment on above: Daily until disconti nued starting 02/17/2021, 5 completed Basic Metabolic Pane l w/ Reflex to MG Basic Metabolic Panel w/ Reflex to MG Lab Routine Daily until discontinued starting 02/18/2021, 4 completed [employer] Phone: Comment on above: Daily until disconti nued starting 02/18/2021, 4 completed C-reactive protein [facility] Work Phone: Comment on above: Daily until disconti nued starting 02/18/2021, 3 completed CBC W Auto Different ial panel - Blood CBC auto differential Lab Routine Daily until discontinued starting 02/18/2021, 4 completed [employer] Work Phone: Comment on above: Daily until disconti nued starting 02/18/2021, 4 completed D-Dimer, Quantitative D-Dimer, Q uantitative Lab Routine Daily until discontinued starting 02/17/2021, 5 completed [employer] Phone: Comment on above: Daily until disconti nued starting 02/17/2021, 5 completed Nasal Cannula Oxygen Nasal Cannu la Oxygen Respiratory Care STAT Daily until discontinued starting 02/17/2021 [employer] Phone: Comment on above: Daily until disconti nued starting 02/17/2021 Oxygen therapy [[facility] Data Set] Initiate Oxygen Therapy Protocol Respiratory Care Routine Daily until discontinued starting 02/17/2021 [employer] Phone: Comment on above: Daily until disconti nued starting 02/17/2021 Protime-INR Protime-INR Lab Routine Daily until discontinued starting 02/17/2021, 5 completed [employer] Phone: Comment on above: Daily until disconti nued starting 02/17/2021, 5 completed Payers Date Payer Category Payer Medicare [id number] 2024 Medicare [id number] 2022 Unknown 2018 Unknown 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 xxxxxxxxxxxx 2018-Present [phone] [address] [place] [address] xxxxxxxxxxxx [id number] 2018 Unknown 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 [address] [id number] 2018-Present [phone] [address] [place] [address] [id number] [id number] .[id number] 2018 Unknown [id number] [id number].3 .[id number] 1958 Unknown [id number] 2.16.840.1.616556.3.579.2.173 1958 Unknown [id number] 2.16.840.1.198882.3.579.2.173 1958 Unknown [id number] 2.16.840.1.688376.3.579.2.173 1958 Unknown [id number] 2.16.840.1.003748.3.579.2.173 1958 Unknown [id number] 2.16.840.1.356769.3.579.2.173 1958 Unknown [id number] 2.16.840.1.457342.3.579.2.173 1958 Unknown [id number] 2.16.840.1.591230.3.579.2.128 6 1958 Unknown [id number] 2.16.840.1.755246.3.579.2.128 6 1958 Unknown [id number] 2.16.840.1.364414.3.579.2.196 1958 Unknown [id number] 2.16.840.1.037624.3.579.2.196 1958 Unknown [id number] 2.16.840.1.958033.3.579.2.196 1958 Unknown [id number] 2.16.840.1.493151.3.579.2.196 1958 Unknown [id number] 2.16.840.1.143447.3.579.2.196 1958 Unknown [id number] 2.16.840.1.002160.3.579.2.196 1958 Unknown [id number] 2.16.840.1.516632.3.579.2.196 1958 Unknown [id number] 2.16.840.1.710585.3.579.2.196 1958 Unknown [id number] 2.16.840.1.621331.3.579.2.196 1958 Unknown [id number] 2.16.840.1.940205.3.579.2.727 1958 Unknown [id number] 2.16.840.1.080875.3.579.2.727 1958 Unknown [id number] 2.16.840.1.524421.3.579.2.727 Social History Date Type Detail Facility Start: 02-03-2019 End: 03-24-2022 Tobacco smoking status NHIS Current every day smoker [facility]YN[facility] History of tobacco use Cigarette Smoker [place], [place] Start: 02-03-2019 End: 05-26-2022 Cigarettes smoked current (pack per day) - Reported [place], [place] Start: 02-03-2019 Alcohol intake Yes [facility] Start: 1960 Sex Assigned At Not on file [place], [place] Start: 11-30-2019 End: 03-24-2022 Tobacco use and exposure Never used [place] Start: 11-30-2019 End: 05-26-2022 Alcohol intake Current drinker of alcohol (finding) [place] Exposure to SARS-CoV -2 (event) Not sure [place], [place] Exposure to SARS-CoV -2 (event) Yes [facility] Start: 03-07-2021 End: 03-24-2022 History 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 [employer] Work Phone: Start: 03-07-2021 End: 03-24-2022 History SDOH Food Worry 1 [facility] [employer] Work Phone: Start: *Tobacco [employer] Start: Alcohol [employer] Start: Caffeine [employer] Start: 04-11-2024 Tobacco smoking status Heavy t obacco smoker (finding) [facility] Medicine [place] [facility] Procedure Code Equipment Code Equipment Origin al Text Equipment Identifier Dates Putty Graft Bone Deminrl Sub 5ml Fd [id number] Start: 03-11-2017 Comment on above: Description: RIGHT F OOT FIRST DIGIT Impl Toe [place]ino[place] Fl x W/ Grommet Sm Sz 4 [id number] Start: 03-11-2017 Comment on above: Description: RIGHT F OOT FIRST DIGIT Plate [place] 4 [id number] Start: 03-11-2017 Comment on above: Description: RIGHT F OOT FIRST DIGIT Ortholoc 3.5mmx 24mm Locking Screw [id number] Start: 03-11-2017 Comment on above: Description: RIGHT F OOT FIRST DIGIT Orth[employer]oc [id number] Locking Screw [id number] Start: 03-11-2017 Ortholoc 3.5mm X 20mm Low Profile Screws [id number] Start: 03-11-2017 Comment on above: Description: RIGHT F OOT FIRST DIGIT Ortholoc 3.5mm X 24mm Low Profile Screws [id number] Start: 03-11-2017 Comment on above: Description: RIGHT F OOT FIRST DIGIT Goals Date Patient Goal Desired Activity /State Clinical Notes 02-17-2021 to 05-22-2023 Discharge InstructionsPatrick Osborne RN - 02/21/2021 4:01 PM EDTBLenore harris PTA - 02/21/2021 2:11 PM EDAmanda Mclain LSW - 02/21/2021 12:33 PM EDTDisjorgerge Instr - Diet Note Date & Type [...] Dictated DT/TM: 05/22/2023 7:57 am Signed by: Adan Harris MD Signed (Electronic Signature): 05/22/2023 7:58 am (If Report Is Signed, Electronically Signed in Other Vendor System) [facility] 03-13-2022 Hospital Discharge instructions Jud [...] cannot be sent through Care Everywhere.Ankle Sprain (Emirati)Foot Pain (Emirati)documented in this encounter [employer] Phone: 02-21-2021 History of Present illness Narrative Went over with pt all discharge instructions including how to work the oxygen tank. He stated he understands and is now being wheeled down via chair to ER entrance, and from there he will be driving home. Physical Therapy Facility/Department: [facility] Daily Treatment Note NAME: Rufina Velazquez : 1960 Date of Service: 02/21/2021 Discharge Recommendations: Home with nursing program director, Home with assist PRN Patient Diagnosis(es): [...] Time Out 1410 Minutes 23 Lenore Olson, MANAGER FINANCIAL PLANNING [address] [place] spoke with RT that completed home oxygen evaluation. She spoke with pt and he was agreeable to [employer] as supplier for home oxygen. SW faxed over needed information and left a message for [employer] that information was being faxed and to please call with delivery time. Amanda SALMONW 02/21/2021 Pt has been approved through insurance for home oxygen through [employer] and they will be delivering. Amanda SALMONW 02/21/2021 Physician Progress Note PATIENT: RUFINA VELAZQUEZ CSN #: [id number] : 1960 ADMIT DATE: 02/17/2021 1:30 PM [...] patient did not utilize Adri Grady RN, [facility] Clinical Clerical Aide Teacher [phone] . Options provided: -- Severe malnutrition confirmed [...] results for input(s): POCPH, POCPCO2, POCPO2, POCHCO3, LHSV4HWP in the last 72 hours. CBC: Recent Labs 02/19/2160402/20/2162402/21/21554 WBC 7.1 5.9 6.9 HGB 13.4 12.5* 12.9* HCT 39.8* 36.3* 37.7* MCV 91.3 90.8 91.3 PLT 358 413 432 LYMPHOPCT 25 28 30 RBC 4.36 4.00* 4.13* MCH 30.7 31.3 31.2 MCHC 33.7 34.4 34.2 RDW 12.1 12.2 12.5 CRP: Recent Labs 10/05/21 0605 10/06/21 0625 CRP 33.5* 17.9* LDH: No results for input(s): LDH in the last 72 hours. BMP: Recent Labs 02/19/21 0602/20/21 0602/20/21 1320 02/21/21 05 NA 139 136 -- 136 K 3.1* 2.7* 3.4* 3.7 CL 102 99 -- 100 CO2 26 28 -- 28 BUN 8 9 -- 9 CREATININE 0.40* 0.47* -- 0.50* GLUCOSE 108* 105* -- 147* Liver Function Test: No results for input(s): PROT, LABALBU, ALT, AST, GGT, ALKPHOS, BILITOT in the last 72 hours. Coagulation Profile: Recent Labs 02/19/21 0602/20/2162402/21/21554 INR 1.1 1.1 1.0 PROTIME 13.6 13.9 13.0 APTT 41.5* 43.1* 38.6* D-Dimer: Recent Labs 02/19/21 0602/20/2162402/21/21 05 DDIMER <0.27 0.27 <0.27 Ferritin: No results [...] Dexamethasone Tobacco abuse Nicotine patch Nutrition status: Electrical Equipment Assembler consult initiated Hospital Prophylaxis: DVT: Lovenox Stress Ulcer: H2 [place] High risk medications: Remdesivir Disposition: Discharge plan is home today with home oxygen FACE TO FACE: Patient qualified for home O2. Discussed with patient the medical necessity of home O2. Patient voiced understanding and agreement. RAFAELA Berrios CNP, RAFAELA, PAYROLL DIRECTOR-C 02/21/2021, 11:52 AM RAFAELA Berrios CNP , RAFAELA, PAYROLL DIRECTOR-C Associated attestation - Orquidea Naranjo MD - 02/21/2021 12:50 PM EDT Orquidea Naranjo M.D. Internal Medicine PA/PAYROLL DIRECTOR Attestation Note Patient: Rufina Velazquez Date of Admission: 02/17/2021 1:30 PM Hospital Day # 4 Date of Evaluation: 02/21/2021 I personally evaluated and examined the patient [id number] in conjunction with the PA/PAYROLL DIRECTOR and agree with the management and dispostition of the patient. Please see the PA/PAYROLL DIRECTOR's note for full details. My martel findings [...] lesions. DATA: Complete Blood Count: Recent Labs 02/19/2160402/20/2162402/21/21 0555 WBC 7.1 5.9 6.9 RBC 4.36 4.00* 4.13* HGB 13.4 12.5* 12.9* HCT 39.8* 36.3* 37.7* MCV 91.3 90.8 91.3 MCH 30.7 31.3 31.2 MCHC 33.7 34.4 34.2 RDW 12.1 12.2 12.5 PLT 358 413 432 MPV 9.0 8.8 8.8 Last 3 Blood Glucose: Recent Labs 02/19/21 0602/20/2162402/21/21 0555 GLUCOSE 108* 105* 147* HgBA1c: Lab Results Component Value Date LABA1C 5.1 06/04/2020 Comprehensive Metabolic Profile: Recent Labs 02/19/21 0602/19/21 0602/20/2125 02/20/21 1320 02/21/21 0555 NA 139 -- [...] 12/02/2018 CRP: Recent Labs 02/19/21 0605 02/20/21 06 CRP 33.5* 17.9* D-Dimer: Recent Labs 02/19/21 [...] with fibrosis in the lung bases, since 2018. ASSESSMENT / PLAN: I agree with the assessment and plan as outlined by PA/PAYROLL DIRECTOR below Acute respiratory failure with hypoxia due to Covid-19 viral infection Completed Remdesivir course Continue PO steroids after DC Continue Mucinex-DM Supplemental O2 to keep SpO2 > 92% - Home O2 eval ordered Encouraged continued use of Acapella Encouraged intermittent prone positioning as tolerated Continue respiratory therapy protocol Chronic tobacco abuse Nicotine patch Nutrition status: at risk for malnutrition Electrical Equipment Assembler consult initiated Hospital Prophylaxis: DVT: Lovenox Stress Ulcer: H2 [place] High risk medications: Remdesivir Disposition: Discharge plan is home Orquidea Naranjo MD , M.Ward. 02/21/2021 12:[address] [facility] Cardiopulmonary Services [address] [place] [address] A home oxygen evaluation has been completed. [...] oxygen at 2 lpm. Occupational Therapy Facility/Department: [facility] Daily Treatment Note NAME: Rufina [...] home. No new weights since admission to [facility] changes currently. Creatinine is improving, which may reflect his better oral intakes. Malnutrition Assessment: Malnutrition Status: Severe malnutrition Estimated Daily Nutrient Needs: Energy (kcal): 2611-8321 (25-28/kg); Weight Used for Energy Requirements: Current [...] Usual Body Weight: 162 lb (73.5 kg) [place] Body Weight: 178 lbs; % [place] Body Weight 84.7 % BMI: 20.4 Adjusted [...] Weight Discharge Planning: Continue current diet Contact: [id number] Pt hourly rounded on, assessed and vitals were obtained. Pt is on 1 L NC and in no distress and with no further needs at this time, he was also updated on his plan of care for the day which includes a home o2 eval and possible d/c Patient spo2 alarming due to a desat to 88% on room air. Workforce Investment Act Career Manager watched patient to see if he would improve on his own for like 5 mins with no change. Workforce Investment Act Career Manager entered room and patient was asleep on his left side. Workforce Investment Act Career Manager woke patient up and put 1L per nasal cannula on him. spo2 improved to 96% at this time. Will continue to monitor. At bedside with patient, assessment done, vitals obtained, white board updated. Patient denies having any pain and has no further needs at this time. Workforce Investment Act Career Manager removed trash from room and refilled ice water at this time. Physical Therapy Facility/Department: [facility] Daily Treatment Note NAME: Rufina Velazquez : 1960 Date of Service: 02/20/2021 Discharge Recommendations: Home with nursing program director, Home with assist PRN Assessment Prognosis: [...] Time Individual Concurrent Group Co-treatment Time In 1532 Time Out 1557 Minutes 25 Timed Code Treatment Minutes: 23 Minutes Linda Hernandez PTA Pt was on Room air but I am applying 2 liters to him while he showers. Tele has temporarily been removed and pulse ox, when pt is finished I will put him back on room air and reapply tele and pulse ox Occupational Therapy Facility/Department: [facility] Daily Treatment Note NAME: Rufina [...] In 1428 Time Out 1452 Minutes 24 KATHLEEN Duffy, OTR/L Mr. Velazquez has been resting in [...] care for the day. Physical Therapy Facility/Department: [facility] Daily Treatment Note NAME: Rufina Velazquez : 1960 Date of Service: 02/20/2021 Discharge Recommendations: Home with nursing program director, Home with assist PRN Assessment Treatment [...] Time Individual Concurrent Group Co-treatment Time In 0956 Time Out 1020 Minutes 24 Timed Code [...] results for input(s): POCPH, POCPCO2, POCPO2, POCHCO3, SPQX5WHT in the last 72 hours. CBC: Recent Labs 02/17/21 1345 02/18/21 0602/19/2160402/20/21624 WBC 6.4 3.3* 7.1 5.9 HGB 14.4 15.0 13.4 12.5* HCT 41.8 45.2 39.8* 36.3* MCV 90.3 91.1 91.3 90.8 PLT 228 292 358 413 LYMPHOPCT 14* 16* 25 28 RBC 4.63 4.96 4.36 4.00* MCH 31.1 30.2 30.7 31.3 MCHC 34.4 33.2 33.7 34.4 RDW 11.9 12.1 12.1 12.2 CRP: Recent Labs 02/18/2161402/19/21604 CRP 73.1* 33.5* LDH: No results for input(s): LDH in the last 72 hours. BMP: Recent Labs 02/17/21 1345 02/18/21 0602/19/2160402/20/21624 NA 130* 134* 139 136 K 3.4* 4.0 3.1* 2.7* CL 90* 95* 102 99 CO2 27 28 26 28 BUN 7* 7* 8 9 CREATININE 0.60* 0.49* 0.40* 0.47* GLUCOSE 119* 159* 108* 105* Liver Function Test: Recent Labs 02/17/21 1345 PROT 7.1 LABALBU 3.7 ALT 35 AST 58* ALKPHOS 69 BILITOT 0.33 Coagulation Profile: Recent Labs 02/17/21 1345 02/18/21 0602/19/2160402/20/21624 INR 1.0 1.0 1.1 1.1 PROTIME 13.2 13.3 13.6 13.9 APTT 44.8* 45.2* 41.5* 43.1* D-Dimer: Recent Labs 02/17/21 1345 02/18/21 0615 10/05/21 0605 10/06/21 0625 DDIMER 0.78* 0.45 <0.27 0.27 Ferritin: No [...] Dexamethasone Tobacco abuse Nicotine patch Nutrition status: Electrical Equipment Assembler consult initiated Hospital Prophylaxis: DVT: Lovenox Stress Ulcer: H2 [place] High risk medications: Remdesivir Disposition: Discharge plan is home tomorrow Yenny Franco APRN - ASSURANCE SENIOR MANAGER INSURANCE , TELEHEALTH NURSE EDUCATOR, PAYROLL DIRECTOR-C Associated attestation - Orquidea Naranjo MD - 02/20/2021 2:38 PM EDT Orquidea Naranjo M.D. Internal Medicine PA/PAYROLL DIRECTOR Attestation Note Patient: Rufina Velazquez Date of Admission: 02/17/2021 1:30 PM Hospital Day # 3 Date of Evaluation: 02/20/2021 I personally evaluated and examined the patient [id number] in conjunction with the PA/PAYROLL DIRECTOR and agree with the management and dispostition of the patient. Please see the PA/PAYROLL DIRECTOR's note for full details. My martel findings [...] lesions. DATA: Complete Blood Count: Recent Labs 02/18/21 0615 02/19/21 0605 02/20/21 0625 WBC 3.3* 7.1 5.9 RBC 4.96 4.36 4.00* HGB 15.0 13.4 12.5* HCT 45.2 39.8* 36.3* MCV 91.1 91.3 90.8 MCH 30.2 30.7 31.3 MCHC 33.2 33.7 34.4 RDW 12.1 12.1 12.2 PLT 292 358 413 MPV 9.3 9.0 8.8 Last 3 Blood Glucose: Recent Labs 02/18/21 0615 02/19/21 0605 02/20/21 0625 GLUCOSE 159* 108* 105* HgBA1c: Lab Results Component Value Date LABA1C 5.1 06/04/2020 Comprehensive Metabolic Profile: Recent Labs 02/18/21 0615 02/18/21 0615 02/19/21 0605 02/20/21 0625 02/20/21 1320 NA 134* -- 139 136 -- [...] 2+ 12/02/2018 CRP: Recent Labs 02/18/21 0615 02/19/21 06 CRP 73.1* 33.5* D-Dimer: Recent Labs 02/18/21 0615 02/19/21 0605 02/20/21 06 DDIMER 0.45 <0.27 0.27 PT/INR: Lab Results [...] the assessment and plan as outlined by PA/PAYROLL DIRECTOR below Acute respiratory failure with hypoxia due to Covid-19 viral infection Continue IV Remdesivir - last dose tomorrow Continue Dexamethasone Continue Mucinex-DM Supplemental O2 to keep SpO2 > 92% Encouraged continued use of Acapella Encouraged intermittent prone positioning as tolerated Continue respiratory therapy protocol Chronic tobacco abuse Nicotine patch Nutrition status: at risk for malnutrition Electrical Equipment Assembler consult initiated Hospital Prophylaxis: DVT: Lovenox Stress Ulcer: H2 [place] High risk medications: Remdesivir Disposition: Discharge plan is home Orquidea Naranjo MD , M.D. 02/20/2021 2:36 PM At bedside with patient, assessment done, vitals obtained, white board updated. Patient denies having any pain and has no further needs at this time. Will continue to monitor. Physical Therapy Facility/Department: [facility] Daily Treatment Note NAME: Rufina Velazquez : 1960 Date of Service: 02/19/2021 Discharge Recommendations: Home with nursing program director, Home with assist PRN Assessment Treatment [...] needs at this time. Occupational Therapy Facility/Department: [facility] Daily Treatment Note NAME: Rufian Velazquez : 1960 Date of Service: 02/19/2021 [...] cessation Nutrition status: at risk for malnutrition Electrical Equipment Assembler consult initiated Hospital Prophylaxis: DVT: Lovenox Stress Ulcer: H2 [place] High risk medications: Remdesivir Disposition: Discharge plan is home Orquidea Naranjo MD , M.D. 02/19/2021 11:18 AM Physical Therapy Facility/Department: [facility] Daily Treatment Note NAME: Rufina Velazquez : 1960 Date of Service: 02/19/2021 Discharge Recommendations: Home with nursing program director, Home with assist PRN Assessment Treatment [...] 1000 Minutes 35 Maria De Jesus Alva, [id number] Pt up in the chair to eat breakfast. Pt assessed and vitals obtained at this time. Pt is currently laying in bed, alert and oriented x4. Pt denies any pain this morning. Pt SPO2 remains WDL on 2L. Oxygen turned down to 1L. Lung sounds contain inspiratory wheezes throughout all lobes. Workforce Investment Act Career Manager reminded pt to utilize acapella, lay prone [...] 02/18/2021 Chemistry: No results found for: PHART, XEG2MEQ, PO2ART, N6UMGHKF, ZFY0JXT, PBEA VITALS Pulse: 68 Resp: 18 BP: [...] ____Yes ____No ____Patient Refused Physical Therapy Facility/Department: [facility] Initial Assessment NAME: Rufina Velazquez : 1960 Date of Service: 02/18/2021 Discharge Recommendations: Home with nursing program director, Home with assist PRN Assessment Assessment: [...] Ambulation Assistance: Independent Transfer Assistance: Independent Active Early Childhood Aide Classroom: Yes 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 Objective Vision: Within Functional Limits Hearing: Within [...] 1259 Time Out 1314 Minutes 15 Malinda Escobar, OTR/L Comprehensive Nutrition Assessment Type and Reason [...] assess Fluid Accumulation: No significant fluid accumulation Chemistry Account Manager Strength: Not Performed Estimated Daily Nutrient Needs: Energy (kcal): 5688-8529 (25-28/kg); Weight Used for Energy Requirements: Current [...] Usual Body Weight: 162 lb (73.5 kg) [place] Body Weight: 178 lbs; % [place] Body Weight 84.7 % BMI: 20.4 BMI [...] Discharge Planning: Too soon to determine Contact: 35733 SW met with pt by phone to complete assessment due to covid diagnosis. Pt is alert and oriented and cooperative with assessment. Pt is a 60 year old male admitted for covid 19 pneumonia. Pt lives with his spouse in their home in [place]. Pt was not using any DME prior [...] SW will remain available as needed. Amanda SALMONW 02/18/2021 Covid-19 Progress Note SUBJECTIVE: Patient seen [...] results for input(s): POCPH, POCPCO2, POCPO2, POCHCO3, HTEY1ZBS in the last 72 hours. CBC: Recent [...] the last 72 hours. BMP: Recent Labs 02/17/21134402/18/21614 NA 130* 134* K 3.4* 4.0 CL 90* 95* CO2 27 28 BUN 7* 7* CREATININE 0.60* 0.49* GLUCOSE 119* 159* Liver Function Test: Recent Labs 02/17/211344 PROT 7.1 LABALBU 3.7 ALT 35 AST 58* ALKPHOS 69 BILITOT 0.33 Coagulation Profile: Recent Labs 02/17/21134402/18/21614 INR 1.0 1.0 PROTIME 13.2 13.3 APTT [...] patch Nutrition status: at risk for malnutrition Electrical Equipment Assembler consult initiated Hospital Prophylaxis: DVT: Lovenox Stress Ulcer: H2 [place] High risk medications: Remdesivir Disposition: Discharge plan is home Yenny Franco APRN - ASSURANCE SENIOR MANAGER INSURANCE , RAFAELA, PAYROLL DIRECTOR-C Associated attestation - Orquidea Naranjo MD - 02/18/2021 6:36 PM EDT Orquidea Naranjo M.D. Internal Medicine PA/PAYROLL DIRECTOR Attestation Note Patient: Rufina Velazquez Date of Admission: 02/17/2021 1:30 PM Hospital Day # 1 Date of Evaluation: 02/18/2021 I personally evaluated and examined the patient [id number] in conjunction with the PA/PAYROLL DIRECTOR and agree with the management and dispostition of the patient. Please see the PA/PAYROLL DIRECTOR's note for full details. My martel findings [...] the assessment and plan as outlined by PA/PAYROLL DIRECTOR below Acute respiratory failure with hypoxia due to Covid-19 viral infection Continue IV Remdesivir Continue Dexamethasone Continue Mucinex-DM Supplemental O2 to keep SpO2 > 92% Encouraged continued use of Acapella Encouraged intermittent prone positioning as tolerated Continue respiratory therapy protocol Chronic tobacco abuse Nicotine patch Nutrition status: at risk for malnutrition Electrical Equipment Assembler consult initiated Hospital Prophylaxis: DVT: Lovenox Stress Ulcer: H2 [place] High risk medications: Remdesivir Disposition: Discharge plan is home Orquidea Naranjo MD , M.D. 02/18/2021 6:33 PM Pt resting in bed watching TV. Vitals and assessment as charted. Pt denies pain. SpO2 was 94% on 2L NC, will continue to monitor. Pt denies any further needs at this time. Call light within reach. Workforce Investment Act Career Manager entered room to give patient his medications and patients IV was beeping. Pt stated it beeps every time I bend my arm. Workforce Investment Act Career Manager offered to move the IV to a different location and pt agreed. Workforce Investment Act Career Manager moved IV to the right FA and IVL the right AC. Will continue to monitor. Call light within reach. Workforce Investment Act Career Manager educated pt on the use of acapella and pt returned demonstration. Workforce Investment Act Career Manager also educated the pt on the need to prone. Pt verbalized understanding and stated he can lay on his stomach for short periods of time. Patients also stated if he can't lay on his stomach he will lay on his sides. Will continue to monitor. Pt laying in bed watching TV when sheet writer entered the room. Pt is A&O x4. Vitals and assessment as charted. Pt denies pain. SpO2 was 95% on 2L NC, pt is ARAIZA. Pt denies any further needs at this time. Call light within reach. documented in this encounter [employer] Phone: 02-21-2021 Hospital Discharge instructions Patrick Darling RN - 02/21/2021 3:08 PM EDT Good [...] at most local grocery stores, pharmacies, and chain super-stores. If you have any questions about your diet or nutrition, call the hospital and ask for the dietitian. Patrick Darling RN - 02/21/2021 3:08 PM EDT Continuity of Care Form Patient Name: Rufina Velazquez : 1960 Admit date: 02/17/2021 Discharge date: Code Status Order: Full Code Advance Directives: Admitting Physician: Orquidea Naranjo MD PCP: Massiel Moore APRN - EMRE Discharging Nurse: Discharging Hospital Unit/Room#: 0323/0323-01 Discharging Unit Phone Number: Emergency Contact: Extended Emergency Contact Information Primary Emergency Contact: Meenakshi Feliciano Address: [address] [place] Relation: Spouse Hearing or visual needs: None Other needs: None Preferred language: Emirati Digital Media Producer needed? No Past Surgical History: Past Surgical History: Procedure Laterality Date BUNIONECTOMY Right 10/19/2014 With Chelectomy performed by Dr. Booker CATARACT REMOVAL right HAND TENDON SURGERY TOE ARTHROPLASTY Right 03/11/2017 TOE TOTAL ARTHROPLASTY, REVISIONAL METATARSUS PREMUS REPAIR, GREAT TOE performed by Jaylon Clifton DPM at [facility] OR TOE SURGERY Right 03/11/2017 [...] (HCC) J44.9 Acute respiratory failure with hypoxia ([facility]) J96.01 Severe malnutrition ([facility]) E43 Isolation/Infection: Isolation Droplet Plus Droplet Plus Patient Infection Status Infection Onset Added Last Indicated Last Indicated By Review Planned Expiration Resolved Resolved By COVID-19 02/11/21 02/17/21 02/17/21 COVID-19, Rapid 03/02/21 03/03/21 S/S 02/11 MRSA 04/17/14 04/17/14 Yenny Franco, TELEHEALTH NURSE EDUCATOR - ASSURANCE SENIOR MANAGER INSURANCE 04/09/2014 buttock wound Resolved COVID-19 Rule Out [...] MENTAL STATUS:} IV Access: { MEGHAN IV ACCESS:086074153} Nursing Mobility/ADLs: Walking {CHP DME ADLs:564569477} Transfer {CHP DME ADLs:787658110} Bathing {CHP DME ADLs:474866598} Dressing {CHP DME ADLs:353410052} Toileting {CHP DME ADLs:283839708} Feeding {CHP DME ADLs:463394054} Photography Spotter {P DME ADLs:825791134} Med Delivery {[facility] MED Delivery:713569197} Wound Care Documentation and Therapy: Incision 10/19/14 Toe (Comment which one) Right (Active) Number of days: 2317 Incision 03/11/17 Toe (Comment which one) Right (Active) Number of days: 1443 Elimination: Continence: Bowel: {YES / NO:} Bladder: {YES / NO:} Urinary Catheter: {Urinary Catheter:178342083} Colostomy/Ileostomy/Ileal Conduit: {YES / NO:} Date of Last BM: Intake/Output Summary (Last 24 hours) at 02/21/2021 1508 Last data filed at 02/21/2021 1250 Gross per 24 hour Intake 1100 ml Output Net 1100 ml I/O last 3 completed shifts: In: 1100 [P.O.:1100] Out: - Safety Concerns: { MEGHAN Safety Concerns:633809091} Impairments/Disabilities: { MEGHAN Impairments/Disabilities:7707459 73} Nutrition Therapy: Current Nutrition Therapy: { MEGHAN Diet List:980977597} Routes of Feeding: {CHP DME Other Feedings:693507765} Liquids: {Patient Accounting Representative liquid thickness:28091} Daily Fluid Restriction: {CHP DME Yes amt example:082088117} Last Modified Barium Swallow with Video (Video Swallowing Test): {Done Not Done Date:} Treatments at the Time of Hospital Discharge: Respiratory Treatments: Oxygen Therapy: {Therapy; copd oxygen:10948} Ventilator: { CC Vent List:638465761} Rehab Therapies: {THERAPEUTIC INTERVENTION:2246235682} Weight Bearing Status/Restrictions: {[facility] Weight Bearin} Other Medical Equipment (for information only, NOT a DME order): {EQUIPMENT:736830747} Other Treatments: Patient's personal belongings (please select all that are sent with patient): {[facility] DME Belongings:649305453} RN SIGNATURE: {Esignature:133812442} CASE MANAGEMENT/SOCIAL WORK SECTION Inpatient Status Date: Readmission Risk Assessment Score: Readmission Risk Risk of Unplanned Readmission: 12 Discharging to Facility/ Agency Name: Address: Phone: Fax: Dialysis Facility (if applicable) Name: Address: Dialysis Schedule: Phone: Fax: Private Household Worker/Elementary School Art Teacher signature: {Esignature:066997564} PHYSICIAN SECTION Prognosis: {Prognosis:5146925759} Condition at Discharge: { Patient Condition:090174484} Rehab Potential (if transferring to Rehab): {Prognosis:0065476137} Recommended Labs or Other Treatments After Discharge: Physician Certification: I certify the above information and transfer of Rufina Velazquez is necessary for the continuing treatment of the diagnosis listed and that he requires {Admit to Appropriate Level of Care:55538} for {GREATER/LESS:290322936} 30 days. Update Admission H&P: {CHP DME Changes in HandP:274333216} PHYSICIAN SIGNATURE: {Esignature:319114517} The following attachments cannot be sent through Care Everywhere.Coronavirus Disease (COVID-19): General Info (Emirati)Coronavirus Disease (COVID-19): Hospital Discharge (Emirati)Smoking Cessation: Health Benefits: General Info (Emirati)Oxygen Therapy (Emirati)documented in this encounter [employer] Phone: 02-21-2021 Hospital course Narrative Discharge Summary [...] Problem List Diagnosis Date Noted Severe malnutrition ([facility]) 02/18/2021 Pneumonia due to COVID-19 virus 02/17/2021 COPD (chronic obstructive pulmonary disease) ([facility]) 02/17/2021 Acute respiratory failure with hypoxia ([facility]) 02/17/2021 Left adrenal mass ([facility]) 06/06/2015 GERD (gastroesophageal reflux disease) 04/25/2014 Tobacco abuse 03/27/2014 Discharge Medications: Rufina Velazquez Home Medication Instructions JAKE:[id number] Printed on:02/21/21 1153 Medication Information ascorbic acid [...] applicable) MIGUELITO/ARB in CHF: NA Statin in [place]: NA ASA in [place]: NA Statin in CVA: NA Antiplatelet in CVA: NA Total time spent on discharge services: 40 minutes Including the following activities: Evaluation and Management of patient Discussion with patient and/or surrogate about current care plan Coordination with Case Management and/or Elementary School Art Teacher Coordination of care with Consultants (if applicable) Coordination of care with Receiving Facility Physician (if applicable) Completion of DME forms (if applicable) Preparation of Discharge Summary Preparation of Medication Reconciliation Preparation of Discharge Prescriptions Signed: Yenny Franco APRN - EMRE, RAFAELA, PAYROLL DIRECTOR-C 02/21/2021, 11:53 AM Associated attestation - Orquidea Naranjo MD - 02/21/2021 12:51 PM EDT Orquidea Naranjo M.D. Internal Medicine PA/PAYROLL DIRECTOR Discharge Summary Attestation Patient: Rufina Velazquez I personally evaluated and examined the patient [id number] in conjunction with the PA/PAYROLL DIRECTOR and agree with the management and dispostition of the patient. Please see the PA/PAYROLL DIRECTOR's note for full details. My martel findings [...] care plan Coordination with Case Management and/or Elementary School Art Teacher Coordination of care with Consultants (if applicable) Coordination of care with Receiving Facility Physician (if applicable) Completion of DME forms (if applicable) Preparation of Discharge Summary Preparation of Medication Reconciliation Preparation of Discharge Prescriptions Orquidea Naranjo MD , M.D. 02/21/2021 12:51 PMdocumented in this encounter [employer] Phone: 02-17-2021 Note 1. No evidence of pu lmonary embolism. 2. Advanced emphysema. 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 [employer] Phone: Evaluation + Plan note Future Appointments Appointment Date:06/13/2024 09:15:00 AM Scheduled Provider:Silviano Friend MD Location:[facility] Appointment Type:[facility] Evaluation note Diagnosis Pneumonia due to COVID-19 virus- Primary COVID-19 Hypoxia Hypoxemia COPD (chronic obstructive pulmonary disease) (HCC) Chronic airway obstruction, not elsewhere classified Tobacco abuse Tobacco use disorder Acute respiratory failure with hypoxia (HCC) Acute respiratory failure Severe malnutrition (HCC) Nutritional marasmus documented in this encounter [employer] Phone: evaluation note* Diagnosis Sprain of right ankle, unspecified ligament, initial encounter- Primary Right foot pain Pain in limb documented in this encounter [employer] Phone: evaluation note* Diagnosis Screening PSA (prostate specific antigen) Special screening for malignant neoplasm of prostate Gastroesophageal reflux disease without esophagitis Esophageal reflux Lipid screening Screening for lipoid disorders documented in this encounter [employer] Phone: [email or web address] note* Diagnosis S/P spinal fusion Arthrodesis status documented in this encounter [employer] Phone: [email or web address] note* Diagnosis S/P spinal fusion Arthrodesis status documented in this encounter [employer] Phone: Hospital course Narrative No data available for this section [facility] Hospital Discharge instructions No data available for this section [facility] Progress note No data available for this section [facility] Summary Purpose Family History No Family History Records FoundNo Family History Records FoundNo Family History Records FoundNo Family History Records Found No data available for this section No Family History Records Found Advance Directives No Advanced Directives Records FoundDocuments on File Type Date Recorded Patient Draw Furnace Tender Expl anation Advance Directives and Living Will Power of Portable Router Operator Latest Code Status on File Code Status Date Activated Date Inactivated Comments Full Code 03/11/2017 6:27 AM 03/11/2017 10:45 AM Full Code 10/19/2014 10:46 AM 10/19/2014 1:29 PM Documents on File Type Date Recorded Patient Draw Furnace Tender Expl anation Advance Directives and Living Will Power of Portable Router Operator Latest Code Status on File Code Status Date Activated Date Inactivated Comments Full Code 03/11/2017 6:27 AM 03/11/2017 10:45 AM Full Code 10/19/2014 10:46 AM 10/19/2014 1:29 PM Documents on File Type Date Recorded Patient Draw Furnace Tender Expl anation ACP-Advance Directive ACP-Power of Portable Router Operator Healthcare Agents on File Name Relationship [...] tobacco use Procedures CT Lung Screen (Annual) [place] LDCT FOR LUNG CA SCREEN HC CT CHEST SCREENING LOW DOSE WOUT CONT Massiel Moore, TELEHEALTH NURSE EDUCATOR - ASSURANCE SENIOR MANAGER INSURANCE [address] [place] [address] [place], [place] Additional Source Comments (unrecognized sect ion and content) No Status Records FoundNo Status Records FoundNo Status Records FoundNo Status Records FoundNo Status Records Found INFORMATION SOURCE (unrecogn ized section and content) DATE CREATED AUTHOR 11/09/2017 [facility] DATE CREATED AUTHOR AUTHOR'S ORGANIZ ATION 08/29/2022 [facility] DATE CREATED AUTHOR AUTHOR'S ORGANIZ ATION 08/15/2023 [facility] DATE CREATED AUTHOR AUTHOR'S ORGANIZ ATION 09/17/2023 [facility] DATE CREATED AUTHOR AUTHOR'S ORGANIZ ATION 06/15/2024 [facility] Reason for Visit (unrecogniz ed section and content) Status Reason Specialty Diagnoses / Procedures Referre d By Contact Referred To Contact Closed Cardiology Diagnoses Radiating chest pain Procedures Stress test, myoview HC NM SEST. REST STRESS MULT Massiel Moore, TELEHEALTH NURSE EDUCATOR - ASSURANCE SENIOR MANAGER INSURANCE [address] [place] [address] [place], [place] Status Reason Specialty Diagnoses / Procedures Referre d By Contact Referred To Contact Closed Radiology Diagnoses Personal history of tobacco use Procedures CT Lung Screen (Annual) [place] LDCT FOR LUNG CA SCREEN HC CT CHEST SCREENING LOW DOSE WOUT CONT Massiel Moore, TELEHEALTH NURSE EDUCATOR - ASSURANCE SENIOR MANAGER INSURANCE [address] [place] [address] [place] Status Reason Specialty Diagnoses / Procedures Referre d By Contact Referred To Contact Closed Radiology Diagnoses Epigastric pain Radiating chest pain Procedures NM HEPATOBILIARY SCAN W EJECTION FRACTION NM HEPATOBILIARY HC NM HEPATOBILIARY IMAGING W PHARM Mary, Massiel Toney, TELEHEALTH NURSE EDUCATOR - ASSURANCE SENIOR MANAGER INSURANCE [address] [place] [address] [place], [place] Reason Comments Headache Onset 1 week ago Shortness of Breath Onset this AM, worse now. Pt reports his has Covid and states he may have it Cough Productive Status Reason Specialty Diagnoses / Procedures Referred By Contact Referred To Contact Diagnoses Hypoxia Pneumonia due to COVID-19 virus COVID-19 Orquidea Naranjo MD [address] [place] [address] [facility] Reason Comments Foot Injury Pt here for [...] Russell RN)1319 (Given - Provider: Mary Alice Russell RN)1646 (Given - Provider: Mary Alice Russell, SU)2051 (Given - Provider: Kamila Larry, SU) 0839 (Given - Provider: Patrick Darling RN)1458 (Given - Provider: Patrick Darling, SU)1956 (Not Given - Provider: Kamila Larry RN - Reason: Patient/family refused)2043 (Given - Provider: Kamila Larry, SU) 0752 (Given - Provider: Patrick Darling RN)1250 (Given - Provider: Patrick Darling, RN)1527 (Given - Provider: Patrick Darling, RN)2099 (Due) dexamethasone (DECADRON) tablet 6 mg 6 mg, Oral, DAILY, First dose on 02/17/21 at 1700, For 10 doses 0851 (Given - Provider: Mary Alice Russell RN) 0840 (Given - Provider: Patrick Darling, RN) 0753 (Given - Provider: Patrick Darling, RN) enoxaparin (LOVENOX) injection 30 mg 30 mg, SubCUTAneous, 2 TIMES DAILY, First dose on 02/17/21 at 2100 0851 (Given - Provider: Mary Alice Russell RN)2050 (Given - Provider: Kamila Larry, SU) 0838 (Given - Provider: Patrick Darling, SU)2043 (Given - Provider: Kamila Larry, SU) 0750 (Given - Provider: Patrick Darling RN)2100 (Due) famotidine (PEPCID) tablet 20 mg 20 mg, Oral, 2 TIMES DAILY, First dose on 02/17/21 at 2100 0850 (Given - Provider: Mary Alice Russell RN)2051 (Given - Provider: Kamila Larry RN) 0839 (Given - Provider: Patrick Darling RN)204 (Given - Provider: Kamila Larry RN) 0754 (Given - Provider: Patrick Darling RN)2100 (Due) ipratropium-albuterol (DUONEB) nebulizer solution 1 ampule 1 ampule, Inhalation, 4 TIMES DAILY, First dose (after last modification) on Thu02/18/21 at 2000 0543 (Given - Provider: Shanta [...] RN) 0838 (Patch Applied - Provider: Patrick Darling, RN) 0748 (Patch Applied - Provider: Patrick Darling, RN) potassium chloride (KLOR-CON M) extended release tablet 40 mEq 40 mEq, Oral, 2 TIMES DAILY WITH MEALS, First dose on Thu02/20/21 at 0845, For 4 doses, Do not crush, chew, or suck on tablet. Tablet may also be broken in half and each half swallowed separately. 0852 (Given - Provider: Patrick Darling RN)1700 (Canceled Entry - Provider: Patrick Darling RN) 0753 (Given - Provider: Patrick Darling, RN)1526 (Given - Provider: Patrick Darling, RN) remdesivir 100 mg in sodium chloride [...] RN) 1727 (New Bag - Provider: Patrick Darling RN)1757 (Due: Stopped - Provider: Patrick Darling, RN) 1800 (Due) sodium chloride flush 0.9 % injection 10 mL 10 mL, IntraVENous, EVERY 12 HOURS SCHEDULED (2 times per day), First dose on Thu02/17/21 at 2100 0851 (Given - Provider: Mary Alice Russell RN)2052 (Given - Provider: Kamila Larry RN) 0838 (Given - Provider: Patrick Darling RN)2044 (Given - Provider: Kamila Larry, SU) 0748 (Given - Provider: Patrick Darling, RN)2100 (Due) Vitamin D (CHOLECALCIFEROL) tablet 2,000 Units 2,000 Units, Oral, DAILY, First dose on Thu02/17/21 at 1700, Maintenance Dose. 0850 (Given - Provider: Mary Alice Russell RN) 0840 (Given - Provider: Patrick Darling, SU) 0753 (Given - Provider: Patrick Darling, RN) zinc sulfate (ZINCATE) capsule 100 mg 100 mg, Oral, DAILY, First dose on Thu02/18/21 at 1315, Each 220mg Zinc Sulfate cap contains 50mg elemental zinc. 0850 (Given - Provider: Mary Alice Russell RN) 0838 (Given - Provider: Patrick Darling RN) 0752 (Given - Provider: Patrick Angelo, RN) PRN Medication Order 02/19/2021 02/20/2021 02/21/2021 0.9 % sodium chloride bolus 30 mL (0.438 mL/kg), IntraVENous, at 180 mL/hr, Administer over 10 Minutes, PRN, for Remdesivir line flush, Starting on 02/17/21 at 1737 0.9 % sodium chloride infusion 25 mL, IntraVENous, at 100 mL/hr, PRN, If patient receiving piggyback infusions without ordered maintenance IV fluids or with frequent/long duration piggyback infusions, Starting on 02/17/21 at 1632, Administer at the same rate [...] EVERY 4 HOURS PRN, Cough, Starting on 02/17/21 at 1632 melatonin tablet 5 mg 5 [...] Nausea, Vomiting, Starting on 02/17/21 at 1632 polyethylene glycol (GLYCOLAX) packet 17 [...]
Care Teams (unrecognized sec tion and content) Business Process Consultant Relationship Specialty Start Date End Date Massiel Moore APRN - CNP PCP - General 03/27/14 Business Process Consultant Relationship Specialty Start Date End Date Massiel Moore APRN - CNP PCP - General 03/27/14 Business Process Consultant Relationship Specialty Start Date End Date Massiel Moore APRN - CNP PCP - General 03/27/14 Business Process Consultant Relationship Specialty Start Date End Date Might, Massiel Toney [employer] [facility] 03/27/14 Business Process Consultant Relationship Specialty Start Date End Date Might, Massiel Dawna RAFAELA [facility] 03/27/14 FOR RECORDS PERTAINING TO PATIENTS WHO [...] BE BASED ON THE PRIMARY CLINICAL RECORDS. [facility], [facility]. provides no warranty or guarantee of the accuracy or completeness of information in this document.
== END 2024-07-05 13:27 | disposition home or self-care (01) ==
LOC: PM 13:27
PROVIDERS: PCP Family Medicine; Visit Provider Anesthesiology Pain Medicine
DX: M79.18 Myalgia, other site (principal)
CPT/HCPCS: 20552; J0665; J1010